=== PATIENT | female | born 1935 | race Caucasian/White ===

== ENCOUNTER 2016-05-18 13:08 | Emergency (ER) | payer OTHER, MEDICARE ==
[~2016-05-18] VITALS: Ht 167.6 cm; Wt 75.0 kg
[~2016-05-18 13:08] MED LIST: AMLO-114 PO; ATEN-175 PO; CALC600T PO; CHOL100027 PO; CLC100 PO; ETAN25IN4 SC; FRRG PO; HYDR25TA5 PO; PRED-301 PO; RXC5 PO; SYN125 PO; VALS320T PO; WARF5TAB7 PO
[2016-05-18] MEDS ORDERED: HYDR25TA4 PO (13:44)
[2016-05-18] MEDS ORDERED: WARF7.5T4 PO (13:46)
[2016-05-18] MEDS ORDERED: SYN137 PO (13:46)
[2016-05-18 14:24] VITALS: Ht 167.6 cm; Wt 75.0 kg
[2016-05-18] MEDS ORDERED: ONDANSETRON INJ 2 MG/ML 2 ML VIAL IV STA (14:32)
--- NOTE | 2016-05-18 14:36 | DIAGNOSTIC IMAGING REPORT ---
LEFT SHOULDER MIN 2 VIEWS ROUTINE CLINICAL HISTORY: Left shoulder pain status post trauma. COMPARISON: Chest x-ray dated 01/28/2016 DISCUSSION: There is an acute transverse humeral neck fracture. There is 7 mm of renal displacement of the distal fragment. There are left basal airspace opacities likely atelectatic. IMPRESSION: Acute humeral neck fracture. Electronically signed by: Sheng Kang M.D. 05/18/2016 2:34 PM Dictated Date/Time: 05/18/2016 2:33 PM
[2016-05-18] MEDS: HYDROmorphone INJ 0.5 MG/0.5 ML SYR IV PRN ×2 (14:43→15:24)
[2016-05-18 14:55] LABS: BASO % 0.2 %; BASO ABS # 0.02 K/uL (0-0.2); COMPLETE YES; EOS % 1.1 %; IG% 0.4 %; LYMPH % 14.8 %; LYMPH ABS # 1.36 K/uL (1.2-3.4); MEAN CELL VOLUME 85.1 fL (80-100); MEAN CORPUSCULAR HEMOGLOBIN 28.9 pg (25-34); MEAN PLATELET VOLUME 9.1 fL (7.4-10.4); MONO % 7.5 %; PLATELET COUNT 151 K/uL (130-400); WHITE BLOOD COUNT 9.17 K/uL (4.8-10.8)
[2016-05-18 14:59] LABS: INR 2.5 (0.9-1.1); PARTIAL THROMBOPLASTIN RATIO 1.3; PROTHROMBIN TIME (PATIENT) 27.4 SECONDS (9.0-12.0)
--- NOTE | 2016-05-18 15:01 | DIAGNOSTIC IMAGING REPORT ---
CHEST ONE VIEW PORTABLE CLINICAL HISTORY: fall. Left shoulder pain, left rib pain pain COMPARISON STUDY: 01/28/2016 FINDINGS: Fracture left humeral neck. Mild cardiomegaly. Platelike atelectasis both lung bases. Lungs otherwise appear clear. IMPRESSION: Fracture proximal left humerus. Minimal basilar platelike atelectasis. Electronically signed by: Les Rivera M.D. 05/18/2016 3:00 PM Dictated Date/Time: 05/18/2016 2:58 PM
[2016-05-18 15:08] LABS: BUN/CREATININE RATIO 22.8 (10-20); CALCIUM 8.8 mg/dl (8.5-10.1); CREATININE 0.86 mg/dl (0.60-1.20); POTASSIUM 3.7 mmol/L (3.5-5.1)
[2016-05-18 15:17] VITALS: O2SAT 96
--- NOTE | 2016-05-18 16:19 | EMERGENCY ROOM VISIT NOTE ---
History Report prepared by Ese: Josefa Christian Under the Supervision of: Dr. Nacho Hui M.D. First contact with patient: 14:12 Chief Complaint: FALL Stated Complaint: shoulder pain History of Present Illness The patient is an 80 year old female who presents to the Emergency Room with complaints of a sudden fall that occurred just prior to arrival. She currently rates her discomfort as a 6-7/10 in severity. The patient notes that she tripped and fell on carpet onto her left shoulder. She states that she has been experiencing left shoulder pain since the fall. The patient denies hitting her head, but states that she is on blood thinners. She states that her last INR level was checked one month ago. Nursing staff reports that the patient received 15 of Morphine and 4 of Zofran prior to arrival. Pt denies LOC , headache, visual changes, neck pain, chest pain, breathing difficulties, nausea, vomiting, abdominal pain, back pain, numbness, weakness, open wounds, active bleeding, or other complaints. Source of History: patient, nursing staff Onset: prior to arrival Position: other (global) Symptom Intensity: 6-7/10 Quality: other (fall) Timing: other (sudden) Note: Associated Symptoms: left shoulder pain. Review of Systems See HPI for pertinent positives and negatives. A total of ten systems were reviewed and were otherwise negative. Past Medical & Surgical Medical Problems: (1) Arthritis (2) Humerus fracture (3) Hypertension (4) Hypothyroidism (5) Osteoporosis (6) Paroxysmal atrial fibrillation (7) Rheumatoid arthritis (8) Shoulder fracture, right (9) TIA (transient ischemic attack) Surgical Problems: (1) H/O colonoscopy (2) H/O foot surgery (3) H/O neck surgery (4) H/O vaginal hysterectomy (5) H/O: hysterectomy (6) History of esophagogastroduodenoscopy (EGD) (7) S/P cholecystectomy (8) S/P cholecystectomy Family History Non-contributory secondary to age Social History Smoking Status: Never Smoker Marital Status: Occupation Status: retired Current/Historical Medications Scheduled Amlodipine (Norvasc), 5 MG PO DAILY Atenolol (Tenormin), 100 MG PO DAILY Calcium Carbonate (Calcium 600), 600 MG PO DAILY Cholecalciferol (Vitamin D 1000 Unit), 1,000 INTER.UNIT PO DAILY Etanercept (Enbrel), 25 MG SC 2XWK Ferrous Gluconate (Ferrous Gluconate), 324 MG PO BIDM Hydrochlorothiazide (Hctz), 25 MG PO 3XWK Levothyroxine Sodium (Levothyroxine Sodium), 137 MCG PO QPM Prednisone (Prednisone), 5 MG PO DAILY Valsartan (Diovan), 320 MG PO DAILY Warfarin Sod (Jantoven), 5 MG PO DIRECTED Warfarin Sod (Jantoven), 7.5 MG PO MWF Scheduled PRN Oxycodone HCl (Oxycodone HCl), 5 MG PO Q6HWA PRN for Pain Oxycodone Ir (Roxicodone Ir), 1-2 TAB PO Q4H PRN for Severe Pain Allergies Coded Allergies: Cephalexin (Verified Allergy, Unknown, RASH, 05/18/16) Uncoded Allergies: HAIR DYE (Allergy, Unknown, RASH, 01/28/15) Physical Exam Vital Signs Date Time Temp Pulse Resp B/P Pulse Ox O2 Delivery O2 Flow Rate FiO2 05/18/16 17:30 36.9 68 18 143/80 94 05/18/16 16:53 68 94 05/18/16 16:48 73 95 05/18/16 16:43 71 95 05/18/16 16:38 72 94 05/18/16 15:38 71 18 91 05/18/16 15:17 96 Nasal Cannula 2.0 05/18/16 15:08 70 25 88 05/18/16 14:57 143/80 05/18/16 14:57 69 18 143/80 96 Room Air 05/18/16 14:38 71 12 05/18/16 14:24 95 Room Air 05/18/16 14:08 70 16 95 05/18/16 13:58 150/81 05/18/16 13:57 69 18 150/81 05/18/16 13:38 69 22 96 05/18/16 13:23 72 05/18/16 13:20 36.9 70 18 163/105 95 Room Air 05/18/16 13:12 163/105 Pain Rating (0-10): 6.0 Physical Exam GENERAL: Awake, alert, uncomfortable-appearing, in no distress HENT: Normocephalic, atraumatic. Oropharynx unremarkable. EYES: Normal conjunctiva. Sclera non-icteric. NECK: Supple. No nuchal rigidity. FROM. No JVD. RESPIRATORY: Clear to auscultation. CARDIAC: Regular rate, normal rhythm. Extremities warm and well perfused. Pulses equal. ABDOMEN: Soft, non-distended. No tenderness to palpation. No rebound or guarding. No masses. RECTAL: Deferred. MUSCULOSKELETAL: Mild left breast tenderness. Left shoulder is immobilized. Tenderness over left shoulder. Left arm is NVI. Right arm and both legs are atraumatic. The back is symmetrical on inspection without obvious abnormality. There is no CVA tenderness to palpation. No joint edema. LOWER EXTREMITIES: Calves are equal size bilaterally and non-tender. No edema. No discoloration. NEURO: Normal sensorium. No sensory or motor deficits noted. SKIN: No rash or jaundice noted. Medical Decision & Procedures ER Provider Diagnostic Interpretation: X-ray: Per my interpretation, radiologist review. LEFT SHOULDER MIN 2 VIEWS ROUTINE CLINICAL HISTORY: Left shoulder pain status post trauma. COMPARISON: Chest x-ray dated 01/28/2016 DISCUSSION: There is an acute transverse humeral neck fracture. There is 7 mm of renal displacement of the distal fragment. There are left basal airspace opacities likely atelectatic. IMPRESSION: Acute humeral neck fracture. Electronically signed by: Sheng Kang M.D. 05/18/2016 2:34 PM Dictated Date/Time: 05/18/2016 2:33 PM CHEST ONE VIEW PORTABLE CLINICAL HISTORY: fall. Left shoulder pain, left rib pain pain COMPARISON STUDY: 01/28/2016 FINDINGS: Fracture left humeral neck. Mild cardiomegaly. Platelike atelectasis both lung bases. Lungs otherwise appear clear. IMPRESSION: Fracture proximal left humerus. Minimal basilar platelike atelectasis. Electronically signed by: Les Rivera M.D. 05/18/2016 3:00 PM Dictated Date/Time: 05/18/2016 2:58 PM Laboratory Results 05/18/16 14:40 Red Blood Count 4.70, Mean Corpuscular Volume 85.1, Mean Corpuscular Hemoglobin 28.9, Mean Corpuscular Hemoglobin Concent 34.0, Mean Platelet Volume 9.1, Neutrophils (%) (Auto) 76.0, Lymphocytes (%) (Auto) 14.8, Monocytes (%) (Auto) 7.5, Eosinophils (%) (Auto) 1.1, Basophils (%) (Auto) 0.2, Neutrophils # (Auto) 6.96, Lymphocytes # (Auto) 1.36, Monocytes # (Auto) 0.69, Eosinophils # (Auto) 0.10, Basophils # (Auto) 0.02 05/18/16 14:40 Test 05/18/16 14:40 White Blood Count 9.17 K/uL (4.8-10.8) Red Blood Count 4.70 M/uL (4.2-5.4) Hemoglobin 13.6 g/dL (12.0-16.0) Hematocrit 40.0 % (37-47) Mean Corpuscular Volume 85.1 fL (80-100) Mean Corpuscular Hemoglobin 28.9 pg (25-34) Mean Corpuscular Hemoglobin Concent 34.0 g/dl (32-36) Platelet Count 151 K/uL (130-400) Mean Platelet Volume 9.1 fL (7.4-10.4) Neutrophils (%) (Auto) 76.0 % Lymphocytes (%) (Auto) 14.8 % Monocytes (%) (Auto) 7.5 % Eosinophils (%) (Auto) 1.1 % Basophils (%) (Auto) 0.2 % Neutrophils # (Auto) 6.96 K/uL (1.4-6.5) Lymphocytes # (Auto) 1.36 K/uL (1.2-3.4) Monocytes # (Auto) 0.69 K/uL (0.11-0.59) Eosinophils # (Auto) 0.10 K/uL (0-0.5) Basophils # (Auto) 0.02 K/uL (0-0.2) RDW Standard Deviation 45.5 fL (36.4-46.3) RDW Coefficient of Variation 14.6 % (11.5-14.5) Immature Granulocyte % (Auto) 0.4 % Immature Granulocyte # (Auto) 0.04 K/uL (0.00-0.02) Prothrombin Time 27.4 SECONDS (9.0-12.0) Prothromb Time International Ratio 2.5 (0.9-1.1) Activated Partial Thromboplast Time 34.4 SECONDS (21.0-31.0) Partial Thromboplastin Ratio 1.3 Anion Gap 10.0 mmol/L (3-11) Est Creatinine Clear Calc Drug Dose 52.2 ml/min Estimated GFR () 72.9 Estimated GFR (Non- 62.9 BUN/Creatinine Ratio 22.8 (10-20) Calcium Level 8.8 mg/dl (8.5-10.1) Total Bilirubin 0.5 mg/dl (0.2-1) Direct Bilirubin 0.1 mg/dl (0-0.2) Aspartate Amino Transf (AST/SGOT) 28 U/L (15-37) Alanine Aminotransferase (ALT/SGPT) 27 U/L (12-78) Alkaline Phosphatase 76 U/L (45-117) Total Protein 7.7 gm/dl (6.4-8.2) Albumin 3.1 gm/dl (3.4-5.0) Laboratory results reviewed by me Medications Administered Medications (Trade) Dose Ordered Sig/Fransisca Route Start Time Stop Time Status Last Admin Dose Admin Hydromorphone HCl (Dilaudid Inj) 0.5 mg Q15M PRN IV 05/18/16 14:45 05/18/16 18:49 DC 05/18/16 15:24 0.5 MG Ondansetron HCl (Zofran Inj) 4 mg NOW STAT IV 05/18/16 14:32 05/18/16 14:34 DC 05/18/16 14:42 4 MG Oxycodone HCl (Roxicodone Immediate Rel 5MG Home Pack) 1 homepack UD ONCE PO 05/18/16 17:30 05/18/16 17:31 DC 05/18/16 17:46 1 HOMEPACK ED Course 1423: The patient was evaluated in room B4B. A complete history and physical exam was performed. 1432: Ordered Zofran Inj 4 mg IV. 1440: I reevaluated the patient and confirmed that she follows with [facility]. 1445: Ordered Dilaudid Inj 0.5 mg IV. 1559: The patient is going to be referred to [facility], due to her baseline difficulties with her right arm and new injury to her left arm. 1707: I reevaluated the patient and she is resting comfortably. I discussed all the exam findings with her and I discussed the treatment plan. She will follow up with Orthopedics and [facility] tomorrow. She is ready to go home. 1715: I discussed the patients case with Dr. Schaeffer, Orthopedics. He will follow up with the patient as an outpatient. Medical Decision Prior records reviewed and summarized above. Triage Nursing notes reviewed and agree them. Additional history obtained from her daughter. The patient's history was concerning for traumatic injury. Differential diagnosis: Etiologies such as fracture, dislocation, neurovascular compromise, compartment syndrome, soft tissue injury, as well as others were entertained. Physical examination: Consistent with an isolated left shoulder injury. ER treatment provided: Dilaudid Zofran Sling On reassessment the patient felt better. Diagnostics interpreted by me: The labs revealed an unremarkable CBC, coags, and chemistry panel. The patient has a therapeutic INR. Imaging studies: Xrays as above. The patient was evaluated. I had concerns about her ability to ambulate safely and she has a chronic problem with her right arm and is now dealing with an acute fracture in the left arm. She uses a walker at home. The patient initially would like consultation with [facility]. This was done. They did evaluate the patient for possible admission. The patient then changed her mind and wanted to go home. Her daughter felt very comfortable taking her home at their house is only one level and is set up for this. I had a long discussion with him as it case management. [facility] is planning to follow up with the patient tomorrow. She will follow-up with orthopedics as well. She has a pending appointment this week. My main recommendation was for the patient to go to rehabilitation however she strongly felt that she would like to go home.I gave my usual and customary discussion regarding this issue. Consultation: A consultation was placed with the orthopedist, Dr. schaeffer. The case was discussed and diagnostics were reviewed. The patient will be followed up in the clinic. By the evaluation outlined above emergent etiologies such as intracranial injury , dislocation, neurovascular compromise, compartment syndrome, infections, as well as others were deemed relatively unlikely. The patient and daughter were informed about the findings as listed above. All questions were answered and they were pleased with the treatment. Return instructions were outlined and the patient was discharged in stable condition. Prescription management: Oxy IR Referral: The patient was referred to [facility] for follow-up care. The patient was referred to their primary care physician in 2 to 3 days for a recheck of your current condition. The chart was completed utilizing [employer] Speech voice recognition software. Grammatical errors, random word insertions, pronoun errors, and incomplete sentences are an occasional consequence of this system due to software limitations, ambient noise, and hardware issues. Any formal questions or concerns about the content, text, or information contained within the body of this dictation should be directly addressed to the physician for clarification. [place] Drug Monitoring Program Search Results: patient reviewed within database, no issues identified Consults Time Called: 1700 Consulting Physician: Dr. Schaeffer, Orthopedics Returned Call: 1715 I discussed the patients case with Dr. Schaeffer, Orthopedics. He will follow up with the patient as an outpatient. Impression Primary Impression: Left humeral fracture Additional Impression: Accidental fall Scribe Attestation The scribe's documentation has been prepared under my direction and personally reviewed by me in its entirety. I confirm that the note above accurately reflects all work, treatment, procedures, and medical decision making performed by me. Departure Information Dispostion Home / Self-Care Prescriptions Oxycodone Ir (Roxicodone Ir) 5 Mg Tab 1-2 TAB PO Q4H Y for Severe Pain, #24 TAB Prov: Nacho Hui MD 05/18/16 Referrals Roman Bahena M.D. (PCP) Forms HOME CARE DOCUMENTATION FORM, IMPORTANT VISIT INFORMATION Patient Instructions My [facility] Additional Instructions ORTHOPEDIC INSTRUCTIONS: DO NOT drive, drink alcohol, operate machinery, or perform dangerous activities today. You were given medications in the ER that can affect your ability to safely function or operate a vehicle. Oxycodone (OxyIR) 5mg: Take 1-2 pills every four hours for breakthrough pain. Avoid alcohol, operating machinery or dangerous equipment, working on ladders or roofs, DRIVING, or situations where being under the influence may be dangerous. It is recommended to use an [id number] stool softener such as Colace, 100mg twice daily while taking this medication to avoid constipation. Acetaminophen(Tylenol) may be used for fever or pain. Use 1000mg every six hours as needed. Avoid using more than 4000mg in a 24 hour period. Ice compresses for 20 minutes at a time four times daily for 2-3 days. Use the sling as instructed. Rest and elevate your injury. Do not get the splint wet. If your splint feels excessively tight, you have worsening pain, develop numbness or tingling, or your digits appear blue, loosen the nigel wrap. Then reapply the nigel wrap gently without removing the splint. If your symptoms are not quickly relieved return to the ER for re- evaluation. Return to the ER immediately for any numbness, tingling, severe pain, extreme swelling in the extremity or as needed. Call [facility], [phone], to arrange follow up for your injury. Follow-up with your primary care physician in 2 to 3 days for a recheck of your current condition. Problem Qualifiers
[2016-05-18] MEDS ORDERED: OXYC1TAB3 PO (17:16)
[2016-05-18 17:30] VITALS: BP 143/80; PULSE 68; TEMP 36.9; O2SAT 94
[2016-05-18] MEDS ORDERED: OXYCODONE IR HOME PACK PO ONE (17:30)
== END 2016-05-18 17:30 | disposition home or self-care (01) ==
LOC: EDBD 13:08 → C.EDB 13:11
DX: S42.292A Other displaced fracture of upper end of left humerus, initial encounter for closed fracture (principal); W18.09XA Striking against other object with subsequent fall, initial encounter; M19.90 Unspecified osteoarthritis, unspecified site; I10 Essential (primary) hypertension; M81.0 Age-related osteoporosis without current pathological fracture; I48.0 Paroxysmal atrial fibrillation; E03.9 Hypothyroidism, unspecified; M06.9 Rheumatoid arthritis, unspecified; Z86.73 Personal history of transient ischemic attack (TIA), and cerebral infarction without residual deficits; Z90.710 Acquired absence of both cervix and uterus; Z90.49 Acquired absence of other specified parts of digestive tract; Z98.890 Other specified postprocedural states; Z79.01 Long term (current) use of anticoagulants; Z79.52 Long term (current) use of systemic steroids; Z79.899 Other long term (current) drug therapy

== ENCOUNTER → 2016-05-20 | Outpatient (CLI) | payer MEDICARE, OTHER ==
[~2016-05-20] MED LIST changes: -CLC100 PO; +HYDR25TA4 PO; -HYDR25TA5 PO; +OPTIRAY 320 IV PRN; +OXYC1TAB3 PO; -SYN125 PO; +SYN137 PO; +WARF7.5T4 PO
--- NOTE | 2016-05-20 15:56 | DIAGNOSTIC IMAGING REPORT ---
CHEST CTA for PULMONARY ARTERIES CT DOSE: 521.55 mGy.cm HISTORY: Dyspnea. Chest pain. SPIRAL CT TO R/O PE TECHNIQUE: Multiaxial CT images of the chest were performed following the intravenous administration of contrast to evaluate the pulmonary arteries. Maximal intensity projection images were also obtained. COMPARISON STUDY: 01/28/2015 FINDINGS: Moderate atherosclerotic change thoracic aorta. Pulmonary vasculature enhances uniformly. There are no significant filling defects. Mild bibasilar atelectatic and/or infiltrative change. Baseline emphysematous changes noted. Cirrhotic appearing liver is again noted with evidence for developing portal hypertension similar compared to the prior study. IMPRESSION: 1. No evidence for pulmonary embolus 2. Bibasilar infiltrative and/or atelectatic change progressive compared to the prior study and possibly inflammatory. 3. Hepatic cirrhosis with chronic findings of portal hypertension. 4. Stable emphysematous change Electronically signed by: Les Rivera M.D. 05/20/2016 3:54 PM Dictated Date/Time: 05/20/2016 3:51 PM
== END | disposition home or self-care (01) ==
LOC: C.CTS 15:15
PROVIDERS: ATTEND Internal Medicine
DX: R91.8 Other nonspecific abnormal finding of lung field (principal); K74.60 Unspecified cirrhosis of liver

== ENCOUNTER 2017-02-27 03:18 | Emergency (ER) | payer OTHER, MEDICARE ==
[~2017-02-27] VITALS: Ht 165.1 cm; Wt 73.7 kg
[~2017-02-27 03:18] MED LIST changes: -AMLO-114 PO; +AMLO10TA3 PO; -OPTIRAY 320 IV PRN; -OXYC1TAB3 PO
[2017-02-27 03:22] VITALS: TEMP 36.6; Ht 165.1 cm; Wt 73.7 kg
--- NOTE | 2017-02-27 03:52 | EMERGENCY ROOM VISIT NOTE ---
ED Visit Note First contact with patient: 03:27 CHIEF COMPLAINT: Animal bite HISTORY OF PRESENT ILLNESS: This 81-year-old patient presents to the emergency department with family after they sustained her dog accidentally bite to the right forearm. The patient states she was playing with the dog and accidentally bit her. The patient reports that the animal's immunizations are up-to-date. The patient complains of mild 2/10 pain at the site of the injury. Pain is worse with movement. Tetanus status is up to date. REVIEW OF SYSTEMS: A 6 system review of systems was completed with positives and pertinent negatives listed in the HPI. ALLERGIES: Keflex, reaction is a rash MEDICATIONS: Coumadin, reviewed PMH: Medical Problems: (1) Arthritis Status: Chronic (2) Hypertension Status: Chronic (3) Hypothyroidism Status: Chronic (4) Osteoporosis Status: Chronic (5) Paroxysmal atrial fibrillation Status: Chronic (6) Rheumatoid arthritis Status: Chronic (7) TIA (transient ischemic attack) Status: Resolved Surgical Problems: (1) H/O colonoscopy Status: Chronic (2) H/O foot surgery Status: Chronic (3) H/O neck surgery Status: Chronic (4) H/O vaginal hysterectomy Status: Chronic (5) H/O: hysterectomy Status: Resolved (6) History of esophagogastroduodenoscopy (EGD) Status: Chronic (7) S/P cholecystectomy Status: Resolved (8) S/P cholecystectomy Status: Chronic PHYSICAL EXAM: Vital Signs reviewed, see Nurse's notes, vital signs hypertension. GENERAL: Pleasant female, awake, alert, well appearing, no acute distress. Non toxic in appearance. MUSCULOSKELETAL: Examination of the right forearm reveals a skin tear and abrasion type of wound. There is no swelling on inspection. Palpation of the right forearm reveals no tenderness. No significant crepitus or warmth noted. No joint space, tendon, or vascular involvement. Distal pulses intact. SKIN: No signs of infection. NEURO: No sensory or motor deficits noted over all dermatomes and myotomes tested. EMERGENCY DEPARTMENT COURSE AND DECISION MAKING: I examined the patient. The patient presented with an isolated bite wound as described as above. By the history, there is no concern for rabies exposure. No signs of infection on examination. ER Treatment: Department of Health paperwork completed. Wound care by nursing. Antibiotic prophylaxis is indicated. The area was cleansed with Betadine and sterile saline and dressed with bacitracin and a bandage. Patient was started on Augmentin and blood pressure was improved Discharge instructions reviewed. Discharged in stable condition. DIAGNOSIS: Right forearm dog bite with abrasion and skin tears DISCHARGED INSTRUCTIONS: Antibiotic ointment and bandage to the areas until healed. Follow up with family doctor or return for any signs of infection (increasing redness, swelling , drainage, or fever). Keep covered when in sun until fully healed then SPF 50 or higher until scar healed. Monitor your blood pressure. It was high today. Monitor your Coumadin level as you are on antibiotics. Amoxicillin Clavulanate (Augmentin) 875mg: Take one pill twice daily for 10 days for your infection. All antibiotics can cause diarrhea. If this occurs and you feel worse or it does not resolve in 1-2 days follow up with your doctor or return to the Emergency Department as this could be signs of serious underlying problems. Any medication can cause an allergic reaction, stop the pills immediately and return to the ER for rash, hives, breathing difficulties, or swelling. Acetaminophen(Tylenol) may be used for fever or pain. Use 1000mg every six hours as needed. Avoid using more than 3000mg in a 24 hour period. Rest and drink plenty of fluids. Continue current medications. Return to the ER for severe pain, fevers, spreading redness, or any worsening of your condition. Follow up with your primary physician within 2-3 days for a recheck of the current condition. Problem List Medical Problems: (1) Arthritis Status: Chronic (2) Hypertension Status: Chronic (3) Hypothyroidism Status: Chronic (4) Osteoporosis Status: Chronic (5) Paroxysmal atrial fibrillation Status: Chronic (6) Rheumatoid arthritis Status: Chronic (7) TIA (transient ischemic attack) Status: Resolved Surgical Problems: (1) H/O colonoscopy Status: Chronic (2) H/O foot surgery Status: Chronic (3) H/O neck surgery Status: Chronic (4) H/O vaginal hysterectomy Status: Chronic (5) H/O: hysterectomy Status: Resolved (6) History of esophagogastroduodenoscopy (EGD) Status: Chronic (7) S/P cholecystectomy Status: Resolved (8) S/P cholecystectomy Status: Chronic Current/Historical Medications Scheduled Amlodipine (Norvasc), 5 MG PO DAILY Atenolol (Tenormin), 100 MG PO DAILY Calcium Carbonate (Calcium 600), 600 MG PO DAILY Cholecalciferol (Vitamin D 1000 Unit), 1,000 INTER.UNIT PO DAILY Etanercept (Enbrel), 25 MG SC 2XWK Ferrous Gluconate (Ferrous Gluconate), 324 MG PO BIDM Hydrochlorothiazide (Hctz), 25 MG PO 3XWK Levothyroxine Sodium (Levothyroxine Sodium), 137 MCG PO QPM Prednisone (Prednisone), 5 MG PO DAILY Valsartan (Diovan), 320 MG PO DAILY Warfarin Sod (Jantoven), 5 MG PO DIRECTED Warfarin Sod (Jantoven), 7.5 MG PO MWF Scheduled PRN Oxycodone HCl (Oxycodone HCl), 5 MG PO Q6HWA PRN for Pain Allergies Coded Allergies: Cephalexin (Verified Allergy, Unknown, RASH, 05/18/16) Uncoded Allergies: HAIR DYE (Allergy, Unknown, RASH, 01/28/15) Vital Signs Date Time Temp Pulse Resp B/P (MAP) Pulse Ox O2 Delivery O2 Flow Rate FiO2 02/27/17 03:22 36.6 78 18 199/96 97 Room Air Departure Information Referrals Roman Bahena M.D. (PCP) Patient Instructions My [facility]
[2017-02-27] MEDS ORDERED: AMOX875T PO (03:53)
[2017-02-27] MEDS ORDERED: AMOXICIL/CLAVU 875MG HOME PACK PO ONE ×2 (04:00→15:03)
[2017-02-27 04:01] VITALS: BP 181/89; PULSE 70; O2SAT 97
--- NOTE | 2017-02-27 04:12 | EMERGENCY ROOM VISIT NOTE ---
ED Visit Note First contact with patient: 03:27 Patient seen and examined following discussion with the physician assistant vice president. Dressing in place and bleeding controlled. Again encouraged patient to follow- up with family doctor as an outpatient, continue routine medications, discussed antibiotics. She verbalized understanding was agreeable with plan.
== END 2017-02-27 04:13 | disposition home or self-care (01) ==
LOC: C.EDB 03:19
DX: S51.851A Open bite of right forearm, initial encounter (principal); W54.0XXA Bitten by dog, initial encounter; I10 Essential (primary) hypertension; E03.9 Hypothyroidism, unspecified; M81.0 Age-related osteoporosis without current pathological fracture; I48.0 Paroxysmal atrial fibrillation; M06.9 Rheumatoid arthritis, unspecified; Z79.01 Long term (current) use of anticoagulants; Z79.52 Long term (current) use of systemic steroids

== ENCOUNTER 2020-12-12 16:41 | Inpatient (IN) ==
--- NOTE | 2020-12-12 17:01 | Emergency Department Note ---
History of Present Illness General Chief complaint: Hip Pain Stated complaint: Fall hit head left hip injury Time Seen by Provider: 12/12/20 16:48 Source: patient History of Present Illness Provider complaint: Left hip pain Onset (ago): hour(s) Location: hip and left Severity: severe Pain Consistency: + constant Quality: + sharp Relieved By: + medication (Fentanyl) Exacerbated By: + movement Associated symptoms: no chest pain, no cough, no fever/chills, no headaches, no nausea/vomiting, no shortness of breath or no syncope This is an 85-year-old female who presents with left hip pain after a fall. She states she was walking and lost her balance and fell onto her left hip. She complains of sharp pain to the left hip. It is worse with movement. It is better with fentanyl which she was given in the ambulance. She does state that she hit her head on the floor as well as a chair but denies any headache. She states she is not on any blood thinners and her warfarin was discontinued sometime ago. She last ate at approximately 10 AM this morning and only had a sweet bone. She denies any recent illness, fever, chest pain, shortness of breath, cough or cold symptoms, abdominal pain, nausea, vomiting, diarrhea, urinary symptoms or syncope. She has seen [facility] in the past for orthopedic issues. Home Medications Medication Instructions Recorded Confirmed Type atenolol 100 mg tablet 100 mg PO DAILY 01/28/18 12/12/20 History calcium carbonate 600 mg calcium 600 mg PO DAILY 01/28/18 12/12/20 History (1,500 mg) tablet (Calcium) cholecalciferol (vitamin D3) 25 1,000 unit PO DAILY 01/28/18 12/12/20 History mcg (1,000 unit) capsule (Vitamin D3) etanercept 25 mg SUBCUT 2XWK 01/28/18 12/12/20 History levothyroxine 137 mcg tablet 137 mcg PO DAILY 01/28/18 12/12/20 History losartan 100 mg tablet 100 mg PO DAILY 01/28/18 12/12/20 History alendronate 70 mg tablet 70 mg PO WK 12/12/20 12/12/20 History amlodipine 10 mg tablet 10 mg PO DAILY 12/12/20 12/12/20 History aspirin 81 mg tablet,delayed 81 mg PO DAILY 12/12/20 12/12/20 History release prednisone 5 mg tablet 5 mg PO DAILY 12/12/20 12/12/20 History sertraline 25 mg tablet 25 mg PO DAILY 12/12/20 12/12/20 History Allergies Allergy/AdvReac Type Severity Reaction Status Date / Time cephalexin Allergy Unknown RASH Verified 12/12/20 19:35 HAIR DYE Allergy Unknown RASH Uncoded 12/12/20 19:35 Past Med/Surg History Medical History (Updated 12/12/20 @ 20:33 by Teresa Rose PA-C) Anxiety Arthritis CKD (chronic kidney disease), stage III Hypertension Hypothyroidism Osteoporosis Paroxysmal atrial fibrillation Prediabetes Rheumatoid arthritis TIA (transient ischemic attack) (01/14/13) Surgical History H/O colonoscopy H/O foot surgery H/O neck surgery H/O vaginal hysterectomy H/O: hysterectomy History of esophagogastroduodenoscopy (EGD) S/P cholecystectomy S/P cholecystectomy Family History (Updated 12/12/20 @ 20:28 by Teresa Rose PA-C) Other Breast cancer Coronary heart disease Diabetes Social History (Updated 12/12/20 @ 20:28 by Teresa Rose PA-C) Smoking Status: Never smoker Hx Alcohol Use: No Hx Substance Use: No Preferred Language: Slovak Feels Safe at Home: Yes Review of Systems See HPI for pertinent positives & negatives. and A total of 10 systems reviewed and were otherwise negative Physical Exam Vital Signs Vital Signs - 24 hr 12/12/20 16:45 12/12/20 20:30 Temperature 36.8 C Temperature Source Oral Pulse Rate 75 Pulse Rate [Apical] 81 Pulse Rhythm Regular Pulse Strength Normal Respiratory Rate 18 20 Respiratory Effort / Characteristics Non-Labored Spontaneous Respiratory Depth Normal Respiratory Pattern Regular Blood Pressure 149/86 H Blood Pressure [Right Arm] 151/74 H Blood Pressure Mean 107 Blood Pressure Mean [Right Arm] 99 Blood Pressure Position Lying Pulse Oximetry 92 99 Oxygen Delivery Method Room Air Room Air Sepsis Recent Fever Within 48 Hours No Sepsis New/Unexplained Change in Mental Status N/A Sepsis Action Taken by Nursing No Action Required Constitutional: Vital signs reviewed. Eyes: Pupils are equal round reactive to light. Conjunctiva are noninjected. ENT: Pharynx is clear without erythema or exudate. Mucous membranes are moist. Neck supple without meningeal signs. Respiratory: Clear to auscultation bilaterally. Breath sounds are equal bilaterally. Cardiovascular: Regular rate and rhythm. No rubs or gallops. GI: Soft, nondistended and nontender. Bowel sounds are present. Musculoskeletal: No peripheral edema. Tenderness to the left hip. There is shortening and external rotation of the left leg. Distal pulses intact and 2+. No tenderness to the left knee or ankle. Integumentary: No cyanosis. or jaundice. Neurologic: The patient is awake and alert. Cranial nerves II-XII are intact. Motor is 5 out of 5 all extremities, although unable to assess the left leg approximately due to hip fracture. Sensation is intact to light touch all extremities. Normal speech. Psychiatric: Normal affect. Not anxious appearing. Course Consultations Consultation #1: Dr. Rendon Time: 17:27 Administered Medications Sodium Chloride (Nss) 500 mls @ 80 mls/hr IV .[id number] JAIRO Stop: 01/11/21 16:59 Last Admin: 12/12/20 20:28 Dose: 80 mls/hr Documented by: [id number] Discontinued Medications Fentanyl Citrate (Fentanyl Citrate 100 Mcg/2 Ml Vial) 50 mcg IV NOW STA Stop: 12/12/20 20:43 Last Admin: 12/12/20 20:58 Dose: 50 mcg Documented by: [id number] Hydromorphone HCl (Hydromorphone Inj 0.5 Mg/0.5 Ml Syr) 0.5 mg IV NOW STA Stop: 12/12/20 18:37 Last Admin: 12/12/20 18:39 Dose: 0.5 mg Documented by: [id number] Medical Decision Making Differential Diagnosis Left hip fracture, hip dislocation, contusion, intracranial hemorrhage, concussion Medical Records Attestation: I reviewed the patient's medical records. I did perform a limited focused review of portions of the patient's old chart on the electronic medical record. The patient has had no recent pertinent visits to this hospital. Laboratory Data Attestation: I reviewed the patient's lab results. Result diagrams: 12/12/20 17:06 12/12/20 17:06 Lab Results 12/12/20 12/12/20 12/12/20 Range/Units 17:03 17:03 17:06 WBC (4.8-10.8) K/uL RBC (4.2-5.4) M/uL Hgb (12.0-16.0) g/dL Hct (37-47) % MCV (80-100) fL MCH (25-34) pg MCHC (32-36) g/dL RDW Std Deviation (36.4-46.3) fL RDW Coeff of Blanche (11.5-14.5) % Plt Count (130-400) K/uL MPV (7.4-10.4) fL Immature Gran % (Auto) % Neut % (Auto) % Lymph % (Auto) % [place] % (Auto) % Eos % (Auto) % Baso % (Auto) % Neut # (Auto) (1.4-6.5) K/uL Lymph # (Auto) (1.2-3.4) K/uL [place]ahan # (Auto) (0.11-0.59) K/uL Eos # (Auto) (0-0.5) K/uL Baso # (Auto) (0-0.2) K/uL Immature Gran # (Auto) (0.00-0.02) K/uL PT (9.0-12.0) Seconds INR (0.9-1.1) APTT (21.0-31.0) Seconds PTT Ratio Sodium (136-145) mmol/L Potassium (3.5-5.1) mmol/L Chloride (98-107) mmol/L Carbon Dioxide (21-32) mmol/L Anion Gap (3-11) BUN (7-18) mg/dl Creatinine (0.6-1.2) mg/dl Est Cr Clr Drug Dosing ml/min Est GFR ( Amer) ml/min Est GFR (Non-Af Amer) ml/min BUN/Creatinine Ratio (10-20) Glucose (70-99) mg/dl Calcium (8.5-10.1) mg/dl Total Bilirubin (0.2-1) mg/dl AST (15-37) U/L ALT (12-78) U/L Alkaline Phosphatase (45-117) U/L Total Protein (6.4-8.2) gm/dl Albumin (3.4-5.0) gm/dl Globulin (2.5-4.0) gm/dl Albumin/Globulin Ratio (0.9-2) Urine Color Urine Appearance (Clear) Urine pH (4.5-7.5) Ur Specific [place] (1.000-1.030) Urine Protein (Negative) Urine Glucose (UA) (Negative) Urine Ketones (Negative) Urine Blood (Negative) Urine Nitrite (Negative) Urine Bilirubin (Negative) Urine Urobilinogen (Negative) Ur Leukocyte Esterase (Negative) Urine WBC (Auto) (0-5) /hpf Urine RBC (Auto) (0-4) /hpf U Hyaline Cast (Auto) (0-5) /lpf U Epithel Cells (Auto) (0-5) /lpf Urine Bacteria (Auto) (Negative) COVID-19 Eval Order Covid19 at [facility] SARS-CoV-2 (PCR) NEGATIVE (Negative) Blood Type O Positive Antibody Screen NEGATIVE 12/12/20 12/12/20 12/12/20 Range/Units 17:06 17:06 17:06 WBC 9.01 (4.8-10.8) K/uL RBC 4.67 (4.2-5.4) M/uL Hgb 13.0 (12.0-16.0) g/dL Hct 40.1 (37-47) % MCV 85.9 (80-100) fL MCH 27.8 (25-34) pg MCHC 32.4 (32-36) g/dL RDW Std Deviation 43.9 (36.4-46.3) fL RDW Coeff of Blanche 14.0 (11.5-14.5) % Plt Count 162 (130-400) K/uL MPV 9.0 (7.4-10.4) fL Immature Gran % (Auto) 0.3 % Neut % (Auto) 79.1 % Lymph % (Auto) 11.5 % Callahan % (Auto) 7.2 % Eos % (Auto) 1.8 % Baso % (Auto) 0.1 % Neut # (Auto) 7.12 H (1.4-6.5) K/uL Lymph # (Auto) 1.04 L (1.2-3.4) K/uL Callahan # (Auto) 0.65 H (0.11-0.59) K/uL Eos # (Auto) 0.16 (0-0.5) K/uL Baso # (Auto) 0.01 (0-0.2) K/uL Immature Gran # (Auto) 0.03 H (0.00-0.02) K/uL PT 10.9 (9.0-12.0) Seconds INR 1.1 (0.9-1.1) APTT 26.2 (21.0-31.0) Seconds PTT Ratio 1.0 Sodium 137 (136-145) mmol/L Potassium 4.1 (3.5-5.1) mmol/L Chloride 107 (98-107) mmol/L Carbon Dioxide 23 (21-32) mmol/L Anion Gap 7.0 (3-11) BUN 16 (7-18) mg/dl Creatinine 0.81 (0.6-1.2) mg/dl Est Cr Clr Drug Dosing 47.1 ml/min Est GFR ( Amer) 75.7 ml/min Est GFR (Non-Af Amer) 65.3 ml/min BUN/Creatinine Ratio 19.9 (10-20) Glucose 149 H (70-99) mg/dl Calcium 9.1 (8.5-10.1) mg/dl Total Bilirubin 0.6 (0.2-1) mg/dl AST 30 (15-37) U/L ALT 27 (12-78) U/L Alkaline Phosphatase 75 (45-117) U/L Total Protein 7.9 (6.4-8.2) gm/dl Albumin 3.1 L (3.4-5.0) gm/dl Globulin 4.8 H (2.5-4.0) gm/dl Albumin/Globulin Ratio 0.6 L (0.9-2) Urine Color Urine Appearance (Clear) Urine pH (4.5-7.5) Ur Specific [place] (1.000-1.030) Urine Protein (Negative) Urine Glucose (UA) (Negative) Urine Ketones (Negative) Urine Blood (Negative) Urine Nitrite (Negative) Urine Bilirubin (Negative) Urine Urobilinogen (Negative) Ur Leukocyte Esterase (Negative) Urine WBC (Auto) (0-5) /hpf Urine RBC (Auto) (0-4) /hpf U Hyaline Cast (Auto) (0-5) /lpf U Epithel Cells (Auto) (0-5) /lpf Urine Bacteria (Auto) (Negative) COVID-19 Eval Order SARS-CoV-2 (PCR) (Negative) Blood Type Antibody Screen 12/12/20 Range/Units 20:27 WBC (4.8-10.8) K/uL RBC (4.2-5.4) M/uL Hgb (12.0-16.0) g/dL Hct (37-47) % MCV (80-100) fL MCH (25-34) pg MCHC (32-36) g/dL RDW Std Deviation (36.4-46.3) fL RDW Coeff of Blanche (11.5-14.5) % Plt Count (130-400) K/uL MPV (7.4-10.4) fL Immature Gran % (Auto) % Neut % (Auto) % Lymph % (Auto) % Callahan % (Auto) % Eos % (Auto) % Baso % (Auto) % Neut # (Auto) (1.4-6.5) K/uL Lymph # (Auto) (1.2-3.4) K/uL Callahan # (Auto) (0.11-0.59) K/uL Eos # (Auto) (0-0.5) K/uL Baso # (Auto) (0-0.2) K/uL Immature Gran # (Auto) (0.00-0.02) K/uL PT (9.0-12.0) Seconds INR (0.9-1.1) APTT (21.0-31.0) Seconds PTT Ratio Sodium (136-145) mmol/L Potassium (3.5-5.1) mmol/L Chloride (98-107) mmol/L Carbon Dioxide (21-32) mmol/L Anion Gap (3-11) BUN (7-18) mg/dl Creatinine (0.6-1.2) mg/dl Est Cr Clr Drug Dosing ml/min Est GFR ( Amer) ml/min Est GFR (Non-Af Amer) ml/min BUN/Creatinine Ratio (10-20) Glucose (70-99) mg/dl Calcium (8.5-10.1) mg/dl Total Bilirubin (0.2-1) mg/dl AST (15-37) U/L ALT (12-78) U/L Alkaline Phosphatase (45-117) U/L Total Protein (6.4-8.2) gm/dl Albumin (3.4-5.0) gm/dl Globulin (2.5-4.0) gm/dl Albumin/Globulin Ratio (0.9-2) Urine Color Yellow Urine Appearance Clear (Clear) Urine pH 7.5 (4.5-7.5) Ur Specific [place] 1.012 (1.000-1.030) Urine Protein Negative (Negative) Urine Glucose (UA) Negative (Negative) Urine Ketones Negative (Negative) Urine Blood Negative (Negative) Urine Nitrite Positive A (Negative) Urine Bilirubin Negative (Negative) Urine Urobilinogen Negative (Negative) Ur Leukocyte Esterase Negative (Negative) Urine WBC (Auto) 1-5 (0-5) /hpf Urine RBC (Auto) 0-4 (0-4) /hpf U Hyaline Cast (Auto) 0 (0-5) /lpf U Epithel Cells (Auto) >30 H (0-5) /lpf Urine Bacteria (Auto) 2+ H (Negative) COVID-19 Eval Order SARS-CoV-2 (PCR) (Negative) Blood Type Antibody Screen Imaging Data Radiologist's Impression: Cervical Spine CT 12/12/20 16:53 CT OF THE CERVICAL SPINE WITHOUT CONTRAST CLINICAL HISTORY: Fall. Evaluate for fracture. COMPARISON STUDY: Cervical spine CT February 23, 2019. TECHNIQUE: Helical axial images of the cervical spine were obtained without IV contrast. Sagittal and coronal reconstructions were viewed. Automated exposure control was utilized for the study. A dose lowering technique was utilized adhering to the principles of ALARA. FINDINGS: Alignment of the cervical spine is anatomic. Vertebral body heights are maintained. No acute cervical spine fracture or subluxation is present. There is no prevertebral edema. Facet joints are intact. Severe multilevel facet arthrosis is present. Degenerative changes at the C1-C2 articulation are noted with osteophytosis. Moderate to severe multilevel disc space narrowing and osteophytosis is present. Assistant Analyst image demonstrates a right shoulder arthroplasty and proximal left humeral fracture. IMPRESSION: No acute cervical spine fracture or subluxation. ACT 112: Negative or not required by law. Electronically signed by: Loc Sauceda M.D. 12/12/2020 6:[address] 12/12/20 16:53 CT OF THE HEAD WITHOUT CONTRAST CLINICAL HISTORY: Fall. Evaluate for bleed. COMPARISON STUDY: Head CT February 23, 2019. TECHNIQUE: Helical axial images of the head were obtained without IV contrast. Automated exposure control was utilized for the study. A dose lowering technique was utilized adhering to the principles of ALARA. FINDINGS: No acute intracranial hemorrhage, midline shift or mass effect is present. White matter hypodensity suggests small vessel disease. The ventricular system is unremarkable. The basal cisterns are patent. No extra-axial collections are present. There are no findings to suggest acute dural sinus thrombosis or acute territorial infarct. No significant calvarial abnormalities are present. Visualized portions of the sinuses and mastoid air cells are clear. IMPRESSION: 1. No acute intracranial findings. 2. No calvarial fracture. ACT 112: Negative or not required by law. Electronically signed by: Loc Sauceda M.D. 12/12/2020 6:35 PM Chest X-Ray 12/12/20 16:54 XR chest 1V portable CLINICAL HISTORY: hip fx COMPARISON STUDY: Chest CT January 28, 2018. Chest radiograph February 23, 2019. FINDINGS: Right shoulder arthroplasty is incidentally noted. Cardiomegaly without evidence for pulmonary edema. There is possible trace left pleural effusion. There is minimal left basilar opacity. IMPRESSION: 1. Cardiomegaly without evidence for pulmonary edema. 2. Possible trace left pleural effusion. Minimal left basilar opacity which favors atelectasis. ACT 112: Negative or not required by law. Electronically signed by: Loc Sauceda M.D. 12/12/2020 5:20 PM Hip X-Ray 12/12/20 16:54 XR hip LT min 2V CLINICAL HISTORY: Fall. COMPARISON: Pelvis radiograph January 27, 2016. FINDINGS: Note is made of an acute displaced angulated intertrochanteric fracture of the left femur. This extends to the base of the femoral neck. Right hip arthroplasty is noted on crosstable lateral radiograph. IMPRESSION: Acute displaced angulated intertrochanteric fracture of the left femur which extends to the base of the femoral neck. ACT 112: Negative or not required by law. Electronically signed by: Loc Sauceda M.D. 12/12/2020 5:19 PM ECG Data Attestation: I personally reviewed and interpreted this ECG as follows: Indication: + other (Fall) Rate (beats per minute): 74 Rhythm: + normal sinus ECG Intervals/blocks: + Right Bundle branch block ECG [place]: + Normal ECG ST segments: no ST elevation ECG Findings: no PVCs Head Trauma GCS Score: 15 MDM Narrative I did evaluate the patient as noted above. I did obtain history from the patient as well as the paramedics. She was given 200 mcg of fentanyl and Zofran IV prior to arrival. I did place an order for continuous cardiac monitoring. The monitor showed normal sinus rhythm at a rate of 75 bpm. I did order and personally review the patient's 12-lead EKG as described above. She has no acute ischemic changes. She has a right bundle branch block. I did order and personally reviewed the images of the patient's chest and hip and pelvis x-rays as described above. She has a intertrochanteric hip fracture with displacement. I did discuss the case with Dr. Rendon of orthopedic surgery. He did review the films and stated that she will likely go to the OR tomorrow. The patient was having additional pain and so she was given Dilaudid 0.5 mg IV. I did order and review the patient's blood work as noted in the electronic medical record. CBC is unremarkable without leukocytosis or anemia. Electrolytes are unremarkable. Screening Covid test is negative. I did order a CT of the head and cervical spine. I did review the images myself as well as the radiology report as described above. There is no evidence of acute intracranial abnorm ality or cervical fracture. I did discuss the test results with the patient. She was made n.p.o. after midnight. Her pain is currently well controlled. I did discuss case with the hospitalist and bilingual patient support caseworker. She did have some additional pain and was given fentanyl 50 mcg IV. Impression & Plan Closed fracture of left hip, Acute head injury, Fall Discharge Plan Visit Data Chief Complaint: Hip Pain Stated Complaint: Fall hit head left hip injury ED Provider: Max Oneal Discharge Problem: Closed fracture of left hip, Acute head injury, Fall Patient Disposition: Being Evaluated by Hospitalist Forms Stand Alone Forms: My [facility] [employer] Prescriptions Prescriptions: No Action levothyroxine 137 mcg tablet 137 mcg PO DAILY RF: 0 atenolol 100 mg tablet 100 mg PO DAILY RF: 0 calcium carbonate [Calcium 600] 600 mg calcium (1,500 mg) Tablet 600 mg PO DAILY RF: 0 losartan 100 mg tablet 100 mg PO DAILY RF: 0 cholecalciferol (vitamin D3) [Vitamin D3] 1,000 unit Capsule 1,000 unit PO DAILY RF: 0 Enbrel 25 mg/0.5mL (0.51) syringe 25 mg subcut 2XWK RF: 0 prednisone 5 mg tablet 5 mg PO DAILY RF: 0 alendronate 70 mg tablet 70 mg PO WK RF: 0 amlodipine 10 mg tablet 10 mg PO DAILY RF: 0 sertraline 25 mg tablet 25 mg PO DAILY RF: 0 aspirin 81 mg Tablet,Delayed Release (Dr/Ec) 81 mg PO DAILY RF: 0 Referrals Referrals: Roman Bahena MD [Primary Care Provider] - Discharge Problem: Closed fracture of left hip Qualifiers: Encounter type: initial encounter Qualified Code(s): S72.002A - Fracture of unspecified part of neck of left femur, initial encounter for closed fracture Acute head injury Qualifiers: Encounter type: initial encounter Qualified Code(s): S09.90XA - Unspecified injury of head, initial encounter Fall Qualifiers: Encounter type: initial encounter Qualified Code(s): W19.XXXA - Unspecified fall, initial encounter
[2020-12-12 17:21] LABS: Basophils # (auto) 0.01 K/uL (0-0.2); Basophils % (auto) 0.1 %; Eosinophils # (auto) 0.16 K/uL (0-0.5); Eosinophils % (auto) 1.8 %; Hematocrit (blood only) 40.1 % (37-47); Immature Granulocytes # (auto) 0.03 K/uL (0.00-0.02); Immature Granulocytes % (auto) 0.3 %; Lymphocytes # (auto) 1.04 K/uL (1.2-3.4); Lymphocytes % (auto) 11.5 %; Mean Corpuscular Hemoglobin 27.8 pg (25-34); Mean Corpuscular Hgb Conc 32.4 g/dL (32-36); Mean Corpuscular Volume 85.9 fL (80-100); Monocytes # (auto) 0.65 K/uL (0.11-0.59); Monocytes % (auto) 7.2 %; Neutrophils # (auto) 7.12 K/uL (1.4-6.5); Neutrophils % (auto) 79.1 %; Platelet Count 162 K/uL (130-400); RDW Standard Deviation 43.9 fL (36.4-46.3); Red Blood Count 4.67 M/uL (4.2-5.4); White Blood Count 9.01 K/uL (4.8-10.8)
--- NOTE | 2020-12-12 17:21 | XRay Report ---
XR hip LT min 2V CLINICAL HISTORY: Fall. COMPARISON: Pelvis radiograph January 27, 2016. FINDINGS: Note is made of an acute displaced angulated intertrochanteric fracture of the left femur. This extends to the base of the femoral neck. Right hip arthroplasty is noted on crosstable lateral radiograph. IMPRESSION: Acute displaced angulated intertrochanteric fracture of the left femur which extends to t he base of the femoral neck. ACT 112: Negative or not required by law. Electronically signed by: Loc Sauceda M.D. 12/12/2020 5:19 PM
--- NOTE | 2020-12-12 17:22 | XRay Report ---
XR chest 1V portable CLINICAL HISTORY: hip fx COMPARISON STUDY: Chest CT January 28, 2018. Chest radiograph February 23, 2019. FINDINGS: Right shoulder arthroplasty is incidentally noted. Cardiomegaly without evidence for pulmon prudencio edema. There is possible trace left pleural effusion. There is minimal left basilar opacity. IMPRESSION: 1. Cardiomegaly without evidence for pulmonary edema. 2. Possible trace left pleural effusion. Minimal left basilar opacity which favors atelectasis. ACT 112: Negative or not required by law. Electronically signed by: Loc Sauceda M.D. 12/12/2020 5:20 PM
[2020-12-12 17:38] LABS: INR 1.1 (0.9-1.1); Partial Thromboplastin Time 26.2 Seconds (21.0-31.0); Prothrombin Time 10.9 Seconds (9.0-12.0)
[2020-12-12] MEDS ORDERED: HYDROmorphone INJ 0.5 MG/0.5 ML SYR IV STA ×2 (18:36→21:57)
--- NOTE | 2020-12-12 18:36 | CT Scan Report ---
CT OF THE HEAD WITHOUT CONTRAST CLINICAL HISTORY: Fall. Evaluate for bleed. COMPARISON STUDY: Head CT February 23, 2019. TECHNIQUE: Helical axial images of the head were obtained without IV contrast. Automated exposure con trol was utilized for the study. A dose lowering technique was utilized adhering to the principles o f ALARA. FINDINGS: No acute intracranial hemorrhage, midline shift or mass effect is present. White matter hyp odensity suggests small vessel disease. The ventricular system is unremarkable. The basal cisterns ar e patent. No extra-axial collections are present. There are no findings to suggest acute dural sinus thrombosis or acute territorial infarct. No significant calvarial abnormalities are present. Visualiz ed portions of the sinuses and mastoid air cells are clear. IMPRESSION: 1. No acute intracranial findings. 2. No calvarial fracture. ACT 112: Negative or not required by law. Electronically signed by: Loc Sauceda M.D. 12/12/2020 6:35 PM
--- NOTE | 2020-12-12 18:45 | CT Scan Report ---
CT OF THE CERVICAL SPINE WITHOUT CONTRAST CLINICAL HISTORY: Fall. Evaluate for fracture. COMPARISON STUDY: Cervical spine CT February 23, 2019. TECHNIQUE: Helical axial images of the cervical spine were obtained without IV contrast. Sagittal a nd coronal reconstructions were viewed. Automated exposure control was utilized for the study. A do se lowering technique was utilized adhering to the principles of ALARA. FINDINGS: Alignment of the cervical spine is anatomic. Vertebral body heights are maintained. No acut e cervical spine fracture or subluxation is present. There is no prevertebral edema. Facet joints are intact. Severe multilevel facet arthrosis is present. Degenerative changes at the C1-C2 articulatio n are noted with osteophytosis. Moderate to severe multilevel disc space narrowing and osteophytosis is present. Mule Operator image demonstrates a right shoulder arthroplasty and proximal left humeral fracture . IMPRESSION: No acute cervical spine fracture or subluxation. ACT 112: Negative or not required by law. Electronically signed by: Loc Sauceda M.D. 12/12/2020 6:43 PM
[2020-12-12 19:01] LABS: Albumin Globulin Ratio 0.6 (0.9-2); Albumin Level 3.1 gm/dl (3.4-5.0); Bilirubin,Total 0.6 mg/dl (0.2-1); Calcium 9.1 mg/dl (8.5-10.1); Globulin 4.8 gm/dl (2.5-4.0); Potassium 4.1 mmol/L (3.5-5.1); Total Protein 7.9 gm/dl (6.4-8.2)
[2020-12-12 19:35] LABS: BUN Creatinine Ratio 19.9 (10-20); Creatinine Clr Calc Pharmacy 47.1 ml/min; Est GFR (African American) 75.7 ml/min; Est GFR (Non-African American) 65.3 ml/min
[2020-12-12] MEDS: SODIUM CHLORIDE 0.9% 500 ML IV SCH (20:28)
--- NOTE | 2020-12-12 20:30 | History & Physical Report ---
Date of Service December 12, 2020 Assessment & Plan (1) Closed fracture of left hip: (2) Fall: Plan: Patient is 85-year-old female with PMH RA, HTN, paroxysmal atrial fibrillation not on anticoagulation, CKD III, prediabetes, hypothyroidism, iron deficiency anemia, anxiety presented to ER with complaint of mechanical fall and left hip pain. Denies LOC, SOB, CP, dizziness. In ER vitals stable. CT head and C-spine unremarkable. Hip x-ray:Acute displaced angulated intertrochanteric fracture of the left femur which extends to the base of the femoral neck. In ER given 0.5 mg Dilaudid with pain control Hicks catheter in place Patient mild to moderate surgical risk secondary to age and history of TIA, revised cardiac risk index score of 6% 30-day risk of , [place] or cardiac arrest Morphine as needed pain N.p.o. midnight Ortho consult, Dr. Morocho aware CBC, BMP in a.m. (3) Hypertension: Plan: Continue atenolol, amlodipine Hold losartan tomorrow morning, plan to resume after surgery (4) Rheumatoid arthritis: Plan: Follows with rheumatology-Dr. Mann Continue prednisone 5 mg daily Hold Enbrel (5) CKD (chronic kidney disease), stage III: Plan: Cr: 0.8. Baseline creatinine 0.8 Monitor renal functions, avoid nephrotoxic agents when possible (6) Paroxysmal atrial fibrillation: Plan: Not on anticoagulation Current sinus rhythm Continue atenolol (7) Prediabetes: Plan: A1c: 6.2 in 01/2020 Diabetic diet (8) TIA (transient ischemic attack): Plan: Hold aspirin until after surgery (9) Anxiety: Plan: Continue sertraline DVT Prophylaxis -SCDs DNR/DNI as per discussion with pt Follows with Dr Bahena for routine care Pt was seen and care coordinated with Dr Dorado. See addendum History of Present Illness Chief Complaint: Fall Primary Care Provider: Roman Bahena MD Patient is 85-year-old female with PMH RA, HTN, paroxysmal atrial fibrillation not on anticoagulation, CKD III, prediabetes, hypothyroidism, iron deficiency anemia, anxiety presented to ER with complaint of fall. Patient states was cleaning her living room and she was walking and lost her balance and fell. Patient states hit her head and" " saw stars", denies LOC. She reports had left hip pain and unable to ambulate. Patient reports at baseline is off balance and has had falls in the past, reports last fall approximately 10 months ago. Denies dizziness, chest pain, shortness of breath prior to fall. Patient denies paresthesias left foot. Denies fever/chills, diaphoresis, N/V/D/C, DONNELLY, dizziness, syncope, vision changes, neck pain, CP, SOB, orthopnea, palpitations, cough, sore throat, choking, otalgia, rhinorrhea, abdominal pain, extremity edema, rashes, urinary symptoms. In ER vitals stable. CT head and C-spine unremarkable. Hip x-ray:Acute displaced angulated intertrochanteric fracture of the left femur which extends to the base of the femoral neck. Allergies Allergy/AdvReac Type Severity Reaction Status Date / Time cephalexin Allergy Unknown RASH Verified 12/12/20 19:35 HAIR DYE Allergy Unknown RASH Uncoded 12/12/20 19:35 Home Medications Medication Instructions Recorded Confirmed Type atenolol 100 mg tablet 100 mg PO DAILY 01/28/18 12/12/20 History calcium carbonate 600 mg calcium 600 mg PO DAILY 01/28/18 12/12/20 History (1,500 mg) tablet (Calcium) cholecalciferol (vitamin D3) 25 1,000 unit PO DAILY 01/28/18 12/12/20 History mcg (1,000 unit) capsule (Vitamin D3) etanercept 25 mg SUBCUT 2XWK 01/28/18 12/12/20 History levothyroxine 137 mcg tablet 137 mcg PO DAILY 01/28/18 12/12/20 History losartan 100 mg tablet 100 mg PO DAILY 01/28/18 12/12/20 History alendronate 70 mg tablet 70 mg PO WK 12/12/20 12/12/20 History amlodipine 10 mg tablet 10 mg PO DAILY 12/12/20 12/12/20 History aspirin 81 mg tablet,delayed 81 mg PO DAILY 12/12/20 12/12/20 History release prednisone 5 mg tablet 5 mg PO DAILY 12/12/20 12/12/20 History sertraline 25 mg tablet 25 mg PO DAILY 12/12/20 12/12/20 History Past Med/Surg History Medical History Anxiety Arthritis CKD (chronic kidney disease), stage III Hypertension Hypothyroidism Osteoporosis Paroxysmal atrial fibrillation Prediabetes Rheumatoid arthritis TIA (transient ischemic attack) (01/14/13) Surgical History H/O colonoscopy H/O foot surgery H/O neck surgery H/O vaginal hysterectomy H/O: hysterectomy History of esophagogastroduodenoscopy (EGD) S/P cholecystectomy S/P cholecystectomy Family History Other Breast cancer Coronary heart disease Diabetes Social History (Updated 12/12/20 @ 20:28 by Teresa Rose PA-C) Smoking Status: Never smoker Hx Alcohol Use: No Hx Substance Use: No Preferred Language: Panamanian Router Operator Radial Required: No Current Living Situation: Family Current Living Situation Comment: lives with daughter Feels Safe at Home: Yes Assistive Devices: Cane and Denture - Upper Review of Systems Review of Systems: All systems reviewed & are unremarkable except as noted in HPI & below Physical Exam Physical Exam: General: no acute distress, WDWN Head: normocephalic, atraumatic Eyes: PERRL, EOM's intact, conjunctiva non-injected, anicteric ENT: normal inspection external ears, nose, mucous membranes moist Neck: supple, trachea midline Lungs: clear, no respiratory distress, no wheezing/rhonchi/rales CV: RRR, trace pretibial edema Abd: normal BS, soft, non-tender Ext: no cyanosis, no calf tenderness; LLE: +left leg shortened and externally rotated, distal pulses palpable, sensation to light touch intact +chronic deformity bilateral fingers, toes Neuro: A&O x 3, no focal deficits noted, normal affect Skin: warm, dry Results & Data Results & Data ([facility]) Vital Signs (Past 12 Hours) Vital Signs Temp Pulse Resp BP Pulse Ox 12/12/20 16:45 36.8 C 75 18 149/86 H 92 Laboratory Results Short CBC 12/12/20 Range/Units 17:06 WBC 9.01 (4.8-10.8) K/uL Hgb 13.0 (12.0-16.0) g/dL Hct 40.1 (37-47) % Plt Count 162 (130-400) K/uL BMP 12/12/20 17:06 Sodium 137 Potassium 4.1 Chloride 107 Carbon Dioxide 23 BUN 16 Creatinine 0.81 Glucose 149 H Calcium 9.1 Liver Function 12/12/20 Range/Units 17:06 Total Bilirubin 0.6 (0.2-1) mg/dl AST 30 (15-37) U/L ALT 27 (12-78) U/L Alkaline Phosphatase 75 (45-117) U/L Albumin 3.1 L (3.4-5.0) gm/dl Diagnostic Findings Cervical Spine CT 12/12/20 16:53 CT OF THE CERVICAL SPINE WITHOUT CONTRAST CLINICAL HISTORY: Fall. Evaluate for fracture. COMPARISON STUDY: Cervical spine CT February 23, 2019. TECHNIQUE: Helical axial images of the cervical spine were obtained without IV contrast. Sagittal and coronal reconstructions were viewed. Automated exposure control was utilized for the study. A dose lowering technique was utilized adhering to the principles of ALARA. FINDINGS: Alignment of the cervical spine is anatomic. Vertebral body heights are maintained. No acute cervical spine fracture or subluxation is present. T here is no prevertebral edema. Facet joints are intact. Severe multilevel facet arthrosis is present. Degenerative changes at the C1-C2 articulation are noted with osteophytosis. Moderate to severe multilevel disc space narrowing and osteophytosis is present. [employer] Functional Analyst image demonstrates a right shoulder arthroplasty and proximal left humeral fracture. IMPRESSION: No acute cervical spine fracture or subluxation. ACT 112: Negative or not required by law. Electronically signed by: Loc Sauceda M.D. 12/12/2020 6:[address] 12/12/20 16:53 CT OF THE HEAD WITHOUT CONTRAST CLINICAL HISTORY: Fall. Evaluate for bleed. COMPARISON STUDY: Head CT February 23, 2019. TECHNIQUE: Helical axial images of the head were obtained without IV contrast. Automated exposure control was utilized for the study. A dose lowering technique was utilized adhering to the principles of ALARA. FINDINGS: No acute intracranial hemorrhage, midline shift or mass effect is present. White matter hypodensity suggests small vessel disease. The ventricular system is unremarkable. The basal cisterns are patent. No extra-axial collections are present. There are no findings to suggest acute dural sinus thrombosis or acute territorial infarct. No significant calvarial abnormalities are present. Visualized portions of the sinuses and mastoid air cells are clear. IMPRESSION: 1. No acute intracranial findings. 2. No calvarial fracture. ACT 112: Negative or not required by law. Electronically signed by: Loc Sauceda M.D. 12/12/2020 6:35 PM Chest X-Ray 12/12/20 16:54 XR chest 1V portable CLINICAL HISTORY: hip fx COMPARISON STUDY: Chest CT January 28, 2018. Chest radiograph February 23, 2019. FINDINGS: Right shoulder arthroplasty is incidentally noted. Cardiomegaly without evidence for pulmonary edema. There is possible trace left pleural effusion. There is minimal left basilar opacity. IMPRESSION: 1. Cardiomegaly without evidence for pulmonary edema. 2. Possible trace left pleural effusion. Minimal left basilar opacity which favors atelectasis. ACT 112: Negative or not required by law. Electronically signed by: Loc Sauceda M.D. 12/12/2020 5:20 PM Hip X-Ray 12/12/20 16:54 XR hip LT min 2V CLINICAL HISTORY: Fall. COMPARISON: Pelvis radiograph January 27, 2016. FINDINGS: Note is made of an acute displaced angulated intertrochanteric fracture of the left femur. This extends to the base of the femoral neck. Right hip arthroplasty is noted on crosstable lateral radiograph. IMPRESSION: Acute displaced angulated intertrochanteric fracture of the left femur which extends to the base of the femoral neck. ACT 112: Negative or not required by law. Electronically signed by: Loc Sauceda M.D. 12/12/2020 5:19 PM Code Status & VTE Plan VTE Prophylaxis Plan VTE Prophylaxis will be ordered: Yes Supervising Physician Co-Signing Physician Notes Care coordinated with Teresa Rose PA-C. Agree with above note. Patient seen and examined. Please refer to her notes for full details. Vital signs reviewed. Physical exam: General exam: Alert and oriented. Patient in pain CVS: S1 and S2 heard, regular rate and rhythm, no murmurs. RS: Clear to auscultation, no wheezing or crackles. ABD: Soft, bowel sounds present, nontender, no distention. DIET SUPERVISOR: Nonfocal. EXT: Left lower extremity shortened and externally rotated Labs: Reviewed. Assessment and plan: 85F presents with mechanical fall and left hip fracture. Left hip fracture s/p mechanical fall npo pain control ortho consult gentle fluids patient should be at acceptable risk to proceed with surgery. A fib on atenolol on aspirin Other diagnosis and plan of care as per DYLLAN Mcmahon MD. (1) Fall Encounter type: initial encounter Qualified Code(s): W19.XXXA - Unspecified fall, initial encounter (2) Closed fracture of left hip Encounter type: initial encounter Qualified Code(s): S72.002A - Fracture of unspecified part of neck of left femur, initial encounter for closed fracture
[2020-12-12] MEDS ORDERED: fentaNYL citrate 100 MCG/2 ML VIAL IV STA (20:42)
[2020-12-12 20:57] LABS: Appearance Urine Clear (Clear); Bacteria Urine Automated 2+ (Negative); Bilirubin Urine Negative (Negative); Blood Urine Negative (Negative); Cast Urine Automated 0 /lpf (0-5); Color Urine Yellow; Epithelial Cell Urine Auto >30 /lpf (0-5); Glucose Urine UA Negative (Negative); Ketones Urine Negative (Negative); Leukocyte Esterase Urine Negative (Negative); Nitrite Urine Positive (Negative); Protein Urine Negative (Negative); RBC Urine Automated 0-4 /hpf (0-4); Specific Gravity Urine 1.012 (1.000-1.030); Urobilinogen Urine Negative (Negative); pH Urine 7.5 (4.5-7.5)
[2020-12-13] MEDS ORDERED: MAGNESIUM HYDROXIDE SUSP 30 ML UDC PO PRN (01:19)
[2020-12-13] MEDS ORDERED: SODIUM CHLORIDE 0.9% 1000ML 1,000 ML IV SCH (01:19)
[2020-12-13] MEDS ORDERED: NALOXONE HCL 0.4 MG/1 ML VIAL/CARP IV PRN ×2 (01:19→11:33)
[2020-12-13] MEDS ORDERED: POLYETHYLENE (MIRALAX) 17 GM PACK PO PRN (01:19)
[2020-12-13] MEDS ORDERED: MoRPHine SULFATE 4 MG/ML 1 ML CARP\\VIAL IV PRN (01:19)
[2020-12-13] MEDS ORDERED: bisacodyL 10 MG SUPP PR PRN (01:19)
[2020-12-13] MEDS ORDERED: ONDANSETRON INJ 2 MG/ML 2 ML VIAL IV PRN ×2 (01:19→09:20)
[2020-12-13] MEDS: SODIUM CHLORIDE 0.9% 500 ML IV SCH (01:22)
[2020-12-13] MEDS ORDERED: INFLUENZA VACCINE HIGH DOSE PF 65+ 0.7 ML SYR IM ONE (01:32)
[2020-12-13] MEDS: MoRPHine SULFATE 2 MG/ML CARP IV PRN ×3 (01:44→12:29)
[2020-12-13] MEDS: DOCUSATE SODIUM/SENNA 50/8.6MG TAB PO SCH ×2 (01:46→20:20)
[2020-12-13] MEDS: LEVOTHYROXINE SODIUM 137 MCG TABLET PO SCH (05:24)
[2020-12-13] MEDS ORDERED: CLINDAMYCIN PHOS 900 MG/6 ML VIAL IV SCH (06:00)
[2020-12-13] MEDS ORDERED: CLINDAMYCIN 900 MG in DEXTROSE 5% 50 ML IV SCH (06:00)
[2020-12-13] MEDS ORDERED: AZTREONAM CONSULT ACTIVE PRN (07:41)
[2020-12-13 07:47] LABS: Estimated Average Glucose 128 mg/dl; Hemoglobin A1C 6.1 % (4.5-5.6)
[2020-12-13] MEDS ORDERED: MIDAZOLAM HCL 1 MG/ML 2ML VIAL ONE (07:52)
[2020-12-13] MEDS ORDERED: ONDANSETRON INJ 2 MG/ML 2 ML VIAL ONE (07:52)
[2020-12-13] MEDS ORDERED: DEXAMETHASONE SOD INJ 4 MG/ML VIAL ONE (07:52)
[2020-12-13] MEDS ORDERED: LIDOCAINE 2% 2 ML VIAL/AMP(20MG/ML) INFIL ONE (07:52)
[2020-12-13] MEDS ORDERED: PROPOFOL IV EMULSION 10 MG/ML 20 ML VIAL IV ONE (07:52)
[2020-12-13] MEDS ORDERED: fentaNYL citrate 100 MCG/2 ML VIAL ONE (07:52)
[2020-12-13] MEDS ORDERED: BUPIVACAINE 0.5 % 5 MG/1 ML MPF 30ML VIAL ONE (08:00)
--- NOTE | 2020-12-13 08:13 | Orthopedic Consultation ---
Date of Consultation December 13, 2020 Assessment & Plan (1) Closed fracture of left hip: Patient has a displaced left intertrochanteric fracture. She is independent and ambulates at baseline. Recommended surgical fixation to treat her fracture. She will require intertrochanteric femoral nailing. She would like to proceed with surgery. Dr. Morocho will see the patient and discussed surgical procedure with he, including risks, benefits, and alternatives. All questions answered. Will plan for OR this morning. History of Present Illness Reason for Consultation: Left inotrope fracture Requesting Physician: Teresa Rose PA-C Attending Physician: Teo Mahajan MD History of Present Illness Patient is an 85-year-old female with past medical history significant for CKD, hypertension, hypothyroidism, proximal A. fib who presented to the ER yesterday after suffering a mechanical fall. Patient is in her usual state of health and tripped and fell. She had immediate onset of left hip pain. X-rays were obtained in the ER and she was noted to have a displaced left intertrochanteric fracture. She did hit her head on her way down however did not lose consciousness and had no onset of headache or dizziness. Per patient she did have some confusion this morning, however is now oriented x 3. She lives with her daughter. She is fairly independent at baseline. Ambulates with a cane when outside of the house. 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 Ortiz with [facility]. Patient denies headaches, sweats, fevers, chills, double vision, blurred vision, cough, sore throat, dysphagia, chest pain, sob, wheezing, n/v/d/c, numbness, tingling, fatigue, urinary symptoms, mood disorders. ROS positive for left pain. Allergies Allergy/AdvReac Type Severity Reaction Status Date / Time cephalexin Allergy Unknown RASH Verified 12/12/20 19:35 HAIR DYE Allergy Unknown RASH Uncoded 12/12/20 19:35 Home Medications Medication Instructions Recorded Confirmed Type atenolol 100 mg tablet 100 mg PO DAILY 01/28/18 12/12/20 History calcium carbonate 600 mg calcium 600 mg PO DAILY 01/28/18 12/12/20 History (1,500 mg) tablet (Calcium) cholecalciferol (vitamin D3) 25 1,000 unit PO DAILY 01/28/18 12/12/20 History mcg (1,000 unit) capsule (Vitamin D3) etanercept 25 mg SUBCUT 2XWK 01/28/18 12/12/20 History levothyroxine 137 mcg tablet 137 mcg PO DAILY 01/28/18 12/12/20 History losartan 100 mg tablet 100 mg PO DAILY 01/28/18 12/12/20 History alendronate 70 mg tablet 70 mg PO WK 12/12/20 12/12/20 History amlodipine 10 mg tablet 10 mg PO DAILY 12/12/20 12/12/20 History aspirin 81 mg tablet,delayed 81 mg PO DAILY 12/12/20 12/12/20 History release prednisone 5 mg tablet 5 mg PO DAILY 12/12/20 12/12/20 History sertraline 25 mg tablet 25 mg PO DAILY 12/12/20 12/12/20 History Patient History Medical History (Updated 12/12/20 @ 20:33 by Teresa Rose PA-C) Anxiety Arthritis CKD (chronic kidney disease), stage III Hypertension Hypothyroidism Osteoporosis Paroxysmal atrial fibrillation Prediabetes Rheumatoid arthritis TIA (transient ischemic attack) (01/14/13) Surgical History H/O colonoscopy H/O foot surgery H/O neck surgery H/O vaginal hysterectomy H/O: hysterectomy History of esophagogastroduodenoscopy (EGD) S/P cholecystectomy S/P cholecystectomy Family History (Updated 12/12/20 @ 20:28 by Teresa Rose PA-C) Other Breast cancer Coronary heart disease Diabetes Social History (Updated 12/12/20 @ 20:28 by Teresa Rose PA-C) Smoking Status: Never smoker Hx Alcohol Use: No Hx Substance Use: No Preferred Language: Somali Display Mechanic Required: No Current Living Situation: Family Current Living Situation Comment: lives with daughter Feels Safe at Home: Yes Assistive Devices: Cane and Denture - Upper Review of Systems Review of Systems: All systems reviewed & are unremarkable except as noted in HPI & below Physical Exam Constitutional: well developed and well nourished; no acute distress Eyes: PERRL, conjunctivae normal, anicteric sclerae Respiratory: normal respiratory effort; no respiratory distress Cardiovascular: Rate/Rhythm: regular rate and regular rhythm Musculoskeletal: Tenderness to palpation to left proximal femur. Patient's left leg is shortened and externally rotated. Pain with mild logroll. Toes are mobile. No calf tenderness. Distally neurovascular status and sensation intact. Skin: no rashes, warm and dry Neurologic: normal touch/pain/proprioception Psychiatric: A+Ox3, euthymic affect Results & Data ([facility]) Vital Signs (Past 12 Hours) Vital Signs Temp Pulse Pulse Pulse Resp BP Pulse Ox 12/13/20 07:28 37.1 C 76 16 157/66 H 93 12/13/20 04:05 37.0 C 73 20 167/81 H 94 12/13/20 02:51 75 12/13/20 01:23 36.7 C 78 20 165/71 H 95 12/13/20 00:00 76 16 144/74 H 96 12/12/20 22:30 77 20 147/73 H 94 12/12/20 20:30 81 20 151/74 H 99 Laboratory Results Lab Results 12/12/20 12/12/20 12/12/20 Range/Units 17:03 17:03 17:06 WBC (4.8-10.8) K/uL RBC (4.2-5.4) M/uL Hgb (12.0-16.0) g/dL Hct (37-47) % MCV (80-100) fL MCH (25-34) pg MCHC (32-36) g/dL RDW Std Deviation (36.4-46.3) fL RDW Coeff of Blanche (11.5-14.5) % Plt Count (130-400) K/uL MPV (7.4-10.4) fL Immature Gran % (Auto) % Neut % (Auto) % Lymph % (Auto) % [place] % (Auto) % Eos % (Auto) % Baso % (Auto) % Neut # (Auto) (1.4-6.5) K/uL Lymph # (Auto) (1.2-3.4) K/uL [place] # (Auto) (0.11-0.59) K/uL Eos # (Auto) (0-0.5) K/uL Baso # (Auto) (0-0.2) K/uL Immature Gran # (Auto) (0.00-0.02) K/uL PT (9.0-12.0) Seconds INR (0.9-1.1) APTT (21.0-31.0) Seconds PTT Ratio Sodium (136-145) mmol/L Potassium (3.5-5.1) mmol/L Chloride (98-107) mmol/L Carbon Dioxide (21-32) mmol/L Anion Gap (3-11) BUN (7-18) mg/dl Creatinine (0.6-1.2) mg/dl Est Cr Clr Drug Dosing ml/min Est GFR ( Amer) ml/min Est GFR (Non-Af Amer) ml/min BUN/Creatinine Ratio (10-20) Glucose (70-99) mg/dl Estimat Average Glucose mg/dl Hemoglobin A1c (4.5-5.6) % Calcium (8.5-10.1) mg/dl Total Bilirubin (0.2-1) mg/dl AST (15-37) U/L ALT (12-78) U/L Alkaline Phosphatase (45-117) U/L Total Protein (6.4-8.2) gm/dl Albumin (3.4-5.0) gm/dl Globulin (2.5-4.0) gm/dl Albumin/Globulin Ratio (0.9-2) Urine Color Urine Appearance (Clear) Urine pH (4.5-7.5) Ur Specific [place] (1.000-1.030) Urine Protein (Negative) Urine Glucose (UA) (Negative) Urine Ketones (Negative) Urine Blood (Negative) Urine Nitrite (Negative) Urine Bilirubin (Negative) Urine Urobilinogen (Negative) Ur Leukocyte Esterase (Negative) Urine WBC (Auto) (0-5) /hpf Urine RBC (Auto) (0-4) /hpf U Hyaline Cast (Auto) (0-5) /lpf U Epithel Cells (Auto) (0-5) /lpf Urine Bacteria (Auto) (Negative) Nasal Screen MRSA (PCR) (Negative) COVID-19 Eval Order Covid19 at [facility] SARS-CoV-2 (PCR) NEGATIVE (Negative) Blood Type O Positive Antibody Screen NEGATIVE 12/12/20 12/12/20 12/12/20 Range/Units 17:06 17:06 17:06 WBC 9.01 (4.8-10.8) K/uL RBC 4.67 (4.2-5.4) M/uL Hgb 13.0 (12.0-16.0) g/dL Hct 40.1 (37-47) % MCV 85.9 (80-100) fL MCH 27.8 (25-34) pg MCHC 32.4 (32-36) g/dL RDW Std Deviation 43.9 (36.4-46.3) fL RDW Coeff of Blanche 14.0 (11.5-14.5) % Plt Count 162 (130-400) K/uL MPV 9.0 (7.4-10.4) fL Immature Gran % (Auto) 0.3 % Neut % (Auto) 79.1 % Lymph % (Auto) 11.5 % [place] % (Auto) 7.2 % Eos % (Auto) 1.8 % Baso % (Auto) 0.1 % Neut # (Auto) 7.12 H (1.4-6.5) K/uL Lymph # (Auto) 1.04 L (1.2-3.4) K/uL [place] # (Auto) 0.65 H (0.11-0.59) K/uL Eos # (Auto) 0.16 (0-0.5) K/uL Baso # (Auto) 0.01 (0-0.2) K/uL Immature Gran # (Auto) 0.03 H (0.00-0.02) K/uL PT 10.9 (9.0-12.0) Seconds INR 1.1 (0.9-1.1) APTT 26.2 (21.0-31.0) Seconds PTT Ratio 1.0 Sodium 137 (136-145) mmol/L Potassium 4.1 (3.5-5.1) mmol/L Chloride 107 (98-107) mmol/L Carbon Dioxide 23 (21-32) mmol/L Anion Gap 7.0 (3-11) BUN 16 (7-18) mg/dl Creatinine 0.81 (0.6-1.2) mg/dl Est Cr Clr Drug Dosing 47.1 ml/min Est GFR ( Amer) 75.7 ml/min Est GFR (Non-Af Amer) 65.3 ml/min BUN/Creatinine Ratio 19.9 (10-20) Glucose 149 H (70-99) mg/dl Estimat Average Glucose mg/dl Hemoglobin A1c (4.5-5.6) % Calcium 9.1 (8.5-10.1) mg/dl Total Bilirubin 0.6 (0.2-1) mg/dl AST 30 (15-37) U/L ALT 27 (12-78) U/L Alkaline Phosphatase 75 (45-117) U/L Total Protein 7.9 (6.4-8.2) gm/dl Albumin 3.1 L (3.4-5.0) gm/dl Globulin 4.8 H (2.5-4.0) gm/dl Albumin/Globulin Ratio 0.6 L (0.9-2) Urine Color Urine Appearance (Clear) Urine pH (4.5-7.5) Ur Specific [place] (1.000-1.030) Urine Protein (Negative) Urine Glucose (UA) (Negative) Urine Ketones (Negative) Urine Blood (Negative) Urine Nitrite (Negative) Urine Bilirubin (Negative) Urine Urobilinogen (Negative) Ur Leukocyte Esterase (Negative) Urine WBC (Auto) (0-5) /hpf Urine RBC (Auto) (0-4) /hpf U Hyaline Cast (Auto) (0-5) /lpf U Epithel Cells (Auto) (0-5) /lpf Urine Bacteria (Auto) (Negative) Nasal Screen MRSA (PCR) (Negative) COVID-19 Eval Order SARS-CoV-2 (PCR) (Negative) Blood Type Antibody Screen 12/12/20 12/13/20 12/13/20 Range/Units 20:27 01:30 05:24 WBC (4.8-10.8) K/uL RBC (4.2-5.4) M/uL Hgb (12.0-16.0) g/dL Hct (37-47) % MCV (80-100) fL MCH (25-34) pg MCHC (32-36) g/dL RDW Std Deviation (36.4-46.3) fL RDW Coeff of Blanche (11.5-14.5) % Plt Count (130-400) K/uL MPV (7.4-10.4) fL Immature Gran % (Auto) % Neut % (Auto) % Lymph % (Auto) % [place] % (Auto) % Eos % (Auto) % Baso % (Auto) % Neut # (Auto) (1.4-6.5) K/uL Lymph # (Auto) (1.2-3.4) K/uL [place] # (Auto) (0.11-0.59) K/uL Eos # (Auto) (0-0.5) K/uL Baso # (Auto) (0-0.2) K/uL Immature Gran # (Auto) (0.00-0.02) K/uL PT (9.0-12.0) Seconds INR (0.9-1.1) APTT (21.0-31.0) Seconds PTT Ratio Sodium (136-145) mmol/L Potassium (3.5-5.1) mmol/L Chloride (98-107) mmol/L Carbon Dioxide (21-32) mmol/L Anion Gap (3-11) BUN (7-18) mg/dl Creatinine (0.6-1.2) mg/dl Est Cr Clr Drug Dosing ml/min Est GFR ( Amer) ml/min Est GFR (Non-Af Amer) ml/min BUN/Creatinine Ratio (10-20) Glucose (70-99) mg/dl Estimat Average Glucose 128 mg/dl Hemoglobin A1c 6.1 H (4.5-5.6) % Calcium (8.5-10.1) mg/dl Total Bilirubin (0.2-1) mg/dl AST (15-37) U/L ALT (12-78) U/L Alkaline Phosphatase (45-117) U/L Total Protein (6.4-8.2) gm/dl Albumin (3.4-5.0) gm/dl Globulin (2.5-4.0) gm/dl Albumin/Globulin Ratio (0.9-2) Urine Color Yellow Urine Appearance Clear (Clear) Urine pH 7.5 (4.5-7.5) Ur Specific [place] 1.012 (1.000-1.030) Urine Protein Negative (Negative) Urine Glucose (UA) Negative (Negative) Urine Ketones Negative (Negative) Urine Blood Negative (Negative) Urine Nitrite Positive A (Negative) Urine Bilirubin Negative (Negative) Urine Urobilinogen Negative (Negative) Ur Leukocyte Esterase Negative (Negative) Urine WBC (Auto) 1-5 (0-5) /hpf Urine RBC (Auto) 0-4 (0-4) /hpf U Hyaline Cast (Auto) 0 (0-5) /lpf U Epithel Cells (Auto) >30 H (0-5) /lpf Urine Bacteria (Auto) 2+ H (Negative) Nasal Screen MRSA (PCR) Negative (Negative) COVID-19 Eval Order SARS-CoV-2 (PCR) (Negative) Blood Type Antibody Screen Diagnostic Findings XR hip LT min 2V CLINICAL HISTORY: Fall. COMPARISON: Pelvis radiograph January 27, 2016. FINDINGS: Note is made of an acute displaced angulated intertrochanteric fracture of the left femur. This extends to the base of the femoral neck. Right hip arthroplasty is noted on crosstable lateral radiograph. IMPRESSION: Acute displaced angulated intertrochanteric fracture of the left femur which extends to the base of the femoral neck. (1) Closed fracture of left hip Encounter type: initial encounter Qualified Code(s): S72.002A - Fracture of unspecified part of neck of left femur, initial encounter for closed fracture
--- NOTE | 2020-12-13 08:28 | Anesthesiology Consultation ---
Date of Service December 13, 2020 Assessment & Plan Chart Review Chart Review: Acceptable Risk for Surgery and Patient NOT seen in Pre Admission Testing Consults Requested none ASA ASA3 Proposed Anesthesia Anesthesia Type: MAC Spinal Risk / Benefits Reviewed With: PT / POA / Parent / Guardian, Accepts Plan and Informed Consent Obtained History Surgery Operation Date: 12/13/20 09:00 Proposed Procedures p Inner Troch Nail, Intramedullary Feltcher Femur(Left) - Ayan Morocho MD Height/Weight Height: 5 ft 5 in Weight: 69.6 kg Allergies Allergy/AdvReac Type Severity Reaction Status Date / Time cephalexin Allergy Unknown RASH Verified 12/12/20 19:35 HAIR DYE Allergy Unknown RASH Uncoded 12/12/20 19:35 Medications Home Medications Medication Instructions Recorded Confirmed Last Taken atenolol 100 mg tablet 100 mg PO DAILY 01/28/18 12/12/20 12/12/20 calcium carbonate 600 mg calcium 600 mg PO DAILY 01/28/18 12/12/20 12/12/20 (1,500 mg) tablet (Calcium) cholecalciferol (vitamin D3) 25 1,000 unit PO DAILY 01/28/18 12/12/20 12/12/20 mcg (1,000 unit) capsule (Vitamin D3) etanercept 25 mg SUBCUT 2XWK 01/28/18 12/12/20 12/11/20 levothyroxine 137 mcg tablet 137 mcg PO DAILY 01/28/18 12/12/20 12/12/20 losartan 100 mg tablet 100 mg PO DAILY 01/28/18 12/12/20 12/12/20 alendronate 70 mg tablet 70 mg PO WK 12/12/20 12/12/20 12/08/20 amlodipine 10 mg tablet 10 mg PO DAILY 12/12/20 12/12/20 12/12/20 aspirin 81 mg tablet,delayed 81 mg PO DAILY 12/12/20 12/12/20 12/12/20 release prednisone 5 mg tablet 5 mg PO DAILY 12/12/20 12/12/20 12/12/20 sertraline 25 mg tablet 25 mg PO DAILY 12/12/20 12/12/20 12/12/20 Active Medications Generic Name Dose Route Start Last Admin Trade Name Freq PRN Reason Stop Dose Admin Sodium Chloride 1,000 mls @ 80 mls/hr 12/13/20 01:19 12/13/20 01:49 Nss 1000ml IV 12/13/20 13:48 80 mls/hr .[id number] JAIRO Administration Levothyroxine Sodium 137 mcg 12/13/20 06:30 12/13/20 05:24 Levothyroxine Sodium 137 Mcg Tablet PO 01/12/21 06:29 137 mcg DAILYBB JAIRO Administration Morphine Sulfate 2 mg 12/13/20 01:19 12/13/20 04:58 Morphine Sulfate 2 Mg/Ml Carp IV 12/27/20 01:18 2 mg Q3H PRN Administration Pain (1,2,3,4,5) & Pre PT Senna/Docusate Sodium 2 tab 12/13/20 01:19 12/13/20 01:46 Docusate Sodium/Senna 50/8.6mg Tab PO 01/12/21 01:18 Not Given HS JAIRO NPO Date Last Intake of Fluids: 12/12/20 Time Last Intake of Fluids: 22:00 Date Last Intake of Solids: 12/12/20 Time Last Intake of Solids: 10:00 Past Medical History Medical History Anxiety Arthritis CKD (chronic kidney disease), stage III Hypertension Hypothyroidism Osteoporosis Paroxysmal atrial fibrillation Prediabetes Rheumatoid arthritis TIA (transient ischemic attack) (01/14/13) Exercise / Class Metabolic Activity III < 4 Walking/Shop/Light housework Negative for chest pain or shortness of breath. Patient denies active symptoms of GERD. Past Family History Family History Other Breast cancer Coronary heart disease Diabetes Past Surgical History Surgical History H/O colonoscopy H/O foot surgery H/O neck surgery H/O vaginal hysterectomy H/O: hysterectomy History of esophagogastroduodenoscopy (EGD) S/P cholecystectomy S/P cholecystectomy Past Anesthesia History No Hx of Anesthesia Complications History of PONV No Hx of PONV Social History Smoking Status: Never smoker Hx Alcohol Use: No Hx Substance Use: No Review of Systems Patient denies active symptoms of GERD. Negative for chest pain or shortness of breath. Physical Exam Vital Signs Last Vital Signs Temp 37.1 C 12/13/20 07:28 Pulse 76 12/13/20 07:28 Resp 16 12/13/20 07:28 BP 157/66 H 12/13/20 07:28 Pulse Ox 93 12/13/20 07:28 Constitutional not obese ENMT Mouth: + dentures (upper); no TMJ abnormality and oral opening not small Thyromental Distance: > or= 3.5 Finger Breadths Mallampati Class: II Mouth / Teeth: 1. chipped Neck normal visual inspection; neck extension not limited Respiratory normal respiratory effort Cardiovascular Rate/Rhythm: regular rate and regular rhythm Neurologic moves all extremities Psychiatric Orientation: alert and oriented x 3 Testing Laboratory Results 12/12/20 17:06 12/12/20 17:06 PT 10.9 Seconds (9.0-12.0) 12/12/20 17:06 INR 1.1 (0.9-1.1) 12/12/20 17:06 APTT 26.2 Seconds (21.0-31.0) 12/12/20 17:06 Hemoglobin A1c 6.1 % (4.5-5.6) H 12/13/20 05:24 Urine Color Yellow 12/12/20 20:27 Urine Appearance Clear (Clear) 12/12/20 20: Urine pH 7.5 (4.5-7.5) 12/12/20 20: Ur Specific [place] 1.012 (1.000-1.030) 12/12/20 20:27 Urine Protein Negative (Negative) 12/12/20 20:27 Urine Glucose (UA) Negative (Negative) 12/12/20 20: Urine Ketones Negative (Negative) 12/12/20 20: Urine Nitrite Positive (Negative) A 12/12/20 20:27 Ur Leukocyte Esterase Negative (Negative) 12/12/20 20:27 Urine WBC (Auto) 1-5 /hpf (0-5) 12/12/20 20:27 Urine RBC (Auto) 0-4 /hpf (0-4) 12/12/20 20:27 U Hyaline Cast (Auto) 0 /lpf (0-5) 12/12/20 20:27 U Epithel Cells (Auto) >30 /lpf (0-5) H 12/12/20 20:27 Urine Bacteria (Auto) 2+ (Negative) H 12/12/20 20:27 Blood Type O Positive 12/12/20 17:06 Antibody Screen NEGATIVE 12/12/20 17:06
--- NOTE | 2020-12-13 08:29 | History & Physical Bridge Note ---
Date of Service December 13, 2020 History & Physical Bridge Note I have examined the patient, reviewed the History & Physical and in the interval since the performance of the History & Physical I have noted the following changes of clinical significance: no changes noted I saw the patient in the preoperative holding area we discussed risk benefits reasonable outcomes and expectations for: 1. Left intertrochanteric hip nail
[2020-12-13] MEDS ORDERED: predniSONE 5 MG TAB PO SCH (09:00)
[2020-12-13] MEDS ORDERED: ceFAZolin 1000MG 1,000 MG/7.5 ML SYR IV ONE (09:11)
[2020-12-13] MEDS ORDERED: ePHEDrine sulfate 50 MG/ML AMP IV PRN (09:20)
[2020-12-13] MEDS ORDERED: ATROPINE SULFATE 0.1 MG/ML 10ML SYR IV PRN (09:20)
[2020-12-13] MEDS ORDERED: fentaNYL citrate 100 MCG/2 ML VIAL IV PRN (09:20)
--- NOTE | 2020-12-13 10:16 | Post Operative Brief Note ---
Immediate Post Op Note v1 Date of Surgery December 13, 2020 Pre & Post Diagnosis Operation Date: 12/13/20 09:00 Pre-Op Diagnosis: HIP FRACTURE Post-Op Diagnosis: HIP FRACTURE I identified the patient and participated in the time-out.: Yes Procedure Operation Date: 12/13/20 09:00 Actual Procedures p Left Hip Intertrochanteric Nail Insertion(Left) - Ayan Morocho MD Surgeon Ayan Morocho MD Master Cook Nacho Maza PA-C Estimated Blood Loss 50 Findings Consistent with Post-Op Diagnosis
--- NOTE | 2020-12-13 10:50 | Fluoroscopy Report ---
FL femur LT 2V CLINICAL HISTORY: LT TROCH NAIL. Left hip fracture. COMPARISON STUDY: None. FLUOROSCOPY TIME: 2 minutes and 9 seconds. FINDINGS: Status post internal fixation of a left intertrochanteric femoral fracture with an intramed ullary aisha and interlocking femoral neck pin. The hardware is intact. Alignment is near-anatomic. IMPRESSION: Internal fixation of a left intertrochanteric femoral fracture. ACT 112: Negative or not required by law. Electronically signed by: Flaco Montiel M.D. 12/13/2020 10:49 AM
--- NOTE | 2020-12-13 11:19 | Anesthesiology Progress Note ---
Date of Service December 13, 2020 Anesthesia Post Procedure Vital Signs Vital Signs: Temp Pulse Pulse Pulse Resp BP BP 12/13/20 11:14 62 20 118/55 L 12/13/20 11:00 36.6 C 59 L 15 119/56 L 12/13/20 10:50 61 16 132/62 12/13/20 10:40 59 L 14 121/66 12/13/20 10:30 36.3 C L 64 18 107/50 L 12/13/20 09:19 71 12/13/20 07:28 37.1 C 76 16 157/66 H 12/13/20 04:05 37.0 C 73 20 167/81 H 12/13/20 02:51 75 12/13/20 01:23 36.7 C 78 20 165/71 H 12/13/20 00:00 76 16 144/74 H 12/12/20 22:30 77 20 147/73 H 12/12/20 20:30 81 20 151/74 H 12/12/20 16:45 36.8 C 75 18 149/86 H Pulse Ox 12/13/20 11:14 98 12/13/20 11:00 88 L 12/13/20 10:50 98 12/13/20 10:40 97 12/13/20 10:30 93 12/13/20 09:19 12/13/20 07:28 93 12/13/20 04:05 94 12/13/20 02:51 12/13/20 01:23 95 12/13/20 00:00 96 12/12/20 22:30 94 12/12/20 20:30 99 12/12/20 16:45 92 Pain Intensity Left Hip: Pain Intensity: 6 Transfer of Care Handoff Completed per policy Notes Mental Status: alert / awake / arousable and participated in evaluation Nausea / Vomiting: adequately controlled Pain: adequately controlled Airway Patency, RR, SpO2: stable & adequate BP & HR: stable & adequate Hydration State: stable & adequate Neuraxial Anesthesia: was administered and sensory block is resolving Anesthetic Complications: no major complications apparent and Pt Satisfied with anesthetic care
[2020-12-13] MEDS: CHOLECALCIFEROL 1,000 UNITS 25 MCG TAB PO SCH (11:51)
[2020-12-13] MEDS: CALCIUM CARBONATE 1250MG TAB PO SCH (11:51)
[2020-12-13] MEDS: SERTRALINE HCL 50 MG TABLET PO SCH (11:51)
[2020-12-13] MEDS: ATENOLOL 50 MG TABLET PO SCH (11:52)
[2020-12-13] MEDS: amLODIPine BESYLATE 5 MG TAB PO SCH (11:52)
--- NOTE | 2020-12-13 12:18 | XRay Report ---
XR hip LT min 2V CLINICAL HISTORY: Post-Operative implant position COMPARISON STUDY: Left hip 12/12/2020. FINDINGS: Status post internal fixation of the intertrochanteric left femoral fracture. The hardware is intact. There is near-anatomic alignment. Skin checo are in place. No dislocation. IMPRESSION: Status post internal fixation of the left intertrochanteric femoral fracture. No evidenc e for hardware complication. ACT 112: Negative or not required by law. Electronically signed by: Flaco Montiel M.D. 12/13/2020 12:16 PM
[2020-12-13] MEDS: AZTREONAM 1,000 MG in DEXTROSE 5% 100 ML IV SCH ×2 (12:24→19:34)
[2020-12-13] MEDS: SODIUM CHLORIDE 0.9% 1000ML 1,000 ML IV SCH ×2 (12:25→16:56)
[2020-12-13] MEDS: ENOXAPARIN INJ 40 MG/0.4 ML SYR SQ SCH (12:55)
--- NOTE | 2020-12-13 13:45 | Electrocardiogram Report ---
Test Reason : Blood Pressure : / mmHG Vent. Rate : 074 BPM Atrial Rate : 074 BPM P-R Int : 184 ms QRS Dur : 138 ms QT Int : 440 ms P-R-T Axes : 067 030 017 degrees QTc Int : 488 ms Normal sinus rhythm Right bundle branch block Abnormal ECG When compared with ECG of 28-JAN-2018 16:26, No significant change was found Confirmed by Doroteo Rios ([id number]) on 12/13/2020 1:44:41 PM Referred By: REFERRED SELF Confirmed By:Doroteo Rios
[2020-12-13] MEDS: COUGH DROP (SUGAR FREE) LOZ 24 LOZ/1 BOX BUCCAL PRN (15:06)
--- NOTE | 2020-12-13 16:13 | Hospitalist Progress Note ---
Date of Service December 13, 2020 Assessment & Plan (1) Closed fracture of left hip: (2) Fall: Plan: per admitting service notes: Patient is 85-year-old female with PMH RA, HTN, paroxysmal atrial fibrillation not on anticoagulation, CKD III, prediabetes, hypothyroidism, iron deficiency anemia, anxiety presented to ER with complaint of mechanical fall and left hip pain. Denies LOC, SOB, CP, dizziness. In ER vitals stable. CT head and C-spine unremarkable. Hip x-ray:Acute displaced angulated intertrochanteric fracture of the left femur which extends to the base of the femoral neck. In ER given 0.5 mg Dilaudid with pain control Hicks catheter in place Patient mild to moderate surgical risk secondary to age and history of TIA, revised cardiac risk index score of 6% 30-day risk of , TX or cardiac arrest Morphine as needed pain N.p.o. midnight Ortho consult, Dr. Morocho aware CBC, BMP in a.m. 12/13 s/p Left Hip Intertrochanteric Nail Insertion(Left) - Ayan Morocho MD add Hydrocortisone 25mg q8h as patient takes Prednisone 5mg daily monitor BP pain control PT/OT evaluation DVT prophylaxis per Ortho Possible UTI - urine culture: gram negative bacilli - Aztreonam IV Day 1 (3) Hypertension: Plan: Continue losartan, atenolol, amlodipine (4) Rheumatoid arthritis: Plan: Follows with rheumatology-Dr. Mann add Hydrocortisone 25mg q8h as patient takes Prednisone 5mg daily, x 3 doses, then Continue prednisone 5 mg daily Hold Enbrel (5) CKD (chronic kidney disease), stage III: Plan: Cr: 0.8. Baseline creatinine 0.8 stable monitor (6) Paroxysmal atrial fibrillation: Plan: Not on anticoagulation Current sinus rhythm Continue atenolol (7) Prediabetes: Plan: A1c: 6.2 in 01/2020 Diabetic diet (8) TIA (transient ischemic attack): Plan: Hold aspirin until ok to resume per Ortho (9) Anxiety: Plan: Continue sertraline DVT Prophylaxis -SCDs DNR/DNI as per discussion with pt Follows with Dr Bahena for routine care Pt was seen and care coordinated with Dr Dorado. See addendum Admission and Anticipated Discharge Date Admission Date: December 12, 2020 Subjective ff up for hip fracture, s/p surgery s/p surgery seen resting in bed, not in distress but uncomfortable due to post op pain on the surgical site no chest pain, dyspnea, palpitations, dizziness no nausea, abdominal pain no other symptoms Review of Systems Review of Systems: all noted and negative except for above Physical Exam Physical Exam: General- oriented x 3, not in distress, speaks in sentences with no effort or accessory muscle use Head- atraumatic Eyes- PERRL, EOMI, anicteric ENT- oropharynx clear Neck- supple, no JVD, no adenopathy, no thyromegaly; carotids +2/2, no bruits appreciated Lungs- clear to auscultation bilaterally, no rales/wheezes Heart- normal rate, regular rhythm; no murmur, no gallop, no rub appreciated Abdomen- normal bowel sounds, nondistended, soft, nontender, no masses or hepatosplenomegaly Extremities- no pretibial edema, no calf tenderness; peripheral pulses intact left hip: surgical dressing in place mild edema Neuro- alert, oriented x 3; CN 2-12 grossly intact; motor 5/5 bilaterally;sensation 100% on all extremities; no other gross focal neurologic deficits Skin- warm & dry Results & Data Results & Data ([facility]) Vital Signs (Past 12 Hours) Vital Signs Temp Pulse Pulse Pulse Resp BP Pulse Ox 12/13/20 15:40 67 12/13/20 13:02 36.7 C 70 16 130/67 93 12/13/20 12:30 73 12/13/20 12:05 36.4 C L 75 16 145/68 H 93 12/13/20 11:35 36.7 C 69 16 130/64 92 12/13/20 11:14 62 20 118/55 L 98 12/13/20 11:00 36.6 C 59 L 15 119/56 L 88 L 12/13/20 10:50 61 16 132/62 98 12/13/20 10:40 59 L 14 121/66 97 12/13/20 10:30 36.3 C L 64 18 107/50 L 93 12/13/20 09:19 71 12/13/20 07:28 37.1 C 76 16 157/66 H 93 all noted and reviewed including below (1) Closed fracture of left hip Encounter type: initial encounter Qualified Code(s): S72.002A - Fracture of unspecified part of neck of left femur, initial encounter for closed fracture (2) Fall Encounter type: initial encounter Qualified Code(s): W19.XXXA - Unspecified fall, initial encounter
[2020-12-13] MEDS: HYDROCORTISONE SOD 25 MG in SYRINGE 0 ML IV SCH (16:53)
[2020-12-14] MEDS: ACETAMINOPHEN 325 MG TAB PO PRN ×3 (00:03→21:39)
[2020-12-14] MEDS: COUGH DROP (SUGAR FREE) LOZ 24 LOZ/1 BOX BUCCAL PRN (00:03)
[2020-12-14] MEDS: HYDROCORTISONE SOD 25 MG in SYRINGE 0 ML IV SCH ×2 (00:06→08:04)
[2020-12-14] MEDS: AZTREONAM 1,000 MG in DEXTROSE 5% 100 ML IV SCH (05:23)
[2020-12-14] MEDS: LEVOTHYROXINE SODIUM 137 MCG TABLET PO SCH (05:26)
[2020-12-14] MEDS: SODIUM CHLORIDE 0.9% 1000ML 1,000 ML IV SCH (05:30)
[2020-12-14 07:38] LABS: Basophils # (auto) 0.01 K/uL (0-0.2); Basophils % (auto) 0.1 %; Eosinophils # (auto) 0.03 K/uL (0-0.5); Eosinophils % (auto) 0.3 %; Hematocrit (blood only) 30.5 % (37-47); Hemoglobin 9.9 g/dL (12.0-16.0); Immature Granulocytes # (auto) 0.03 K/uL (0.00-0.02); Immature Granulocytes % (auto) 0.3 %; Lymphocytes # (auto) 1.23 K/uL (1.2-3.4); Lymphocytes % (auto) 13.4 %; Mean Corpuscular Hemoglobin 27.7 pg (25-34); Mean Corpuscular Hgb Conc 32.5 g/dL (32-36); Mean Corpuscular Volume 85.2 fL (80-100); Mean Platelet Volume 9.5 fL (7.4-10.4); Monocytes # (auto) 1.41 K/uL (0.11-0.59); Monocytes % (auto) 15.3 %; Neutrophils # (auto) 6.49 K/uL (1.4-6.5); Neutrophils % (auto) 70.6 %; Platelet Count 123 K/uL (130-400); RDW Standard Deviation 43.3 fL (36.4-46.3); Red Blood Count 3.58 M/uL (4.2-5.4)
--- NOTE | 2020-12-14 07:49 | Orthopedic Progress Note ---
Date of Service December 14, 2020 Assessment & Plan (1) Closed fracture of left hip: Plan: Postop day #1 left trochanteric nail -Pain management as written. Pain is currently well controlled. -PT/OT-patient is weightbearing as tolerated with a walker. -A.m. labs-hemoglobin at 9.9 this morning acute blood loss anemia likely due to surgical loss/hip fracture versus dilutional. Chemistries are pending -D/C planning-patient likely will need inpatient rehab versus return home with home health. Await PT/OT evals. Admission and Anticipated Discharge Date Admission Date: December 12, 2020 Subjective Patient is postop day 1 from left trochanteric nail. She is resting in bed comfortably. Pain is well controlled. Denies chest pain, shortness of breath, fever, chills, nausea/vomiting/diarrhea. Review of Systems Review of Systems: All systems reviewed & are unremarkable except as noted in Subjective Physical Exam Physical Exam: Left hip dressings are clean dry and intact. Thigh compartments soft. No calf tenderness. Toes are mobile. Distally neurovascular status and sensations intact. Constitutional: well developed and well nourished; no acute distress Results & Data ([facility]) Vital Signs (Past 12 Hours) Vital Signs Temp Pulse Pulse Resp BP Pulse Ox 12/14/20 07:30 36.9 C 61 67 18 134/62 93 12/14/20 04:00 36.9 C 64 20 135/64 90 12/14/20 00:36 70 12/13/20 23:15 38.1 C H 71 20 112/63 92 Laboratory Results Lab Results 12/12/20 12/12/20 12/12/20 Range/Units 17:03 17:03 17:06 WBC (4.8-10.8) K/uL RBC (4.2-5.4) M/uL Hgb (12.0-16.0) g/dL Hct (37-47) % MCV (80-100) fL MCH (25-34) pg MCHC (32-36) g/dL RDW Std Deviation (36.4-46.3) fL RDW Coeff of Blanche (11.5-14.5) % Plt Count (130-400) K/uL MPV (7.4-10.4) fL Immature Gran % (Auto) % Neut % (Auto) % Lymph % (Auto) % [place] % (Auto) % Eos % (Auto) % Baso % (Auto) % Neut # (Auto) (1.4-6.5) K/uL Lymph # (Auto) (1.2-3.4) K/uL [place] # (Auto) (0.11-0.59) K/uL Eos # (Auto) (0-0.5) K/uL Baso # (Auto) (0-0.2) K/uL Immature Gran # (Auto) (0.00-0.02) K/uL PT (9.0-12.0) Seconds INR (0.9-1.1) APTT (21.0-31.0) Seconds PTT Ratio Sodium (136-145) mmol/L Potassium (3.5-5.1) mmol/L Chloride (98-107) mmol/L Carbon Dioxide (21-32) mmol/L Anion Gap (3-11) BUN (7-18) mg/dl Creatinine (0.6-1.2) mg/dl Est Cr Clr Drug Dosing ml/min Est GFR ( Amer) ml/min Est GFR (Non-Af Amer) ml/min BUN/Creatinine Ratio (10-20) Glucose (70-99) mg/dl Estimat Average Glucose mg/dl Hemoglobin A1c (4.5-5.6) % Calcium (8.5-10.1) mg/dl Total Bilirubin (0.2-1) mg/dl AST (15-37) U/L ALT (12-78) U/L Alkaline Phosphatase (45-117) U/L Total Protein (6.4-8.2) gm/dl Albumin (3.4-5.0) gm/dl Globulin (2.5-4.0) gm/dl Albumin/Globulin Ratio (0.9-2) Urine Color Urine Appearance (Clear) Urine pH (4.5-7.5) Ur Specific [place] (1.000-1.030) Urine Protein (Negative) Urine Glucose (UA) (Negative) Urine Ketones (Negative) Urine Blood (Negative) Urine Nitrite (Negative) Urine Bilirubin (Negative) Urine Urobilinogen (Negative) Ur Leukocyte Esterase (Negative) Urine WBC (Auto) (0-5) /hpf Urine RBC (Auto) (0-4) /hpf U Hyaline Cast (Auto) (0-5) /lpf U Epithel Cells (Auto) (0-5) /lpf Urine Bacteria (Auto) (Negative) Nasal Screen MRSA (PCR) (Negative) COVID-19 Eval Order Covid19 at [facility] SARS-CoV-2 (PCR) NEGATIVE (Negative) Blood Type O Positive Antibody Screen NEGATIVE 12/12/20 12/12/20 12/12/20 Range/Units 17:06 17:06 17:06 WBC 9.01 (4.8-10.8) K/uL RBC 4.67 (4.2-5.4) M/uL Hgb 13.0 (12.0-16.0) g/dL Hct 40.1 (37-47) % MCV 85.9 (80-100) fL MCH 27.8 (25-34) pg MCHC 32.4 (32-36) g/dL RDW Std Deviation 43.9 (36.4-46.3) fL RDW Coeff of Blanche 14.0 (11.5-14.5) % Plt Count 162 (130-400) K/uL MPV 9.0 (7.4-10.4) fL Immature Gran % (Auto) 0.3 % Neut % (Auto) 79.1 % Lymph % (Auto) 11.5 % [place] % (Auto) 7.2 % Eos % (Auto) 1.8 % Baso % (Auto) 0.1 % Neut # (Auto) 7.12 H (1.4-6.5) K/uL Lymph # (Auto) 1.04 L (1.2-3.4) K/uL [place] # (Auto) 0.65 H (0.11-0.59) K/uL Eos # (Auto) 0.16 (0-0.5) K/uL Baso # (Auto) 0.01 (0-0.2) K/uL Immature Gran # (Auto) 0.03 H (0.00-0.02) K/uL PT 10.9 (9.0-12.0) Seconds INR 1.1 (0.9-1.1) APTT 26.2 (21.0-31.0) Seconds PTT Ratio 1.0 Sodium 137 (136-145) mmol/L Potassium 4.1 (3.5-5.1) mmol/L Chloride 107 (98-107) mmol/L Carbon Dioxide 23 (21-32) mmol/L Anion Gap 7.0 (3-11) BUN 16 (7-18) mg/dl Creatinine 0.81 (0.6-1.2) mg/dl Est Cr Clr Drug Dosing 47.1 ml/min Est GFR ( Amer) 75.7 ml/min Est GFR (Non-Af Amer) 65.3 ml/min BUN/Creatinine Ratio 19.9 (10-20) Glucose 149 H (70-99) mg/dl Estimat Average Glucose mg/dl Hemoglobin A1c (4.5-5.6) % Calcium 9.1 (8.5-10.1) mg/dl Total Bilirubin 0.6 (0.2-1) mg/dl AST 30 (15-37) U/L ALT 27 (12-78) U/L Alkaline Phosphatase 75 (45-117) U/L Total Protein 7.9 (6.4-8.2) gm/dl Albumin 3.1 L (3.4-5.0) gm/dl Globulin 4.8 H (2.5-4.0) gm/dl Albumin/Globulin Ratio 0.6 L (0.9-2) Urine Color Urine Appearance (Clear) Urine pH (4.5-7.5) Ur Specific [place] (1.000-1.030) Urine Protein (Negative) Urine Glucose (UA) (Negative) Urine Ketones (Negative) Urine Blood (Negative) Urine Nitrite (Negative) Urine Bilirubin (Negative) Urine Urobilinogen (Negative) Ur Leukocyte Esterase (Negative) Urine WBC (Auto) (0-5) /hpf Urine RBC (Auto) (0-4) /hpf U Hyaline Cast (Auto) (0-5) /lpf U Epithel Cells (Auto) (0-5) /lpf Urine Bacteria (Auto) (Negative) Nasal Screen MRSA (PCR) (Negative) COVID-19 Eval Order SARS-CoV-2 (PCR) (Negative) Blood Type Antibody Screen 12/12/20 12/13/20 12/13/20 Range/Units 20:27 01:30 05:24 WBC (4.8-10.8) K/uL RBC (4.2-5.4) M/uL Hgb (12.0-16.0) g/dL Hct (37-47) % MCV (80-100) fL MCH (25-34) pg MCHC (32-36) g/dL RDW Std Deviation (36.4-46.3) fL RDW Coeff of Blanche (11.5-14.5) % Plt Count (130-400) K/uL MPV (7.4-10.4) fL Immature Gran % (Auto) % Neut % (Auto) % Lymph % (Auto) % [place] % (Auto) % Eos % (Auto) % Baso % (Auto) % Neut # (Auto) (1.4-6.5) K/uL Lymph # (Auto) (1.2-3.4) K/uL [place] # (Auto) (0.11-0.59) K/uL Eos # (Auto) (0-0.5) K/uL Baso # (Auto) (0-0.2) K/uL Immature Gran # (Auto) (0.00-0.02) K/uL PT (9.0-12.0) Seconds INR (0.9-1.1) APTT (21.0-31.0) Seconds PTT Ratio Sodium (136-145) mmol/L Potassium (3.5-5.1) mmol/L Chloride (98-107) mmol/L Carbon Dioxide (21-32) mmol/L Anion Gap (3-11) BUN (7-18) mg/dl Creatinine (0.6-1.2) mg/dl Est Cr Clr Drug Dosing ml/min Est GFR ( Amer) ml/min Est GFR (Non-Af Amer) ml/min BUN/Creatinine Ratio (10-20) Glucose (70-99) mg/dl Estimat Average Glucose 128 mg/dl Hemoglobin A1c 6.1 H (4.5-5.6) % Calcium (8.5-10.1) mg/dl Total Bilirubin (0.2-1) mg/dl AST (15-37) U/L ALT (12-78) U/L Alkaline Phosphatase (45-117) U/L Total Protein (6.4-8.2) gm/dl Albumin (3.4-5.0) gm/dl Globulin (2.5-4.0) gm/dl Albumin/Globulin Ratio (0.9-2) Urine Color Yellow Urine Appearance Clear (Clear) Urine pH 7.5 (4.5-7.5) Ur Specific [place] 1.012 (1.000-1.030) Urine Protein Negative (Negative) Urine Glucose (UA) Negative (Negative) Urine Ketones Negative (Negative) Urine Blood Negative (Negative) Urine Nitrite Positive A (Negative) Urine Bilirubin Negative (Negative) Urine Urobilinogen Negative (Negative) Ur Leukocyte Esterase Negative (Negative) Urine WBC (Auto) 1-5 (0-5) /hpf Urine RBC (Auto) 0-4 (0-4) /hpf U Hyaline Cast (Auto) 0 (0-5) /lpf U Epithel Cells (Auto) >30 H (0-5) /lpf Urine Bacteria (Auto) 2+ H (Negative) Nasal Screen MRSA (PCR) Negative (Negative) COVID-19 Eval Order SARS-CoV-2 (PCR) (Negative) Blood Type Antibody Screen 12/14/20 Range/Units 07:19 WBC 9.20 (4.8-10.8) K/uL RBC 3.58 L (4.2-5.4) M/uL Hgb 9.9 L D (12.0-16.0) g/dL Hct 30.5 L (37-47) % MCV 85.2 (80-100) fL MCH 27.7 (25-34) pg MCHC 32.5 (32-36) g/dL RDW Std Deviation 43.3 (36.4-46.3) fL RDW Coeff of Blanche 14.0 (11.5-14.5) % Plt Count 123 L (130-400) K/uL MPV 9.5 (7.4-10.4) fL Immature Gran % (Auto) 0.3 % Neut % (Auto) 70.6 % Lymph % (Auto) 13.4 % [place] % (Auto) 15.3 % Eos % (Auto) 0.3 % Baso % (Auto) 0.1 % Neut # (Auto) 6.49 (1.4-6.5) K/uL Lymph # (Auto) 1.23 (1.2-3.4) K/uL [place] # (Auto) 1.41 H (0.11-0.59) K/uL Eos # (Auto) 0.03 (0-0.5) K/uL Baso # (Auto) 0.01 (0-0.2) K/uL Immature Gran # (Auto) 0.03 H (0.00-0.02) K/uL PT (9.0-12.0) Seconds INR (0.9-1.1) APTT (21.0-31.0) Seconds PTT Ratio Sodium (136-145) mmol/L Potassium (3.5-5.1) mmol/L Chloride (98-107) mmol/L Carbon Dioxide (21-32) mmol/L Anion Gap (3-11) BUN (7-18) mg/dl Creatinine (0.6-1.2) mg/dl Est Cr Clr Drug Dosing ml/min Est GFR ( Amer) ml/min Est GFR (Non-Af Amer) ml/min BUN/Creatinine Ratio (10-20) Glucose (70-99) mg/dl Estimat Average Glucose mg/dl Hemoglobin A1c (4.5-5.6) % Calcium (8.5-10.1) mg/dl Total Bilirubin (0.2-1) mg/dl AST (15-37) U/L ALT (12-78) U/L Alkaline Phosphatase (45-117) U/L Total Protein (6.4-8.2) gm/dl Albumin (3.4-5.0) gm/dl Globulin (2.5-4.0) gm/dl Albumin/Globulin Ratio (0.9-2) Urine Color Urine Appearance (Clear) Urine pH (4.5-7.5) Ur Specific [place] (1.000-1.030) Urine Protein (Negative) Urine Glucose (UA) (Negative) Urine Ketones (Negative) Urine Blood (Negative) Urine Nitrite (Negative) Urine Bilirubin (Negative) Urine Urobilinogen (Negative) Ur Leukocyte Esterase (Negative) Urine WBC (Auto) (0-5) /hpf Urine RBC (Auto) (0-4) /hpf U Hyaline Cast (Auto) (0-5) /lpf U Epithel Cells (Auto) (0-5) /lpf Urine Bacteria (Auto) (Negative) Nasal Screen MRSA (PCR) (Negative) COVID-19 Eval Order SARS-CoV-2 (PCR) (Negative) Blood Type Antibody Screen (1) Closed fracture of left hip Encounter type: initial encounter Qualified Code(s): S72.002A - Fracture of unspecified part of neck of left femur, initial encounter for closed fracture
[2020-12-14 08:00] LABS: BUN Creatinine Ratio 24.6 (10-20); Creatinine Clr Calc Pharmacy 52.8 ml/min; Est GFR (African American) 83.1 ml/min; Est GFR (Non-African American) 71.7 ml/min
[2020-12-14] MEDS: LOSARTAN POTASSIUM 50 MG TAB PO SCH (08:02)
[2020-12-14] MEDS: ENOXAPARIN INJ 40 MG/0.4 ML SYR SQ SCH (08:02)
[2020-12-14] MEDS: SERTRALINE HCL 50 MG TABLET PO SCH (08:02)
[2020-12-14] MEDS: amLODIPine BESYLATE 5 MG TAB PO SCH (08:03)
[2020-12-14] MEDS: ATENOLOL 50 MG TABLET PO SCH (08:03)
[2020-12-14] MEDS: CHOLECALCIFEROL 1,000 UNITS 25 MCG TAB PO SCH (08:03)
[2020-12-14] MEDS: CALCIUM CARBONATE 1250MG TAB PO SCH (08:04)
[2020-12-14] MEDS: ASPIRIN 81 MG ECTAB PO SCH (08:04)
[2020-12-14 08:26] LABS: Calcium 6.4 mg/dl (8.5-10.1)
--- NOTE | 2020-12-14 11:21 | Hospitalist Progress Note ---
Date of Service December 14, 2020 Assessment & Plan (1) Closed fracture of left hip: (2) Fall: Plan: per admitting service notes: Patient is 85-year-old female with PMH RA, HTN, paroxysmal atrial fibrillation not on anticoagulation, CKD III, prediabetes, hypothyroidism, iron deficiency anemia, anxiety presented to ER with complaint of mechanical fall and left hip pain. Denies LOC, SOB, CP, dizziness. In ER vitals stable. CT head and C-spine unremarkable. Hip x-ray:Acute displaced angulated intertrochanteric fracture of the left femur which extends to the base of the femoral neck. In ER given 0.5 mg Dilaudid with pain control Hicks catheter in place Patient mild to moderate surgical risk secondary to age and history of TIA, revised cardiac risk index score of 6% 30-day risk of , [place] or cardiac arrest Morphine as needed pain N.p.o. midnight Ortho consult, Dr. Morocho aware CBC, BMP in a.m. 10/16 s/p Left Hip Intertrochanteric Nail Insertion(Left) - Ayan Morocho MD add Hydrocortisone 25mg q8h as patient takes Prednisone 5mg daily monitor BP pain control PT/OT evaluation DVT prophylaxis per Ortho 1017 Postop day #1 Minimal pain in the left hip Hemoglobin decreased to 9 Likely secondary acute blood loss anemia Asymptomatic Continue to monitor Already received 3 doses of hydrocortisone 25 mg every 8 hours, resume prednisone 10 mg daily Blood pressure stable Mild TMJ joint pain, bilaterally Likely secondary to intubation Soft diet for now, gentle exercises encouraged Possible UTI - urine culture: gram negative bacilli -Change aztreonam to ceftriaxone day #1 DVT prophylaxis Lovenox 40 mg subcu daily Disposition PT OT evaluation pending Will likely need acute rehab Patient agreeable (3) Hypertension: Plan: Continue losartan, atenolol, amlodipine (4) Rheumatoid arthritis: Plan: Follows with rheumatology-Dr. Mann add Hydrocortisone 25mg q8h as patient takes Prednisone 5mg daily, x 3 doses, then Continue prednisone 5 mg daily Hold Enbrel (5) CKD (chronic kidney disease), stage III: Plan: Cr: 0.8. Baseline creatinine 0.8 stable monitor (6) Paroxysmal atrial fibrillation: Plan: Not on anticoagulation Current sinus rhythm Continue atenolol (7) Prediabetes: Plan: A1c: 6.2 in 01/2020 Diabetic diet (8) TIA (transient ischemic attack): Plan: Hold aspirin until ok to resume per Ortho (9) Anxiety: Plan: Continue sertraline DVT Prophylaxis -SCDs DNR/DNI as per discussion with pt Follows with Dr Bahena for routine care Pt was seen and care coordinated with Dr Dorado. See addendum Admission and Anticipated Discharge Date Admission Date: December 12, 2020 Subjective Follow-up status post left hip surgery, etc. Seen sitting up in bed, comfortable, not in distress, in good spirits States he feels better today Minimal left hip pain Denies chest pain, shortness of breath, palpitations, dizziness, abdominal pain, nausea vomiting No fevers or chills Reports bilateral TMJ joint pain-mild, improving Requesting soft diet No dysphagia No other symptoms Review of Systems Review of Systems: all noted and negative except for above Physical Exam Physical Exam: General- oriented x 3, not in distress, speaks in sentences with no effort or accessory muscle use ENT-very mild trismus, but no tenderness on the TMJ bilaterally No lymphadenopathy On exam essentially normal Eyes- anicteric Neck- no JVD Lungs- clear breath sounds bilaterally, no rales/wheezes Heart- normal rate, regular rhythm; no murmurs Abdomen- normal bowel sounds, nondistended, soft, nontender Extremities- no pretibial edema, no calf tenderness Left hip-dressing in place, no bleeding or discharge, leg edema, no erythema/hematoma/warmth/tenderness Neuro- alert, oriented x 3; no gross focal neurologic deficits Skin- warm & dry Results & Data Results & Data ([facility]) Vital Signs (Past 12 Hours) Vital Signs Temp Pulse Pulse Resp BP Pulse Ox 12/14/20 07:30 36.9 C 61 67 18 134/62 93 12/14/20 04:00 36.9 C 64 20 135/64 90 12/14/20 00:36 70 all noted and reviewed including below (1) Closed fracture of left hip Encounter type: initial encounter Qualified Code(s): S72.002A - Fracture of unspecified part of neck of left femur, initial encounter for closed fracture (2) Fall Encounter type: initial encounter Qualified Code(s): W19.XXXA - Unspecified fall, initial encounter
[2020-12-14] MEDS: cefTRIAXone SODIUM 1,000 MG in DEXTROSE 5% 50 ML IV SCH (12:29)
[2020-12-14] MEDS: MoRPHine SULFATE 2 MG/ML CARP IV PRN ×2 (15:10→19:33)
[2020-12-14] MEDS: DOCUSATE SODIUM/SENNA 50/8.6MG TAB PO SCH (20:46)
[2020-12-15] MEDS: MoRPHine SULFATE 2 MG/ML CARP IV PRN ×2 (00:55→06:31)
[2020-12-15] MEDS: COUGH DROP (SUGAR FREE) LOZ 24 LOZ/1 BOX BUCCAL PRN (02:14)
[2020-12-15] MEDS: LEVOTHYROXINE SODIUM 137 MCG TABLET PO SCH (06:21)
--- NOTE | 2020-12-15 06:55 | Orthopedic Progress Note ---
Date of Service December 15, 2020 Assessment & Plan (1) Closed fracture of left hip: Plan: Postop day #2 left trochanteric nail -Pain management as written. Pain is currently well controlled. -PT/OT-patient is weightbearing as tolerated with a walker. -DVT prophylaxisLovenox, SCDs, teds -A.m. labs-hemoglobin 9.9 yesterday. CBC this morning pending -D/C planning-patient will require inpatient rehab stay. Case management is on board. Admission and Anticipated Discharge Date Admission Date: December 12, 2020 Subjective Patient is resting in bed upon my arrival. She is doing well postoperatively overall. She has no pain in her hip at rest. She does have some knee pain with weightbearing. She does have complaint of knee pain with weightbearing. States she does have history of OA. Will obtain x-rays today to ensure no acute pathology. No other current complaints. Denies any chest pain, shortness of breath, dizziness, lightheadedness, headache, fever/chills. Review of Systems Review of Systems: All systems reviewed & are unremarkable except as noted in Subjective Physical Exam Physical Exam: Left hip dressings are clean dry and intact. Thigh compartments soft. No calf tenderness. Toes are mobile. Distally neurovascular status and sensations intact. Constitutional: well developed and well nourished; no acute distress Results & Data ([facility]) Vital Signs (Past 12 Hours) Vital Signs Temp Pulse Pulse Pulse Resp BP Pulse Ox 12/15/20 03:22 37.2 C 64 18 118/52 L 92 12/14/20 23:52 63 12/14/20 22:51 37.3 C 66 20 118/58 L 95 12/14/20 19:00 37.1 C 63 20 128/61 92 (1) Closed fracture of left hip Encounter type: initial encounter Qualified Code(s): S72.002A - Fracture of unspecified part of neck of left femur, initial encounter for closed fracture
[2020-12-15 07:43] LABS: Basophils # (auto) 0.01 K/uL (0-0.2); Basophils % (auto) 0.1 %; Eosinophils # (auto) 0.38 K/uL (0-0.5); Eosinophils % (auto) 5.3 %; Hemoglobin 9.5 g/dL (12.0-16.0); Immature Granulocytes # (auto) 0.03 K/uL (0.00-0.02); Immature Granulocytes % (auto) 0.4 %; Lymphocytes # (auto) 1.13 K/uL (1.2-3.4); Lymphocytes % (auto) 15.8 %; Mean Corpuscular Hemoglobin 27.7 pg (25-34); Mean Corpuscular Hgb Conc 32.8 g/dL (32-36); Mean Corpuscular Volume 84.5 fL (80-100); Mean Platelet Volume 9.3 fL (7.4-10.4); Monocytes # (auto) 0.95 K/uL (0.11-0.59); Monocytes % (auto) 13.3 %; Neutrophils # (auto) 4.66 K/uL (1.4-6.5); Neutrophils % (auto) 65.1 %; Platelet Count 123 K/uL (130-400); RDW Standard Deviation 42.9 fL (36.4-46.3); Red Blood Count 3.43 M/uL (4.2-5.4); White Blood Count 7.16 K/uL (4.8-10.8)
--- NOTE | 2020-12-15 07:52 | XRay Report ---
LEFT KNEE 2 VIEWS HISTORY: Left knee pain COMPARISON: None. FINDINGS: There is no fracture or dislocation. The bones are osteopenic. Small knee effusion. Mild va scular calcifications are noted. No significant soft tissue swelling. Severe cartilage space narrowin g within the medial and lateral compartments of the knee with small tricompartmental marginal osteoph ytes. This is consistent with advanced degenerative change. There are also small marginal osteophytes at the patella. No radiopaque foreign bodies. IMPRESSION: 1. No fractures within the left knee. 2. Small knee effusion. 3. Severe tricompartmental osteoarthritis. ACT 112: Negative or not required by law. Electronically signed by: Flaco Montiel M.D. 12/15/2020 7:50 AM
[2020-12-15] MEDS: cefTRIAXone SODIUM 1,000 MG in DEXTROSE 5% 50 ML IV SCH (08:50)
[2020-12-15] MEDS: SERTRALINE HCL 50 MG TABLET PO SCH (08:52)
[2020-12-15] MEDS: LOSARTAN POTASSIUM 50 MG TAB PO SCH (08:53)
[2020-12-15] MEDS: CHOLECALCIFEROL 1,000 UNITS 25 MCG TAB PO SCH (08:54)
[2020-12-15] MEDS: amLODIPine BESYLATE 5 MG TAB PO SCH (08:54)
[2020-12-15] MEDS: ASPIRIN 81 MG ECTAB PO SCH (08:54)
[2020-12-15] MEDS: ATENOLOL 50 MG TABLET PO SCH (08:54)
[2020-12-15] MEDS: ENOXAPARIN INJ 40 MG/0.4 ML SYR SQ SCH (08:55)
[2020-12-15] MEDS: CALCIUM CARBONATE 1250MG TAB PO SCH (08:55)
[2020-12-15] MEDS ORDERED: predniSONE 5 MG TAB PO SCH (09:00)
[2020-12-15] MEDS ORDERED: ACETAMINOPHEN 325 MG TAB PO SCH (09:45)
--- NOTE | 2020-12-15 09:54 | Operative Report (OR) ---
PREOPERATIVE DIAGNOSIS: Left intertrochanteric displaced hip fracture. POSTOPERATIVE DIAGNOSIS: Left intertrochanteric displaced hip fracture. PROCEDURE: Left intertrochanteric hip nail. SURGEON: Jd Morocho MD M[employer]GAGE PROCESSING MANAGER: Nacho Maza PA-C. ANESTHESIA: Regional block, spinal with sedation. INDICATIONS: This 85-year-old female, who sustained the above-mentioned injury. She presented with a varus displaced intertrochanteric fracture with the lesser trochanter off. She presents for intram edullary nail. I saw her in the preoperative holding area. We discussed risks, benefits, reasonable outcomes and ex pectations. The risks and benefits have been discussed including, but not limited to, risk of infection, nerve in jury, stiffness, loss of motion, failure to improve, etc. Reasonable outcomes and options of treatmen t were discussed. An explanation of appropriate alternatives to the procedure that may be advantageou s were discussed and their risks and benefits, as well as the risks and benefits of not proceeding wi th treatment. I offered to answer any additional inquiries concerning the treatment involved. All the patients questions were answered. The patient is agreeable, understanding of the treatment plan and alternatives, and wishes to proceed with the treatment plan. DESCRIPTION OF PROCEDURE: The patient was placed in a fracture table and longitudinal traction was a pplied. This did result in acceptable alignment. I made a longitudinal incision extending from the tip of the trochanter approximately 2 inches proximal. Dissection was carried through the skin and s ubcutaneous tissue. I sharply incised the fascia and bluntly dissected down to the tip of the greate r trochanter. I placed a guidewire for a Synthes TFN nail set. This was placed into the intramedull prudencio canal with an appropriate starting position. This was checked in two views of fluoroscopy. I th en overdrilled with the entry reamer and placed the ball-tipped guidewire. I then reamed it to a siz e 13. The patient had fairly wide canal. I elected to proceed with mid nail given the lesser trocha nter was off. I selected a size Synthes 12 mm 130-degree TFN mid nail. This was then placed with th e ball-tipped guidewire and passed down the canal. I then made a second incision over the lateral thigh and placed the jigs for the helical blade down t o bone after dissection. I then placed a guidewire in the center-center position in the head of the femur. I then used the entry drill followed by the cancellous drill. I selected a size 100-mm helic al blade and this was gently impacted. This resulted in good alignment and stability. Locking screw was placed with the standard guides for the mid nail distally. Final C-arm radiographs confirmed good reduction and did show locking screw was in good position. Incisions were irrigated. Fascial layer was closed with 2-0 Vicryl, checo were used on skin. The patient was placed in a s oft dressing, sent to PACU in stable condition. Postoperative plan will be weightbearing as tolerated with walker and prophylactic dose Lovenox for D VT prophylaxis. Job ID: [id number]
--- NOTE | 2020-12-15 12:05 | Hospitalist Progress Note ---
Date of Service December 15, 2020 Assessment & Plan (1) Closed fracture of left hip: (2) Fall: Plan: per admitting service notes: Patient is 85-year-old female with PMH RA, HTN, paroxysmal atrial fibrillation not on anticoagulation, CKD III, prediabetes, hypothyroidism, iron deficiency anemia, anxiety presented to ER with complaint of mechanical fall and left hip pain. Denies LOC, SOB, CP, dizziness. In ER vitals stable. CT head and C-spine unremarkable. Hip x-ray:Acute displaced angulated intertrochanteric fracture of the left femur which extends to the base of the femoral neck. In ER given 0.5 mg Dilaudid with pain control Hicks catheter in place Patient mild to moderate surgical risk secondary to age and history of TIA, revised cardiac risk index score of 6% 30-day risk of , [place] or cardiac arrest Morphine as needed pain N.p.o. midnight Ortho consult, Dr. Morocho aware CBC, BMP in a.m. / s/p Left Hip Intertrochanteric Nail Insertion(Left) - Ayan Morocho MD add Hydrocortisone 25mg q8h as patient takes Prednisone 5mg daily monitor BP pain control PT/OT evaluation DVT prophylaxis per Ortho / Postop day #1 Minimal pain in the left hip Hemoglobin decreased to 9 Likely secondary acute blood loss anemia Asymptomatic Continue to monitor Already received 3 doses of hydrocortisone 25 mg every 8 hours, resume prednisone 10 mg daily Blood pressure stable 10/18 Hg stable at 9 x 2 days no signs of active bleeding overall stable Lovenox for DVT prophylaxis weight bearing as tolerated ff up with Ortho in 1 week Mild TMJ joint pain, bilaterally Likely masseter spasms secondary to intubation? Soft diet for now, gentle exercises encouraged Speech Therapy evaluation if without improvement, consult ENT E coli UTI - urine culture: E coli -Change aztreonam to ceftriaxone day #2 - Cefdinir x 3 more days Hypertension Plan: Continue atenolol, amlodipine, losartan Hold losartan tomorrow morning, plan to resume after surgery Rheumatoid arthritis: Plan: Follows with rheumatology-Dr. Mann Continue prednisone 5 mg daily Hold Enbrel CKD (chronic kidney disease), stage III: Plan: Cr: 0.8. Baseline creatinine 0.8 Monitor renal functions, avoid nephrotoxic agents when possible Paroxysmal atrial fibrillation Plan: Not on anticoagulation Current sinus rhythm Continue atenolol Prediabetes Plan: A1c: 6.2 in 01/2020 Diabetic diet TIA (transient ischemic attack): Plan: Aspirin Anxiety: Plan: Continue sertraline DVT Prophylaxis -SCDs DNR/DNI as per discussion with pt Follows with Dr Bahena for routine care d/c to [facility] (3) Hypertension: Plan: Continue losartan, atenolol, amlodipine (4) Rheumatoid arthritis: Plan: Follows with rheumatology-Dr. Mann add Hydrocortisone 25mg q8h as patient takes Prednisone 5mg daily, x 3 doses, then Continue prednisone 5 mg daily Hold Enbrel (5) CKD (chronic kidney disease), stage III: Plan: Cr: 0.8. Baseline creatinine 0.8 stable monitor (6) Paroxysmal atrial fibrillation: Plan: Not on anticoagulation Current sinus rhythm Continue atenolol (7) Prediabetes: Plan: A1c: 6.2 in 01/2020 Diabetic diet (8) TIA (transient ischemic attack): Plan: Hold aspirin until ok to resume per Ortho (9) Anxiety: Plan: Continue sertraline DVT Prophylaxis -SCDs DNR/DNI as per discussion with pt Follows with Dr Bahena for routine care Pt was seen and care coordinated with Dr Dorado. See addendum Admission and Anticipated Discharge Date Admission Date: December 12, 2020 Subjective ff up for hip fracture, s/p surgery seen resting in bedside chair, comfortable states she feels fine overall denies chest pain, dyspnea, palpitations, dizziness no abdominal pain, nausea/vomiting reports pain more on the L TMJ joint- has difficulty opening her mouth wide, also affecting chewing and swallowing no other symptoms Review of Systems Review of Systems: all noted and negative except for above Physical Exam Physical Exam: General- oriented x 3, not in distress, speaks in sentences with no effort or accessory muscle use Face- no edema L TMJ area- moderate tenderness, moderate trismus no lymphadenopathy Eyes- anicteric Neck- no JVD Lungs- clear breath sounds bilaterally, no rales/wheezes Heart- normal rate, regular rhythm; no murmurs Abdomen- normal bowel sounds, nondistended, soft, nontender Extremities- no pretibial edema, no calf tenderness left hip- dressing in place, no bleeding/discharge no hematoma Neuro- alert, oriented x 3; no gross focal neurologic deficits Skin- warm & dry Results & Data Results & Data ([facility]) Vital Signs (Past 12 Hours) Vital Signs Temp Pulse Pulse Resp BP Pulse Ox 12/15/20 11:09 37.4 C 62 16 136/69 93 12/15/20 09:41 95 12/15/20 07:42 37.4 C 69 16 156/69 H 93 12/15/20 07:38 63 12/15/20 03:22 37.2 C 64 18 118/52 L 92 all noted and reviewed including below (1) Fall Encounter type: initial encounter Qualified Code(s): W19.XXXA - Unspecified fall, initial encounter (2) Closed fracture of left hip Encounter type: initial encounter Qualified Code(s): S72.002A - Fracture of unspecified part of neck of left femur, initial encounter for closed fracture
--- NOTE | 2020-12-15 12:26 | Discharge Summary ---
Date of Service December 15, 2020 Admission HPI Per Admitting Provider Patient is 85-year-old female with PMH RA, HTN, paroxysmal atrial fibrillation not on anticoagulation, CKD III, prediabetes, hypothyroidism, iron deficiency anemia, anxiety presented to ER with complaint of fall. Patient states was cleaning her living room and she was walking and lost her balance and fell. Patient states hit her head and" " saw stars", denies LOC. She reports had left hip pain and unable to ambulate. Patient reports at baseline is off balance and has had falls in the past, reports last fall approximately 10 months ago. Denies dizziness, chest pain, shortness of breath prior to fall. Patient denies paresthesias left foot. Denies fever/chills, diaphoresis, N/V/D/C, DONNELLY, dizziness, syncope, vision changes, neck pain, CP, SOB, orthopnea, palpitations, cough, sore throat, choking, otalgia, rhinorrhea, abdominal pain, extremity edema, rashes, urinary symptoms. In ER vitals stable. CT head and C-spine unremarkable. Hip x-ray:Acute displaced angulated intertrochanteric fracture of the left femur which extends to the base of the femoral neck. Admission Exam (Per Admitting) Constitutional General: no acute distress, WDWN Head: normocephalic, atraumatic Eyes: PERRL, EOM's intact, conjunctiva non-injected, anicteric ENT: normal inspection external ears, nose, mucous membranes moist Neck: supple, trachea midline Lungs: clear, no respiratory distress, no wheezing/rhonchi/rales CV: RRR, trace pretibial edema Abd: normal BS, soft, non-tender Ext: no cyanosis, no calf tenderness; LLE: +left leg shortened and externally rotated, distal pulses palpable, sensation to light touch intact +chronic deformity bilateral fingers, toes Neuro: A&O x 3, no Discharge Data Consultations 12/12/20 19:09 ED Decision to Admit Stat 12/13/20 01:19 Consult Anesthesiology Routine Consult Orthopedic Surgery Routine Procedures Performed Operation Date: 12/13/20 09:00 Actual Procedures p Left Hip Intertrochanteric Nail Insertion(Left) - Ayan Morocho MD Hospital Course (1) Closed fracture of left hip: (2) Fall: Left hip fracture status post fall Status post surgery per admitting service notes: Patient is 85-year-old female with PMH RA, HTN, paroxysmal atrial fibrillation not on anticoagulation, CKD III, prediabetes, hypothyroidism, iron deficiency anemia, anxiety presented to ER with complaint of mechanical fall and left hip pain. Denies LOC, SOB, CP, dizziness. In ER vitals stable. CT head and C-spine unremarkable. Hip x-ray:Acute displaced angulated intertrochanteric fracture of the left femur which extends to the base of the femoral neck. In ER given 0.5 mg Dilaudid with pain control Hicks catheter in place Patient mild to moderate surgical risk secondary to age and history of TIA, revised cardiac risk index score of 6% 30-day risk of , [place] or cardiac arrest Morphine as needed pain N.p.o. midnight Ortho consult, Dr. Morocho aware CBC, BMP in a.m. 12/13 s/p Left Hip Intertrochanteric Nail Insertion(Left) - Ayan Morocho MD add Hydrocortisone 25mg q8h as patient takes Prednisone 5mg daily monitor BP pain control PT/OT evaluation DVT prophylaxis per Ortho 12/14 Postop day #1 Minimal pain in the left hip Hemoglobin decreased to 9 Likely secondary acute blood loss anemia Asymptomatic Continue to monitor Already received 3 doses of hydrocortisone 25 mg every 8 hours, resume prednisone 10 mg daily Blood pressure stable 12/15 Postop day #2 Hg stable at 9 x 2 days no signs of active bleeding overall stable Lovenox for DVT prophylaxis weight bearing as tolerated ff up with Ortho Dr. Kyung brown in 1 week Mild TMJ joint pain, bilaterally Likely masseter spasms secondary to intubation? Soft diet for now, gentle exercises encouraged Speech Therapy evaluation if without improvement, consult ENT E coli UTI - urine culture: E coli -Change aztreonam to ceftriaxone day #2 - Cefdinir x 3 more days Hypertension Plan: Continue atenolol, amlodipine, losartan Hold losartan tomorrow morning, plan to resume after surgery Rheumatoid arthritis: Plan: Follows with rheumatology-Dr. Mann Continue prednisone 5 mg daily Hold Enbrel for now, discussed with manager of compensation Dr. Mann when Enbrel should be resumed CKD (chronic kidney disease), stage III: Plan: Cr: 0.8. Baseline creatinine 0.8 Monitor renal functions, avoid nephrotoxic agents when possible Paroxysmal atrial fibrillation Plan: Not on anticoagulation Current sinus rhythm Continue atenolol Prediabetes Plan: A1c: 6.2 in 01/2020 Diabetic diet TIA (transient ischemic attack): Plan: Aspirin Anxiety: Plan: Continue sertraline DVT Prophylaxis -SCDs DNR/DNI as per discussion with pt Follows with Dr Bahena for routine care d/c to [facility]
== END 2020-12-15 13:37 | DRG 481 ==
LOC: ED 16:41 → 2N 19:53 → SUATTDRO 19:53 → 2N 12-13 00:08

== ENCOUNTER 2023-04-30 09:48 | Inpatient (IN) ==
--- NOTE | 2023-04-30 10:10 | Emergency Department Note ---
Impression & Plan Sciatica, Back pain, Ambulatory dysfunction ED Provider Note NAME: FLAVIO MARIE AGE: 87 SEX: F : 1935 ARRIVES VIA: Ambulance INFORMANT: Patient ED PROVIDER(S): Maurisio Doan DO CHIEF COMPLAINT: Left hip pain HPI: Patient is a 87-year-old female who presents to the ER for left hip pain. This has been going on since Tuesday when she was cleaning. Pain has been radiating down the left leg intermittently. She was seen here twice. Admits to paresthesias but no weakness or numbness. She able to urinate and move her bowels. She cannot get out of bed. No trauma or falls. No headache or change in vision. No chest pain or shortness of breath. No dysuria, urgency, or frequency. No other exacerbating or remitting factors. Pain is only present with weightbearing. ADDITIONAL HISTORY OBTAINED: Per HPI Chronic Medical/Social Conditions Affecting Care: Per HPI PAST MEDICAL HISTORY:See Below PAST SURGICAL HISTORY:See Below FAMILY HISTORY:See Below SOCIAL HISTORY:See Below HOME MEDICATIONS:See Below ALLERGIES:See Below VITALS:See Below PHYSICAL EXAMINATION: GENERAL: Sitting up in bed, alert, well appearing, well nourished, no distress, non-toxic EYE EXAM: normal conjunctiva. OROPHARYNX: no exudate, no erythema, lips, buccal mucosa, and tongue normal and mucous membranes are moist NECK: supple, no nuchal rigidity, no adenopathy, non-tender LUNGS: Clear to auscultation. Normal chest wall mechanics HEART: no murmurs, S1 normal and S2 normal ABDOMEN: abdomen soft, non-tender, normo-active bowel sounds, no masses, no rebound or guarding. BACK: Back is symmetrical on inspection and there is no deformity, no midline tenderness, no CVA tenderness. UPPER EXTREMITIES: upper extremities are grossly normal. LOWER EXTREMITIES: Flexion-extension bilateral hips knees ankles and EHL intact. Strength is 5 out of 5. DP 2 out of 4. Gross sensation intact. NEURO EXAM: Normal sensorium, cranial nerves II-XII grossly intact, normal speech, no gross weakness of arms, no gross weakness of legs. No drift. Finger to nose intact. Gross sensation intact. MEDICAL DECISION MAKING: Patient is an 87-year-old female who presents ER as she has been unable to get out of bed for lower back pain. Pain radiates into her left hip. Does appear to be consistent with sciatica clinically. IV was established blood work was obtained. Labs show no significant leukocytosis or anemia. BMP with LFTs bilirubin was unremarkable. X-ray of the left hip was unremarkable. Patient was given IV morphine prior to arrival per my discussion with EMS. Additional history was obtained from the EMS as well at bedside. She was given a the steroids. She was unable to walk and will likely need rehab and consequently was discussed with hospitalist for further evaluation. External records were reviewed. She also had a superior endplate fracture which was very mild on CT performed the other day. Discussed with the hospitalist for further evaluation management treatment. Consults/Care Managements Discussions: Per MDM Triage Nursing notes reviewed. Limited review of prior medical records performed Vital Signs: reviewed and remarkable for no significant abnormalities Differential diagnosis: Musculoskeletal, disc herniation, fracture, metastatic disease, cord compression, discitis, sciatica, cauda equina, infection, aortic disease, renal colic, gastrointestinal, as well as other pathologies. ER treatment provided: See below Diagnostics interpreted by me include EKG and cardiac monitoring as listed below: -Cardiac Monitoring: An order was placed for continuous cardiac monitoring. The monitor shows a rate of 70 with sinus rhythm. -ECG: none -Laboratory studies:Interpreted by me as stated above in MDM and shown below. Imaging studies: Xrays: As interpreted by me: X-rays of the left hip shows no acute fracture CTs show: none Procedures:none Critical Care: None Past Med/Surg History Medical History Closed compression fracture of lumbar vertebra Prediabetes CKD (chronic kidney disease), stage III Anxiety Hypertension Arthritis TIA (transient ischemic attack) (01/14/13) Osteoporosis Hypothyroidism Rheumatoid arthritis Paroxysmal atrial fibrillation Surgical History H/O vaginal hysterectomy H/O neck surgery S/P cholecystectomy H/O foot surgery History of esophagogastroduodenoscopy (EGD) H/O colonoscopy H/O: hysterectomy S/P cholecystectomy Family History Other Breast cancer Coronary heart disease Diabetes Social History Smoking Status: Never smoker Hx Alcohol Use: No Hx Substance Use: No Preferred Language: Maltese Communication Ability: Effective Application Manager Required: No Current Living Situation: Family Current Living Situation Comment: lives with daughter How many Children do You have: 4 Feels Safe at Home: Yes Allergies Allergies Allergy/AdvReac Type Severity Reaction Status Date / Time No Known Allergies Allergy Unverified 04/28/23 09:48 Home Meds Home Medications Medication Instructions Recorded Confirmed atenolol 100 mg tablet 100 mg PO DAILY 01/28/18 04/30/23 calcium carbonate 600 mg calcium 600 mg PO DAILY PRN Other 01/28/18 04/30/23 (1,500 mg) tablet (Calcium) cholecalciferol (vitamin D3) 25 1,000 unit PO DAILY 01/28/18 04/30/23 mcg (1,000 unit) capsule (Vitamin D3) levothyroxine 137 mcg tablet 137 mcg PO DAILY 01/28/18 04/30/23 losartan 100 mg tablet 100 mg PO DAILY 01/28/18 04/30/23 alendronate 70 mg tablet 70 mg PO WK 12/12/20 04/30/23 amlodipine 10 mg tablet 5 mg PO DAILY 12/12/20 04/30/23 aspirin 81 mg tablet,delayed 81 mg PO DAILY 12/12/20 04/30/23 release prednisone 5 mg tablet 5 mg PO DAILY 12/12/20 04/30/23 ferrous sulfate 325 mg (65 mg 325 mg PO DAILY 03/19/21 04/30/23 iron) tablet acetaminophen 650 mg 1,300 mg PO BID 04/28/23 04/30/23 tablet,extended release etanercept 25 mg/0.5 mL (0.5 mL) 25 mg subcut .TWICE WEEKLY 04/28/23 04/30/23 subcutaneous syringe (Enbrel) hydrochlorothiazide 12.5 mg tablet 12.5 mg PO DAILY 04/28/23 04/30/23 omeprazole 20 mg capsule,delayed 20 mg PO DAILY 04/28/23 04/30/23 release Previous Rx's Medication Instructions Recorded acetaminophen 300 mg-codeine 30 mg 1 tab PO Q12H PRN pain #6 tabs 04/28/23 tablet cephalexin 500 mg tablet 500 mg PO BID 6 days #12 tabs 04/28/23 oxycodone 5 mg tablet 5 mg PO Q8H PRN pain #11 tabs 04/29/23 Results & Data (ED) Vital Signs Vital Signs - 24 hr 04/30/23 09:58 04/30/23 10:04 Temperature 37.1 C Temperature Source Oral Pulse Rate 72 Respiratory Rate 19 Respiratory Effort / Characteristics Non-Labored Spontaneous Respiratory Depth Normal Blood Pressure 151/79 H Blood Pressure Mean 103 Pulse Oximetry 93 92 Oxygen Delivery Method Nasal Cannula Nasal Cannula Oxygen Flow Rate 2 2 Sepsis Recent Fever Within 48 Hours No Sepsis New/Unexplained Change in Mental Status No Sepsis Action Taken by Nursing No Action Required Laboratory Data 04/30/23 10:46 04/30/23 10:46 Lab Results 04/30/23 Range/Units 10:46 WBC 6.72 (4.8-10.8) K/ul RBC 4.62 (4.20-5.40) M/uL Hgb 13.2 (12.0-16.0) g/dl Hct 40.4 (37.0-47.0) % MCV 87.4 (80.0-100.0) fL MCH 28.6 (25.0-34.0) pg MCHC 32.7 (32.0-36.0) g/dL RDW Std Deviation 43.4 (36.4-46.3) fL RDW Coeff of Blanche 13.6 (11.5-14.5) % Plt Count 151 (130-400) K/uL MPV 8.9 L (9.4-12.4) fL Immature Gran % (Auto) 0.4 % Neut % (Auto) 63.3 % Lymph % (Auto) 20.5 % [place] % (Auto) 12.9 % Eos % (Auto) 2.5 % Baso % (Auto) 0.4 % Neut # (Auto) 4.24 (1.40-6.50) K/uL Lymph # (Auto) 1.38 (1.20-3.40) K/uL [place] # (Auto) 0.87 H (0.11-0.59) K/uL Eos # (Auto) 0.17 (0.00-0.50) K/uL Baso # (Auto) 0.03 (0.00-0.20) K/uL Immature Gran # (Auto) 0.03 (0.01-0.20) K/uL Sodium 136 (136-145) mmol/L Potassium 3.5 (3.5-5.1) mmol/L Chloride 102 (98-107) mmol/L Carbon Dioxide 25 (21-32) mmol/L Anion Gap 9 (3-11) BUN 18 (6-23) mg/dl Creatinine 0.67 (0.6-1.2) mg/dl Est Cr Clr Drug Dosing 53.3 ml/min Est GFR ( Amer) 90.3 ml/min Est GFR (Non-Af Amer) 77.9 ml/min BUN/Creatinine Ratio 26.9 H (10-20) Glucose 156 H (70-99(Fasting)) mg/dl Calcium 8.9 (8.6-10.3) mg/dl Total Bilirubin 0.8 (0.2-1.0) mg/dl AST 21 (13-39) U/L ALT 20 (7-52) U/L Alkaline Phosphatase 54 (34-104) U/L Total Protein 7.0 (6.0-8.3) gm/dl Albumin 3.7 (3.4-5.0) gm/dl Globulin 3.3 (2.5-4.0) gm/dl Albumin/Globulin Ratio 1.1 (0.9-2) Administered Medications Acetaminophen (Acetaminophen 500 Mg Tab) 1,000 mg PO Q8H JAIRO Stop: 05/30/23 11:44 Last Admin: 04/30/23 12:46 Dose: 1,000 mg Documented By: ML Discontinued Medications Lidocaine (Lidocaine 5% 1 Patch) 1 patch TD NOW STA Stop: 04/30/23 11:39 Last Admin: 04/30/23 12:46 Dose: 1 patch Documented By: MAU Methylprednisolone (Methylprednisolone 40 Mg/Ml Vial) 40 mg IV NOW STA Stop: 04/30/23 10:12 Last Admin: 04/30/23 11:13 Dose: 40 mg Documented By: MAU Imaging Data Radiologist's Impression: Hip X-Ray 04/30/23 10:05 XR hip LT min 2V HISTORY: 87 years-old Female l hip pain acute pain in the left hip COMPARISON: 03/18/2021 TECHNIQUE: AP view of the pelvis with crosstable lateral view of the left hip FINDINGS: Arterial calcifications. Dystrophic calcifications of the proximal hamstring attachment myotendinous distribution. Severe degeneration of the pubic symphysis with moderate left posteroparietal arthritis. Intertrochanteric nail with medullary aisha of the left femur fixates a healed chronic fracture deformity. No acute fracture, dislocation or avascular necrosis. IMPRESSION: No acute fracture or dislocation. ACT 112: Negative or not required by law. The above report was generated using voice recognition software. It may contain grammatical, syntax or spelling errors. Electronically signed by: Addison See M.D. 04/30/2023 11:22 AM Discharge Plan Visit Data Chief Complaint: Hip Pain Stated Complaint: HIP PAIN ED Provider: Maurisio Doan Discharge Problem: Sciatica, Back pain, Ambulatory dysfunction Patient Disposition: Admitted As Inpatient Discharge Instructions Interventions: ED Discharge Assessment Last Done: 04/30/23 12:18 Discharge Problem: Sciatica Qualifiers: Laterality: left Qualified Code(s): M54.32 - Sciatica, left side Back pain Qualifiers: Back pain location: low back pain Chronicity: acute Back pain laterality: left Sciatica presence: with sciatica Sciatica laterality: sciatica of left side Q ualified Code(s): M54.42 - Lumbago with sciatica, left side
[2023-04-30 11:12] LABS: Basophils # (auto) 0.03 K/uL (0.00-0.20); Basophils % (auto) 0.4 %; Eosinophils # (auto) 0.17 K/uL (0.00-0.50); Eosinophils % (auto) 2.5 %; Hematocrit (blood only) 40.4 % (37.0-47.0); Hemoglobin 13.2 g/dl (12.0-16.0); Immature Granulocytes # (auto) 0.03 K/uL (0.01-0.20); Immature Granulocytes % (auto) 0.4 %; Lymphocytes # (auto) 1.38 K/uL (1.20-3.40); Lymphocytes % (auto) 20.5 %; Mean Corpuscular Hemoglobin 28.6 pg (25.0-34.0); Mean Corpuscular Hgb Conc 32.7 g/dL (32.0-36.0); Mean Corpuscular Volume 87.4 fL (80.0-100.0); Mean Platelet Volume 8.9 fL (9.4-12.4); Monocytes # (auto) 0.87 K/uL (0.11-0.59); Monocytes % (auto) 12.9 %; Neutrophils # (auto) 4.24 K/uL (1.40-6.50); Neutrophils % (auto) 63.3 %; Platelet Count 151 K/uL (130-400); RDW Coefficient of Variation 13.6 % (11.5-14.5); RDW Standard Deviation 43.4 fL (36.4-46.3); Red Blood Count 4.62 M/uL (4.20-5.40); White Blood Count 6.72 K/ul (4.8-10.8)
--- NOTE | 2023-04-30 11:24 | XRay Report ---
XR hip LT min 2V HISTORY: 87 years-old Female l hip pain acute pain in the left hip COMPARISON: 03/18/2021 TECHNIQUE: AP view of the pelvis with crosstable lateral view of the left hip FINDINGS: Arterial calcifications. Dystrophic calcifications of the proximal hamstring attachment myotendinous distribution. Severe degeneration of the pubic symphysis with moderate left posteroparietal arthritis . Intertrochanteric nail with medullary aisha of the left femur fixates a healed chronic fracture defor mity. No acute fracture, dislocation or avascular necrosis. IMPRESSION: No acute fracture or dislocation. ACT 112: Negative or not required by law. The above report was generated using voice recognition software. It may contain grammatical, syntax o r spelling errors. Electronically signed by: Addison See M.D. 04/30/2023 11:22 AM
[2023-04-30 11:28] LABS: Albumin Globulin Ratio 1.1 (0.9-2); Albumin Level 3.7 gm/dl (3.4-5.0); BUN Creatinine Ratio 26.9 (10-20); Bilirubin,Total 0.8 mg/dl (0.2-1.0); Calcium 8.9 mg/dl (8.6-10.3); Creatinine Clr Calc Pharmacy 53.3 ml/min; Est GFR (African American) 90.3 ml/min; Est GFR (Non-African American) 77.9 ml/min; Globulin 3.3 gm/dl (2.5-4.0); Potassium 3.5 mmol/L (3.5-5.1)
--- NOTE | 2023-04-30 11:55 | History & Physical Report ---
Date of Service April 30, 2023 Assessment & Plan (1) Ambulatory dysfunction: (2) Sciatica: (3) Hip pain, left: (4) Osteoporosis: (5) Closed compression fracture of lumbar vertebra: Plan: This is an 87yo F with PMH of hypertension, venous insufficiency, paroxysmal atrial fibrillation not on anticoagulation due to fall risk, CKD 3, EBONI, rheumatoid arthritis on prednisone, history of TIA, history of left hip replacement and other medical problems listed below who presents with worsening left hip pain and ambulatory dysfunction over the past few days. This is patient's third ED visit in 3 days for worsening pain of left hip extending to leg. : CT of the lumbar spine revealed an acute lumbar fracture the patient likely does have 2 additional older fractures, also with moderate-severe central canal narrowing at L4-L5 due to the disc bulge and facet hypertrophy Has since returned to ED twice for worsening pain now more localized to left hip with radiation down buttocks and posterior upper leg No new bowel/bladder incontinence but endorses new ambulatory dysfunction (can ambulate with walker at baseline) Comfortable at rest in ED after IV morphine Left hip XR with no acute fracture or dislocation Lumbar spine MRI ordered Continue pain control with scheduled Tylenol, PRN oxycodone for breakthrough pain, lidocaine patch, heat May benefit from ortho spine involvement with lumbar compression fx as above, pending lumbar spine MRI Fall precautions, PT/OT evaluation, likely eventual rehab (6) Acute UTI: Plan: Urine culture from grew pansensitive Klebsiella, has been taking PO cephalexin at home Will treat with IV Rocephin while admitted, on day #3 (7) Hydronephrosis of right kidney: Plan: CT l spine from with evidence of moderate right hydronephrosis to the level of the ureteropelvic junction. 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 No obstructing stones identified Denies any urinary symptoms Continue to monitor closely, bladder scan PRN and consider re-imaging if symptoms develop (8) Paroxysmal atrial fibrillation: Plan: H/o paroxysmal a fib not on anticoagulant due to fall risk Admission EKG showing normal sinus rhythm Continue atenolol daily (9) Hypertension: Plan: BP initially elevated in setting of pain. Now normotensive. Continue home amlodipine, atenolol, losartan, hctz (10) CKD (chronic kidney disease), stage III: Plan: Creatinine 0.67 at baseline, continue to monitor daily BMP (11) Rheumatoid arthritis: Plan: Follows with Dr. Nava for RA, osteoporosis Continue Enbrel, Fosamax, prednisone (12) Hypothyroidism: Plan: Continue levothyroxine DVT Ppx: SQ heparin Code status: DNR/DNI PCP: Josef Dispo: admitted to med/surg Patient seen in collaboration with Dr. Moctezuma. Please see addendum. I spent a total of 75 minutes coordinating, documenting, and providing care for this patient excluding time spent in the performance of separately billed services. History of Present Illness Chief Complaint: Left hip pain Primary Care Provider: Roman Bahena MD This is an 87yo F with PMH of hypertension, venous insufficiency, paroxysmal atrial fibrillation not on anticoagulation due to fall risk, CKD 3, EBONI, r heumatoid arthritis on prednisone, history of TIA, history of left hip replacement and other medical problems listed below who presents with worsening left hip pain and ambulatory dysfunction over the past few days. This is patient's third ED visit in 3 days for worsening pain of left hip extending to leg. Was initially seen on with worsening back pain after doing some housework earlier in the weekend and was found to have concern for UTI, started on Keflex. CT of the lumbar spine revealed an acute lumbar fracture the patient likely does have 2 additional older fractures. Was discharged home and returned the following day with continued pain now more localized near left lower back/hip with radiation down leg but no weakness or bowel or bladder dysfunction. Family requesting rehab placement at that time due to difficulty caring for her at home with increased ambulatory dysfunction but patient refused and was eventually discharged home with oxycodone. Today, patient returns with more persistent pain overnight remaining in the left hip to buttocks region with some radiation down leg. Pain described as constant, made worse with movement. Ambulatory dysfunction requiring EMS to be called as family unable to lift her. No weakness of left lower extremity, or bowel or bladder dysfunction. Urine culture from grew pansensitive Klebsiella. Never had urinary symptoms but states she has been urinating a normal amount for her. No fever, chills, lightheadedness, headache, chest pain, shortness of breath, nausea, vomiting, abdominal pain, dysuria, diarrhea or constipation. H/o L hip fracture s/p surgical repair. Denies any history of spinal surgery. Allergies Allergy/AdvReac Type Severity Reaction Status Date / Time No Known Allergies Allergy Unverified 04/28/23 09:48 Home Medications Medication Instructions Recorded Confirmed Type atenolol 100 mg tablet 100 mg PO DAILY 01/28/18 04/30/23 History calcium carbonate 600 mg calcium 600 mg PO DAILY PRN Other 01/28/18 04/30/23 History (1,500 mg) tablet (Calcium) cholecalciferol (vitamin D3) 25 1,000 unit PO DAILY 01/28/18 04/30/23 History mcg (1,000 unit) capsule (Vitamin D3) levothyroxine 137 mcg tablet 137 mcg PO DAILY 01/28/18 04/30/23 History losartan 100 mg tablet 100 mg PO DAILY 01/28/18 04/30/23 History alendronate 70 mg tablet 70 mg PO WK 12/12/20 04/30/23 History amlodipine 10 mg tablet 5 mg PO DAILY 12/12/20 04/30/23 History aspirin 81 mg tablet,delayed 81 mg PO DAILY 12/12/20 04/30/23 History release prednisone 5 mg tablet 5 mg PO DAILY 12/12/20 04/30/23 History ferrous sulfate 325 mg (65 mg 325 mg PO DAILY 03/19/21 04/30/23 History iron) tablet acetaminophen 300 mg-codeine 30 mg 1 tab PO Q12H PRN pain #6 tabs 04/28/23 04/30/23 Rx tablet acetaminophen 650 mg 1,300 mg PO BID 04/28/23 04/30/23 History tablet,extended release cephalexin 500 mg tablet 500 mg PO BID 6 days #12 tabs 04/28/23 04/30/23 Rx etanercept 25 mg/0.5 mL (0.5 mL) 25 mg subcut .TWICE WEEKLY 04/28/23 04/30/23 History subcutaneous syringe (Enbrel) hydrochlorothiazide 12.5 mg tablet 12.5 mg PO DAILY 04/28/23 04/30/23 History omeprazole 20 mg capsule,delayed 20 mg PO DAILY 04/28/23 04/30/23 History release oxycodone 5 mg tablet 5 mg PO Q8H PRN pain #11 tabs 04/29/23 04/30/23 Rx Past Med/Surg History Medical History Closed compression fracture of lumbar vertebra Prediabetes CKD (chronic kidney disease), stage III Anxiety Hypertension Arthritis TIA (transient ischemic attack) (01/14/13) Osteoporosis Hypothyroidism Rheumatoid arthritis Paroxysmal atrial fibrillation Surgical History H/O vaginal hysterectomy H/O neck surgery S/P cholecystectomy H/O foot surgery History of esophagogastroduodenoscopy (EGD) H/O colonoscopy H/O: hysterectomy S/P cholecystectomy Family History Other Breast cancer Coronary heart disease Diabetes Social History Smoking Status: Never smoker Hx Alcohol Use: No Hx Substance Use: No Preferred Language: Citizen Of [place] Communication Ability: Effective Rural Route Carrier Required: No Beliefs That Will Affect Care: None Current Living Situation: Family Current Living Situation Comment: lives with daughter How many Children do You have: 4 Other Information That Helps Us Care for You: No Feels Safe at Home: Yes Assistive Devices: Denture - Upper, Denture - Lower, Glasses and Walker Review of Systems Review of Systems: At least ten systems reviewed and negative except as noted in the HPI. Physical Exam Physical Exam: General Appearance: WD/WN, vitals as above, NAD, sitting up in bed, pleasant, conversing easily Head: normocephalic, atraumatic Eyes: normal inspection, PERRL, conjunctivae normal, anicteric sclerae ENT: external ear and nose normal, oropharynx normal Neck: normal visual inspection, trachea midline, no thyromegaly Respiratory: normal respiratory effort, lungs clear to auscultation, no wheeze, rales, rhonchi. No accessory muscle use Cardiovascular: regular rate, rhythm, normal peripheral pulses, no BLE edema. Vessels: no JVD Chest: normal inspection of chest Abdomen/GI: normal bowel sounds, soft, nontender, no hepatosplenomegaly Extremities/Musculoskeletal: + Left paraspinal TTP extending to iliac crest, no motor weakness or sensory abnormality noted Neurologic: PERRL, EOMI, accommodation nl, no face palsy, no dysarthria, CN's II-XI intact bilaterally and moves all extremities Psychiatric: A+Ox3, euthymic affect Skin: no rashes, normal color, warm/dry Results & Data Results & Data Vital Signs (Past 12 Hours) Vital Signs Temp Pulse Resp BP Pulse Ox O2 Del Method O2 Flow Rate 04/30/23 11:49 67 04/30/23 10:04 92 Nasal Cannula 2 04/30/23 09:58 37.1 C 72 19 151/79 H 93 Nasal Cannula 2 Laboratory Results Short CBC 04/30/23 Range/Units 10:46 WBC 6.72 (4.8-10.8) K/ul Hgb 13.2 (12.0-16.0) g/dl Hct 40.4 (37.0-47.0) % Plt Count 151 (130-400) K/uL BMP 04/30/23 10:46 Sodium 136 Potassium 3.5 Chloride 102 Carbon Dioxide 25 BUN 18 Creatinine 0.67 Glucose 156 H Calcium 8.9 Liver Function 04/30/23 Range/Units 10:46 Total Bilirubin 0.8 (0.2-1.0) mg/dl AST 21 (13-39) U/L ALT 20 (7-52) U/L Alkaline Phosphatase 54 (34-104) U/L Albumin 3.7 (3.4-5.0) gm/dl Diagnostic Findings Hip X-Ray 04/30/23 10:05 XR hip LT min 2V HISTORY: 87 years-old Female l hip pain acute pain in the left hip COMPARISON: 03/18/2021 TECHNIQUE: AP view of the pelvis with crosstable lateral view of the left hip FINDINGS: Arterial calcifications. Dystrophic calcifications of the proximal hamstring attachment myotendinous distribution. Severe degeneration of the pubic symphysis with moderate left posteroparietal arthritis. Intertrochanteric nail with medullary aisha of the left femur fixates a healed chronic fracture deformity. No acute fracture, dislocation or avascular necrosis. IMPRESSION: No acute fracture or dislocation. ACT 112: Negative or not required by law. The above report was generated using voice recognition software. It may contain grammatical, syntax or spelling errors. Electronically signed by: Addison See M.D. 04/30/2023 11:22 AM Code Status & VTE Plan VTE Prophylaxis Plan VTE Prophylaxis will be ordered: Yes Supervising Physician Co-Signing Physician Notes I have seen and discussed the case with the collaborating advanced practitioner. I agree with the above H&P. I have reviewed and confirmed the patients medical history, the findings on physical examination, and the patients diagnosis and treatment plan with James MIJARES and agree with the information documented. In short, Ms. 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 Patient reports progressive pain with ambulation, mostly radiating down left leg--patient states pain brings her to tears. CT lumbar spine with the following: L5 compression fracture, chronic L2 compression fracture, severe central canal narrowing. MRI ordered: . A 1.5 cm disc extrusion versus sequestered disc fragment at L5-S1 causes severe left lateral recess narrowing. Additionally, there is [id number] central canal stenosis at this level with severe left and [id number] right neural foraminal narrowing. Physical exam with lower extremity with strength intact, but hip range of motion limited 2/2 pain. Sensation intact. #Severe left neural foraminal narrowing at L5-S1 #Lumbar disc extrusion #Acute L5 Fracture #Rheumatoid arthritis #Age-related osteoporosis with pathologic fracture of lumbar spine -MRI findings as above -PT/OT -Pain management -Plan for Ortho Spine consult #Congential right UPJ obstruction, hydronephrosis -UA clean, no signs of infection at this time. Rest of plan as above I spent a total of 35 minutes coordinating, documenting, and providing care for this patient excluding time spent in the performance of separately billed services. All of the aforementioned completed outside of collaborating with the assigned advanced practitioner for a full treatment plan. I have reviewed the advanced practitioner's documentation, and I agree with, and take responsibility for the plan of care I (2) Sciatica Laterality: left Qualified Code(s): M54.32 - Sciatica, left side (5) Closed compression fracture of lumbar vertebra Encounter type: initial encounter Lumbar vertebra fracture level: L5 Jerad lified Code(s): S32.050A - Wedge compression fracture of fifth lumbar vertebra, initial encounter for closed fracture
[2023-04-30] MEDS: LIDOCAINE 5% 1 PATCH TD STA (12:46)
[2023-04-30] MEDS: ACETAMINOPHEN 500 MG TAB PO SCH (12:46)
[2023-04-30] MEDS: GADOBUTROL 65ML VIAL IV ONE (13:34)
[2023-04-30] MEDS: cefTRIAXone SODIUM 1,000 MG in DEXTROSE 5 % MINI-B 50 ML IV SCH (15:10)
[2023-04-30] MEDS: oxyCODONE HCL IR 5 MG TAB (IMMEDIATE RELEASE) PO PRN (15:17)
[2023-04-30] MEDS: HEPARIN SOD 5,000 UNIT/0.5 ML VIAL SQ SCH (15:17)
--- NOTE | 2023-04-30 15:25 | Magnetic Resonance Report ---
MR lumbar spine wo/w con CLINICAL HISTORY: 87 years-old Female with L hip pain radiating to buttocks. Chronic low back pain w ith radiation into the left lower extremity. COMPARISON: CT lumbar spine 04/28/2023, CT pelvis 01/27/2016. TECHNIQUE: Multiplanar, multi sequence MRI of the lumbar spine was performed with and without the use of IV contrast. FINDINGS: Motion degraded exam. There are a few T2 hyperintense foci of the kidneys, incompletely jojo racterized however suggestive of probable cysts. Right-sided hydronephrosis is redemonstrated. Right hip arthroplasty. ORIF hardware at the left proximal femur. Mild lumbar levoscoliosis. Acute mild inf erior endplate compression fracture at L5 is redemonstrated with approximately 20% vertebral body hei ght loss. Moderate marrow edema with mild paravertebral edema and reactive incident. No retropulsion. Edema extends into the L5-S1 intervertebral disc space. Chronic L2 compression deformity. No marrow replacing process or endplate erosions are identified. Conus medullaris terminates at the L1 level. T12-L1: Moderate intervertebral disc space narrowing with circumferential disc osteophyte complex. L igamentum flavum thickening with moderate facet arthrosis. No significant central canal or foraminal narrowing. L1-L2: Mild intervertebral disc space narrowing. Spondylotic spurring with circumferential annular d isc bulging/disc osteophyte complex with ligamentum flavum thickening and moderate facet arthrosis. M ild central canal stenosis with AP dimension of the thecal sac measuring 9 mm. Moderate bilateral for aminal narrowing. L2-L3: Mild intervertebral disc space narrowing. Spondylotic spurring with small posterior annular d isc bulge. Ligamentum flavum thickening with severe facet arthrosis. Flattening of the ventral thecal sac with minimal central canal stenosis. AP dimension of the thecal sac measuring 9 mm. Otrd-yu-qpsh rate bilateral foraminal narrowing. L3-L4: Mild intervertebral disc space narrowing and spondylotic spurring with small posterior annula r disc bulging. Ligamentum flavum thickening with advanced facet arthrosis. Flattening of the ventral thecal sac without significant central canal stenosis. There is at least mild narrowing of the later al recesses, left greater than right. Mild bilateral foraminal stenosis. L4-L5: Six mm anterolisthesis is likely on a degenerative basis. Zhzc-ws-rvnsvgvg intervertebral dis c space narrowing and spondylotic spurring with circumferential annular disc bulging/posterior disc s pace uncovering. Ligamentum flavum thickening with severe facet arthrosis and small facet effusions. There is severe central canal stenosis with AP dimension of the thecal sac measuring approximately 4 mm. There is at least moderate narrowing of the lateral recesses. Moderate left with mrec-ic-wyybkeql right neuroforaminal narrowing. L5-S1: Phna-no-wygynwxr intervertebral disc space narrowing with spondylitic spurring and circumfere ntial annular disc bulging. Ligamentum flavum thickening with severe facet arthrosis and trace facet effusions. There is an ill-defined 1.5 x 0.5 x 1.2 cm T1 and T2 isointense structure within the left paracentral distribution/left lateral recess (image 26 series 7 and image 8 series 6). This abuts and posteriorl y displaces the left L5 nerve root causing severe left lateral recess narrowing. Sjvn-dk-nskojrxw arley tral canal stenosis at this level with AP dimension of the thecal sac measuring 8 mm. Severe left wit h wfwj-vz-dyuonwjy right neuroforaminal narrowing. IMPRESSION: 1. Acute L5 inferior endplate compression deformity without retropulsion is redemonstrated, which branden ears unchanged from the 04/28/2023 study. 2. Chronic L2 compression fracture. 3. A 1.5 cm disc extrusion versus sequestered disc fragment at L5-S1 causes severe left lateral reces s narrowing. Additionally, there is kxog-zn-ovlzmtmr central canal stenosis at this level with severe left and gzrs-tm-dqcamsjj right neural foraminal narrowing. 4. 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 5. Additional degenerative changes as above. ACT 112: Negative or not required by law. The above report was generated using voice recognition software. It may contain grammatical, syntax o r spelling errors. Dictated: 04/30/2023 2:06 PM Transcribed: 04/30/2023 2:40 PM Jaciel [id number] [email or web address] Electronically signed by: Addison See M.D. 04/30/2023 3:24 PM
[2023-04-30] MEDS: HYDROmorphone INJ 0.5 MG/0.5 ML SYR IV PRN (16:34)
--- OUTSIDE RECORDS SUMMARY | 2023-04-30 19:56 | External Medical Summary | Summary of Care ---
Author Name Unknown Organization [facility] Address [address] [place] [address] Phone [phone] Care Team Providers Care Channel Layer Name Role Phone Roman Bahena MD Primary Care Provide r Encounter Details Date Type Department Care Team (Late st Contact Info) Description 04/27/2023 Result Scan Unspecified Department <No scans attached> Allergies No known active allergiesdocumented as of this encounter (statuses as of 04/29/2023) Medications Medication Sig Dispensed Refills Start Date End Date Status Iron, Ferrous Gluconate, 256 (28 FE) MG TABS Take 324 mg by mouth daily. 0 02/24/2016 Active Cholecalciferol (VITAMIN D) 25 MCG (1000 UT) TABS Take by mouth daily. 0 Active Calcium Carbonate 600 MG Oral Tablet Take 1 Tablet by mouth in the morning. 0 Active Aspirin 81 MG Tablet Take 1 Tablet by mouth in the morning. 34 Tab 5 04/06/2019 Active predniSONE 5 MG Oral Tablet (Deltasone) TAKE ONE TABLET BY MOUTH EVERY DAY 90 Tablet 3 08/04/2022 Active Omeprazole 20 MG Oral Capsule Delayed Release (PriLOSEC)Indication s:Pharyngoesophageal dysphagia Take 1 Capsule by mouth in the morning. 1 hour before the first meal of the day. 90 Capsule 1 10/11/2022 Active Enbrel 25 MG/0.5ML Subcutaneous Solution Prefilled Syringe (Etanercept) Inject 25 mg under the skin once a day Tuesday and only. 4 mL 11 12/09/2022 Active Atenolol 100 MG Oral Tablet (Tenormin)Indication s:Paroxysmal atrial fibrillation (HCC),HTN, goal below 150/90 Take 1 Tablet by mouth in the morning. In the morning.. 90 Tablet 2 12/05/2022 Active Losartan Potassium 100 MG Oral Tablet (Cozaar) Take 1 Tablet by mouth in the morning. In the morning.. 90 Tablet 2 12/05/2022 Active amLODIPine Besylate 5 MG Oral Tablet (Norvasc) Take 1 Tablet by mouth in the morning. In the morning.. 90 Tablet 3 12/04/2022 Active Vitamin C 500 MG Oral Capsule Take by mouth. 0 Active Levothyroxine Sodium 125 MCG Oral Tablet (Levoxyl)Indications :Acquired hypothyroidism TAKE ONE TABLET BY MOUTH first thing in the morning at least 30 minutes before breakfast or other medications 90 Tablet 1 03/08/2023 Active hydroCHLOROthiazide 12.5 MG Oral Tablet (Hydrodiuril)Indicat ions:HTN, goal below 140/90 TAKE ONE TABLET BY MOUTH IN THE MORNING 90 Tablet 1 04/18/2023 Active Alendronate Sodium 70 MG Oral Tablet (Fosamax)Indications :Senile osteoporosis TAKE ONE TABLET BY MOUTH WEEKLY 12 Tablet 2 04/18/2023 Active documented as of this encounter (statuses as of 04/29/2023) Active Problems Problem Noted Date Diagnosed Date Prediabetes 10/05/2021 Overview: Per Prediabetes protocol History of 2019 novel coronavirus disease (COVID -19) 03/23/2021 Status post left hip replacement 12/30/2020 Paroxysmal atrial fibrillation 09/22/2020 Cerebral atherosclerosis 03/22/2019 Hypertensive kidney disease, stage III 9 Generalized OA 03/25/2017 Senile osteoporosis 03/25/2017 Arthritis of right ankle 04/23/2016 Rheumatoid arthritis involvi ng multiple sites with positive rheumatoid factor 12/24/2015 Venous insufficiency 12/24/2014 Iron deficiency anemia 06/20/2012 History of TIA (transient ischemic attack) 10/20 Dysphagia 04/22/2011 Overview: ICD-10 update of inactive term HTN, goal below 140/90 01/16/2009 Overview: Modified per HTN protocol #16. Encounter for long-term (current) use of medicat ions 09/26/2008 Vertigo 11/17/2001 Hypothyroidism 11/17/2001 Sicca syndrome 11/17/2001 documented as of this encounter (statuses as of 04/29/2023) Resolved Problems Problem Noted Date Diagnosed Date Resolved Date Subdural hematoma, post-traumatic 02/24/2019 02/05/2020 Closed fracture of distal en d of right humerus with routine healing 02/24/2019 02/05/2020 Closed nondisplaced fracture of base of second metacarpal bone of left hand with routine healing 02/24/2019 03/22/2019 Prediabetes 07/10/2018 01/08/2021 Overview: Per Prediabetes protocol #1 Kidney disease, chronic, sta ge III (GFR 30-59 ml/min) 10/11/2017 07/12/2018 Overview: Per CKD protocol #1 - Paroxysmal atrial fibrillation 01/30/2015 04/09/2019 Fibula fracture 08/03/2012 12/24/2014 Celiac disease 08/03/2012 01/19/2013 JOINT PAIN-ANKLE 07/17/2004 03/18/2017 Elevated liver enzymes 11/07/200303/18 Chest pain 09/07/2002 12/24/2014 Osteoporosis 04/05/2002 03/25/2017 HYPERTENSION NOS 11/17/2001 01/16/2009 Overview: Modified per HTN protocol #16. ARTHRITIS,RHEUMATOID 11/17/2001 016 documented as of this encounter (statuses as of 04/29/2023) Immunizations Name Administration Dates Next Due COVID-19 mRNA, LNP-s, No Pre serve, 2-Dose Series (Huddle) 06/04/2020,05/14/2020 COVID-19, LNP-s, No Preserve , Gonsalo-sucrose, Ages 12+ (Pfizer) 06/02/2021 PPD 11/07/2006 Pneumococcal Polysaccharide PPV23 (Pneumovax) 02/26/2019(Deferred: Patient Refused - Saranya Avendano PA-C aware),05/12/2012,01/13/2007 Season Influenza, Quad, PF, Adjuvanted, 65+ Yrs, IM (FLUAD) 11/16/2019 Seasonal Influenza Virus Vac cine, Unspecified Formulation 12/26/2020,11/16/2019,11/16/2018,12/19,12/27/2016,12/22/2015,12/19/2013 ,12/29/2012,12/14/2011,12/03/2010,05/2009,11/28/2008,12/15/2007, 7,12/31/2004,01/18/2003 Seasonal Influenza, PF, 6 M & above, IM , (FluLaval or Fluzone) 11/16/2018,12/19/2017,12/27/2016 Seasonal Influenza, Quadriva lent Hd (Fluzone Hd) 12/23/2022,12/28/2021 Seasonal Influenza, Quadriva lent Hd, 65+ Yrs 12/26/2020 Seasonal Influenza, Quadriva lent, No Preserve, IM 12/22/2015 Seasonal Influenza, Split, I IV3, With Preserve, Inj 11/20/2014,12/19/2013,12/29/2012,12/13,12/03/2010,01/01/2010,11/28/2008 ,12/15/2007,01/13/2007 TDAP (age 10 and older)(Boostrix) 09/14/2016 documented as of this encounter Social History Tobacco Use Types Packs/Day Years Used Date Smoking Tobacco: Never Smokeless Tobacco: Never Alcohol Use Standard Drinks/Week Comments No 0 (1 standard drink = 0.6 oz pur e alcohol) PHQ-2 Answer Date Recorded PHQ Adult Total Score 0 06/01/2021 Hunger Vital Sign Answer Date Recorded Worried About Running Out of Food in the Last Ye ar Never true 10/25/2018 Ran Out of Food in the Last Year Never true 10/25/2018 Sex and Gender Information Value Date Recorded Sex Assigned at Not on file Gender Identity Not on file Sexual Orientation Not on file Job Start Date Occupation Industry Not on file Not on file Not on file documented as of this encounter Functional Status Functional Status Response Date of Assess ment Are you deaf or do you have serious difficulty h earing? No 02/24/2019 Are you blind or do you have serious difficulty seeing, even when wearing glasses? No 02/24/2019 Do you have serious difficul ty walking or climbing stairs? (5 years old or older) No 02/25/2019 Do you have difficulty dress ing or bathing? (5 years old or older) No 02/24/2019 Because of a physical, menta l, or emotional condition, do you have difficulty doing errands alone such as visiting a doctor s office or shopping? (15 years old or older) No 02/25/20 19 Cognitive Status Response Date of Assessm ent Because of a physical, menta l, or emotional condition, do you have serious difficulty concentrating, remembering, or making decisions? (5 years old or older) No 02/24/2019 documented as of this encounter Plan of Treatment Upcoming Encounters Date Type Department Care Team (Late st Contact Info) Description 08/29/2023 11:00 AM EDT Office Visit Gynecology/Obstetrics [address] [place] [id number] Neyda Che CRNP [address] [place] [address] 09/12/2023 11:00 AM EDT Office Visit Family Medicine [address] [place] [phone] Roman Bahena MD [address] [place] [address] [place] [id number] Health Maintenance Due Date Last Done Comments Zoster Vaccines (1 of 2) 1954 Pneumococcal Vaccine: 65+ Years (3 of 3 - PCV) 05/12/2013 05/12/2012, 01/13/2007 Depression Screening 06/01/2022 06/01/2021 Albumin/Creatinine Ratio 10/01/2022 10/01/2021, 02/0 07/2021 COVID-19 Vaccine ( season) 2022 06/02/2021, 06/04/2020, 05/14/2020 CKD PHOS USE SMARTSET 75793 07/22/2023 05/2 05/2022, 10/01/2021, 08/29/2020, Additional history exists HbA1c 09/08/2023 09/07/2022, 080 05/2021, 02/05/2020, Additional history exists CKD HGB USE SMARTSET 47394 03/04/202403/04, 03/04/2023, 07/21/2022, Additional history exists TSH 03/04/2024 03/04/2023, 0702/2022, 10/01/2021, Additional history exists DXA Scan 10/07/2024 10/07/2022, 10/2019, 10/28/2015, Additional history exists DTaP,Tdap,and Td Vaccines (2 - Td or Tdap) 09/14/2026 09/14/2016 Influenza Vaccine (FLU shot) Completed , 12/28/2021, 12/26/2020, Additional history exists VITAMIN D LEVEL ONCE IN A LIFETIME-USE SMARTSET# [id number] Completed 03/04/2023, 08/29/2020, 02/24/2019, Additional history exists GARDASIL-HPV IMMUNIZATION SERIES Aged Out No longer eligible based on patient's age to complete this topic Hepatitis B Aged Out No longer eligi ble based on patient's age to complete this topic MENINGOCOCCAL (MENACTRA/MENVEO) Aged Out No longer eligible based on patient's age to complete this topic documented as of this encounter Medical Devices Not on filedocumented as of this encounter Procedures Procedure Name Priority Date/Time Associated Diagnosis Comments RADIOLOGY SCANNED RESULT 04/27/2023 RADIOLOGY SCANNED RESULT 04/27/2023 documented in this encounter Results * RADIOLOGY SCANNED RESULT (04/27/2023) 04/27/2023 No Physician Data Unknown DIAGNOSTIC RAD IOLOGY SERVICES * RADIOLOGY SCANNED RESULT (04/27/2023) 04/27/2023 No Physician Data Unknown DIAGNOSTIC RAD IOLOGY SERVICES documented in this encounter Advance Directives Latest Code Status on File Code Status Date Activated Date Inactivated Comments No Code 02/24/2019 3:32 AM 02/26/2019 9:19 PM Thi s order reflects the patients wishes and were consensually agreed upon. Question Answer Comments Discussion of Advance Directives occurred with: Patient Does the patient have a Living Will? No Does the patient have Health Care Power of Purification Operator Helper? No Care Teams Channel Layer Relationship Specialty Start Date End Date Roman Bahena MD [address] [place] [address] [place] [id number] PCP - General Family Medicine 04/04/18 documented as of this encounter
[2023-05-01] MEDS: LEVOTHYROXINE SODIUM 137 MCG TABLET PO SCH (06:05)
[2023-05-01 06:13] LABS: Hematocrit (blood only) 35.4 % (37.0-47.0); Mean Corpuscular Hemoglobin 29.3 pg (25.0-34.0); Mean Corpuscular Hgb Conc 33.9 g/dL (32.0-36.0); Mean Corpuscular Volume 86.6 fL (80.0-100.0); Platelet Count 151 K/uL (130-400); RDW Coefficient of Variation 13.2 % (11.5-14.5); RDW Standard Deviation 42.2 fL (36.4-46.3); Red Blood Count 4.09 M/uL (4.20-5.40); White Blood Count 7.62 K/ul (4.8-10.8)
[2023-05-01 06:37] LABS: BUN Creatinine Ratio 38.6 (10-20); Calcium 8.6 mg/dl (8.6-10.3); Creatinine Clr Calc Pharmacy 41.3 ml/min; Est GFR (African American) 72.5 ml/min; Est GFR (Non-African American) 62.5 ml/min; Potassium 4.2 mmol/L (3.5-5.1)
--- NOTE | 2023-05-01 08:45 | Electrocardiogram Report ---
Test Reason : Blood Pressure : / mmHG Vent. Rate : 066 BPM Atrial Rate : 066 BPM P-R Int : 178 ms QRS Dur : 132 ms QT Int : 454 ms P-R-T Axes : 108 001 -04 degrees QTc Int : 475 ms Normal sinus rhythm Right bundle branch block Abnormal ECG When compared with ECG of 18-MAR-2021 10:37, T wave inversion more evident in Anterior leads Confirmed by Juan Carlos Lopez ([id number]) on 05/01/2023 8:45:16 AM Referred By: REFERRED SELF Confirmed By:Juan Carlos Lopez
[2023-05-01] MEDS: amLODIPine BESYLATE 5 MG TAB PO SCH (09:38)
[2023-05-01] MEDS: ATENOLOL 50 MG TABLET PO SCH (09:38)
[2023-05-01] MEDS: ASPIRIN 81 MG ECTAB PO SCH (09:39)
[2023-05-01] MEDS: predniSONE 5 MG TAB PO SCH (09:39)
[2023-05-01] MEDS: LOSARTAN POTASSIUM 50 MG TAB PO SCH (09:39)
[2023-05-01] MEDS: hydroCHLOROthiazide 25 MG TAB PO SCH (09:39)
[2023-05-01] MEDS: PANTOprazole 40 MG TAB PO SCH (09:39)
[2023-05-01] MEDS: FERROUS SULFATE 325 MG TAB PO SCH (09:39)
[2023-05-01] MEDS: CHOLECALCIFEROL 25 MCG (1000 UNITS) TAB PO SCH (09:39)
--- NOTE | 2023-05-01 14:37 | Hospitalist Progress Note ---
Date of Service May 01, 2023 Assessment & Plan (1) Ambulatory dysfunction: (2) Sciatica: (3) Hip pain, left: (4) Osteoporosis: (5) Closed compression fracture of lumbar vertebra: (6) Acute UTI: (7) Hydronephrosis of right kidney: (8) Paroxysmal atrial fibrillation: (9) Hypertension: (10) CKD (chronic kidney disease), stage III: (11) Rheumatoid arthritis: (12) Hypothyroidism: Plan Ms. Trimble is an 87yo F with PMH of hypertension, venous insufficiency, paroxysmal atrial fibrillation not on anticoagulation due to fall risk, CKD 3, EBONI, rheumatoid arthritis on prednisone, history of TIA, history of left hip replacement and other medical problems listed below who presents with worsening left hip pain and ambulatory dysfunction over the past few days. Patient reports progressive pain with ambulation, mostly radiating down left leg--patient states pain brings her to tears, plan to trial medrol dose pack with Ortho spine tomorrow. No emergent symptoms/signs at this time. CT lumbar spine with the following: L5 compression fracture, chronic L2 compression fracture, severe central canal narrowing. MRI ordered: . A 1.5 cm disc extrusion versus sequestered disc fragment at L5-S1 causes severe left lateral recess narrowing. Additionally, there is hibj-fm-jtgdelmy central canal stenosis at this level with severe left and qypb-gq-npsnqoyb right neural foraminal narrowing. Physical exam with lower extremity with strength intact, but hip range of motion limited 2/2 pain. Sensation intact. #Severe left neural foraminal narrowing at L5-S1 #Lumbar disc extrusion #Acute L5 Fracture #Rheumatoid arthritis #Age-related osteoporosis with pathologic fracture of lumbar spine This is patient's third ED visit in 3 days for worsening pain of left hip extending to leg. : CT of the lumbar spine revealed an acute lumbar fracture the patient likely does have 2 additional older fractures, also with moderate-severe central canal narrowing at L4-L5 due to the disc bulge and facet hypertrophy Has since returned to ED twice for worsening pain now more localized to left hip with radiation down buttocks and posterior upper leg No new bowel/bladder incontinence but endorses new ambulatory dysfunction (can ambulate with walker at baseline) -MRI findings as above -PT/OT -Pain management -Plan for Ortho Spine consult -Dilaudid prn, Medrol dose pack 05/01/2023 #Congential right UPJ obstruction, hydronephrosis -UA clean, no signs of infection at this time. #Severe Rheumatoid RA Follows with Dr. Nava for RA, osteoporosis Continue Enbrel, Fosamax, prednisone #Acute uncomplicated cystitis POA #Chronic UPJ obstruction, right hydronephrosis Urine culture from grew pansensitive Klebsiella, has been taking PO cephalexin at home Will treat with IV Rocephin while admitted, on day #3 CT l spine from with evidence of moderate right hydronephrosis to the level of the ureteropelvic junction. 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 No obstructing stones identified Denies any urinary symptoms Continue to monitor closely, bladder scan PRN and consider re-imaging if symptoms develop #Paroxysmal A Fib Not on anticoagulant due to fall risk Admission EKG showing normal sinus rhythm Continue atenolol daily #HTN BP initially elevated in setting of pain. Now normotensive. Continue home amlodipine, atenolol, losartan, hctz #CKD III Creatinine 0.67 at baseline, continue to monitor daily BMP #Hypothyroidism Continue levothyroxine DVT Ppx: SQ heparin Code status: DNR/DNI PCP: Josef Dispo: admitted to med/surg Admission and Anticipated Discharge Date Admission Date: April 30, 2023 Supervising Physician Co-Signing Physician Notes I have seen and discussed the case with the collaborating advanced practitioner. I agree with the above H&P. I have reviewed and confirmed the patients medical history, the findings on physical examination, and the patients diagnosis and treatment plan with James MIJARES and agree with the information documented. In short, Ms. 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 I Subjective Patient evaluated at bedside Reports feeling overall discouraged with notable leg pain on weight bearing Patients pain controlled at this time and would like to trial bedside commode to see if it is more comfortable than bed silva Denies saddle anesthesia, incontinence or sensory loss Physical Exam Constitutional: tearful on exam Respiratory: normal respiratory effort, lungs clear to auscultation Cardiovascular: RRR, no murmur, no edema Results & Data Results & Data Vital Signs (Past 12 Hours) Vital Signs Temp Pulse Resp BP Pulse Ox O2 Del Method 05/01/23 07:51 36.4 C L 78 16 176/75 H 97 Room Air Laboratory Results Short CBC 05/01/23 Range/Units 05:19 WBC 7.62 (4.8-10.8) K/ul Hgb 12.0 (12.0-16.0) g/dl Hct 35.4 L (37.0-47.0) % Plt Count 151 (130-400) K/uL BMP 05/01/23 05:19 Sodium 136 Potassium 4.2 Chloride 102 Carbon Dioxide 27 BUN 32 H Creatinine 0.83 Glucose 146 H Calcium 8.6 Medications Administered Home Medications Medication Instructions Recorded Confirmed Last Taken atenolol 100 mg tablet 100 mg PO DAILY 01/28/18 04/30/23 12/12/20 calcium carbonate 600 mg calcium 600 mg PO DAILY PRN Other 01/28/18 04/30/23 12/12/20 (1,500 mg) tablet (Calcium) cholecalciferol (vitamin D3) 25 1,000 unit PO DAILY 01/28/18 04/30/23 12/12/20 mcg (1,000 unit) capsule (Vitamin D3) levothyroxine 137 mcg tablet 137 mcg PO DAILY 01/28/18 04/30/23 12/12/20 losartan 100 mg tablet 100 mg PO DAILY 01/28/18 04/30/23 12/12/20 alendronate 70 mg tablet 70 mg PO WK 12/12/20 04/30/23 12/08/20 amlodipine 10 mg tablet 5 mg PO DAILY 12/12/20 04/30/23 12/12/20 aspirin 81 mg tablet,delayed 81 mg PO DAILY 12/12/20 04/30/23 12/12/20 release prednisone 5 mg tablet 5 mg PO DAILY 12/12/20 04/30/23 12/12/20 ferrous sulfate 325 mg (65 mg 325 mg PO DAILY 03/19/21 04/30/23 Unknown iron) tablet acetaminophen 300 mg-codeine 30 mg 1 tab PO Q12H PRN pain #6 tabs 04/28/23 04/30/23 Unknown tablet acetaminophen 650 mg 1,300 mg PO BID 04/28/23 04/30/23 Unknown tablet,extended release cephalexin 500 mg tablet 500 mg PO BID 6 days #12 tabs 04/28/23 04/30/23 Unknown etanercept 25 mg/0.5 mL (0.5 mL) 25 mg subcut .TWICE WEEKLY 04/28/23 04/30/23 Unknown subcutaneous syringe (Enbrel) hydrochlorothiazide 12.5 mg tablet 12.5 mg PO DAILY 04/28/23 04/30/23 Unknown omeprazole 20 mg capsule,delayed 20 mg PO DAILY 04/28/23 04/30/23 Unknown release oxycodone 5 mg tablet 5 mg PO Q8H PRN pain #11 tabs 04/29/23 04/30/23 Unknown Active Medications Generic Name Dose Route Start Last Admin Trade Name Freq PRN Reason Stop Dose Admin Acetaminophen 1,000 mg 04/30/23 11:45 05/01/23 12:20 Acetaminophen 500 Mg Tab PO 05/30/23 11:44 1,000 mg Q8H JAIRO Administration Amlodipine Besylate 5 mg 05/01/23 09:00 05/01/23 09:38 Amlodipine Besylate 5 Mg Tab PO 05/31/23 08:59 5 mg DAILY JAIRO Administration Aspirin 81 mg 05/01/23 09:00 05/01/23 09:39 Aspirin 81 Mg Ectab PO 05/31/23 08:59 81 mg DAILY JAIRO Administration Atenolol 100 mg 05/01/23 09:00 05/01/23 09:38 Atenolol 50 Mg Tablet PO 05/31/23 08:59 100 mg DAILY JAIRO Administration Ferrous Sulfate 325 mg 05/01/23 09:00 05/01/23 09:39 Ferrous Sulfate 325 Mg Tab PO 05/31/23 08:59 325 mg DAILY JAIRO Administration Heparin Sodium (Porcine) 5,000 units 04/30/23 14:00 05/01/23 12:20 Heparin Sod 5,000 Unit/0.5 Ml Vial SQ 05/30/23 13:59 5,000 units Q8 JAIRO Administration Hydrochlorothiazide 12.5 mg 05/01/23 09:00 05/01/23 09:39 Hydrochlorothiazide 25 Mg Tab PO 05/31/23 08:59 12.5 mg DAILY JAIRO Administration Hydromorphone HCl 0.5 mg 04/30/23 16:25 05/01/23 04:06 Hydromorphone Inj 0.5 Mg/0.5 Ml Syr IV 05/14/23 16:24 0.5 mg Q6H PRN Administration Severe Pain (Scale 7, 8, 9,10) Ceftriaxone Sodium 1,000 mg/ 50 mls @ 100 mls/hr 04/30/23 12:15 05/01/23 13:00 Dextrose IV 05/05/23 12:14 Infused Q24H JAIRO Infusion Protocol Levothyroxine Sodium 137 mcg 05/01/23 06:30 05/01/23 06:05 Levothyroxine Sodium 137 Mcg Tablet PO 05/31/23 06:29 137 mcg DAILYBB JAIRO Administration Losartan Potassium 100 mg 05/01/23 09:00 05/01/23 09:39 Losartan Potassium 50 Mg Tab PO 05/31/23 08:59 100 mg DAILY JAIRO Administration Miscellaneous 1 each 04/30/23 16:00 05/01/23 12:59 Enbrel~*Do Not Tube*~Order Awaiting Action N/A 05/30/23 15:59 Not Given QS JAIRO Oxycodone HCl 5 mg 04/30/23 11:38 05/01/23 12:20 Oxycodone Hcl Ir 5 Mg Tab (Immediate Release) PO 05/14/23 11:37 5 mg Q6H PRN Administration Severe Pain (Scale 7, 8, 9,10) Pantoprazole Sodium 40 mg 05/01/23 09:00 05/01/23 09:39 Pantoprazole 40 Mg Tab PO 05/31/23 08:59 40 mg DAILY JAIRO Administration Prednisone 5 mg 05/01/23 09:00 05/01/23 09:39 Prednisone 5 Mg Tab PO 05/31/23 08:59 5 mg DAILY JAIRO Administration Vitamin D 25 mcg 05/01/23 09:00 05/01/23 09:39 Cholecalciferol 25 Mcg (1000 Units) Tab PO 05/31/23 08:59 25 mcg DAILY JAIRO Administration (2) Sciatica Laterality: left Qualified Code(s): M54.32 - Sciatica, left side (5) Closed compression fracture of lumbar vertebra Encounter type: initial encounter Lumbar vertebra fracture level: L5 Qualified Code(s): S32.050A - Wedge compression fracture of fifth lumbar vertebra, initial encounter for closed fracture
[2023-05-01] MEDS ORDERED: methylPREDNISolone 4 MG TAB, 6 DAY TAPER PO SCH (14:45)
[2023-05-01] MEDS: methylPREDNISolone 4 MG TAB PO SCH ×2 (15:36→19:55)
[2023-05-01] MEDS ORDERED: HYDROmorphone INJ 0.5 MG/0.5 ML SYR IV PRN (17:09)
[2023-05-01] MEDS: HYDROmorphone INJ 1 MG/ML SYRINGE IV STA (17:18)
[2023-05-02] MEDS: ALENDRONATE SODIUM 70 MG TAB PO SCH (05:32)
[2023-05-02] MEDS: methylPREDNISolone 4 MG TAB PO SCH ×2 (06:30→19:36)
[2023-05-02 09:23] LABS: Hematocrit (blood only) 36.2 % (37.0-47.0); Hemoglobin 12.3 g/dl (12.0-16.0); Mean Corpuscular Hemoglobin 28.6 pg (25.0-34.0); Mean Corpuscular Volume 84.2 fL (80.0-100.0); Mean Platelet Volume 8.9 fL (9.4-12.4); Platelet Count 185 K/uL (130-400); RDW Coefficient of Variation 13.2 % (11.5-14.5); RDW Standard Deviation 40.5 fL (36.4-46.3); White Blood Count 8.65 K/ul (4.8-10.8)
[2023-05-02 09:38] LABS: BUN Creatinine Ratio 39.1 (10-20); Calcium 8.9 mg/dl (8.6-10.3); Creatinine Clr Calc Pharmacy 53.6 ml/min; Est GFR (African American) 91.7 ml/min; Est GFR (Non-African American) 79.1 ml/min; Potassium 4.2 mmol/L (3.5-5.1)
--- NOTE | 2023-05-02 13:26 | Hospitalist Progress Note ---
Date of Service May 02, 2023 Assessment & Plan (1) Ambulatory dysfunction: (2) Sciatica: (3) Hip pain, left: (4) Osteoporosis: (5) Closed compression fracture of lumbar vertebra: (6) Acute UTI: (7) Hydronephrosis of right kidney: (8) Paroxysmal atrial fibrillation: (9) Hypertension: (10) CKD (chronic kidney disease), stage III: (11) Rheumatoid arthritis: (12) Hypothyroidism: Plan Ms. Trimble is an 87yo F with PMH of hypertension, venous insufficiency, paroxysmal atrial fibrillation not on anticoagulation due to fall risk, CKD 3, EBONI, rheumatoid arthritis on prednisone, history of TIA, history of left hip replacement and other medical problems listed below who presents with worsening left hip pain and ambulatory dysfunction over the past few days. Patient reports progressive pain with ambulation, mostly radiating down left leg--patient states pain brings her to tears, plan to trial medrol dose pack with Ortho spine tomorrow. No emergent symptoms/signs at this time. CT lumbar spine with the following: L5 compression fracture, chronic L2 compression fracture, severe central canal narrowing. MRI ordered: . A 1.5 cm disc extrusion versus sequestered disc fragment at L5-S1 causes severe left lateral recess narrowing. Additionally, there is dxrz-[id number]-[id number] central canal stenosis at this level with severe left and fuzb-hq-meywuoid right neural foraminal narrowing. Physical exam with lower extremity with strength intact, but hip range of motion limited 2/2 pain. Sensation intact. Patient remains limited overall. Offered patient transfer to [facility] or [facility] for eval, but prefers to await. Ortho Spine consult in am. #Severe left neural foraminal narrowing at L5-S1 #Lumbar disc extrusion #Acute L5 Fracture #Rheumatoid arthritis #Age-related osteoporosis with pathologic fracture of lumbar spine This is patient's third ED visit in 3 days for worsening pain of left hip extending to leg. : CT of the lumbar spine revealed an acute lumbar fracture the patient likely does have 2 additional older fractures, also with moderate-severe central canal narrowing at L4-L5 due to the disc bulge and facet hypertrophy Has since returned to ED twice for worsening pain now more localized to left hip with radiation down buttocks and posterior upper leg No new bowel/bladder incontinence but endorses new ambulatory dysfunction (can ambulate with walker at baseline) -MRI findings as above -PT/OT -Pain management -Plan for Ortho Spine consult -Discontinued Dilaudid prn 04/01 confusion, Started on Medrol dose pack 05/01/2023 Oxy prn -Tylenol 1000 q8h #Congential right UPJ obstruction, hydronephrosis -No right flank pain at this time #Severe Rheumatoid RA Follows with Dr. Nava for RA, osteoporosis Continue Enbrel, Fosamax, prednisone 5 (held while on dose pack) #Acute uncomplicated cystitis POA #Chronic UPJ obstruction, right hydronephrosis Urine culture from grew pansensitive Klebsiella, has been taking PO cephalexin at home Will treat with IV Rocephin while admitted, on day #5 CT l spine from with evidence of moderate right hydronephrosis to the level of the ureteropelvic junction. This likely represents a congenital UPJ type obst ruction. No obstructing stones identified Denies any urinary symptoms Continue to monitor closely, bladder scan PRN and consider re-imaging if symptoms develop #Paroxysmal A Fib Not on anticoagulant due to fall risk Admission EKG showing normal sinus rhythm Continue atenolol daily #HTN BP initially elevated in setting of pain. Now normotensive. Continue home amlodipine, atenolol, losartan, hctz #CKD III Creatinine 0.67 at baseline, continue to monitor daily BMP #Hypothyroidism Continue levothyroxine DVT ppx heparin DISPO pending Ortho eval Admission and Anticipated Discharge Date Admission Date: April 30, 2023 Subjective Patient evaluated at bedside Declined discussion regarding transfer today, will await for ortho service tomorrow Denies any saddle numbness, incontinence or other acute concerns outside of difficult to control pain Physical Exam Constitutional: WD/WN, vitals as above Respiratory: normal respiratory effort, lungs clear to auscultation Cardiovascular: RRR, no murmur, no edema Neurologic: sensation motor intact BLE Results & Data Results & Data Vital Signs (Past 12 Hours) Vital Signs Temp Pulse Resp BP Pulse Ox O2 Del Method 05/02/23 07:36 36.8 C 70 16 172/72 H 94 Room Air Laboratory Results Short CBC 05/02/23 Range/Units 09:02 WBC 8.65 (4.8-10.8) K/ul Hgb 12.3 (12.0-16.0) g/dl Hct 36.2 L (37.0-47.0) % Plt Count 185 (130-400) K/uL BMP 05/02/23 09:02 Sodium 134 L Potassium 4.2 Chloride 102 Carbon Dioxide 26 BUN 25 H Creatinine 0.64 Glucose 121 H Calcium 8.9 Medications Administered Home Medications Medication Instructions Recorded Confirmed Last Taken atenolol 100 mg tablet 100 mg PO DAILY 01/28/18 04/30/23 12/12/20 calcium carbonate 600 mg calcium 600 mg PO DAILY PRN Other 01/28/18 04/30/23 12/12/20 (1,500 mg) tablet (Calcium) cholecalciferol (vitamin D3) 25 1,000 unit PO DAILY 01/28/18 04/30/23 12/12/20 mcg (1,000 unit) capsule (Vitamin D3) levothyroxine 137 mcg tablet 137 mcg PO DAILY 01/28/18 04/30/23 12/12/20 losartan 100 mg tablet 100 mg PO DAILY 01/28/18 04/30/23 12/12/20 alendronate 70 mg tablet 70 mg PO WK 12/12/20 04/30/23 12/08/20 amlodipine 10 mg tablet 5 mg PO DAILY 12/12/20 04/30/23 12/12/20 aspirin 81 mg tablet,delayed 81 mg PO DAILY 12/12/20 04/30/23 12/12/20 release prednisone 5 mg tablet 5 mg PO DAILY 12/12/20 04/30/23 12/12/20 ferrous sulfate 325 mg (65 mg 325 mg PO DAILY 03/19/21 04/30/23 Unknown iron) tablet acetaminophen 300 mg-codeine 30 mg 1 tab PO Q12H PRN pain #6 tabs 04/28/23 04/30/23 Unknown tablet acetaminophen 650 mg 1,300 mg PO BID 04/28/23 04/30/23 Unknown tablet,extended release cephalexin 500 mg tablet 500 mg PO BID 6 days #12 tabs 04/28/23 04/30/23 Unknown etanercept 25 mg/0.5 mL (0.5 mL) 25 mg subcut .TWICE WEEKLY 04/28/23 04/30/23 Unknown subcutaneous syringe (Enbrel) hydrochlorothiazide 12.5 mg tablet 12.5 mg PO DAILY 04/28/23 04/30/23 Unknown omeprazole 20 mg capsule,delayed 20 mg PO DAILY 04/28/23 04/30/23 Unknown release oxycodone 5 mg tablet 5 mg PO Q8H PRN pain #11 tabs 04/29/23 04/30/23 Unknown Active Medications Generic Name Dose Route Start Last Admin Trade Name Mauri PRN Reason Stop Dose Admin Acetaminophen 1,000 mg 04/30/23 11:45 05/02/23 11:28 Acetaminophen 500 Mg Tab PO 05/30/23 11:44 1,000 mg Q8H JAIRO Administration Alendronate Sodium 70 mg 05/02/23 06:30 05/02/23 05:32 Alendronate Sodium 70 Mg Tab PO 06/01/23 06:29 70 mg [id number] JAIRO Administration Amlodipine Besylate 5 mg 05/01/23 09:00 05/02/23 08:13 Amlodipine Besylate 5 Mg Tab PO 05/31/23 08:59 5 mg DAILY JAIRO Administration Aspirin 81 mg 05/01/23 09:00 05/02/23 08:14 Aspirin 81 Mg Ectab PO 05/31/23 08:59 81 mg DAILY JAIRO Administration Atenolol 100 mg 05/01/23 09:00 05/02/23 08:15 Atenolol 50 Mg Tablet PO 05/31/23 08:59 100 mg DAILY JAIRO Administration Ferrous Sulfate 325 mg 05/01/23 09:00 05/02/23 08:14 Ferrous Sulfate 325 Mg Tab PO 05/31/23 08:59 325 mg DAILY JAIRO Administration Heparin Sodium (Porcine) 5,000 units 04/30/23 14:00 05/02/23 05:32 Heparin Sod 5,000 Unit/0.5 Ml Vial SQ 05/30/23 13:59 5,000 units Q8 JAIRO Administration Hydrochlorothiazide 12.5 mg 05/01/23 09:00 05/02/23 08:15 Hydrochlorothiazide 25 Mg Tab PO 05/31/23 08:59 12.5 mg DAILY JAIRO Administration Ceftriaxone Sodium 1,000 mg/ 50 mls @ 100 mls/hr 04/30/23 12:15 05/02/23 12:11 Dextrose IV 05/05/23 12:14 Infused Q24H AJIRO Infusion Protocol Levothyroxine Sodium 137 mcg 05/01/23 06:30 05/02/23 05:31 Levothyroxine Sodium 137 Mcg Tablet PO 05/31/23 06:29 137 mcg DAILYBB JAIRO Administration Losartan Potassium 100 mg 05/01/23 09:00 05/02/23 08:14 Losartan Potassium 50 Mg Tab PO 05/31/23 08:59 100 mg DAILY JAIRO Administration Methylprednisolone 4 mg 05/02/23 07:00 05/02/23 12:31 Methylprednisolone 4 Mg Tab PO 05/02/23 18:01 4 mg 0700,1300,1800 JAIRO Administration Oxycodone HCl 5 mg 04/30/23 11:38 05/01/23 12:20 Oxycodone Hcl Ir 5 Mg Tab (Immediate Release) PO 05/14/23 11:37 5 mg Q6H PRN Administration Severe Pain (Scale 7, 8, 9,10) Pantoprazole Sodium 40 mg 05/01/23 09:00 05/02/23 08:15 Pantoprazole 40 Mg Tab PO 05/31/23 08:59 40 mg DAILY JAIRO Administration Prednisone 5 mg 05/01/23 09:00 05/01/23 09:39 Prednisone 5 Mg Tab PO 05/31/23 08:59 5 mg DAILY JAIRO Administration Vitamin D 25 mcg 05/01/23 09:00 05/02/23 08:13 Cholecalciferol 25 Mcg (1000 Units) Tab PO 05/31/23 08:59 25 mcg DAILY JAIRO Administration (2) Sciatica Laterality: left Qualified Code(s): M54.32 - Sciatica, left side (5) Closed compression fracture of lumbar vertebra Encounter type: initial encounter Lumbar vertebra fracture level: L5 Qualified Code(s): S32.050A - Wedge compression fracture of fifth lumbar vertebra, initial encounter for closed fracture
[2023-05-02] MEDS: traMADol HCL 50 MG TABLET PO STA (13:43)
[2023-05-02] MEDS: ETANERCEPT 25 MG/0.5 ML SQ SCH (14:43)
[2023-05-02] MEDS ORDERED: ETANERCEPT 25 MG/0.5 ML SQ SCH (15:00)
[2023-05-02] MEDS ORDERED: hydrALAZINE HCL 20 MG/ML VIAL IV PRN (16:37)
[2023-05-02] MEDS: amLODIPine BESYLATE 5 MG TAB PO ONE (17:12)
[2023-05-02] MEDS: traMADol HCL 50 MG TABLET PO PRN (21:11)
[2023-05-02] MEDS: LIDOCAINE 5% 1 PATCH TD SCH (21:11)
[2023-05-03] MEDS: methylPREDNISolone 4 MG TAB PO SCH (06:24)
[2023-05-03 06:54] LABS: Hematocrit (blood only) 40.5 % (37.0-47.0); Hemoglobin 13.5 g/dl (12.0-16.0); Mean Corpuscular Hemoglobin 28.5 pg (25.0-34.0); Mean Corpuscular Hgb Conc 33.3 g/dL (32.0-36.0); Mean Corpuscular Volume 85.6 fL (80.0-100.0); Mean Platelet Volume 8.9 fL (9.4-12.4); Platelet Count 212 K/uL (130-400); RDW Coefficient of Variation 13.1 % (11.5-14.5); RDW Standard Deviation 40.6 fL (36.4-46.3); Red Blood Count 4.73 M/uL (4.20-5.40); White Blood Count 8.39 K/ul (4.8-10.8)
[2023-05-03 07:12] LABS: BUN Creatinine Ratio 37.1 (10-20); Est GFR (Non-African American) 76.8 ml/min; Magnesium 2.1 mg/dl (1.7-2.4); Phosphorus 3.8 mg/dl (2.5-4.9); Potassium 4.6 mmol/L (3.5-5.1)
[2023-05-03] MEDS: amLODIPine BESYLATE 5 MG TAB PO SCH (08:13)
--- NOTE | 2023-05-03 10:31 | Orthopedic Consultation ---
Date of Consultation May 03, 2023 Assessment & Plan (1) Lumbar disc herniation with radiculopathy: MRI lumbar spine does demonstrate evidence of acute compression fracture of the inferior endplate of L5. There is a disc herniation on the left with a fragment demonstrating some cephalad migration. There is severe neuroforaminal disease on the left. She has L4-L5 spinal stenosis with some anterolisthesis. Electricians patient reviewing her MRI findings and clinical course. This time she would like to avoid surgical intervention. I will consult interventional pain management for trial of epidural injections but understands that if she does not improve she may require at minimum a lumbar laminectomy to excise the herniated fragment. I do have a concern regarding the foraminal disease and whether this would require a more extensive procedure. Hopefully she will respond to epidural injections and therapy. History of Present Illness Reason for Consultation: Left sciatica Attending Physician: Francia Moctezuma MD History of Present Illness This is a very pleasant 87-year-old female that presents with approximately 2 weeks of left sciatica. She denies any specific trauma fall or event. She does live at home with her daughter. She has a longstanding history of rheumatoid arthritis. She describes a pain involving left buttock posterior thigh extending to the knee. Is markedly painful with activity. The right lower extremity is asymptomatic. She denies any loss of bowel or bladder control. Allergies Allergy/AdvReac Type Severity Reaction Status Date / Time No Known Allergies Allergy Unverified 04/28/23 09:48 Home Medications Medication Instructions Recorded Confirmed Type atenolol 100 mg tablet 100 mg PO DAILY 01/28/18 04/30/23 History calcium carbonate 600 mg calcium 600 mg PO DAILY PRN Other 01/28/18 04/30/23 History (1,500 mg) tablet (Calcium) cholecalciferol (vitamin D3) 25 1,000 unit PO DAILY 01/28/18 04/30/23 History mcg (1,000 unit) capsule (Vitamin D3) levothyroxine 137 mcg tablet 137 mcg PO DAILY 01/28/18 04/30/23 History losartan 100 mg tablet 100 mg PO DAILY 01/28/18 04/30/23 History alendronate 70 mg tablet 70 mg PO WK 12/12/20 04/30/23 History amlodipine 10 mg tablet 5 mg PO DAILY 12/12/20 04/30/23 History aspirin 81 mg tablet,delayed 81 mg PO DAILY 12/12/20 04/30/23 History release prednisone 5 mg tablet 5 mg PO DAILY 12/12/20 04/30/23 History ferrous sulfate 325 mg (65 mg 325 mg PO DAILY 03/19/21 04/30/23 History iron) tablet acetaminophen 300 mg-codeine 30 mg 1 tab PO Q12H PRN pain #6 tabs 04/28/23 04/30/23 Rx tablet acetaminophen 650 mg 1,300 mg PO BID 04/28/23 04/30/23 History tablet,extended release cephalexin 500 mg tablet 500 mg PO BID 6 days #12 tabs 04/28/23 04/30/23 Rx etanercept 25 mg/0.5 mL (0.5 mL) 25 mg subcut .TWICE WEEKLY 04/28/23 04/30/23 History subcutaneous syringe (Enbrel) hydrochlorothiazide 12.5 mg tablet 12.5 mg PO DAILY 04/28/23 04/30/23 History omeprazole 20 mg capsule,delayed 20 mg PO DAILY 04/28/23 04/30/23 History release oxycodone 5 mg tablet 5 mg PO Q8H PRN pain #11 tabs 04/29/23 04/30/23 Rx Patient History Medical History Closed compression fracture of lumbar vertebra Prediabetes CKD (chronic kidney disease), stage III Anxiety Hypertension Arthritis TIA (transient ischemic attack) (01/14/13) Osteoporosis Hypothyroidism Rheumatoid arthritis Paroxysmal atrial fibrillation Surgical History H/O vaginal hysterectomy H/O neck surgery S/P cholecystectomy H/O foot surgery History of esophagogastroduodenoscopy (EGD) H/O colonoscopy H/O: hysterectomy S/P cholecystectomy Family History Other Breast cancer Coronary heart disease Diabetes Social History Smoking Status: Never smoker Hx Alcohol Use: No Hx Substance Use: No Preferred Language: [place] Communication Ability: Effective Patient Services Technician Required: No Beliefs That Will Affect Care: Congregational Current Living Situation: Family Current Living Situation Comment: lives with daughter How many Children do You have: 4 Other Information That Helps Us Care for You: No Feels Safe at Home: Yes Assistive Devices: Cane and Walker Physical Exam Physical Exam: Patient is currently supine in bed. This is more her most comfortable position. She has plus 5 out of 5 right quadricep with 4/5 plantarflexion dorsiflexion. On the left she has a 4/5 quadricep plantarflexion dorsiflexion. She has moderate tension signs straight leg raising on the left negative on the right. [place] is uncomfortable on the left compared the right. She has tenderness palpation of the left trochanter and sciatic notch. Sensory appears to be symmetric and intact. Results & Data Vital Signs (Past 12 Hours) Vital Signs Temp Pulse Resp BP Pulse Ox O2 Del Method 05/03/23 05:59 36.9 C 65 14 153/67 H 95 Room Air
--- NOTE | 2023-05-03 13:07 | Pain Management Consultation ---
Date of Consultation May 03, 2023 Assessment & Plan (1) Lumbar disc herniation with radiculopathy: (2) Ambulatory dysfunction: (3) Sciatica: Laterality: left Qualified Code(s): M54.32 - Sciatica, left side (4) Closed compression fracture of lumbar vertebra: Encounter type: initial encounter Lumbar vertebra fracture level: L5 Qualified Code(s): S32.050A - Wedge compression fracture of fifth lumbar vertebra, initial encounter for closed fracture Plan 1. The patient is suffering from left-sided low back and hip region pain symptoms, associated w/ radiation into the left buttocks and left lower extremity in an L5/S1 distribution pattern. This is consistent with what could be expected from the lumbar spine MRI finding of a left paracentral/left lateral recess disc extrusion at L5-S1 that is causing severe left lateral recess narrowing * Patient is recommended to undergo LEFT paramedian L5-S1 interlaminar epidural steroid injection. * This would need to be facilitated as an outpatient at the pain management clinic. * Could be added onto Dr. Aguilar's procedure schedule on 05/03 or 05/04 if the patient's pain becomes better controlled by then and she is able to be discharged prior to noon tomorrow or . * If the patient's lack of ambulatory ability persists, and there is further consideration of her going to a rehab facility, then a lumbar epidural injection could potentially be arranged in the coming weeks. * The risks, benefits, and alternatives of the procedure were discussed in detail with the patient, and in full understanding of the procedure to be performed, the patient elects to proceed as discussed. 2. The patient does not take anticoagulant medication regularly, so there would be no delay in that aspect for scheduling. 3. To address neuropathic her symptoms, would recommend starting gabapentin 300 mg, with titration to TID. 4. Otherwise, there are no additional recommend changes to the medication regimen. Agree with methylprednisolone taper. 5. Consideration could be given for an LSO brace to address the compression fracture, which would be recommended to be on with transfers and when OOB. 6. Patient was educated in detail on the potential development of cauda equina syndrome red flag symptoms (i.e. severe back pain, bilateral sciatica pain and altered sensation in the legs, bowel/bladder dysfunction, saddle anesthesia, sexual problems), and to contact our office immediately, or report to the ER, if they notice any of these. 7. Will follow the patient peripherally to check on her disposition status. History of Present Illness Reason for Consultation: lumbar herniated disc w/ LLE radiculopathy; possible LEN Requesting Physician: Dr. Soares Attending Physician: Francia Moctezuma MD History of Present Illness Patient is a pleasant 87-year-old female that presented to the [facility] ED on 04/29/2023 complaining of about 5 days of back pain that was unrelenting. She was experiencing a stabbing, aching, and throbbing sensation into her left leg. She was having trouble with walking and really any movement at all. It seems that the patient's son brought her in, as they were having difficulty taking care of her at home and they were requesting that she be placed into a rehab facility or residential. However, the patient overheard that conversation, and she was stating that she did not want to go to a rehab facility or residential. That became a family issue and they had further discussion about making arrangements to have other family members help take care of her. It looks like she was discharged that night or the next morning or early, and then she returned again to the ED the following day complaining of left hip pain, again radiating down her left leg intermittently. She was having trouble even getting out of bed. Between March and April 29 she made 3 visits to the [facility] ED with similar complaints of pain. She was admitted for pain control 04/30/23. Dr. Soares was consulted on the patient and determined that she had evidence of an acute compression fracture of the inferior endplate of L5. Patient was also noted to have a disc herniation on the left at L5-S1, with a possible extruded or sequestered fragment. This was causing severe neuroforaminal stenosis on the left. Additionally, there was anterolisthesis of L4 on L5, with spinal stenosis at this level. However, after their discussion, the patient wanted to avoid any surgical intervention. Thus, the pain management service was consulted for further recommendation and consideration for procedural intervention. Today, the patient is stating pain to her left sided lumbosacral region, with radiation through her left buttocks and into the left lower extremity in a predominant L5/S1 nerve distribution pattern. She denies any right lower extremity pain/paresthesias. Patient denies bowel/bladder incontinence and saddle anesthesia. Of note, the patient does have rheumatoid arthritis, and takes 5 mg prednisone daily. Case discussed with Dr. Aguilar. Pain Assessment Full Body Front + Back: 2 1. 2. 3. Allergies Allergy/AdvReac Type Severity Reaction Status Date / Time No Known Allergies Allergy Unverified 04/28/23 09:48 Home Medications Medication Instructions Recorded Confirmed Type atenolol 100 mg tablet 100 mg PO DAILY 01/28/18 04/30/23 History calcium carbonate 600 mg calcium 600 mg PO DAILY PRN Other 01/28/18 04/30/23 History (1,500 mg) tablet (Calcium) cholecalciferol (vitamin D3) 25 1,000 unit PO DAILY 01/28/18 04/30/23 History mcg (1,000 unit) capsule (Vitamin D3) levothyroxine 137 mcg tablet 137 mcg PO DAILY 01/28/18 04/30/23 History losartan 100 mg tablet 100 mg PO DAILY 01/28/18 04/30/23 History alendronate 70 mg tablet 70 mg PO WK 12/12/20 04/30/23 History amlodipine 10 mg tablet 5 mg PO DAILY 12/12/20 04/30/23 History aspirin 81 mg tablet,delayed 81 mg PO DAILY 12/12/20 04/30/23 History release prednisone 5 mg tablet 5 mg PO DAILY 12/12/20 04/30/23 History ferrous sulfate 325 mg (65 mg 325 mg PO DAILY 03/19/21 04/30/23 History iron) tablet acetaminophen 300 mg-codeine 30 mg 1 tab PO Q12H PRN pain #6 tabs 04/28/23 04/30/23 Rx tablet acetaminophen 650 mg 1,300 mg PO BID 04/28/23 04/30/23 History tablet,extended release cephalexin 500 mg tablet 500 mg PO BID 6 days #12 tabs 04/28/23 04/30/23 Rx etanercept 25 mg/0.5 mL (0.5 mL) 25 mg subcut .TWICE WEEKLY 04/28/23 04/30/23 History subcutaneous syringe (Enbrel) hydrochlorothiazide 12.5 mg tablet 12.5 mg PO DAILY 04/28/23 04/30/23 History omeprazole 20 mg capsule,delayed 20 mg PO DAILY 04/28/23 04/30/23 History release oxycodone 5 mg tablet 5 mg PO Q8H PRN pain #11 tabs 04/29/23 04/30/23 Rx Patient History Medical History Closed compression fracture of lumbar vertebra Prediabetes CKD (chronic kidney disease), stage III Anxiety Hypertension Arthritis TIA (transient ischemic attack) (01/14/13) Osteoporosis Hypothyroidism Rheumatoid arthritis Paroxysmal atrial fibrillation Surgical History H/O vaginal hysterectomy H/O neck surgery S/P cholecystectomy H/O foot surgery History of esophagogastroduodenoscopy (EGD) H/O colonoscopy H/O: hysterectomy S/P cholecystectomy Family History Other Breast cancer Coronary heart disease Diabetes Social History Smoking Status: Never smoker Hx Alcohol Use: No Hx Substance Use: No Preferred Language: Senegalese Communication Ability: Effective Nozzle Operator Required: No Beliefs That Will Affect Care: Judaism Current Living Situation: Family Current Living Situation Comment: lives with daughter How many Children do You have: 4 Other Information That Helps Us Care for You: No Feels Safe at Home: Yes Assistive Devices: Cane and Walker Physical Exam 2 Physical Exam: GENERAL: Speech and cognition is intact. Mood and affect is appropriate. Does not appear in acute distress. Lying flat in bed; able to roll from left side and onto the back. HEAD: Normocephalic; atraumatic. NECK: Trachea is midline. CHEST: Regular chest respiration and excursion. EXTREMITIES: Distal sensation and pulses intact bilaterally. Ulnar deviation of fingers and toes noted. BACK: Diminished ROM. + lumbosacral tenderness.Inspection demonstrates loss of lumbar lordotic curvature. NEURO: CN II-XII grossly intact with no focal deficits noted. Awake, alert, and oriented x 3. SKIN: No lesions, erythema, or rashes noted. LOWER EXTREMITIES: R ankle dorsiflexion 5/5; ankle plantar flexion 5/5; EHL 5/5 L ankle dorsiflexion 4/5; ankle plantar flexion 4/5; EHL 4/5
--- NOTE | 2023-05-03 13:22 | Hospitalist Progress Note ---
Date of Service May 03, 2023 Assessment & Plan (1) Ambulatory dysfunction: (2) Sciatica: (3) Hip pain, left: (4) Osteoporosis: (5) Closed compression fracture of lumbar vertebra: (6) Acute UTI: (7) Hydronephrosis of right kidney: (8) Paroxysmal atrial fibrillation: (9) Hypertension: (10) CKD (chronic kidney disease), stage III: (11) Rheumatoid arthritis: (12) Hypothyroidism: Plan Ms. Trimble is an 87yo F with PMH of hypertension, venous insufficiency, paroxysmal atrial fibrillation not on anticoagulation due to fall risk, CKD 3, EBONI, rheumatoid arthritis on prednisone, history of TIA, history of left hip replacement and other medical problems listed below who presents with worsening left hip pain and ambulatory dysfunction over the past few days. Patient reports progressive pain with ambulation, mostly radiating down left leg--patient states pain brings her to tears, plan to trial medrol dose pack with Ortho spine tomorrow. No emergent symptoms/signs at this time. CT lumbar spine with the following: L5 compression fracture, chronic L2 compression fracture, severe central canal narrowing. MRI ordered: . A 1.5 cm disc extrusion versus sequestered disc fragment at L5-S1 causes severe left lateral recess narrowing. Additionally, there is lyzb-[id number] central canal stenosis at this level with severe left and knzp-[id number] right neural foraminal narrowing. Physical exam with lower extremity with strength intact, but hip range of motion limited 2/2 pain. Sensation intact. Patient remains limited overall. Offered patient transfer to [facility] or [facility] for sooner eval over the weekend, but patient declined. Dr Soares with Ortho Spine evaluated patient 05/02 with concerns for possible need of laminectomy. Pain consulted for steroid injections. #Severe left neural foraminal narrowing at L5-S1 #Lumbar disc extrusion #Acute L5 Fracture #Rheumatoid arthritis #Age-related osteoporosis with pathologic fracture of lumbar spine This is patient's third ED visit in 3 days for worsening pain of left hip extending to leg. : CT of the lumbar spine revealed an acute lumbar fracture the patient likely does have 2 additional older fractures, also with moderate-severe central canal narrowing at L4-L5 due to the disc bulge and facet hypertrophy Has since returned to ED twice for worsening pain now more localized to left hip with radiation down buttocks and posterior upper leg No new bowel/bladder incontinence but endorses new ambulatory dysfunction (can ambulate with walker at baseline) -MRI findings as above -PT/OT -Pain management -Plan for Ortho Spine consult -Recommend Pain management consult -Potential for laminectomy, or further intervention if pain management unable to resolve -Plan Pain Management - Gabapentin started 300mg TID -Steroid injections will need to be OP, attempting to coordinate if patient's symptoms will allow for transport -Discontinued Dilaudid prn 04/01 confusion, Contine on Medrol dose pack 05/01/2023 - 05/05 (resume 5mg prednisone thereafter) Oxy prn -Tylenol 1000 q8h #Congential right UPJ obstruction, hydronephrosis -No right flank pain at this time #Severe Rheumatoid RA Follows with Dr. Nava for RA, osteoporosis Continue Enbrel, Fosamax, prednisone 5 (held while on dose pack) #Acute uncomplicated cystitis POA #Chronic UPJ obstruction, right hydronephrosis Urine culture from grew pansensitive Klebsiella, has been taking PO cephalexin at home Will treat with IV Rocephin while admitted, on day #6 EOT 05/03 CT l spine from with evidence of moderate right hydronephrosis to the level of the ureteropelvic junction. 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 No obstructing stones identified Denies any urinary symptoms Continue to monitor closely, bladder scan PRN and consider re-imaging if symptoms develop #Paroxysmal A Fib Not on anticoagulant due to fall risk Admission EKG showing normal sinus rhythm Continue atenolol daily #HTN BP initially elevated in setting of pain. Now normotensive. Continue home amlodipine, atenolol, losartan, hctz #CKD III Creatinine 0.67 at baseline, continue to monitor daily BMP #Hypothyroidism Continue levothyroxine DVT ppx heparin DISPO pending Ortho eval/ Pain management Admission and Anticipated Discharge Date Admission Date: April 30, 2023 Subjective Patient evaluated at bedside Reports pain is unbearable and feels like it is worsening She cannot bear weight and unable to shift without radiation of symptoms Worries about surgery, but also not sure she can be transported, nor if her family can help at this time Denies any other new symptoms at this time Physical Exam Constitutional: laying flat in bed, mild distress from pain Respiratory: normal respiratory effort, lungs clear to auscultation Cardiovascular: RRR, no murmur, no edema Results & Data Results & Data Vital Signs (Past 12 Hours) Vital Signs Temp Pulse Resp BP Pulse Ox O2 Del Method 05/03/23 05:59 36.9 C 65 14 153/67 H 95 Room Air Laboratory Results Short CBC 05/03/23 Range/Units 06:05 WBC 8.39 (4.8-10.8) K/ul Hgb 13.5 (12.0-16.0) g/dl Hct 40.5 (37.0-47.0) % Plt Count 212 (130-400) K/uL BMP 05/03/23 06:05 Sodium 134 L Potassium 4.6 Chloride 99 Carbon Dioxide 27 BUN 26 H Creatinine 0.70 Glucose 150 H Calcium 9.0 Medications Administered Home Medications Medication Instructions Recorded Confirmed Last Taken atenolol 100 mg tablet 100 mg PO DAILY 01/28/18 04/30/23 12/12/20 calcium carbonate 600 mg calcium 600 mg PO DAILY PRN Other 01/28/18 04/30/23 (1,500 mg) tablet (Calcium) cholecalciferol (vitamin D3) 25 1,000 unit PO DAILY 01/28/18 04/30/23 12/12/20 mcg (1,000 unit) capsule (Vitamin D3) levothyroxine 137 mcg tablet 137 mcg PO DAILY 01/28/18 04/30/23 12/12/20 losartan 100 mg tablet 100 mg PO DAILY 01/28/18 04/30/23 12/12/20 alendronate 70 mg tablet 70 mg PO WK 12/12/20 04/30/23 12/08/20 amlodipine 10 mg tablet 5 mg PO DAILY 12/12/20 04/30/23 12/12/20 aspirin 81 mg tablet,delayed 81 mg PO DAILY 12/12/20 04/30/23 12/12/20 release prednisone 5 mg tablet 5 mg PO DAILY 12/12/20 04/30/23 12/12/20 ferrous sulfate 325 mg (65 mg 325 mg PO DAILY 03/19/21 04/30/23 Unknown iron) tablet acetaminophen 300 mg-codeine 30 mg 1 tab PO Q12H PRN pain #6 tabs 04/28/23 04/30/23 Unknown tablet acetaminophen 650 mg 1,300 mg PO BID 04/28/23 04/30/23 Unknown tablet,extended release cephalexin 500 mg tablet 500 mg PO BID 6 days #12 tabs 04/28/23 04/30/23 Unknown etanercept 25 mg/0.5 mL (0.5 mL) 25 mg subcut .TWICE WEEKLY 04/28/23 04/30/23 Unknown subcutaneous syringe (Enbrel) hydrochlorothiazide 12.5 mg tablet 12.5 mg PO DAILY 04/28/23 04/30/23 Unknown omeprazole 20 mg capsule,delayed 20 mg PO DAILY 04/28/23 04/30/23 Unknown release oxycodone 5 mg tablet 5 mg PO Q8H PRN pain #11 tabs 04/29/23 04/30/23 Unknown Active Medications Generic Name Dose Route Start Last Admin Trade Name Freq PRN Reason Stop Dose Admin Acetaminophen 1,000 mg 04/30/23 11:45 05/03/23 11:08 Acetaminophen 500 Mg Tab PO 05/30/23 11:44 1,000 mg Q8H JAIRO Administration Alendronate Sodium 70 mg 05/02/23 06:30 05/02/23 05:32 Alendronate Sodium 70 Mg Tab PO 06/01/23 06:29 70 mg Mo@0630 JAIRO Administration Amlodipine Besylate 10 mg 05/03/23 09:00 05/03/23 08:13 Amlodipine Besylate 5 Mg Tab PO 06/02/23 08:59 10 mg DAILY JAIRO Administration Aspirin 81 mg 05/01/23 09:00 05/03/23 08:14 Aspirin 81 Mg Ectab PO 05/31/23 08:59 81 mg DAILY JAIRO Administration Atenolol 100 mg 05/01/23 09:00 05/03/23 08:13 Atenolol 50 Mg Tablet PO 05/31/23 08:59 100 mg DAILY JAIRO Administration Etanercept 25 mg 05/02/23 15:00 05/02/23 14:52 Etanercept 25 Mg/0.5 Ml Syringe (Enbrel) (Pom) SQ 06/01/23 14:59 Not Given MoTh@0900 JAIRO Ferrous Sulfate 325 mg 05/01/23 09:00 05/03/23 08:13 Ferrous Sulfate 325 Mg Tab PO 05/31/23 08:59 325 mg DAILY JAIRO Administration Heparin Sodium (Porcine) 5,000 units 04/30/23 14:00 05/03/23 12:39 Heparin Sod 5,000 Unit/0.5 Ml Vial SQ 05/30/23 13:59 5,000 units Q8 JAIRO Administration Hydrochlorothiazide 12.5 mg 05/01/23 09:00 05/03/23 08:13 Hydrochlorothiazide 25 Mg Tab PO 05/31/23 08:59 12.5 mg DAILY JAIRO Administration Ceftriaxone Sodium 1,000 mg/ 50 mls @ 100 mls/hr 04/30/23 12:15 05/03/23 13:17 Dextrose IV 05/05/23 12:14 Infused Q24H JAIRO Infusion Protocol Levothyroxine Sodium 137 mcg 05/01/23 06:30 05/03/23 04:24 Levothyroxine Sodium 137 Mcg Tablet PO 05/31/23 06:29 137 mcg DAILYBB JAIRO Administration Lidocaine 1 patch 05/02/23 20:00 05/02/23 21:11 Lidocaine 5% 1 Patch TD 06/01/23 19:59 1 patch Q24H JAIRO Administration Losartan Potassium 100 mg 05/01/23 09:00 05/03/23 08:13 Losartan Potassium 50 Mg Tab PO 05/31/23 08:59 100 mg DAILY JAIRO Administration Methylprednisolone 4 mg 05/03/23 07:00 05/03/23 12:39 Methylprednisolone 4 Mg Tab PO 05/03/23 21:01 4 mg 0700,1300,1800,2100 JAIRO Administration Miscellaneous 1 each 05/03/23 08:00 05/03/23 08:14 Remove Lidoderm Patch N/A 06/02/23 07:59 1 each Q24H JAIRO Administration Oxycodone HCl 5 mg 04/30/23 11:38 05/03/23 08:12 Oxycodone Hcl Ir 5 Mg Tab (Immediate Release) PO 05/14/23 11:37 5 mg Q6H PRN Administration Severe Pain (Scale 7, 8, 9,10) Pantoprazole Sodium 40 mg 05/01/23 09:00 05/03/23 08:12 Pantoprazole 40 Mg Tab PO 05/31/23 08:59 40 mg DAILY JAIRO Administration Prednisone 5 mg 05/01/23 09:00 05/01/23 09:39 Prednisone 5 Mg Tab PO 05/31/23 08:59 5 mg DAILY JAIRO Administration Tramadol HCl 50 mg 05/02/23 13:38 05/03/23 12:41 Tramadol Hcl 50 Mg Tablet PO 06/01/23 13:37 50 mg Q4H PRN Administration Moderate Pain (Scale 4, 5, 6) Vitamin D 25 mcg 05/01/23 09:00 05/03/23 08:14 Cholecalciferol 25 Mcg (1000 Units) Tab PO 05/31/23 08:59 25 mcg DAILY JAIRO Administration (2) Sciatica Laterality: left Qualified Code(s): M54.32 - Sciatica, left side (5) Closed compression fracture of lumbar vertebra Encounter type: initial encounter Lumbar vertebra fracture level: L5 Qu alified Code(s): S32.050A - Wedge compression fracture of fifth lumbar vertebra, initial encounter for closed fracture
[2023-05-04] MEDS: methylPREDNISolone 4 MG TAB PO SCH (04:46)
[2023-05-04 06:53] LABS: Hematocrit (blood only) 37.5 % (37.0-47.0); Mean Corpuscular Hemoglobin 29.1 pg (25.0-34.0); Mean Corpuscular Hgb Conc 34.7 g/dL (32.0-36.0); Mean Corpuscular Volume 83.9 fL (80.0-100.0); Mean Platelet Volume 8.8 fL (9.4-12.4); Platelet Count 215 K/uL (130-400); RDW Coefficient of Variation 13.1 % (11.5-14.5); RDW Standard Deviation 40.4 fL (36.4-46.3); Red Blood Count 4.47 M/uL (4.20-5.40); White Blood Count 8.87 K/ul (4.8-10.8)
[2023-05-04 07:18] LABS: BUN Creatinine Ratio 37.7 (10-20); Calcium 8.6 mg/dl (8.6-10.3); Creatinine Clr Calc Pharmacy 49.7 ml/min; Est GFR (African American) 89.5 ml/min; Est GFR (Non-African American) 77.2 ml/min; Potassium 4.3 mmol/L (3.5-5.1)
[2023-05-04] MEDS: POLYETHYLENE (MIRALAX) 17 GM PACK PO PRN (08:09)
--- NOTE | 2023-05-04 19:18 | Hospitalist Progress Note ---
Date of Service May 04, 2023 delayed entry date of service noted above Assessment & Plan (1) Ambulatory dysfunction: (2) Sciatica: (3) Hip pain, left: (4) Osteoporosis: (5) Closed compression fracture of lumbar vertebra: (6) Acute UTI: (7) Hydronephrosis of right kidney: (8) Paroxysmal atrial fibrillation: (9) Hypertension: (10) CKD (chronic kidney disease), stage III: (11) Rheumatoid arthritis: (12) Hypothyroidism: Plan per previous hospitalist notes with addendum: Ms. Trimble is an 87yo F with PMH of hypertension, venous insufficiency, paroxysmal atrial fibrillation not on anticoagulation due to fall risk, CKD 3, EBONI, rheumatoid arthritis on prednisone, history of TIA, history of left hip replacement and other medical problems listed below who presents with worsening left hip pain and ambulatory dysfunction over the past few days. Patient reports progressive pain with ambulation, mostly radiating down left leg--patient states pain brings her to tears, plan to trial medrol dose pack with Ortho spine tomorrow. No emergent symptoms/signs at this time. CT lumbar spine with the following: L5 compression fracture, chronic L2 compression fracture, severe central canal narrowing. MRI ordered: . A 1.5 cm disc extrusion versus sequestered disc fragment at L5-S1 causes severe left lateral recess narrowing. Additionally, there is lzre-hz-knejsipt central canal stenosis at this level with severe left and vcxd-ff-hioszzyr right neural foraminal narrowing. Physical exam with lower extremity with strength intact, but hip range of motion limited 2/2 pain. Sensation intact. Patient remains limited overall. Offered patient transfer to [facility] or [facility] for sooner eval over the weekend, but patient declined. Dr Soares with [facility] evaluated patient 05/02 with concerns for possible need of laminectomy. Pain consulted for steroid injections. #Severe left neural foraminal narrowing at L5-S1 #Lumbar disc extrusion #Acute L5 Fracture #Rheumatoid arthritis #Age-related osteoporosis with pathologic fracture of lumbar spine This is patient's third ED visit in 3 days for worsening pain of left hip extending to leg. : CT of the lumbar spine revealed an acute lumbar fracture the patient likely does have 2 additional older fractures, also with moderate-severe central canal narrowing at L4-L5 due to the disc bulge and facet hypertrophy Has since returned to ED twice for worsening pain now more localized to left hip with radiation down buttocks and posterior upper leg No new bowel/bladder incontinence but endorses new ambulatory dysfunction (can ambulate with walker at baseline) -MRI findings as above -PT/OT -Pain management -Plan for Ortho Spine consult -Recommend Pain management consult -Potential for laminectomy, or further intervention if pain management unable to resolve -Plan Pain Management - Gabapentin started 300mg TID -Steroid injections will need to be OP, attempting to coordinate if patient's symptoms will allow for transport -Discontinued Dilaudid prn 04/01 confusion, Contine on Medrol dose pack 05/01/2023 - 05/05 (resume 5mg prednisone thereafter) Oxy prn -Tylenol 1000 q8h 05/03 discuss with pain management recommend to continue medrol dosepak for now #Congential right UPJ obstruction, hydronephrosis -No right flank pain at this time #Severe Rheumatoid RA Follows with Dr. Nava for RA, osteoporosis Continue Enbrel, Fosamax, prednisone 5 (held while on dose pack) #Acute uncomplicated cystitis POA #Chronic UPJ obstruction, right hydronephrosis Urine culture from grew pansensitive Klebsiella, has been taking PO cephalexin at home Will treat with IV Rocephin while admitted, on day #6 EOT 05/03 CT l spine from with evidence of moderate right hydronephrosis to the level of the ureteropelvic junction. 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 No obstructing stones identified Denies any urinary symptoms Continue to monitor closely, bladder scan PRN and consider re-imaging if sy mptoms develop #Paroxysmal A Fib Not on anticoagulant due to fall risk Admission EKG showing normal sinus rhythm Continue atenolol daily #HTN BP initially elevated in setting of pain. Now normotensive. Continue home amlodipine, atenolol, losartan, hctz #CKD III Creatinine 0.67 at baseline, continue to monitor daily BMP #Hypothyroidism Continue levothyroxine DVT ppx heparin DISPO pending Ortho eval/ Pain management Admission and Anticipated Discharge Date Admission Date: April 30, 2023 Subjective ff up for back pain, etc seen resting in bed, not in distress still having severe back pain worse with movement no chest pain, dyspnea, palpitations, dizziness no other symptoms Review of Systems Review of Systems: all noted and negative except for above Physical Exam Physical Exam: General- oriented x 3, not in distress, speaks in sentences with no effort or accessory muscle use Eyes- anicteric Neck- no JVD Lungs- clear breath sounds bilaterally, no rales/wheezes Heart- normal rate, regular rhythm; no murmurs Abdomen- normal bowel sounds, nondistended, soft, nontender Extremities- no pretibial edema, no calf tenderness Back- no erythema/warmth, (+) mild tenderness Neuro- alert, oriented x 3; no gross focal neurologic deficits Skin- warm & dry Results & Data Results & Data Vital Signs (Past 12 Hours) Vital Signs Temp Pulse Resp BP Pulse Ox O2 Del Method 05/04/23 15:34 36.9 C 60 16 128/67 93 Room Air all noted and reviewed including below (2) Sciatica Laterality: left Qualified Code(s): M54.32 - Sciatica, left side (5) Closed compression fracture of lumbar vertebra Encounter type: initial encounter Lumbar vertebra fracture level: L5 Qualified Code(s): S32.050A - Wedge compression fracture of fifth lumbar vertebra, initial encounter for closed fracture
[2023-05-04] MEDS: GABAPENTIN 100 MG CAP PO SCH (20:38)
[2023-05-04] MEDS: methylPREDNISolone 40 MG in SYRINGE 0 ML IV SCH (21:48)
[2023-05-05] MEDS ORDERED: methylPREDNISolone 4 MG TAB PO SCH (07:00)
--- NOTE | 2023-05-05 13:02 | Pain Management Progress Note ---
Date of Service May 05, 2023 Assessment & Plan (1) Lumbar disc herniation with radiculopathy: (2) Ambulatory dysfunction: (3) Sciatica: Laterality: left Qualified Code(s): M54.32 - Sciatica, left side (4) Closed compression fracture of lumbar vertebra: Encounter type: initial encounter Lumbar vertebra fracture level: L5 Qualified Code(s): S32.050A - Wedge compression fracture of fifth lumbar vertebra, initial encounter for closed fracture (5) S/P ORIF (open reduction internal fixation) fracture: Plan 1. Again, the patient continues to suffer from left-sided lumbosacral and posterolateral hip region pain symptoms, associated w/ radiation into the left buttocks and left lower extremity in an L5/S1 distribution pattern. This remained consistent with what could be expected from the lumbar spine MRI finding of a left paracentral/left lateral recess disc extrusion at L5-S1 that is causing severe left lateral recess narrowing * Patient is recommended to undergo LEFT L5-S1 transforaminal vs. left paramedian L5-S1 interlaminar epidural steroid injection. * This would need to be facilitated as an outpatient at the pain management clinic. * Could be added onto procedure schedule week of 05/08-05/12 or after if the patient's pain becomes better controlled by then and she is able to be discharged to rehab; rehab facility could transport the patient to the pain management clinic. Our office will need to be notified of intention for this to plan accordingly. * If the patient's lack of ambulatory ability persists, and she is unable to be transported to the pain clinic in the next week or so, then a lumbar epidural injection could potentially be arranged in the subsequent coming weeks. * The risks, benefits, and alternatives of the procedure were discussed in detail with the patient, and in full understanding of the procedure to be performed, the patient elects to proceed as discussed. 2. The patient does not take anticoagulant medication regularly, so there would be no delay in that aspect for scheduling. 3. To better address neuropathic her symptoms, since she has had no reported adverse response to the medication thus far, could consider increasing gabapentin dose from 100 to 300 mg. 4. Continue IV methylprednisolone. 5. Further consideration could be given for an LSO brace to address the compression fracture, which would be recommended to be on with transfers and when OOB. 6. Patient was further educated in detail on the potential development of cauda equina syndrome red flag symptoms (i.e. severe back pain, bilateral sciatica pain and altered sensation in the legs, bowel/bladder dysfunction, saddle anesthesia, sexual problems), and to contact our office immediately, or report to the ER, if they notice any of these. 7. Will follow the patient peripherally to check on her disposition status. Admission and Anticipated Discharge Date Admission Date: April 30, 2023 Subjective Patient states persistent pain that is making it extremely difficult to even get out of bed to a bedside commode. She is max assist with 2 people to get out of bed. She has been unable to mobilize enough to be discharged to come to pain clinic for an epidural injection. Patient says that after she was given the gabapentin last night, it did seem to help her pain and she was able to sleep, but then sometime throughout the night or this morning, her symptoms worsened again. She says that if she goes to [facility] or [facility] rehab, where she has been before, that they could bring her to outpatient appointments, such as at the pain clinic. Case discussed with Dr. Aguilar. Pain Assessment Pain Assessment Full Body Front + Back: 2 1. 2. 3. Physical Exam 2 Physical Exam: GENERAL: Speech and cognition is intact. Mood and affect is appropriate. Does not appear in acute distress. Lying supine in bed. HEAD: Normocephalic; atraumatic. NECK: Trachea is midline. CHEST: Regular chest respiration and excursion. EXTREMITIES: Distal sensation and pulses intact bilaterally. Ulnar deviation of fingers and toes noted. BACK: Diminished ROM. + left lumbosacral and posterolateral hip tenderness.Inspection demonstrates loss of lumbar lordotic curvature. NEURO: CN II-XII grossly intact with no focal deficits noted. Awake, alert, and oriented x 3. SKIN: No lesions, erythema, or rashes noted. LOWER EXTREMITIES: R ankle dorsiflexion 5/5; ankle plantar flexion 5/5; EHL 5/5 L ankle dorsiflexion 4/5; ankle plantar flexion 4/5; EHL 4/5 Musculoskeletal: Hip: PAUL test negative, FADIR test negative and log roll test negative PROM left hip does not exacerbate pain
[2023-05-05] MEDS: LACTULOSE SYRUP 20 GM/30 ML UDC PO ONE (15:16)
--- NOTE | 2023-05-05 19:18 | Hospitalist Progress Note ---
Date of Service May 05, 2023 Assessment & Plan (1) Ambulatory dysfunction: (2) Sciatica: (3) Hip pain, left: (4) Osteoporosis: (5) Closed compression fracture of lumbar vertebra: (6) Acute UTI: (7) Hydronephrosis of right kidney: (8) Paroxysmal atrial fibrillation: (9) Hypertension: (10) CKD (chronic kidney disease), stage III: (11) Rheumatoid arthritis: (12) Hypothyroidism: Plan Ms. Trimble is an 87yo F with PMH of hypertension, venous insufficiency, paroxysmal atrial fibrillation not on anticoagulation due to fall risk, CKD 3, EBONI, rheumatoid arthritis on prednisone, history of TIA, history of left hip replacement and other medical problems listed below who presents with worsening left hip pain and ambulatory dysfunction over the past few days. Patient reports progressive pain with ambulation, mostly radiating down left leg--patient states pain brings her to tears, plan to trial medrol dose pack with Ortho spine tomorrow. No emergent symptoms/signs at this time. CT lumbar spine with the following: L5 compression fracture, chronic L2 compression fracture, severe central canal narrowing. MRI ordered: . A 1.5 cm disc extrusion versus sequestered disc fragment at L5-S1 causes severe left lateral recess narrowing. Additionally, there is qdsj-xb-wpdxcbck central canal stenosis at this level with severe left and hkej-wu-yezgbzna right neural foraminal narrowing. Physical exam with lower extremity with strength intact, but hip range of motion limited 2/2 pain. Sensation intact. Patient remains limited overall. Offered patient transfer to [facility] or [facility] [place] sooner eval over the weekend, but patient declined. Dr Soares with [facility] evaluated patient 05/02 with concerns for possible need of laminectomy. Pain consulted for steroid injections. #Severe left neural foraminal narrowing at L5-S1 #Lumbar disc extrusion #Acute L5 Fracture #Rheumatoid arthritis #Age-related osteoporosis with pathologic fracture of lumbar spine This is patient's third ED visit in 3 days for worsening pain of left hip extending to leg. : CT of the lumbar spine revealed an acute lumbar fracture the patient likely does have 2 additional older fractures, also with moderate-severe central canal narrowing at L4-L5 due to the disc bulge and facet hypertrophy Has since returned to ED twice for worsening pain now more localized to left hip with radiation down buttocks and posterior upper leg No new bowel/bladder incontinence but endorses new ambulatory dysfunction (can ambulate with walker at baseline) -MRI findings as above -PT/OT -Pain management -Plan for Ortho Spine consult -Recommend Pain management consult -Potential for laminectomy, or further intervention if pain management unable to resolve -Plan Pain Management - Gabapentin started 300mg TID -Steroid injections will need to be OP, attempting to coordinate if patient's symptoms will allow for transport -Discontinued Dilaudid prn 04/01 confusion, Contine on Medrol dose pack 05/01/2023 - 05/05 (resume 5mg prednisone thereafter) Oxy prn -Tylenol 1000 q8h 05/04 continue IV Solumedrol and Gabapentin PT/OT eval appreciate Pain Mgt service recommendations #Congential right UPJ obstruction, hydronephrosis -No right flank pain at this time #Severe Rheumatoid RA Follows with Dr. Nava for RA, osteoporosis Continue Enbrel, Fosamax, prednisone 5 (held while on dose pack) #Acute uncomplicated cystitis POA #Chronic UPJ obstruction, right hydronephrosis Urine culture from grew pansensitive Klebsiella, has been taking PO cephalexin at home Will treat with IV Rocephin while admitted, on day #6 EOT 05/03 CT l spine from with evidence of moderate right hydronephrosis to the level of the ureteropelvic junction. 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 No obstructing stones identified Denies any urinary symptoms Continue to monitor closely, bladder scan PRN and consider re-imaging if symptoms develop #Paroxysmal A Fib Not on anticoagulant due to fall risk Admission EKG showing normal sinus rhythm Continue atenolol daily #HTN BP initially elevated in setting of pain. Now normotensive. Continue home amlodipine, atenolol, losartan, hctz #CKD III Creatinine 0.67 at baseline, continue to monitor daily BMP #Hypothyroidism Continue levothyroxine DVT ppx heparin DISPO pending Ortho eval/ Pain management Admission and Anticipated Discharge Date Admission Date: April 30, 2023 Subjective ff up for low back pain, etc seen resting in bed, comfortable states pain is improved today can lift L leg no other new symptoms Review of Systems Review of Systems: all noted and negative except for above Physical Exam Physical Exam: General- oriented x 2, not in distress, speaks in sentences with no effort or accessory muscle use Eyes- anicteric Neck- no JVD Lungs- clear breath sounds bilaterally, no crackles/wheezing Heart- normal rate, regular rhythm; no murmurs Abdomen- normal bowel sounds, nondistended, soft, no tenderness Extremities- no pretibial edema, no calf tenderness Neuro- alert, oriented x 3; no gross focal neurologic deficits Skin- warm & dry Results & Data Results & Data Vital Signs (Past 12 Hours) Vital Signs Temp Pulse Resp BP Pulse Ox O2 Del Method 05/05/23 14:42 36.9 C 59 L 16 110/62 94 Room Air 05/05/23 07:44 36.7 C 59 L 16 122/68 94 Room Air all noted and reviewed including below (2) Sciatica Laterality: left Qualified Code(s): M54.32 - Sciatica, left side (5) Closed compression fracture of lumbar vertebra Encounter type: initial encounter Lumbar vertebra fracture level: L5 Qualified Code(s): S32.050A - Wedge compression fracture of fifth lumbar vertebra, initial encounter for closed fracture
[2023-05-06] MEDS ORDERED: methylPREDNISolone 4 MG TAB PO SCH (07:00)
--- NOTE | 2023-05-06 19:13 | Hospitalist Progress Note ---
Date of Service May 06, 2023 Assessment & Plan (1) Ambulatory dysfunction: (2) Sciatica: (3) Hip pain, left: (4) Osteoporosis: (5) Closed compression fracture of lumbar vertebra: (6) Acute UTI: (7) Hydronephrosis of right kidney: (8) Paroxysmal atrial fibrillation: (9) Hypertension: (10) CKD (chronic kidney disease), stage III: (11) Rheumatoid arthritis: (12) Hypothyroidism: Plan Ms. Trimble is an 87yo F with PMH of hypertension, venous insufficiency, paroxysmal atrial fibrillation not on anticoagulation due to fall risk, CKD 3, EBONI, rheumatoid arthritis on prednisone, history of TIA, history of left hip replacement and other medical problems listed below who presents with worsening left hip pain and ambulatory dysfunction over the past few days. Patient reports progressive pain with ambulation, mostly radiating down left leg--patient states pain brings her to tears, plan to trial medrol dose pack with Ortho spine tomorrow. No emergent symptoms/signs at this time. CT lumbar spine with the following: L5 compression fracture, chronic L2 compression fracture, severe central canal narrowing. MRI ordered: . A 1.5 cm disc extrusion versus sequestered disc fragment at L5-S1 causes severe left lateral recess narrowing. Additionally, there is qrpz-rf-otgoiteh central canal stenosis at this level with severe left and hhdk-ov-otnptmrm right neural foraminal narrowing. Physical exam with lower extremity with strength intact, but hip range of motion limited 2/2 pain. Sensation intact. Patient remains limited overall. Offered patient transfer to [facility] or [facility] for sooner eval over the weekend, but patient declined. Dr Soares with [facility] evaluated patient 05/02 with concerns for possible need of laminectomy. Pain consulted for steroid injections. #Severe left neural foraminal narrowing at L5-S1 #Lumbar disc extrusion #Acute L5 Fracture #Rheumatoid arthritis #Age-related osteoporosis with pathologic fracture of lumbar spine This is patient's third ED visit in 3 days for worsening pain of left hip extending to leg. : CT of the lumbar spine revealed an acute lumbar fracture the patient likely does have 2 additional older fractures, also with moderate-severe central canal narrowing at L4-L5 due to the disc bulge and facet hypertrophy Has since returned to ED twice for worsening pain now more localized to left hip with radiation down buttocks and posterior upper leg No new bowel/bladder incontinence but endorses new ambulatory dysfunction (can ambulate with walker at baseline) -MRI findings as above -PT/OT -Pain management -Plan for Ortho Spine consult -Recommend Pain management consult -Potential for laminectomy, or further intervention if pain management unable to resolve -Plan Pain Management - Gabapentin started 300mg TID -Steroid injections will need to be OP, attempting to coordinate if patient's symptoms will allow for transport -Discontinued Dilaudid prn 04/01 confusion, Contine on Medrol dose pack 05/01/2023 - 05/05 (resume 5mg prednisone thereafter) Oxy prn -Tylenol 1000 q8h 05/04 continue IV Solumedrol and Gabapentin PT/OT eval appreciate Pain Mgt service recommendations 05/05 Seems to be responding to IV Solu-Medrol and gabapentin Continue above Hopefully can taper IV Solu-Medrol in the next day or 2 #Congential right UPJ obstruction, hydronephrosis -No right flank pain at this time #Severe Rheumatoid RA Follows with Dr. Nava for RA, osteoporosis Continue Enbrel, Fosamax, prednisone 5 (held while on dose pack) #Acute uncomplicated cystitis POA #Chronic UPJ obstruction, right hydronephrosis Urine culture from grew pansensitive Klebsiella, has been taking PO cephalexin at home Will treat with IV Rocephin while admitted, on day #6 EOT 05/03 CT l spine from with evidence of moderate right hydronephrosis to the level of the ureteropelvic junction. 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 No obstructing stones identified Denies any urinary symptoms Continue to monitor closely, bladder scan PRN and consider re-imaging if symptoms develop #Paroxysmal A Fib Not on anticoagulant due to fall risk Admission EKG showing normal sinus rhythm Continue atenolol daily #HTN BP initially elevated in setting of pain. Now normotensive. Continue home amlodipine, atenolol, losartan, hctz #CKD III Creatinine 0.67 at baseline, continue to monitor daily BMP #Hypothyroidism Continue levothyroxine DVT ppx heparin DISPO pending Ortho eval/ Pain management Admission and Anticipated Discharge Date Admission Date: April 30, 2023 Subjective Follow-up for low back pain, etc. Seen resting in bed, comfortable Patient's daughter at the bedside visiting Patient states she feels improved today compared to yesterday Able to try standing with PT today Still having intermittent pain but seems to be improving No other new symptoms Review of Systems Review of Systems: all noted and negative except for above Physical Exam Physical Exam: General- oriented x 3, not in distress, speaks in sentences with no effort or accessory muscle use Eyes- anicteric Neck- no JVD Lungs- clear breath sounds bilaterally, no rales/wheezes Heart- normal rate, regular rhythm; no murmurs Abdomen- normal bowel sounds, nondistended, soft, nontender Extremities- no pretibial edema, no calf tenderness Neuro- alert, oriented x 3; no gross focal neurologic deficits Skin- warm & dry Results & Data Results & Data Vital Signs (Past 12 Hours) Vital Signs Temp Pulse Resp BP BP Pulse Ox O2 Del Method 05/06/23 15:55 36.7 C 64 16 117/59 L 94 Room Air 05/06/23 07:21 36.5 C 60 16 133/69 94 Room Air all noted and reviewed including below (2) Sciatica Laterality: left Qualified Code(s): M54.32 - Sciatica, left side (5) Closed compression fracture of lumbar vertebra Encounter type: initial encounter Lumbar vertebra fracture level: L5 Qualif ied Code(s): S32.050A - Wedge compression fracture of fifth lumbar vertebra, initial encounter for closed fracture
--- NOTE | 2023-05-07 16:00 | Hospitalist Progress Note ---
Date of Service May 07, 2023 Assessment & Plan (1) Ambulatory dysfunction: (2) Sciatica: (3) Hip pain, left: (4) Osteoporosis: (5) Closed compression fracture of lumbar vertebra: (6) Acute UTI: (7) Hydronephrosis of right kidney: (8) Paroxysmal atrial fibrillation: (9) Hypertension: (10) CKD (chronic kidney disease), stage III: (11) Rheumatoid arthritis: (12) Hypothyroidism: Plan Ms. Trimble is an 87yo F with PMH of hypertension, venous insufficiency, paroxysmal atrial fibrillation not on anticoagulation due to fall risk, CKD 3, EBONI, rheumatoid arthritis on prednisone, history of TIA, history of left hip replacement and other medical problems listed below who presents with worsening left hip pain and ambulatory dysfunction over the past few days. Patient reports progressive pain with ambulation, mostly radiating down left leg--patient states pain brings her to tears, plan to trial medrol dose pack with Ortho spine tomorrow. No emergent symptoms/signs at this time. CT lumbar spine with the following: L5 compression fracture, chronic L2 compression fracture, severe central canal narrowing. MRI ordered: . A 1.5 cm disc extrusion versus sequestered disc fragment at L5-S1 causes severe left lateral recess narrowing. Additionally, there is tion-zl-kctousbh central canal stenosis at this level with severe left and kwin-ht-wjwejkpp right neural foraminal narrowing. Physical exam with lower extremity with strength intact, but hip range of motion limited 2/2 pain. Sensation intact. Patient remains limited overall. Offered patient transfer to [facility] or [facility] for sooner eval over the weekend, but patient declined. Dr Soares with [facility] evaluated patient 05/02 with concerns for possible need of laminectomy. Pain consulted for steroid injections. #Severe left neural foraminal narrowing at L5-S1 #Lumbar disc extrusion #Acute L5 Fracture #Rheumatoid arthritis #Age-related osteoporosis with pathologic fracture of lumbar spine This is patient's third ED visit in 3 days for worsening pain of left hip extending to leg. : CT of the lumbar spine revealed an acute lumbar fracture the patient likely does have 2 additional older fractures, also with moderate-severe central canal narrowing at L4-L5 due to the disc bulge and facet hypertrophy Has since returned to ED twice for worsening pain now more localized to left hip with radiation down buttocks and posterior upper leg No new bowel/bladder incontinence but endorses new ambulatory dysfunction (can ambulate with walker at baseline) -MRI findings as above -PT/OT -Pain management -Plan for Ortho Spine consult -Recommend Pain management consult -Potential for laminectomy, or further intervention if pain management unable to resolve -Plan Pain Management - Gabapentin started 300mg TID -Steroid injections will need to be OP, attempting to coordinate if patient's symptoms will allow for transport -Discontinued Dilaudid prn 04/01 confusion, Contine on Medrol dose pack 05/01/2023 - 05/05 (resume 5mg prednisone thereafter) Oxy prn -Tylenol 1000 q8h 05/04 continue IV Solumedrol and Gabapentin PT/OT eval appreciate Pain Mgt service recommendations 05/05 Seems to be responding to IV Solu-Medrol and gabapentin Continue above Hopefully can taper IV Solu-Medrol in the next day or 2 05/06 Pain recurring again today Add warm compress Continue present regimen Monitor closely #Congential right UPJ obstruction, hydronephrosis -No right flank pain at this time #Severe Rheumatoid RA Follows with Dr. Nava for RA, osteoporosis Continue Enbrel, Fosamax, prednisone 5 (held while on dose pack) #Acute uncomplicated cystitis POA #Chronic UPJ obstruction, right hydronephrosis Urine culture from grew pansensitive Klebsiella, has been taking PO cephalexin at home Will treat with IV Rocephin while admitted, on day #6 EOT 05/03 CT l spine from with evidence of moderate right hydronephrosis to the level of the ureteropelvic junction. 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 No obstructing stones identified Denies any urinary symptoms Continue to monitor closely, bladder scan PRN and consider re-imaging if symptoms develop No urinary symptoms #Paroxysmal A Fib Not on anticoagulant due to fall risk Admission EKG showing normal sinus rhythm Continue atenolol daily #HTN BP initially elevated in setting of pain. Now normotensive. Continue home amlodipine, atenolol, losartan, hctz #CKD III Creatinine 0.67 at baseline, continue to monitor daily BMP #Hypothyroidism Continue levothyroxine DVT ppx heparin DISPO pending will need acute Rehab/SNF Admission and Anticipated Discharge Date Admission Date: April 30, 2023 Subjective Follow-up for back pain, etc. Resting in bed, not in distress Again having low back pain today Having difficulty with moving left lower extremity again No other new symptom Review of Systems Review of Systems: all noted and negative except for above Physical Exam Physical Exam: General- oriented x 3, not in distress, speaks in sentences with no effort or accessory muscle use Eyes- anicteric Neck- no JVD Lungs- clear breath sounds bilaterally, no crackles or wheezes Heart- normal rate, regular rhythm; no murmurs Abdomen- normal bowel sounds, nondistended, soft, nontender Extremities- no pretibial edema, no calf tenderness Left hip-no hematoma Neuro- alert, oriented x 3; no gross focal neurologic deficits Skin- warm & dry Results & Data Results & Data Vital Signs (Past 12 Hours) Vital Signs Temp Pulse Resp BP Pulse Ox O2 Del Method 05/07/23 15:12 36.5 C 54 L 16 107/55 L 93 Room Air 05/07/23 09:01 64 164/75 H 05/07/23 07:11 36.8 C 64 16 132/53 L 95 Room Air all noted and reviewed including below (2) Sciatica Laterality: left Qualified Code(s): M54.32 - Sciatica, left side (5) Closed compression fracture of lumbar vertebra Encounter type: initial encounter Lumbar vertebra fracture level: L5 Qualified Code(s): S32.050A - Wedge compression fracture of fifth lumbar vertebra, initial encounter for closed fracture
[2023-05-08] MEDS: GABAPENTIN 100 MG CAP PO SCH (14:06)
--- NOTE | 2023-05-08 14:26 | Hospitalist Progress Note ---
Date of Service May 08, 2023 Assessment & Plan (1) Ambulatory dysfunction: (2) Sciatica: (3) Hip pain, left: (4) Osteoporosis: (5) Closed compression fracture of lumbar vertebra: (6) Acute UTI: (7) Hydronephrosis of right kidney: (8) Paroxysmal atrial fibrillation: (9) Hypertension: (10) CKD (chronic kidney disease), stage III: (11) Rheumatoid arthritis: (12) Hypothyroidism: Plan Ms. Trimble is an 87yo F with PMH of hypertension, venous insufficiency, paroxysmal atrial fibrillation not on anticoagulation due to fall risk, CKD 3, EBONI, rheumatoid arthritis on prednisone, history of TIA, history of left hip replacement and other medical problems listed below who presents with worsening left hip pain and ambulatory dysfunction over the past few days. Patient reports progressive pain with ambulation, mostly radiating down left leg--patient states pain brings her to tears, plan to trial medrol dose pack with Ortho spine tomorrow. No emergent symptoms/signs at this time. CT lumbar spine with the following: L5 compression fracture, chronic L2 compression fracture, severe central canal narrowing. MRI ordered: . A 1.5 cm disc extrusion versus sequestered disc fragment at L5-S1 causes severe left lateral recess narrowing. Additionally, there is onyy-tx-zfllvkoz central canal stenosis at this level with severe left and qcbt-vb-yruciruo right neural foraminal narrowing. Physical exam with lower extremity with strength intact, but hip range of motion limited 2/2 pain. Sensation intact. Patient remains limited overall. Offered patient transfer to [facility] or [facility] for sooner eval over the weekend, but patient declined. Dr Soares with [facility] evaluated patient 05/02 with concerns for possible need of laminectomy. Pain consulted for steroid injections. #Severe left neural foraminal narrowing at L5-S1 #Lumbar disc extrusion #Acute L5 Fracture #Rheumatoid arthritis #Age-related osteoporosis with pathologic fracture of lumbar spine This is patient's third ED visit in 3 days for worsening pain of left hip extending to leg. : CT of the lumbar spine revealed an acute lumbar fracture the patient likely does have 2 additional older fractures, also with moderate-severe central canal narrowing at L4-L5 due to the disc bulge and facet hypertrophy Has since returned to ED twice for worsening pain now more localized to left hip with radiation down buttocks and posterior upper leg No new bowel/bladder incontinence but endorses new ambulatory dysfunction (can ambulate with walker at baseline) -MRI findings as above -PT/OT -Pain management -Plan for Ortho Spine consult -Recommend Pain management consult -Potential for laminectomy, or further intervention if pain management unable to resolve -Plan Pain Management - Gabapentin started 300mg TID -Steroid injections will need to be OP, attempting to coordinate if patient's symptoms will allow for transport -Discontinued Dilaudid prn 04/01 confusion, Contine on Medrol dose pack 05/01/2023 - 05/05 (resume 5mg prednisone thereafter) Oxy prn -Tylenol 1000 q8h 05/04 continue IV Solumedrol and Gabapentin PT/OT eval appreciate Pain Mgt service recommendations 05/05 Seems to be responding to IV Solu-Medrol and gabapentin Continue above Hopefully can taper IV Solu-Medrol in the next day or 2 05/06 Pain recurring again today Add warm compress Continue present regimen Monitor closely 05/07 still having severe pain increase Gabapentin to 200mg TID will request Pain Mgt re-eval tomorrow, hopefully can perform steroid injection as inpatient #Congential right UPJ obstruction, hydronephrosis -No right flank pain at this time #Severe Rheumatoid RA Follows with Dr. Nava for RA, osteoporosis Continue Enbrel, Fosamax, prednisone 5 (held as currently on Solumedrol) #Acute uncomplicated cystitis POA #Chronic UPJ obstruction, right hydronephrosis Urine culture from grew pansensitive Klebsiella, has been taking PO cephalexin at home Will treat with IV Rocephin while admitted, on day #6 EOT 05/03 CT l spine from with evidence of moderate right hydronephrosis to the level of the ureteropelvic junction. 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 No obstructing stones identified Denies any urinary symptoms Continue to monitor closely, bladder scan PRN and consider re-imaging if symptoms develop No urinary symptoms #Paroxysmal A Fib Not on anticoagulant due to fall risk Admission EKG showing normal sinus rhythm Continue atenolol daily #HTN BP initially elevated in setting of pain. Now normotensive. Continue home amlodipine, atenolol, losartan, hctz #CKD III Creatinine 0.67 at baseline, continue to monitor daily BMP #Hypothyroidism Continue levothyroxine DVT ppx heparin DISPO pending will need acute Rehab/SNF Admission and Anticipated Discharge Date Admission Date: April 30, 2023 Subjective ff up for back pain, etc still having significant low back pain today having difficulty moving again at one point, tearful no chest pain, dyspnea, palpitations, dizziness no other new symptoms Review of Systems Review of Systems: all noted and negative except for above Physical Exam Physical Exam: General- oriented x 3, not in distress, speaks in sentences with no effort or accessory muscle use Eyes- anicteric Neck- no JVD Lungs- clear BS BL Heart- normal rate, regular rhythm; no murmurs Abdomen- normal bowel sounds, nondistended, soft, no tenderness Extremities- no pretibial edema, no calf tenderness Neuro- alert, oriented x 3; no gross focal neurologic deficits Skin- warm & dry Results & Data Results & Data Vital Signs (Past 12 Hours) Vital Signs Temp Pulse Resp BP Pulse Ox O2 Del Method 05/08/23 07:16 36.6 C 65 16 158/67 H 97 Room Air all noted and reviewed including below (2) Sciatica Laterality: left Qualified Code(s): M54.32 - Sciatica, left side (5) Closed compression fracture of lumbar vertebra Encounter type: initial encounter Lumbar vertebra fracture level: L5 Qualified Code(s): S32.050A - Wedge compression fracture of fifth lumbar vertebra, initial encounter for closed fracture
--- NOTE | 2023-05-09 08:53 | Pain Management Progress Note ---
Date of Service May 09, 2023 Assessment & Plan (1) Lumbar disc herniation with radiculopathy: (2) Ambulatory dysfunction: (3) Closed compression fracture of lumbar vertebra: Encounter type: initial encounter Lumbar vertebra fracture level: L5 Qualified Code(s): S32.050A - Wedge compression fracture of fifth lumbar vertebra, initial encounter for closed fracture Plan 1. Discussed the patient's MRI with her in detail and at this time recommend a left L5-S1 transforaminal epidural steroid injection (preferred) versus left L5- S1 paramedian epidural steroid injection (if no access is able to be obtained.) We discussed the risks, benefits, expectations and she agrees to proceed. She would prefer interventional pain management at this time and reserve surgical intervention should this fail 2. Patient made n.p.o. and heparin prophylaxis held until procedure is complete. 3. Recommend continuation of other medications as current. 4. Recommend fitting for an LSO brace for discharge. 5. Recommend PT OT post discharge for gait training and reconditioning. 6. All questions were answered prior to the close at today's visit. Will see her in the OR for injection. Admission and Anticipated Discharge Date Admission Date: April 30, 2023 Subjective 87-year-old female presenting to [facility] on 04/29/2023 with acute onset of low back pain and left L5-S1 radicular symptoms. She reports continued difficulty with walking secondary to pain. Pain is characterized as sharp stabbing aching throbbing ranging between 2-7 out of 10 currently 10 out of 10. She reports modest benefit at best from her current regimen of gabapentin 200 milligrams p.o. 3 times daily, lidocaine Derm patch, methylprednisolone IV, tramadol 50 mg p.o. every 4 as needed, oxycodone 5 mg p.o. every 6 as needed. She reports continued desire to defer surgery in light of her age but acknowledges that she has a left paracentral/left lateral recess 1.5 x 0.5 x 1.2 cm disc extrusion resulting in severe left neuroforaminal stenosis. She reports continued sleep and gait disturbance secondary to pain. She denies bowel or bladder incontinence (aside from chronic stress incontinence), falls, saddle anesthesia, change in motor strength. Physical Exam Physical Exam: Constitutional: Well-developed, well-nourished, healthy-appearing, normal weight Psych: Awake, alert, and oriented 3 with normal affect and mood. Recent memory appears grossly intact Eyes: Pupils are equally round and reactive to light with normal size pupils, eyelids appear normal Ear, nose, mouth, and throat: Moist nasal and oral membranes, lips and tongues appear normal, no external ear abnormalities are noted Neck: The trachea is midline without deviation and no thyromegaly is noted Respiratory: Normal respiratory effort without distress, no audible wheezes or rhonchi CV: Normal S1 and S2, warm distal extremities Chest: Deferred Musculoskeletal: Head is normocephalic and atraumatic, gait not observed, able to logroll in bed with minimal assistance Lumbar: Lordotic curve: Complete loss of lumbar lordosis Range of motion is decreased in all planes Tenderness: Significantly tender over the axial midline left greater than right at the lumbosacral junction Facet provocation: Positive bilaterally Straight leg raise: Negative bilaterally Step-off injuries: None Strength: Strength is equal with 5 out of 5 strength in all planes on the right 4 out of 5 on the left Sensation of lower extremities: Intact bilaterally Deep tendon reflexes: Rated at 1+ in bilateral L4 and S1 Myofascial spasm: Mild spasm. No discrete trigger points noted Greater trochanters: Mildly tender bilaterally Sacroiliac joints: Mildly tender bilaterally left greater than right Thigh thrust, Fabere and Gaenslens: negative on the right marginally positive on the left Pathologic reflexes noted: None Skin: No rashes, lesions, ulcers, or induration noted. Previous left leg wound now healed and discharge from the wound clinic Neuro: No nystagmus noted, the tongue is midline, the patient is able to rotate their head bilaterally : Deferred Results (Pain Clinic) Laboratory Review Laboratory results: personally reviewed by me and no pertinent findings Diagnostic Review MRI: enhanced, non enhanced, reports reviewed, images reviewed and findings discussed with patient MRI Findings: 04/30/23 MR lumbar spine wo/w con CLINICAL HISTORY: 87 years-old Female with L hip pain radiating to buttocks. Chronic low back pain with radiation into the left lower extremity. COMPARISON: CT lumbar spine 04/28/2023, CT pelvis 01/27/2016. TECHNIQUE: Multiplanar, multi sequence MRI of the lumbar spine was performed with and without the use of IV contrast. FINDINGS: Motion degraded exam. There are a few T2 hyperintense foci of the kidneys, incompletely characterized however suggestive of probable cysts. Right- sided hydronephrosis is redemonstrated. Right hip arthroplasty. ORIF hardware at the left proximal femur. Mild lumbar levoscoliosis. Acute mild inferior endplate compression fracture at L5 is redemonstrated with approximately 20% vertebral body height loss. Moderate marrow edema with mild paravertebral edema and reactive incident. No retropulsion. Edema extends into the L5-S1 intervertebral disc space. Chronic L2 compression deformity. No marrow replacing process or endplate erosions are identified. Conus medullaris terminates at the L1 level. T12-L1: Moderate intervertebral disc space narrowing with circumferential disc osteophyte complex. Ligamentum flavum thickening with moderate facet arthrosis. No significant central canal or foraminal narrowing. L1-L2: Mild intervertebral disc space narrowing. Spondylotic spurring with circumferential annular disc bulging/disc osteophyte complex with ligamentum flavum thickening and moderate facet arthrosis. Mild central canal stenosis with AP dimension of the thecal sac measuring 9 mm. Moderate bilateral foraminal narrowing. L2-L3: Mild intervertebral disc space narrowing. Spondylotic spurring with small posterior annular disc bulge. Ligamentum flavum thickening with severe facet arthrosis. Flattening of the ventral thecal sac with minimal central canal stenosis. AP dimension of the thecal sac measuring 9 mm. Seem-dq-vitdbtaw bilateral foraminal narrowing. L3-L4: Mild intervertebral disc space narrowing and spondylotic spurring with small posterior annular disc bulging. Ligamentum flavum thickening with advanced facet arthrosis. Flattening of the ventral thecal sac without significant central canal stenosis. There is at least mild narrowing of the lateral recesses, left greater than right. Mild bilateral foraminal stenosis. L4-L5: Six mm anterolisthesis is likely on a degenerative basis. Asxb-xu-pwlpmb te intervertebral disc space narrowing and spondylotic spurring with circumferential annular disc bulging/posterior disc space uncovering. Ligamentum flavum thickening with severe facet arthrosis and small facet effusions. There is severe central canal stenosis with AP dimension of the thecal sac measuring approximately 4 mm. There is at least moderate narrowing of the lateral recesses. Moderate left with fart-wp-mzoakrpj right neuroforaminal narrowing. L5-S1: Tysb-ta-uosxntqz intervertebral disc space narrowing with spondylitic spurring and circumferential annular disc bulging. Ligamentum flavum thickening with severe facet arthrosis and trace facet effusions. There is an ill-defined 1.5 x 0.5 x 1.2 cm T1 and T2 isointense structure within the left paracentral distribution/left lateral recess (image 26 series 7 and image 8 series 6). This abuts and posteriorly displaces the left L5 nerve root causing severe left lateral recess narrowing. Uknc-mf-klnacrzh central canal stenosis at this level with AP dimension of the thecal sac measuring 8 mm. Severe left with dltt-ol-garwuofd right neuroforaminal narrowing. IMPRESSION: 1. Acute L5 inferior endplate compression deformity without retropulsion is redemonstrated, which appears unchanged from the 04/28/2023 study. 2. Chronic L2 compression fracture. 3. A 1.5 cm disc extrusion versus sequestered disc fragment at L5-S1 causes sev ere left lateral recess narrowing. Additionally, there is jsgb-gn-mzdwcqri central canal stenosis at this level with severe left and hyee-bz-igypgxod right neural foraminal narrowing. 4. 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 5. Additional degenerative changes as above. Radiology: reports reviewed Radiology Findings: 04/30/23 XR hip LT min 2V HISTORY: 87 years-old Female l hip pain acute pain in the left hip COMPARISON: 03/18/2021 TECHNIQUE: AP view of the pelvis with crosstable lateral view of the left hip FINDINGS: Arterial calcifications. Dystrophic calcifications of the proximal hamstring attachment myotendinous distribution. Severe degeneration of the pubic symphysis with moderate left posteroparietal arthritis. Intertrochanteric nail with medullary aisha of the left femur fixates a healed chronic fracture deformity. No acute fracture, dislocation or avascular necrosis. IMPRESSION: No acute fracture or dislocation. Previous Records Review Previous Records: personally reviewed by me
[2023-05-09] MEDS ORDERED: ONDANSETRON INJ 2 MG/ML 2 ML VIAL ONE ×2 (09:57→10:59)
[2023-05-09] MEDS ORDERED: fentaNYL citrate PF 100 MCG/2 ML VIAL ONE (09:57)
[2023-05-09] MEDS ORDERED: PROPOFOL IV EMULSION 10 MG/ML 20 ML VIAL IV ONE (09:57)
--- NOTE | 2023-05-09 09:57 | Anesthesiology Consultation ---
Date of Service May 09, 2023 Assessment & Plan Chart Review Chart Review: Acceptable Risk for Surgery and Patient NOT seen in Pre Admission Testing Consults Requested none History Surgery Operation Date: 05/09/23 13:40 Proposed Procedures p Left L5-S1 Transforaminal Epidural Steroid Injection, Left Paramedian L5-S1 Epidural Steroid Injection - Saranya Conti, Height/Weight Height: 5 ft 5 in Weight: 65.4 kg Allergies Allergy/AdvReac Type Severity Reaction Status Date / Time No Known Allergies Allergy Unverified 04/28/23 09:48 Medications Home Medications Medication Instructions Recorded Confirmed Last Taken atenolol 100 mg tablet 100 mg PO DAILY 01/28/18 04/30/23 12/12/20 calcium carbonate 600 mg calcium 600 mg PO DAILY PRN Other 01/28/18 04/30/23 12/12/20 (1,500 mg) tablet (Calcium) cholecalciferol (vitamin D3) 25 1,000 unit PO DAILY 01/28/18 04/30/23 12/12/20 mcg (1,000 unit) capsule (Vitamin D3) levothyroxine 137 mcg tablet 137 mcg PO DAILY 01/28/18 04/30/23 12/12/20 losartan 100 mg tablet 100 mg PO DAILY 01/28/18 04/30/23 12/12/20 alendronate 70 mg tablet 70 mg PO WK 12/12/20 04/30/23 12/08/20 amlodipine 10 mg tablet 5 mg PO DAILY 12/12/20 04/30/23 12/12/20 aspirin 81 mg tablet,delayed 81 mg PO DAILY 12/12/20 04/30/23 12/12/20 release prednisone 5 mg tablet 5 mg PO DAILY 12/12/20 04/30/23 12/12/20 ferrous sulfate 325 mg (65 mg 325 mg PO DAILY 03/19/21 04/30/23 Unknown iron) tablet acetaminophen 300 mg-codeine 30 mg 1 tab PO Q12H PRN pain #6 tabs 04/28/23 04/30/23 Unknown tablet acetaminophen 650 mg 1,300 mg PO BID 04/28/23 04/30/23 Unknown tablet,extended release cephalexin 500 mg tablet 500 mg PO BID 6 days #12 tabs 04/28/23 04/30/23 Unknown etanercept 25 mg/0.5 mL (0.5 mL) 25 mg subcut .TWICE WEEKLY 04/28/23 04/30/23 Unknown subcutaneous syringe (Enbrel) hydrochlorothiazide 12.5 mg tablet 12.5 mg PO DAILY 04/28/23 04/30/23 Unknown omeprazole 20 mg capsule,delayed 20 mg PO DAILY 04/28/23 04/30/23 Unknown release oxycodone 5 mg tablet 5 mg PO Q8H PRN pain #11 tabs 04/29/23 04/30/23 Unknown Active Medications Generic Name Dose Route Start Last Admin Trade Name Freq PRN Reason Stop Dose Admin Acetaminophen 1,000 mg 04/30/23 11:45 05/09/23 03:50 Acetaminophen 500 Mg Tab PO 05/30/23 11:44 1,000 mg Q8H JAIRO Administration Alendronate Sodium 70 mg 05/02/23 06:30 05/09/23 05:33 Alendronate Sodium 70 Mg Tab PO 06/01/23 06:29 70 mg [id number] JAIRO Administration Amlodipine Besylate 10 mg 05/03/23 09:00 05/09/23 08:08 Amlodipine Besylate 5 Mg Tab PO 06/02/23 08:59 10 mg DAILY JAIRO Administration Aspirin 81 mg 05/01/23 09:00 05/09/23 08:07 Aspirin 81 Mg Ectab PO 05/31/23 08:59 81 mg DAILY JAIRO Administration Atenolol 100 mg 05/01/23 09:00 05/09/23 08:08 Atenolol 50 Mg Tablet PO 05/31/23 08:59 100 mg DAILY JAIRO Administration Etanercept 25 mg 05/02/23 15:00 05/09/23 08:05 Etanercept 25 Mg/0.5 Ml Syringe (Enbrel) (Pom) SQ 06/01/23 14:59 Not Given [id number]@[id number] JAIRO Ferrous Sulfate 325 mg 05/01/23 09:00 05/09/23 08:08 Ferrous Sulfate 325 Mg Tab PO 05/31/23 08:59 325 mg DAILY JAIRO Administration Gabapentin 200 mg 05/08/23 14:00 05/09/23 08:08 Gabapentin 100 Mg Cap PO 06/07/23 13:59 200 mg TID JAIRO Administration Heparin Sodium (Porcine) 5,000 units 04/30/23 14:00 05/09/23 05:33 Heparin Sod 5,000 Unit/0.5 Ml Vial SQ 05/30/23 13:59 5,000 units Q8 JAIRO Administration Hydrochlorothiazide 12.5 mg 05/01/23 09:00 05/09/23 08:08 Hydrochlorothiazide 25 Mg Tab PO 05/31/23 08:59 12.5 mg DAILY JAIRO Administration Methylprednisolone 40 mg/ 0.64 mls @ 1.5 mls/min 05/04/23 21:00 05/09/23 08:09 Syringe IV 06/03/23 20:59 1.5 mls/min Q12H JAIRO Administration Levothyroxine Sodium 137 mcg 05/01/23 06:30 05/09/23 05:33 Levothyroxine Sodium 137 Mcg Tablet PO 05/31/23 06:29 137 mcg DAILYBB JAIRO Administration Lidocaine 1 patch 05/02/23 20:00 05/08/23 20:30 Lidocaine 5% 1 Patch TD 06/01/23 19:59 1 patch Q24H JAIRO Administration Losartan Potassium 100 mg 05/01/23 09:00 05/09/23 08:07 Losartan Potassium 50 Mg Tab PO 05/31/23 08:59 100 mg DAILY JAIRO Administration Miscellaneous 1 each 05/03/23 08:00 05/09/23 08:09 Remove Lidoderm Patch N/A 06/02/23 07:59 1 each Q24H JAIRO Administration Oxycodone HCl 5 mg 04/30/23 11:38 05/09/23 08:08 Oxycodone Hcl Ir 5 Mg Tab (Immediate Release) PO 05/14/23 11:37 5 mg Q6H PRN Administration Severe Pain (Scale 7, 8, 9,10) Pantoprazole Sodium 40 mg 05/01/23 09:00 05/09/23 08:08 Pantoprazole 40 Mg Tab PO 05/31/23 08:59 40 mg DAILY JAIRO Administration Polyethylene Glycol 17 gm 04/30/23 12:20 05/05/23 10:28 Polyethylene (Miralax) 17 Gm Pack PO 05/30/23 12:19 17 gm DAILY PRN Administration Constipation Prednisone 5 mg 05/01/23 09:00 05/01/23 09:39 Prednisone 5 Mg Tab PO 05/31/23 08:59 5 mg DAILY JAIRO Administration Tramadol HCl 50 mg 05/02/23 13:38 05/08/23 08:01 Tramadol Hcl 50 Mg Tablet PO 06/01/23 13:37 50 mg Q4H PRN Administration Moderate Pain (Scale 4, 5, 6) Vitamin D 25 mcg 05/01/23 09:00 05/09/23 08:08 Cholecalciferol 25 Mcg (1000 Units) Tab PO 05/31/23 08:59 25 mcg DAILY JAIRO Administration Past Medical History Medical History (Updated 05/03/23 @ 10:30 by Emir Soares, DO) Closed compression fracture of lumbar vertebra Prediabetes CKD (chronic kidney disease), stage III Anxiety Hypertension Arthritis TIA (transient ischemic attack) (01/14/13) Osteoporosis Hypothyroidism Rheumatoid arthritis Paroxysmal atrial fibrillation Past Family History Family History Other Breast cancer Coronary heart disease Diabetes Past Surgical History Surgical History (Updated 05/05/23 @ 13:00 by Maurisio Lundberg PA-C) S/P ORIF (open reduction internal fixation) fracture left hip short troch nail w/ femoral head cannulated screw H/O vaginal hysterectomy H/O neck surgery S/P cholecystectomy H/O foot surgery History of esophagogastroduodenoscopy (EGD) H/O colonoscopy H/O: hysterectomy S/P cholecystectomy Social History Smoking Status: Never smoker Hx Alcohol Use: No Hx Substance Use: No Physical Exam Vital Signs Last Vital Signs Temp 36.3 C L 05/09/23 08:08 Pulse 58 L 05/09/23 08:08 Resp 12 05/09/23 08:08 BP 110/70 05/09/23 08:08 Pulse Ox 95 05/09/23 08:08 O2 Del Method Room Air 05/09/23 08:08 O2 Flow Rate 2 04/30/23 10:04 Constitutional WD/WN, vitals as above Respiratory normal respiratory effort, lungs clear to auscultation Cardiovascular RRR, no murmur, no edema Musculoskeletal Hip: PAUL test negative, FADIR test negative and log roll test negative Testing Laboratory Results 05/04/23 06:19 05/04/23 06:19
[2023-05-09] MEDS ORDERED: ePHEDrine sulfate 50 MG/ML AMP IV PRN (09:58)
[2023-05-09] MEDS ORDERED: fentaNYL citrate PF 100 MCG/2 ML VIAL IV PRN (09:58)
[2023-05-09] MEDS ORDERED: ATROPINE SULFATE 0.1 MG/ML 10ML SYR IV PRN (09:58)
[2023-05-09] MEDS ORDERED: LIDOCAINE 2% 2 ML VIAL/AMP(20MG/ML) INFIL ONE (10:44)
[2023-05-09] MEDS: IOPAMIDOL INJ 61% 15 ML VIAL INSTIL ONE (10:55)
[2023-05-09] MEDS: methylPREDNISolone acetate 80 MG/ML VIAL INJ ONE (10:55)
[2023-05-09] MEDS: LIDOCAINE 2% MPF LOCAL 5 ML VIAL INFIL ONE (10:55)
--- NOTE | 2023-05-09 11:11 | Operative Report ---
Post Operative Report Pre & Post Diagnosis Operation Date: 05/09/23 13:40 <No data on this case meets the specified criteria> Left L5-S1 transforaminal epidural steroid injection. I identified the patient and participated in the time-out.: Yes Procedure Operation Date: 05/09/23 13:40 <No data on this case meets the specified criteria> Surgeon Saranya Conti, DO Social Human Services Assistants None Estimated Blood Loss 0 Findings Consistent with Post-Op Diagnosis Fluids Per anesthetic record Specimens None Drains None Anesthesia Type MAC Complications none Disposition Accompanied Patient To Recovery: No Disposition: Recovery Room Indications Lumbar disc herniation with radiculopathy Description of Procedure TRANSFORAMINAL EPIDURAL STEROID INJECTION (DIAGNOSTIC) Diagnosis: Lumbar Radiculitis and Herniated Disc Level injected: Left L5-S1 Surgeon: Dr. Saranya Conti Anesthesia: local Material forwarded to lab: none Complications: none Medications used in total: 2% lidocaine 5ml Depomedrol 1ml (80mg/ml) Isovue 300 2ml Prior to starting, the Patients diagnosis, allergies, medication list, and the procedure were reviewed with the patient in detail. Potential risks including infection, bleeding, nerve injury, reaction to any one of the medications used for the procedure, persistent pain at the injection site and persistent symptoms discussed with the patient. Diagnostic and therapeutic nature of the procedure also discussed with the patient. Alternatives to the specific procedure was also discussed with the patient. Patient's questions were answered. Patient gives informed consent to proceed. The patient was brought to the fluoroscopy room and placed in prone position on the table. Immediately prior to starting the procedure, a time out was conducted with the staff and the patient where the patient was identified, proposed procedure was verified, consent was reviewed and the proper site for th e planned procedure was identified. Fluoroscopy was utilized in performing the procedure to assist the placement of the needle, to evaluate the final position of the needle prior to injection and to avoid intravascular injection. Monitors used included intermittent blood pressure with automated device, continuous pulse oximetry and level of consciousness. Patient was sedated Per anesthetic record. Lumbar-sacral area was prepped with duraprep and betadine solution. After the application, three minutes time elapsed prior to the start of the procedure to reduce risk of fire. Sterile drapes were applied. The appropriate interspace and disk was identified in a true AP view. The fluoroscope was then rotated to obtain a decubitus view in such a manner so that the superior articular process of the inferior vertebra was bisecting the pars inter-articularis of the vertebra above in two or in the 6 oclock position. Next, 4 mL of 2% lidocaine preservative-free was injected for local skin anesthesia. Then, a 22 Gauge 3.5 inch curved (15 degrees) spinal needle was inserted through the skin and subcutaneous tissues and advanced in a co-axial technique. Needle tip was first placed on the infero-lateral margin of the pars inter-articularis. Once the bony margin was contacted, the C-arm was rotated to obtain a lateral view. The needle was slowly "walked off" the bone and advanced toward the anterior and superior aspect of the foramen. Patient did not experience any pain or paresthesia. A six inch micro bore tubing was attached to the needle and aspiration did not demonstrate CSF or blood. Nonionic Isovue contrast 1ml was injected via the needle under live fluoroscopy. Spread of the contrast along the nerve root. AP view was checked to ensure the needle tip was in the close proximity to the nerve root an in the proximal neural foramen lateral to the inferior articular process and in the 6 oclock position. Additional 2ml of the contrast was injected under live fluoroscopy. Neither subdural or subarachnoid spread nor intravascular uptake was noted on plain fluoroscopy. Next 80mg depomedrol was injected followed by 2% lidocaine-MPF 1ml to flush the needle. The patient did not experience pain during the injection. Adequate hemostasis was noted. A sterile Band-Aid was applied to the injection site. The patient was taken to the recovery room in stable condition. I attest to the content of the Intraoperative Record and any orders documented therein. Any exceptions are noted below.
--- NOTE | 2023-05-09 11:27 | Anesthesiology Progress Note ---
Date of Service May 09, 2023 Anesthesia Post Procedure Vital Signs Vital Signs: Temp Pulse Pulse Resp BP BP Pulse Ox 05/09/23 11:20 36.6 C 55 L 16 117/64 96 05/09/23 11:10 55 L 16 126/57 L 98 05/09/23 11:02 37.2 C 57 L 17 133/58 L 97 05/09/23 09:55 36.7 C 59 L 20 144/63 H 96 05/09/23 08:08 36.3 C L 58 L 12 110/70 95 05/09/23 08:00 05/08/23 20:20 36.7 C 78 16 143/63 H 96 05/08/23 15:06 36.6 C 64 16 143/66 H 95 O2 Del Method 05/09/23 11:20 Room Air 05/09/23 11:10 Room Air 05/09/23 11:02 Room Air 05/09/23 09:55 Room Air 05/09/23 08:08 Room Air 05/09/23 08:00 Room Air 05/08/23 20:20 Room Air 05/08/23 15:06 Room Air Pain Intensity Right Hip: Pain Intensity: 4 Lower Back: Pain Intensity: 0 Transfer of Care Handoff Completed per policy Notes Mental Status: alert / awake / arousable Patient Amnestic to Procedure: Yes Nausea / Vomiting: adequately controlled Pain: adequately controlled Airway Patency, RR, SpO2: stable & adequate BP & HR: stable & adequate Hydration State: stable & adequate Anesthetic Complications: no major complications apparent and Pt Satisfied with anesthetic care
--- NOTE | 2023-05-09 18:38 | Hospitalist Progress Note ---
Date of Service May 09, 2023 Assessment & Plan (1) Ambulatory dysfunction: (2) Sciatica: (3) Hip pain, left: (4) Osteoporosis: (5) Closed compression fracture of lumbar vertebra: (6) Acute UTI: (7) Hydronephrosis of right kidney: (8) Paroxysmal atrial fibrillation: (9) Hypertension: (10) CKD (chronic kidney disease), stage III: (11) Rheumatoid arthritis: (12) Hypothyroidism: Plan Ms. Trimble is an 87yo F with PMH of hypertension, venous insufficiency, paroxysmal atrial fibrillation not on anticoagulation due to fall risk, CKD 3, EBONI, rheumatoid arthritis on prednisone, history of TIA, history of left hip replacement and other medical problems listed below who presents with worsening left hip pain and ambulatory dysfunction over the past few days. Patient reports progressive pain with ambulation, mostly radiating down left leg--patient states pain brings her to tears, plan to trial medrol dose pack with Ortho spine tomorrow. No emergent symptoms/signs at this time. CT lumbar spine with the following: L5 compression fracture, chronic L2 compression fracture, severe central canal narrowing. MRI ordered: . A 1.5 cm disc extrusion versus sequestered disc fragment at L5-S1 causes severe left lateral recess narrowing. Additionally, there is [id number] central canal stenosis at this level with severe left and [id number] right neural foraminal narrowing. Physical exam with lower extremity with strength intact, but hip range of motion limited 2/2 pain. Sensation intact. Patient remains limited overall. Offered patient transfer to [facility] or [facility] for sooner eval over the weekend, but patient declined. Dr Soares with Ortho Spine evaluated patient 05/02 with concerns for possible need of laminectomy. Pain consulted for steroid injections. #Severe left neural foraminal narrowing at L5-S1 #Lumbar disc extrusion #Acute L5 Fracture #Rheumatoid arthritis #Age-related osteoporosis with pathologic fracture of lumbar spine This is patient's third ED visit in 3 days for worsening pain of left hip extending to leg. : CT of the lumbar spine revealed an acute lumbar fracture the patient likely does have 2 additional older fractures, also with moderate-severe central canal narrowing at L4-L5 due to the disc bulge and facet hypertrophy Has since returned to ED twice for worsening pain now more localized to left hip with radiation down buttocks and posterior upper leg No new bowel/bladder incontinence but endorses new ambulatory dysfunction (can ambulate with walker at baseline) -MRI findings as above -PT/OT -Pain management -Plan for Ortho Spine consult -Recommend Pain management consult -Potential for laminectomy, or further intervention if pain management unable to resolve -Plan Pain Management - Gabapentin started 300mg TID -Steroid injections will need to be OP, attempting to coordinate if patient's symptoms will allow for transport -Discontinued Dilaudid prn 04/01 confusion, Contine on Medrol dose pack 05/01/2023 - 05/05 (resume 5mg prednisone thereafter) Oxy prn -Tylenol 1000 q8h 05/04 continue IV Solumedrol and Gabapentin PT/OT eval appreciate Pain Mgt service recommendations 05/05 Seems to be responding to IV Solu-Medrol and gabapentin Continue above Hopefully can taper IV Solu-Medrol in the next day or 2 05/06 Pain recurring again today Add warm compress Continue present regimen Monitor closely 05/07 still having severe pain increase Gabapentin to 200mg TID will request Pain Mgt re-eval tomorrow, hopefully can perform steroid injection as inpatient 05/08 Status post L5-S1 transforaminal steroid injection today Continue pain medication regimen Continue PT and OT evaluation #Congential right UPJ obstruction, hydronephrosis -No right flank pain at this time #Severe Rheumatoid RA Follows with Dr. Nava for RA, osteoporosis Continue Enbrel, Fosamax, prednisone 5 (held as currently on Solumedrol) #Acute uncomplicated cystitis POA #Chronic UPJ obstruction, right hydronephrosis Urine culture from grew pansensitive Klebsiella, has been taking PO cephalexin at home Will treat with IV Rocephin while admitted, on day #6 EOT 05/03 CT l spine from with evidence of moderate right hydronephrosis to the level of the ureteropelvic junction. 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 No obstructing stones identified Denies any urinary symptoms Continue to monitor closely, bladder scan PRN and consider re-imaging if symptoms develop No urinary symptoms #Paroxysmal A Fib Not on anticoagulant due to fall risk Admission EKG showing normal sinus rhythm Continue atenolol daily #HTN BP initially elevated in setting of pain. Now normotensive. Continue home amlodipine, atenolol, losartan, hctz #CKD III Creatinine 0.67 at baseline, continue to monitor daily BMP #Hypothyroidism Continue levothyroxine DVT ppx: heparin DISPO pending will need acute Rehab/SNF Admission and Anticipated Discharge Date Admission Date: April 30, 2023 Subjective Follow-up for back pain, etc. Seen resting in bed, sleeping Easily awakened Status post transforaminal epidural steroid injection this morning States back pain seems to be okay so far No other new symptoms Review of Systems Review of Systems: all noted and negative except for above Physical Exam Physical Exam: General- oriented x 3, not in distress, speaks in sentences with no effort or accessory muscle use Eyes- anicteric Neck- no JVD Lungs- clear breath sounds bilaterally, no rales/wheezes Heart- normal rate, regular rhythm; no murmurs Abdomen- normal bowel sounds, nondistended, soft, nontender Extremities- no pretibial edema, no calf tenderness Neuro- alert, oriented x 3; no gross focal neurologic deficits Skin- warm & dry Results & Data Results & Data Vital Signs (Past 12 Hours) Vital Signs Temp Pulse Pulse Resp BP BP Pulse Ox 05/09/23 15:45 36.8 C 53 L 16 131/67 96 05/09/23 11:40 36.6 C 57 L 16 132/65 94 05/09/23 11:20 36.6 C 55 L 16 117/64 96 05/09/23 11:10 55 L 16 126/57 L 98 05/09/23 11:02 37.2 C 57 L 17 133/58 L 97 05/09/23 09:55 36.7 C 59 L 20 144/63 H 96 05/09/23 08:08 36.3 C L 58 L 12 110/70 95 05/09/23 08:00 O2 Del Method 05/09/23 15:45 Room Air 05/09/23 11:40 Room Air 05/09/23 11:20 Room Air 05/09/23 11:10 Room Air 05/09/23 11:02 Room Air 05/09/23 09:55 Room Air 05/09/23 08:08 Room Air 05/09/23 08:00 Room Air all noted and reviewed including below (2) Sciatica Laterality: left Qualified Code(s): M54.32 - Sciatica, left side (5) Closed compression fracture of lumbar vertebra Encounter type: initial encounter Lumbar vertebra fracture level: L5 Qualified Code(s): S32.050A - Wedge compression fracture of fifth lumbar vertebra, initial encounter for closed fracture
[2023-05-09] MEDS: methylPREDNISolone acetate 80 MG/ML VIAL ONE (23:26)
--- NOTE | 2023-05-10 08:36 | Pain Management Progress Note ---
Date of Service May 10, 2023 Assessment & Plan (1) Lumbar disc herniation with radiculopathy: Plan 1. Patient is reporting approximately 75% pain relief status post left L5-S1 transforaminal epidural steroid injection that was performed yesterday. She is very pleased with the results. Upon discharge she is welcome to become established with [facility] pain management for further care if necessary. 2. She is aware that should epidural steroid injections not provide adequate pain relief then she could consider surgical intervention. Will sign off on the patient. Please contact with any questions or concerns. Admission and Anticipated Discharge Date Admission Date: April 30, 2023 [address]ive Mrs. Trimble is status post left L5-S1 transforaminal epidural steroid injection that was performed yesterday. Patient is reporting approximately 75% pain relief from the procedure and is very pleased with the results. She states that the pain down the left leg has resolved since the injection. The low back pain has significantly improved. She is going to try to sit and eat breakfast once it arrives. Pain is rated 2/10 currently. Currently on gabapentin 200 mg 3 times daily, lidocaine patch, oxycodone 5 mg as needed. Patient states that the weakness in the left leg has significantly improved since the injection. She denies any constitutional complaints or neurological symptoms. Case discussed with Dr. Saranya Conti Physical Exam Physical Exam: GENERAL: This is an 87 year old female that was sleeping comfortably in the hospital bed. Awoken for discussion. Does not appear in any acute distress. BACK: Moves without difficulty. No tenderness of lumbar region. No myofascial spasm. SKIN: No erythema, edema, or drainage of the injection site. MS/EXTREMITY: No swelling, no deformities. Moving extremities appropriately. NEURO: Alert and appears oriented. Speech is fluent. Cranial Nerves are grossly intact. PSYCH: Alert, pleasant, affect is calm
--- NOTE | 2023-05-10 18:59 | Hospitalist Progress Note ---
Date of Service May 10, 2023 Assessment & Plan (1) Ambulatory dysfunction: (2) Sciatica: (3) Hip pain, left: (4) Osteoporosis: (5) Closed compression fracture of lumbar vertebra: (6) Acute UTI: (7) Hydronephrosis of right kidney: (8) Paroxysmal atrial fibrillation: (9) Hypertension: (10) CKD (chronic kidney disease), stage III: (11) Rheumatoid arthritis: (12) Hypothyroidism: Plan Ms. Trimble is an 87yo F with PMH of hypertension, venous insufficiency, paroxysmal atrial fibrillation not on anticoagulation due to fall risk, CKD 3, EBONI, rheumatoid arthritis on prednisone, history of TIA, history of left hip replacement and other medical problems listed below who presents with worsening left hip pain and ambulatory dysfunction over the past few days. #Severe left neural foraminal narrowing at L5-S1 #Lumbar disc extrusion #Acute L5 Fracture #Rheumatoid arthritis #Age-related osteoporosis with pathologic fracture of lumbar spine This is patient's third ED visit in 3 days for worsening pain of left hip extending to leg. : CT of the lumbar spine revealed an acute lumbar fracture the patient likely does have 2 additional older fractures, also with moderate-severe central canal narrowing at L4-L5 due to the disc bulge and facet hypertrophy Has since returned to ED twice for worsening pain now more localized to left hip with radiation down buttocks and posterior upper leg No new bowel/bladder incontinence but endorses new ambulatory dysfunction (can ambulate with walker at baseline) -MRI findings as above Patient's low back pain continues to progress Discussed with pain management service, requested for inpatient IV steroid injection, unfortunately no availability of the OR recommend to start IV Solu-Medrol and gabapentin Pain persisted, gabapentin increased Pain still persisted, requested again for pain management to perform inpatient IV steroid injection 05/08 Status post L5-S1 transforaminal steroid injection 05/09 Pain starting to improve Decrease Solu-Medrol from 40 mg twice daily to 20 mg twice daily then taper gradually Patient takes chronic prednisone 5 mg daily for RA Continue gabapentin 20 mg p.o. 3 times daily Continue as needed medications for pain PT OT evaluation in progress Plan to transition to acute rehab when pain under control, patient's mobility has increased #Congential right UPJ obstruction, hydronephrosis -No right flank pain at this time #Severe Rheumatoid RA Follows with Dr. Oppermann for RA, osteoporosis Continue Enbrel, Fosamax, prednisone 5 (held as currently on Solumedrol) #Acute uncomplicated cystitis POA #Chronic UPJ obstruction, right hydronephrosis Urine culture from grew pansensitive Klebsiella, has been taking PO cephalexin at home Will treat with IV Rocephin while admitted, on day #6 EOT 05/03 CT l spine from with evidence of moderate right hydronephrosis to the level of the ureteropelvic junction. 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 No obstructing stones identified Denies any urinary symptoms Continue to monitor closely, bladder scan PRN and consider re-imaging if symptoms develop No urinary symptoms #Paroxysmal A Fib Not on anticoagulant due to fall risk Admission EKG showing normal sinus rhythm Continue atenolol daily #HTN BP initially elevated in setting of pain. Now normotensive. Continue home amlodipine, atenolol, losartan, hctz #CKD III Creatinine 0.67 at baseline, continue to monitor daily BMP #Hypothyroidism Continue levothyroxine DVT ppx: heparin DISPO pending will need acute Rehab/SNF Admission and Anticipated Discharge Date Admission Date: April 30, 2023 Subjective Follow-up for persistent low back pain, radiculopathy, etc. Seen resting in bed, not in distress States low back pain has been improving compared to yesterday Still has pain when sitting up no chest pain, dyspnea, palpitations, dizziness No other new symptom Review of Systems Review of Systems: all noted and negative except for above Physical Exam Physical Exam: General- oriented x 3, not in distress, speaks in sentences with no effort or accessory muscle use Eyes- anicteric Neck- no JVD Lungs- clear breath sounds bilaterally, no rales/wheezes Heart- normal rate, regular rhythm; no murmurs Abdomen- normal bowel sounds, nondistended, soft, nontender Extremities- no pretibial edema, no calf tenderness Neuro- alert, oriented x 3; no gross focal neurologic deficits Skin- warm & dry Results & Data Results & Data Vital Signs (Past 12 Hours) Vital Signs Temp Pulse Resp BP BP Pulse Ox O2 Del Method 05/10/23 14:35 36.6 C 63 16 135/73 95 Room Air 05/10/23 11:00 36.6 C 63 16 137/56 L 97 Room Air 05/10/23 07:22 Room Air 05/10/23 07:00 36.6 C 68 14 168/70 H 94 Room Air all noted and reviewed including below (2) Sciatica Laterality: left Qualified Code(s): M54.32 - Sciatica, left side (5) Closed compression fracture of lumbar vertebra Encounter type: initial encounter Lumbar vertebra fracture level: L5 Qualified Code(s): S32.050A - Wedge compression fracture of fifth lumbar vertebra, initial encounter for closed fracture
[2023-05-10] MEDS: methylPREDNISolone 20 MG in SYRINGE 0 ML IV SCH (19:52)
[2023-05-11] MEDS: ONDANSETRON INJ 2 MG/ML 2 ML VIAL IV PRN (09:25)
[2023-05-11] MEDS: diazePAM 2 MG TABLET PO PRN (11:05)
--- NOTE | 2023-05-11 13:14 | Hospitalist Progress Note ---
Date of Service May 11, 2023 Assessment & Plan (1) Ambulatory dysfunction: (2) Sciatica: (3) Hip pain, left: (4) Osteoporosis: (5) Closed compression fracture of lumbar vertebra: (6) Acute UTI: (7) Hydronephrosis of right kidney: (8) Paroxysmal atrial fibrillation: (9) Hypertension: (10) CKD (chronic kidney disease), stage III: (11) Rheumatoid arthritis: (12) Hypothyroidism: Plan per previous hospitalist notes with addendum: Ms. Trimble is an 87yo F with PMH of hypertension, venous insufficiency, paroxysmal atrial fibrillation not on anticoagulation due to fall risk, CKD 3, EBONI, rheumatoid arthritis on prednisone, history of TIA, history of left hip replacement and other medical problems listed below who presents with worsening left hip pain and ambulatory dysfunction over the past few days. Patient reports progressive pain with ambulation, mostly radiating down left leg--patient states pain brings her to tears, plan to trial medrol dose pack with Ortho spine tomorrow. No emergent symptoms/signs at this time. CT lumbar spine with the following: L5 compression fracture, chronic L2 compression fracture, severe central canal narrowing. MRI ordered: . A 1.5 cm disc extrusion versus sequestered disc fragment at L5-S1 causes severe left lateral recess narrowing. Additionally, there is [id number] central canal stenosis at this level with severe left and [id number] right neural foraminal narrowing. Physical exam with lower extremity with strength intact, but hip range of motion limited 2/2 pain. Sensation intact. Patient remains limited overall. Offered patient transfer to [facility] or [facility] for sooner eval over the weekend, but patient declined. Dr Soares with Ortho Spine evaluated patient 05/02 with concerns for possible need of laminectomy. Pain consulted for steroid injections. #Severe left neural foraminal narrowing at L5-S1 #Lumbar disc extrusion #Acute L5 Fracture #Age-related osteoporosis with pathologic fracture of lumbar spine This is patient's third ED visit in 3 days for worsening pain of left hip extending to leg. : CT of the lumbar spine revealed an acute lumbar fracture the patient likely does have 2 additional older fractures, also with moderate-severe central canal narrowing at L4-L5 due to the disc bulge and facet hypertrophy Has since returned to ED twice for worsening pain now more localized to left hip with radiation down buttocks and posterior upper leg No new bowel/bladder incontinence but endorses new ambulatory dysfunction (can ambulate with walker at baseline) -MRI findings as above -PT/OT -Pain management -Plan for Ortho Spine consult -Recommend Pain management consult -Potential for laminectomy, or further intervention if pain management unable to resolve -Pt received epidural steroid injection by pain management on 05/09/2023 - Gabapentin increased to 300mg TID -She did have increased range of motion to left lower extremity but continues to have persistent low back pain -Discontinued Dilaudid prn 2/2 confusion, -Currently on IV methylprednisolone 20 mg twice daily (resume 5mg prednisone thereafter) Oxy prn -Tylenol 1000 q8h -Discussed with Dr. Soares who reevaluated patient due to persistent immobility, decreased functionality and significant pain. Plan is for patient undergo L5-S1 laminectomy tomorrow if medically optimized CBC and BMP reviewed and interpreted independently. Patient has mild leukocytosis at 10.85k, corrected sodium is 141, BUN 49, creatinine 0.85 and glucose 572 Suspect hyperglycemia in setting of steroid use obtain CXR and EKG, admitting ecg reviewed last echocardiogram was 2014 which was unremarkable #Congenital right UPJ obstruction, hydronephrosis -No right flank pain at this time #Severe Rheumatoid RA Follows with Dr. Nava for RA, osteoporosis Continue Enbrel, Fosamax, prednisone 5 (held while on dose pack) #Acute uncomplicated cystitis POA *com[pleted course #Chronic UPJ obstruction, right hydronephrosis Urine culture from grew pansensitive Klebsiella, has been taking PO cephalexin at home Will treat with IV Rocephin while admitted,EOT 05/03 CT l spine from with evidence of moderate right hydronephrosis to the level of the ureteropelvic junction. 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 No obstructing stones identified Denies any urinary symptoms Continue to monitor closely, bladder scan PRN and consider re-imaging if symptoms develop #Chronic RBBB #Paroxysmal A Fib Not on anticoagulant due to fall risk Admission EKG showing normal sinus rhythm Continue atenolol daily Echo and BNP # T2DM with hyperglycemia A1c as outpatient on 09/07/2022 revealed at A1c of 6.5 Change diet to diabetic Blood sugar noted to be over 500 on routine lab draw this morning Likely secondary to steroids Will consult glycemic pharmacy, IV fluids ordered #HTN BP initially elevated in setting of pain. Now normotensive. Continue home amlodipine, atenolol, losartan, hctz #CKD III Creatinine 0.67 at baseline, continue to monitor daily BMP #Hypothyroidism Continue levothyroxine DVT ppx heparin d/c due to possible upcoming procedure DISPO plan undergo L5-S1 laminectomy tomorrow if medically optimized and no longer hypoglycemic DNR/DNI PCP:Dr. Bahena Patient was seen and examined in collaboration with, Dr. Moctezuma, please see addendum A total of 60 minutes was spent coordinating, documenting, and providing care for this patient excluding time spent in the performance of separately billed services. This included personally viewing all current laboratories and imaging studies, medication reconciliation, outpatient chart review, and discussion with specialists. Admission and Anticipated Discharge Date Admission Date: April 30, 2023 Supervising Physician Co-Signing Physician Notes I have seen and discussed the case with the collaborating advanced practitioner. I agree with the above progress notes. I have reviewed and confirmed the patients medical history, the findings on physical examination, and the patients diagnosis and treatment plan with Stefani MIJARES and agree with the information documented. In short, Ms. Trimble is an 87 year old woman admitted with concerns of severe stenosis in lumbar spine. Patient with marginal improvement after steroid injection. Ortho planning surgical intervention 05/10. Exam notable for tearful woman, who is quickly uncomfortable sitting upright, relief with supinse positioning Labs with glucose of 592, A1C 7.4 Plan for periopertive optimization with glucose control, consult gylcemic pharmacy Given RA history and chronic RBBB, preop ECHO and BNP to assess for phtn, cardiac function, closely monitor Rest of plan as a above I spent a total of 30 minutes coordinating, documenting, and providing care for this patient excluding time spent in the performance of separately billed services. All of the aforementioned completed outside of collaborating with the assigned advanced practitioner for a full treatment plan. I have reviewed the advanced practitioner's documentation, and I agree with, and take responsibility for the plan of care Subjective Patient was seen and examined in room 350. Follow-up low back pain. She received steroid injection 2 days ago. Unfortunately she continues to have significant amount of pain and spasm down left lower extremity. She now can move and lift her left leg. Whenever she sits forward or tries to move she developed significant low back pain that radiates down her left leg. She still remains unable to get out of bed or even sit on the edge of the bed. Staff wanted to get her to a chair yesterday but this was too painful. She is very tearful as she states she has been here, "11 days." She denies any bowel or bladder incontinence. She denies any fever, chills, sweats, lightheadedness, dizziness, chest pain or shortness of breath. She did have difficulty swallowing this morning and started choking on a banana and she felt like it got stuck. She ended up vomiting up banana to clear her airway. She states this occasionally has happened at home. Yesterday she felt like a piece of toast got stuck. Her niece is at bedside who also helps elicit history. Review of Systems Review of Systems: All systems reviewed & are unremarkable except as noted in HPI & below Physical Exam Physical Exam: Gen: WD/WN, alert, female, lying bed, tearful, NAD, A&O x3 HEENT: Normocephalic, atraumatic, conjunctivae moist, sclerae anicteric, mucous membranes moist. Lung: Clear to Auscultation bilaterally, no wheezes/rales/rhonchi Heart: Regular rate, regular rhythm, no murmurs, rubs, or gallops Abdomen: Soft, NT, ND +BS x 4 Extremities: No edema Skin: Warm, no rash, negative turgor. Results & Data Results & Data Vital Signs (Past 12 Hours) Vital Signs Temp Pulse Resp BP Pulse Ox O2 Del Method 05/11/23 07:00 36.7 C 59 L 16 158/66 H 96 Room Air Diagnostic Findings Short CBC 05/11/23 Range/Units 13:15 WBC 10.85 H (4.8-10.8) K/ul Hgb 12.7 (12.0-16.0) g/dl Hct 38.0 (37.0-47.0) % Plt Count 161 (130-400) K/uL Medications Administered Current Inpatient Medications Acetaminophen (Acetaminophen 500 Mg Tab) 1,000 mg PO Q8H JAIRO Stop: 05/30/23 11:44 Last Admin: 05/11/23 11:05 Dose: 1,000 mg Alendronate Sodium (Alendronate Sodium 70 Mg Tab) 70 mg PO Mo@0630 JAIRO Stop: 06/01/23 06:29 Last Admin: 05/09/23 05:33 Dose: 70 mg Amlodipine Besylate (Amlodipine Besylate 5 Mg Tab) 10 mg PO DAILY JAIRO Stop: 06/02/23 08:59 Last Admin: 05/11/23 08:12 Dose: 10 mg Aspirin (Aspirin 81 Mg Ectab) 81 mg PO DAILY JAIRO Stop: 05/31/23 08:59 Last Admin: 05/11/23 08:11 Dose: 81 mg Atenolol (Atenolol 50 Mg Tablet) 100 mg PO DAILY JAIRO Stop: 05/31/23 08:59 Last Admin: 05/11/23 08:12 Dose: 100 mg Calcium Carbonate (Calcium Carbonate 500 Mg Chewable Tab) 500 mg PO DAILY PRN PRN Reason: heartburn Diazepam (Diazepam 2 Mg Tablet) 2 mg PO BID PRN PRN Reason: Muscle Spasm Stop: 06/10/23 10:41 Last Admin: 05/11/23 11:05 Dose: 2 mg Etanercept (Etanercept 25 Mg/0.5 Ml Syringe (Enbrel) (Pom)) 25 mg SQ MoTh@0900 [facility] Stop: 06/01/23 14:59 Last Admin: 05/09/23 08:05 Dose: Not Given Ferrous Sulfate (Ferrous Sulfate 325 Mg Tab) 325 mg PO DAILY [facility] Stop: 05/31/23 08:59 Last Admin: 05/11/23 08:12 Dose: 325 mg Gabapentin (Gabapentin 300 Mg Cap) 300 mg PO TID [facility] Stop: 06/10/23 13:59 Heparin Sodium (Porcine) (Heparin Sod 5,000 Unit/0.5 Ml Vial) 5,000 units SQ Q8 JAIRO Stop: 05/30/23 13:59 Last Admin: 05/11/23 05:34 Dose: 5,000 units Hydralazine HCl (Hydralazine Hcl 20 Mg/Ml Vial) 5 mg IV Q4H PRN PRN Reason: sbp >180 Stop: 06/01/23 16:36 Hydrochlorothiazide (Hydrochlorothiazide 25 Mg Tab) 12.5 mg PO DAILY [facility] Stop: 05/31/23 08:59 Last Admin: 05/11/23 08:12 Dose: 12.5 mg Methylprednisolone 20 mg/ (Syringe) 0.32 mls @ 1.5 mls/min IV Q12H [facility] Stop: 06/09/23 19:59 Last Admin: 05/11/23 08:06 Dose: 1.5 mls/min Cefazolin Sodium (Ancef 2000mg) 2,000 mg in 15 mls @ 3.75 mls/min IV PREOP JAIRO; Protocol Stop: 05/12/23 18:00 Levothyroxine Sodium (Levothyroxine Sodium 137 Mcg Tablet) 137 mcg PO DAILYBB [facility] Stop: 05/31/23 06:29 Last Admin: 05/11/23 05:32 Dose: 137 mcg Lidocaine (Lidocaine 5% 1 Patch) 1 patch TD Q24H [facility] Stop: 06/01/23 19:59 Last Admin: 05/10/23 19:46 Dose: 1 patch Losartan Potassium (Losartan Potassium 50 Mg Tab) 100 mg PO DAILY [facility] Stop: 05/31/23 08:59 Last Admin: 05/11/23 08:11 Dose: 100 mg Miscellaneous (Remove Lidoderm Patch) 1 each N/A Q24H [facility] Stop: 06/02/23 07:59 Last Admin: 05/11/23 08:05 Dose: 1 each Ondansetron HCl (Ondansetron Inj 2 Mg/Ml 2 Ml Vial) 4 mg IV Q6H PRN PRN Reason: Nausea Stop: 05/30/23 12:19 Last Admin: 05/11/23 09:25 Dose: 4 mg Oxycodone HCl (Oxycodone Hcl Ir 5 Mg Tab (Immediate Release)) 5 mg PO Q6H PRN PRN Reason: Severe Pain (Scale 7, 8, 9,10) Stop: 05/14/23 11:37 Last Admin: 05/11/23 12:04 Dose: 5 mg Pantoprazole Sodium (Pantoprazole 40 Mg Tab) 40 mg PO DAILY [facility] Stop: 05/31/23 08:59 Last Admin: 05/11/23 08:12 Dose: 40 mg Polyethylene Glycol (Polyethylene (Miralax) 17 Gm Pack) 17 gm PO DAILY PRN PRN Reason: Constipation Stop: 05/30/23 12:19 Last Admin: 05/05/23 10:28 Dose: 17 gm Prednisone (Prednisone 5 Mg Tab) 5 mg PO DAILY [facility] Stop: 05/31/23 08:59 Last Admin: 05/01/23 09:39 Dose: 5 mg Tramadol HCl (Tramadol Hcl 50 Mg Tablet) 50 mg PO Q4H PRN PRN Reason: Moderate Pain (Scale 4, 5, 6) Stop: 06/01/23 13:37 Last Admin: 05/11/23 08:04 Dose: 50 mg Vitamin D (Cholecalciferol 25 Mcg (1000 Units) Tab) 25 mcg PO DAILY JAIRO Stop: 05/31/23 08:59 Last Admin: 05/11/23 08:12 Dose: 25 mcg ECG Additional Comments: EKG done on admission showed NSR 66, RBBB will repeat ecg, compared to ecg done on 03/18/21. (2) Sciatica Laterality: left Qualified Code(s): M54.32 - Sciatica, left side (5) Closed compression fracture of lumbar vertebra Encounter type: initial encounter Lumbar vertebra fracture level: L5 Qualified Code(s): S32.050A - Wedge compression fracture of fifth lumbar vertebra, initial encounter for closed fracture
--- NOTE | 2023-05-11 13:14 | Orthopedic Progress Note ---
Date of Service May 11, 2023 Assessment & Plan (1) Lumbar disc herniation with radiculopathy: Plan: Have discussed options with the patient including continued conservative treatment versus surgical intervention. Surgery would require a lumbar laminectomy L5-S1 on the left. Risk, benefits, pros cons and returns are outlined in detail with the patient and her son. She understands goals of surgery would be significant improvement of her left leg pain. This would not affect her chronic lower back pain or fracture. At this point in time patient would like to proceed with surgical intervention. Will try and arrange this within the next day or 2. Admission and Anticipated Discharge Date Admission Date: April 30, 2023 Subjective The hospitalist team reconsulted us regarding reevaluation of Ms. Trimble. She underwent an L5-S1 on the left steroid injection by Dr Conti 2 days ago. Patient states she is now able to move her left leg but is still quite limited because of the pain involving her left lower extremity. Has chronic back pain. Left leg pain is greater than back pain. She is unable to get out of bed. She is using a bedpan because pain is so severe with movement. She is unable to participate in physical therapy because of the pain. Denies any bowel or bladder dysfunction. Review of Systems Review of Systems: All systems reviewed & are unremarkable except as noted in HPI & below Physical Exam Physical Exam: She is lying in bed alert and oriented x 3 Moderate discomfort Strength notes 4+/5 left quadricep, otherwise strength intact Negative tension signs bilaterally Results & Data Vital Signs (Past 12 Hours) Vital Signs Temp Pulse Resp BP Pulse Ox O2 Del Method 05/11/23 07:00 36.7 C 59 L 16 158/66 H 96 Room Air
[2023-05-11 13:37] LABS: Hemoglobin 12.7 g/dl (12.0-16.0); Mean Corpuscular Hemoglobin 28.9 pg (25.0-34.0); Mean Corpuscular Hgb Conc 33.4 g/dL (32.0-36.0); Mean Corpuscular Volume 86.6 fL (80.0-100.0); Mean Platelet Volume 9.2 fL (9.4-12.4); Platelet Count 161 K/uL (130-400); RDW Coefficient of Variation 13.2 % (11.5-14.5); RDW Standard Deviation 41.1 fL (36.4-46.3); Red Blood Count 4.39 M/uL (4.20-5.40); White Blood Count 10.85 K/ul (4.8-10.8)
[2023-05-11 13:48] LABS: BUN Creatinine Ratio 57.6 (10-20); Calcium 8.9 mg/dl (8.6-10.3); Creatinine Clr Calc Pharmacy 40.4 ml/min; Est GFR (African American) 70.4 ml/min; Est GFR (Non-African American) 60.7 ml/min; Potassium 5.1 mmol/L (3.5-5.1)
[2023-05-11] MEDS ORDERED: PHARMACY GLYCEMIC MGMT CONSULT PRN (13:51)
[2023-05-11] MEDS ORDERED: DEXTROSE 50% 50 ML SYRINGE IV PRN (13:52)
[2023-05-11] MEDS ORDERED: CARBOHYDRATES FOR HYPOGLYCEMIA PO PRN (13:52)
[2023-05-11] MEDS ORDERED: GLUCOSE 40% GEL 15 GM TUBE PO PRN (13:52)
[2023-05-11] MEDS ORDERED: GLUCOSE 10 TAB/TUBE PO PRN (13:52)
[2023-05-11] MEDS ORDERED: GLUCAGON FOR INJ 1 MG VIAL SQ PRN (13:52)
[2023-05-11 14:10] LABS: Basophils # (auto) 0.02 K/uL (0.00-0.20); Basophils % (auto) 0.2 %; Immature Granulocytes % (auto) 0.9 %; Lymphocytes % (auto) 3.7 %; Monocytes # (auto) 0.52 K/uL (0.11-0.59); Monocytes % (auto) 4.8 %; Neutrophils # (auto) 9.81 K/uL (1.40-6.50); Neutrophils % (auto) 90.4 %
[2023-05-11] MEDS: GABAPENTIN 300 MG CAP PO SCH (14:13)
[2023-05-11 14:41] LABS: Estimated Average Glucose 166 mg/dl; Hemoglobin A1C 7.4 % (4.5-5.6)
[2023-05-11] MEDS: INSULIN HUMAN REGULAR PER UNIT 6 UNITS in SYRINGE 5.94 ML IV ONE ×2 (14:58→17:16)
[2023-05-11] MEDS: SODIUM CHLORIDE 0.9% 1,000 ML IV SCH (14:59)
--- NOTE | 2023-05-11 15:32 | Pharmacy Report ---
Pharmacy Glycemic Short Note 2 - Date of Service May 11, 2023 - Glycemic Short BSG Results (Last 24 hours): 05/11/23 05/11/23 13:15 13:59 Glucose 572 H* POC Glucose 592 H* OUTPATIENT ANTIDIABETIC REGIMEN: * none * HbA1c 6.5% (2022), pending 05/11 ASSESSMENT: * Kathy is a 87 YOF admitted with a lumbar fracture and a history of prediabetes not on any medication. Pharmacy has been consulted for glycemic management while inpatient. * She has had a prolonged inpatient stay, received Medrol dosepak and then was escalated to IV methylprednisone. She received methylprednisolone IV 40mg Q12H from approximately 05/03 to 05/09. During this time blood sugars had not been checked. She tolerated the Medtrol dosepak without significant steroid induced hyperglycemia. * Routine labs today showed BSGs a BSG of 572 confirmed with POC reading. IV regular insulin ordered (~0.1units/kg) to bring down BSGs this afternoon, Novolog initiated at weight based stress of 3. Basal scale added at bedtime up to approximately a weight based stress of 2 based on BSG. * She continues on methylprednisolone IV 20mg Q12H. Tomorrow she is scheduled for a laminectomy and steroids to be reduced to daily. PLAN FOR INPATIENT GLYCEMIC CONTROL: * Hold outpatient oral diabetes medications * Basal insulin * Lantus 0-10 units SQ HS (see eMAR for additional details) * Reasses basal need in AM * Bolus insulin * NovoLog per scale ACHS or Q6hrs while NPO * Goal Range: Low 110 mg/dL - High 140 mg/dL * Correction Factor: 25 mg/dL/unit * Nutritional / Prandial insulin per carb ratio of 1 unit per 8 grams CHO consumed
[2023-05-11] MEDS: INSULIN ASPART PER UNIT CHARGE SC SCH ×2 (16:53→21:53)
[2023-05-11] MEDS: LANTUS PER UNIT CHARGE SC ONE (16:54)
--- NOTE | 2023-05-11 18:21 | XRay Report ---
XR chest 1V portable HISTORY: 87 years-old Female pre op preoperative exam. No acute chest complaints COMPARISON: Chest CT 03/19/2021 TECHNIQUE: AP view of the chest FINDINGS: Cardiac silhouette is enlarged. No pneumothorax, pleural effusion or pulmonary edema. Mild linear bib asilar atelectasis/scarring. Chronic left proximal humeral fracture deformity. Reverse right shoulder arthroplasty. IMPRESSION: No acute process. ACT 112: Negative or not required by law. The above report was generated using voice recognition software. It may contain grammatical, syntax o r spelling errors. Electronically signed by: Addison See M.D. 05/11/2023 6:20 PM
[2023-05-11] MEDS: INSULIN ASPART PER UNIT CHARGE SC ONE (19:26)
[2023-05-11] MEDS: INSULIN HUMAN REGULAR PER UNIT 10 UNITS in SYRINGE 9.9 ML IV ONE (19:34)
--- NOTE | 2023-05-11 20:14 | Anesthesiology Consultation ---
Date of Service May 11, 2023 Assessment & Plan (1) Encounter for pre-operative examination: Chart Review Chart Review: Acceptable Risk for Surgery and Patient NOT seen in Pre Admission Testing Consults Requested none History Surgery Operation Date: 05/09/23 13:40 Proposed Procedures p Left L5-S1 Transforaminal Epidural Steroid Injection, Left Paramedian L5-S1 Epidural Steroid Injection - Saranya Conti DO Operation Date: 05/12/23 14:05 Proposed Procedures p Left L5-S1 Lumbar Laminectomy - Emir Soares DO Height/Weight Height: 5 ft 5 in Weight: 65.4 kg Allergies Allergy/AdvReac Type Severity Reaction Status Date / Time No Known Allergies Allergy Unverified 04/28/23 09:48 Medications Home Medications Medication Instructions Recorded Confirmed Last Taken atenolol 100 mg tablet 100 mg PO DAILY 01/28/18 04/30/23 12/12/20 calcium carbonate 600 mg calcium 600 mg PO DAILY PRN Other 01/28/18 04/30/23 12/12/20 (1,500 mg) tablet (Calcium) cholecalciferol (vitamin D3) 25 1,000 unit PO DAILY 01/28/18 04/30/23 12/12/20 mcg (1,000 unit) capsule (Vitamin D3) levothyroxine 137 mcg tablet 137 mcg PO DAILY 01/28/18 04/30/23 12/12/20 losartan 100 mg tablet 100 mg PO DAILY 01/28/18 04/30/23 12/12/20 alendronate 70 mg tablet 70 mg PO WK 12/12/20 04/30/23 12/08/20 amlodipine 10 mg tablet 5 mg PO DAILY 12/12/20 04/30/23 12/12/20 aspirin 81 mg tablet,delayed 81 mg PO DAILY 12/12/20 04/30/23 12/12/20 release prednisone 5 mg tablet 5 mg PO DAILY 12/12/20 04/30/23 12/12/20 ferrous sulfate 325 mg (65 mg 325 mg PO DAILY 03/19/21 04/30/23 Unknown iron) tablet acetaminophen 300 mg-codeine 30 mg 1 tab PO Q12H PRN pain #6 tabs 04/28/23 04/30/23 Unknown tablet acetaminophen 650 mg 1,300 mg PO BID 04/28/23 04/30/23 Unknown tablet,extended release cephalexin 500 mg tablet 500 mg PO BID 6 days #12 tabs 04/28/23 04/30/23 Unknown etanercept 25 mg/0.5 mL (0.5 mL) 25 mg subcut .TWICE WEEKLY 04/28/23 04/30/23 Unknown subcutaneous syringe (Enbrel) hydrochlorothiazide 12.5 mg tablet 12.5 mg PO DAILY 04/28/23 04/30/23 Unknown omeprazole 20 mg capsule,delayed 20 mg PO DAILY 04/28/23 04/30/23 Unknown release oxycodone 5 mg tablet 5 mg PO Q8H PRN pain #11 tabs 04/29/23 04/30/23 Unknown Active Medications Generic Name Dose Route Start Last Admin Trade Name Freq PRN Reason Stop Dose Admin Acetaminophen 1,000 mg 04/30/23 11:45 05/11/23 19:28 Acetaminophen 500 Mg Tab PO 05/30/23 11:44 1,000 mg Q8H JAIRO Administration Alendronate Sodium 70 mg 05/02/23 06:30 05/09/23 05:33 Alendronate Sodium 70 Mg Tab PO 06/01/23 06:29 70 mg Mo@0630 JAIRO Administration Amlodipine Besylate 10 mg 05/03/23 09:00 05/11/23 08:12 Amlodipine Besylate 5 Mg Tab PO 06/02/23 08:59 10 mg DAILY JAIRO Administration Aspirin 81 mg 05/01/23 09:00 05/11/23 08:11 Aspirin 81 Mg Ectab PO 05/31/23 08:59 81 mg DAILY JAIRO Administration Atenolol 100 mg 05/01/23 09:00 05/11/23 08:12 Atenolol 50 Mg Tablet PO 05/31/23 08:59 100 mg DAILY JAIRO Administration Diazepam 2 mg 05/11/23 10:42 05/11/23 11:05 Diazepam 2 Mg Tablet PO 06/10/23 10:41 2 mg BID PRN Administration Muscle Spasm Etanercept 25 mg 05/02/23 15:00 05/09/23 08:05 Etanercept 25 Mg/0.5 Ml Syringe (Enbrel) (Pom) SQ 06/01/23 14:59 Not Given MoTh@0900 [facility] Ferrous Sulfate 325 mg 05/01/23 09:00 05/11/23 08:12 Ferrous Sulfate 325 Mg Tab PO 05/31/23 08:59 325 mg DAILY JAIRO Administration Gabapentin 300 mg 05/11/23 14:00 05/11/23 14:13 Gabapentin 300 Mg Cap PO 06/10/23 13:59 300 mg TID JAIRO Administration Hydrochlorothiazide 12.5 mg 05/01/23 09:00 05/11/23 08:12 Hydrochlorothiazide 25 Mg Tab PO 05/31/23 08:59 12.5 mg DAILY JAIRO Administration Sodium Chloride 1,000 mls @ 80 mls/hr 05/11/23 14:00 05/11/23 14:59 Nss IV 05/12/23 14:59 80 mls/hr .[id number] JAIRO Administration Insulin Aspart 0 units 05/11/23 16:30 05/11/23 17:39 Insulin Aspart Per Unit Charge SC 06/10/23 16:29 8 units ACHS JAIRO Administration Levothyroxine Sodium 137 mcg 05/01/23 06:30 05/11/23 05:32 Levothyroxine Sodium 137 Mcg Tablet PO 05/31/23 06:29 137 mcg DAILYBB JAIRO Administration Lidocaine 1 patch 05/02/23 20:00 05/10/23 19:46 Lidocaine 5% 1 Patch TD 06/01/23 19:59 1 patch Q24H JAIRO Administration Losartan Potassium 100 mg 05/01/23 09:00 05/11/23 08:11 Losartan Potassium 50 Mg Tab PO 05/31/23 08:59 100 mg DAILY JAIRO Administration Miscellaneous 1 each 05/03/23 08:00 05/11/23 08:05 Remove Lidoderm Patch N/A 06/02/23 07:59 1 each Q24H JAIRO Administration Ondansetron HCl 4 mg 04/30/23 12:20 05/11/23 09:25 Ondansetron Inj 2 Mg/Ml 2 Ml Vial IV 05/30/23 12:19 4 mg Q6H PRN Administration Nausea Oxycodone HCl 5 mg 04/30/23 11:38 05/11/23 12:04 Oxycodone Hcl Ir 5 Mg Tab (Immediate Release) PO 05/14/23 11:37 5 mg Q6H PRN Administration Severe Pain (Scale 7, 8, 9,10) Pantoprazole Sodium 40 mg 05/01/23 09:00 05/11/23 08:12 Pantoprazole 40 Mg Tab PO 05/31/23 08:59 40 mg DAILY JAIRO Administration Polyethylene Glycol 17 gm 04/30/23 12:20 05/05/23 10:28 Polyethylene (Miralax) 17 Gm Pack PO 05/30/23 12:19 17 gm DAILY PRN Administration Constipation Prednisone 5 mg 05/01/23 09:00 05/01/23 09:39 Prednisone 5 Mg Tab PO 05/31/23 08:59 5 mg DAILY JAIRO Administration Tramadol HCl 50 mg 05/02/23 13:38 05/11/23 08:04 Tramadol Hcl 50 Mg Tablet PO 06/01/23 13:37 50 mg Q4H PRN Administration Moderate Pain (Scale 4, 5, 6) Vitamin D 25 mcg 05/01/23 09:00 05/11/23 08:12 Cholecalciferol 25 Mcg (1000 Units) Tab PO 05/31/23 08:59 25 mcg DAILY JAIRO Administration Past Medical History Medical History (Updated 05/11/23 @ 20:18 by Garrett Walton MD) Encounter for pre-operative examination Closed compression fracture of lumbar vertebra Prediabetes CKD (chronic kidney disease), stage III Anxiety Hypertension Arthritis TIA (transient ischemic attack) (01/14/13) Osteoporosis Hypothyroidism Rheumatoid arthritis Paroxysmal atrial fibrillation Past Family History Family History Other Breast cancer Coronary heart disease Diabetes Past Surgical History Surgical History S/P ORIF (open reduction internal fixation) fracture left hip short troch nail w/ femoral head cannulated screw H/O vaginal hysterectomy H/O neck surgery S/P cholecystectomy H/O foot surgery History of esophagogastroduodenoscopy (EGD) H/O colonoscopy H/O: hysterectomy S/P cholecystectomy Past Anesthesia History No Hx of Anesthesia Complications and No Family Hx of Anesthesia Complications History of PONV No Hx of PONV and No Hx of Motion Sickness Social History Smoking Status: Never smoker Hx Alcohol Use: No Hx Substance Use: No Physical Exam Vital Signs Last Vital Signs Temp 36.8 C 05/11/23 19:37 Pulse 62 05/11/23 19:37 Resp 16 05/11/23 19:37 BP 131/62 05/11/23 19:37 Pulse Ox 93 05/11/23 19:37 O2 Del Method Room Air 05/11/23 19:37 O2 Flow Rate 2 04/30/23 10:04 Testing Laboratory Results 05/11/23 13:15 05/11/23 13:15 Hemoglobin A1c 7.4 % (4.5-5.6) H 05/11/23 13:15 05/11/23 05/11/23 05/11/23 19:06 16:45 16:43 POC Glucose 465 H* 524 H* 514 H* 05/11/23 13:59 POC Glucose 592 H* Electrocardiogram Date: 04/30/23 DICTATED BY: Juan Carlos Lopez MD Test Reason : Blood Pressure : / mmHG Vent. Rate : 066 BPM Atrial Rate : 066 BPM P-R Int : 178 ms QRS Dur : 132 ms QT Int : 454 ms P-R-T Axes : 108 001 -04 degrees QTc Int : 475 ms Normal sinus rhythm Right bundle branch block Abnormal ECG When compared with ECG of 18-MAR-2021 10:37, T wave inversion more evident in Anterior leads Confirmed by Juan Carlos Lopez ([id number]) on 05/01/2023 8:45:16 AM Echocardiogram Date: 05/11/23 EF: 65-70% LV Function: normal Other Findings: + LVH Valvular Disease: + no significant valvular disease
[2023-05-11] MEDS: INSULIN REGULAR 250 UNITS in SODIUM CHLORIDE 0.9% 247.5 ML IV SCH (21:39)
[2023-05-11] MEDS: NovoLIN-R BOLUS FROM BAG IV ONE (21:41)
[2023-05-11] MEDS: LANTUS PER UNIT CHARGE SC SCH (21:48)
[2023-05-12] MEDS ORDERED: INSULIN ASPART PER UNIT CHARGE SC SCH
[2023-05-12 01:47] LABS: Basophils # (auto) 0.01 K/uL (0.00-0.20); Basophils % (auto) 0.1 %; Hematocrit (blood only) 34.7 % (37.0-47.0); Immature Granulocytes # (auto) 0.09 K/uL (0.01-0.20); Lymphocytes # (auto) 0.89 K/uL (1.20-3.40); Lymphocytes % (auto) 9.7 %; Mean Corpuscular Hemoglobin 29.2 pg (25.0-34.0); Mean Corpuscular Hgb Conc 34.6 g/dL (32.0-36.0); Mean Corpuscular Volume 84.4 fL (80.0-100.0); Mean Platelet Volume 9.1 fL (9.4-12.4); Monocytes # (auto) 0.94 K/uL (0.11-0.59); Monocytes % (auto) 10.2 %; Neutrophils # (auto) 7.25 K/uL (1.40-6.50); Platelet Count 143 K/uL (130-400); RDW Coefficient of Variation 13.1 % (11.5-14.5); RDW Standard Deviation 40.2 fL (36.4-46.3); Red Blood Count 4.11 M/uL (4.20-5.40); White Blood Count 9.18 K/ul (4.8-10.8)
[2023-05-12 01:54] LABS: HCO3 ABG 31 mmol/L (19-24); Oxygen Saturation ABG 95.7 % (90-95); PCO2 ABG 43 mmHg (35-46); PO2 ABG 71 mmHg (80-95); pH ABG 7.46 (7.35-7.45)
[2023-05-12 02:03] LABS: BUN Creatinine Ratio 61.4 (10-20); Calcium 8.8 mg/dl (8.6-10.3); Est GFR (Non-African American) 76.8 ml/min; Magnesium 2.2 mg/dl (1.7-2.4); Potassium 4.4 mmol/L (3.5-5.1)
[2023-05-12 02:03] LABS: Allen Test Pos (Pos)
[2023-05-12 02:30] LABS: INR 1.1 (0.9-1.1); Partial Thromboplastin Ratio 0.8; Partial Thromboplastin Time 23 Seconds (21-31); Prothrombin Time 11.6 Seconds (9.0-12.0)
--- NOTE | 2023-05-12 03:05 | CT Scan Report ---
Exam(s): CT HEAD Without Contrast EXAM: CT Head Without Intravenous Contrast CLINICAL HISTORY: Reason for exam: AMS. TECHNIQUE: Axial computed tomography images of the head/brain without intravenous contrast. CTDI is 36.05 mGy and DLP is 703.85 mGy-cm. Automated exposure control was utilized for the study. A dose lowering technique was utilized adhering to the principles of ALARA. COMPARISON: Comparison made to prior head CT from March 18, 2021. FINDINGS: Brain: Unremarkable. No hemorrhage. Moderate nonspecific white matter changes. No edema. Ventricles: Unremarkable. No ventriculomegaly. Bones/joints: Unremarkable. No acute fracture. Soft tissues: Bilateral lens replacements. Sinuses: Unremarkable as visualized. No acute sinusitis. Mastoid air cells: Unremarkable as visualized. No mastoid effusion. IMPRESSION: No evidence of acute intracranial pathology. Electronically signed by: Elysia Hughes MD 05/12/23 03:04 AM
[2023-05-12] MEDS: INSULIN ASPART PER UNIT CHARGE SC SCH ×2 (05:58→21:27)
--- NOTE | 2023-05-12 09:14 | Gastrointestinal Consultation ---
Date of Consultation May 12, 2023 Assessment & Plan (1) Regurgitation of food: 87 year old female with regurgitation of liquids/food for about 2/3 weeks without report of epigastric pain, nausea/vomiting. She had reported to other providers that she felt dysphagia sensation, however, denies this numerous times to me this morning. Her last EGD was in 2012 and showed a hiatal hernia and a tortuous esophagus No acute indication for EGD at this time. We recommend the follow studies be arranged: Barium swallow and Video swallow Soft, slippery diet as tolerated Pantoprazole 40 mg twice daily Given her back pain, her position in bed may be different, however, with her known HH, recommend to keep HOB elevated. Thank you for allowing us to participate in the care of this patient. Please call with any acute changes, questions or concerns. Please see addendum below with additional recommendation from my supervising physician. Supervising Physician Co-Signing Physician Notes Agree with pe and plan as documented. Lying flat in bed, complaining of a sore throat. No oral thrush noted. Ideally would not encourage any food or pills while lying flat. Past endoscopic workup showed hh and a tortuous esophagus. Would await barium swallow and video swallow results. Would consider a soft slippery diet if and when taking po and hob at 30 degrees while eating or taking pills. History of Present Illness Reason for Consultation: dysphagia Requesting Physician: Rhianna Attending Physician: Francia Moctezuma MD History of Present Illness 87 year old female w/ history of hypertension, venous insufficiency, paroxysmal atrial fibrillation not on anticoagulation due to fall risk, CKD 3, EBONI, rheumatoid arthritis on prednisone, history of TIA, history of left hip replacement admitted with pain and ambulatory dysfunction - GI asked to evaluate for dysphagia. Pt was seen and evaluated, chart reviewed. She denies dysphagia to me. She reports that her food goes down okay and that she does not feel it stick, however, for the last two weeks she has had regurgitation of what she ate/drank after it should already be cleared from her esophagus. She denies any abd pain. She denies nausea/vomiting. She denies GERD. No diarrhea. No documented BM since 05/05/23. No report of black or bloody stools. No fever, chills, CP, SOB. EGD 2012: torturus esophagus, HH Allergies Allergy/AdvReac Type Severity Reaction Status Date / Time No Known Allergies Allergy Unverified 04/28/23 09:48 Home Medications Medication Instructions Recorded Confirmed Type atenolol 100 mg tablet 100 mg PO DAILY 01/28/18 04/30/23 History calcium carbonate 600 mg calcium 600 mg PO DAILY PRN Other 01/28/18 04/30/23 History (1,500 mg) tablet (Calcium) cholecalciferol (vitamin D3) 25 1,000 unit PO DAILY 01/28/18 04/30/23 History mcg (1,000 unit) capsule (Vitamin D3) levothyroxine 137 mcg tablet 137 mcg PO DAILY 01/28/18 04/30/23 History losartan 100 mg tablet 100 mg PO DAILY 01/28/18 04/30/23 History alendronate 70 mg tablet 70 mg PO WK 12/12/20 04/30/23 History amlodipine 10 mg tablet 5 mg PO DAILY 12/12/20 04/30/23 History aspirin 81 mg tablet,delayed 81 mg PO DAILY 12/12/20 04/30/23 History release prednisone 5 mg tablet 5 mg PO DAILY 12/12/20 04/30/23 History ferrous sulfate 325 mg (65 mg 325 mg PO DAILY 03/19/21 04/30/23 History iron) tablet acetaminophen 300 mg-codeine 30 mg 1 tab PO Q12H PRN pain #6 tabs 04/28/23 04/30/23 Rx tablet acetaminophen 650 mg 1,300 mg PO BID 04/28/23 04/30/23 History tablet,extended release cephalexin 500 mg tablet 500 mg PO BID 6 days #12 tabs 04/28/23 04/30/23 Rx etanercept 25 mg/0.5 mL (0.5 mL) 25 mg subcut .TWICE WEEKLY 04/28/23 04/30/23 History subcutaneous syringe (Enbrel) hydrochlorothiazide 12.5 mg tablet 12.5 mg PO DAILY 04/28/23 04/30/23 History omeprazole 20 mg capsule,delayed 20 mg PO DAILY 04/28/23 04/30/23 History release oxycodone 5 mg tablet 5 mg PO Q8H PRN pain #11 tabs 04/29/23 04/30/23 Rx Patient History Medical History (Updated 05/12/23 @ 09:11 by KYLIE Musa) Encounter for pre-operative examination Closed compression fracture of lumbar vertebra Prediabetes CKD (chronic kidney disease), stage III Anxiety Hypertension Arthritis TIA (transient ischemic attack) (01/14/13) Osteoporosis Hypothyroidism Rheumatoid arthritis Paroxysmal atrial fibrillation Surgical History S/P ORIF (open reduction internal fixation) fracture left hip short troch nail w/ femoral head cannulated screw H/O vaginal hysterectomy H/O neck surgery S/P cholecystectomy H/O foot surgery History of esophagogastroduodenoscopy (EGD) H/O colonoscopy H/O: hysterectomy S/P cholecystectomy Family History Other Breast cancer Coronary heart disease Diabetes Social History Smoking Status: Never smoker Hx Alcohol Use: No Hx Substance Use: No Preferred Language: Persian Communication Ability: Effective Enroute Controller Required: No Beliefs That Will Affect Care: Christian Current Living Situation: Family Current Living Situation Comment: lives with daughter How many Children do You have: 4 Other Information That Helps Us Care for You: No Feels Safe at Home: Yes Assistive Devices: Cane and Walker Review of Systems Review of Systems: All systems reviewed & are unremarkable except as noted in HPI & below Physical Exam Constitutional: WD/WN, vitals as above Respiratory: normal respiratory effort, lungs clear to auscultation Cardiovascular: Rate/Rhythm: regular rate Gastrointestinal (Abdomen): normal bowel sounds, soft, nontender, no hepatosplenomegaly Skin: no rashes, warm and dry Results & Data Vital Signs (Past 12 Hours) Vital Signs Temp Pulse Pulse Resp BP BP Pulse Ox 05/12/23 08:51 36.8 C 57 L 18 131/63 92 05/12/23 07:40 35.9 C L 52 L 18 151/68 H 95 05/12/23 00:23 36.7 C 56 L 14 143/69 H 95 O2 Del Method 05/12/23 08:51 Room Air 05/12/23 07:40 Room Air 05/12/23 00:23 Room Air Laboratory Results 05/12/23 05/12/23 05/12/23 Range/Units 05:55 01:31 01:22 WBC 9.18 (4.8-10.8) K/ul RBC 4.11 L (4.20-5.40) M/uL Hgb 12.0 (12.0-16.0) g/dl Hct 34.7 L (37.0-47.0) % MCV 84.4 (80.0-100.0) fL MCH 29.2 (25.0-34.0) pg MCHC 34.6 (32.0-36.0) g/dL RDW Std Deviation 40.2 (36.4-46.3) fL RDW Coeff of Blanche 13.1 (11.5-14.5) % Plt Count 143 (130-400) K/uL MPV 9.1 L (9.4-12.4) fL Immature Gran % (Auto) 1.0 % Neut % (Auto) 79.0 % Lymph % (Auto) 9.7 % [place] % (Auto) 10.2 % Eos % (Auto) 0.0 % Baso % (Auto) 0.1 % Neut # (Auto) 7.25 H (1.40-6.50) K/uL Lymph # (Auto) 0.89 L (1.20-3.40) K/uL [place] # (Auto) 0.94 H (0.11-0.59) K/uL Eos # (Auto) 0.00 (0.00-0.50) K/uL Baso # (Auto) 0.01 (0.00-0.20) K/uL Immature Gran # (Auto) 0.09 (0.01-0.20) K/uL PT 11.6 (9.0-12.0) Seconds INR 1.1 (0.9-1.1) APTT 23 (21-31) Seconds PTT Ratio 0.8 ABG pH 7.46 H (7.35-7.45) ABG pCO2 43 (35-46) mmHg ABG pO2 71 L (80-95) mmHg ABG HCO3 31 H (19-24) mmol/L ABG O2 Saturation 95.7 H (90-95) % ABG Base Excess 6.0 H (-9-1.8) mEq/L Gareth Test Pos (Pos) Oxygen Given 2L Sodium 134 L (136-145) mmol/L Potassium 4.4 (3.5-5.1) mmol/L Chloride 102 (98-107) mmol/L Carbon Dioxide 29 (21-32) mmol/L Anion Gap 3 (3-11) BUN 43 H (6-23) mg/dl Creatinine 0.70 (0.6-1.2) mg/dl Est Cr Clr Drug Dosing 49.0 ml/min Est GFR ( Amer) 89.0 ml/min Est GFR (Non-Af Amer) 76.8 ml/min BUN/Creatinine Ratio 61.4 H (10-20) Glucose 137 H (70-99(Fasting)) mg/dl POC Glucose 121 H (70-99) mg/dl Estimat Average Glucose mg/dl Hemoglobin A1c (4.5-5.6) % Calcium 8.8 (8.6-10.3) mg/dl Magnesium 2.2 (1.7-2.4) mg/dl B-Natriuretic Peptide 102 H (0-100) pg/ml 05/12/23 05/11/23 05/11/23 Range/Units 00:21 23:30 22:30 WBC (4.8-10.8) K/ul RBC (4.20-5.40) M/uL Hgb (12.0-16.0) g/dl Hct (37.0-47.0) % MCV (80.0-100.0) fL MCH (25.0-34.0) pg MCHC (32.0-36.0) g/dL RDW Std Deviation (36.4-46.3) fL RDW Coeff of Blanche (11.5-14.5) % Plt Count (130-400) K/uL MPV (9.4-12.4) fL Immature Gran % (Auto) % Neut % (Auto) % Lymph % (Auto) % [place] % (Auto) % Eos % (Auto) % Baso % (Auto) % Neut # (Auto) (1.40-6.50) K/uL Lymph # (Auto) (1.20-3.40) K/uL [place] # (Auto) (0.11-0.59) K/uL Eos # (Auto) (0.00-0.50) K/uL Baso # (Auto) (0.00-0.20) K/uL Immature Gran # (Auto) (0.01-0.20) K/uL PT (9.0-12.0) Seconds INR (0.9-1.1) APTT (21-31) Seconds PTT Ratio ABG pH (7.35-7.45) ABG pCO2 (35-46) mmHg ABG pO2 (80-95) mmHg ABG HCO3 (19-24) mmol/L ABG O2 Saturation (90-95) % ABG Base Excess (-9-1.8) mEq/L Gareth Test (Pos) Oxygen Given Sodium (136-145) mmol/L Potassium (3.5-5.1) mmol/L Chloride (98-107) mmol/L Carbon Dioxide (21-32) mmol/L Anion Gap (3-11) BUN (6-23) mg/dl Creatinine (0.6-1.2) mg/dl Est Cr Clr Drug Dosing ml/min Est GFR ( Amer) ml/min Est GFR (Non-Af Amer) ml/min BUN/Creatinine Ratio (10-20) Glucose (70-99(Fasting)) mg/dl POC Glucose 141 H 184 H 289 H (70-99) mg/dl Estimat Average Glucose mg/dl Hemoglobin A1c (4.5-5.6) % Calcium (8.6-10.3) mg/dl Magnesium (1.7-2.4) mg/dl B-Natriuretic Peptide (0-100) pg/ml 05/11/23 05/11/23 05/11/23 Range/Units 20:39 19:06 16:45 WBC (4.8-10.8) K/ul RBC (4.20-5.40) M/uL Hgb (12.0-16.0) g/dl Hct (37.0-47.0) % MCV (80.0-100.0) fL MCH (25.0-34.0) pg MCHC (32.0-36.0) g/dL RDW Std Deviation (36.4-46.3) fL RDW Coeff of Blanche (11.5-14.5) % Plt Count (130-400) K/uL MPV (9.4-12.4) fL Immature Gran % (Auto) % Neut % (Auto) % Lymph % (Auto) % [place] % (Auto) % Eos % (Auto) % Baso % (Auto) % Neut # (Auto) (1.40-6.50) K/uL Lymph # (Auto) (1.20-3.40) K/uL [place] # (Auto) (0.11-0.59) K/uL Eos # (Auto) (0.00-0.50) K/uL Baso # (Auto) (0.00-0.20) K/uL Immature Gran # (Auto) (0.01-0.20) K/uL PT (9.0-12.0) Seconds INR (0.9-1.1) APTT (21-31) Seconds PTT Ratio ABG pH (7.35-7.45) ABG pCO2 (35-46) mmHg ABG pO2 (80-95) mmHg ABG HCO3 (19-24) mmol/L ABG O2 Saturation (90-95) % ABG Base Excess (-9-1.8) mEq/L Gareth Test (Pos) Oxygen Given Sodium (136-145) mmol/L Potassium (3.5-5.1) mmol/L Chloride (98-107) mmol/L Carbon Dioxide (21-32) mmol/L Anion Gap (3-11) BUN (6-23) mg/dl Creatinine (0.6-1.2) mg/dl Est Cr Clr Drug Dosing ml/min Est GFR ( Amer) ml/min Est GFR (Non-Af Amer) ml/min BUN/Creatinine Ratio (10-20) Glucose (70-99(Fasting)) mg/dl POC Glucose 353 H* 465 H* 524 H* (70-99) mg/dl Estimat Average Glucose mg/dl Hemoglobin A1c (4.5-5.6) % Calcium (8.6-10.3) mg/dl Magnesium (1.7-2.4) mg/dl B-Natriuretic Peptide (0-100) pg/ml 05/11/23 05/11/23 05/11/23 Range/Units 16:43 13:59 13:15 WBC 10.85 H (4.8-10.8) K/ul RBC 4.39 (4.20-5.40) M/uL Hgb 12.7 (12.0-16.0) g/dl Hct 38.0 (37.0-47.0) % MCV 86.6 (80.0-100.0) fL MCH 28.9 (25.0-34.0) pg MCHC 33.4 (32.0-36.0) g/dL RDW Std Deviation 41.1 (36.4-46.3) fL RDW Coeff of Blanche 13.2 (11.5-14.5) % Plt Count 161 (130-400) K/uL MPV 9.2 L (9.4-12.4) fL Immature Gran % (Auto) 0.9 % Neut % (Auto) 90.4 % Lymph % (Auto) 3.7 % [place] % (Auto) 4.8 % Eos % (Auto) 0.0 % Baso % (Auto) 0.2 % Neut # (Auto) 9.81 H (1.40-6.50) K/uL Lymph # (Auto) 0.40 L (1.20-3.40) K/uL [place] # (Auto) 0.52 (0.11-0.59) K/uL Eos # (Auto) 0.00 (0.00-0.50) K/uL Baso # (Auto) 0.02 (0.00-0.20) K/uL Immature Gran # (Auto) 0.10 (0.01-0.20) K/uL PT (9.0-12.0) Seconds INR (0.9-1.1) APTT (21-31) Seconds PTT Ratio ABG pH (7.35-7.45) ABG pCO2 (35-46) mmHg ABG pO2 (80-95) mmHg ABG HCO3 (19-24) mmol/L ABG O2 Saturation (90-95) % ABG Base Excess (-9-1.8) mEq/L Gareth Test (Pos) Oxygen Given Sodium 130 L (136-145) mmol/L Potassium 5.1 (3.5-5.1) mmol/L Chloride 97 L (98-107) mmol/L Carbon Dioxide 26 (21-32) mmol/L Anion Gap 7 (3-11) BUN 49 H (6-23) mg/dl Creatinine 0.85 (0.6-1.2) mg/dl Est Cr Clr Drug Dosing 40.4 ml/min Est GFR ( Amer) 70.4 ml/min Est GFR (Non-Af Amer) 60.7 ml/min BUN/Creatinine Ratio 57.6 H (10-20) Glucose 572 H* (70-99(Fasting)) mg/dl POC Glucose 514 H* 592 H* (70-99) mg/dl Estimat Average Glucose 166 mg/dl Hemoglobin A1c 7.4 H (4.5-5.6) % Calcium 8.9 (8.6-10.3) mg/dl Magnesium (1.7-2.4) mg/dl B-Natriuretic Peptide (0-100) pg/ml
[2023-05-12] MEDS: methylPREDNISolone 20 MG in SYRINGE 0 ML IV SCH (09:27)
[2023-05-12] MEDS ORDERED: LIDOCAINE 2% 2 ML VIAL/AMP(20MG/ML) INFIL ONE (13:20)
[2023-05-12] MEDS ORDERED: PROPOFOL IV EMULSION 10 MG/ML 20 ML VIAL IV ONE (13:20)
[2023-05-12] MEDS ORDERED: ONDANSETRON INJ 2 MG/ML 2 ML VIAL ONE (13:20)
[2023-05-12] MEDS ORDERED: DEXAMETHASONE SOD INJ 4 MG/ML VIAL ONE (13:20)
[2023-05-12] MEDS ORDERED: ROCURONIUM BROMIDE 10 MG/ML 5 ML VIAL IV ONE (13:21)
[2023-05-12] MEDS ORDERED: fentaNYL citrate PF 100 MCG/2 ML VIAL ONE (13:21)
--- NOTE | 2023-05-12 14:07 | Pharmacy Report ---
Pharmacy Glycemic Short Note 2 - Date of Service May 12, 2023 - Glycemic Short BSG Results (Last 24 hours): 05/11/23 05/11/23 05/11/23 16:43 16:45 19:06 Glucose POC Glucose 514 H* 524 H* 465 H* 05/11/23 05/11/23 05/11/23 20:39 22:30 23:30 Glucose POC Glucose 353 H* 289 H 184 H 05/12/23 05/12/23 05/12/23 00:21 01:22 05:55 Glucose 137 H POC Glucose 141 H 121 H 05/12/23 12:09 Glucose POC Glucose 93 OUTPATIENT ANTIDIABETIC REGIMEN: * none * HbA1c 7.4% (05/11/23) ASSESSMENT: 05/12/23: * Hyperglycemic yesterday secondary to likely basal deficiency and administration of IV steroids * Insulin infusion initiated briefly yesterday evening, but short-lived w/ subsequent BSGs <140 mg/dL * Patient is now NPO in preparation for surgery and steroids are being held * Will follow-up postoperatively, will likely need ongoing basal if dexamethasone given in OR. 05/11/23: * Kathy is a 87 YOF admitted with a lumbar fracture and a history of prediabetes not on any medication. Pharmacy has been consulted for glycemic management while inpatient. * She has had a prolonged inpatient stay, received Medrol dosepak and then was escalated to IV methylprednisone. She received methylprednisolone IV 40mg Q12H from approximately 05/03 to 05/09. During this time blood sugars had not been checked. She tolerated the Medtrol dosepak without significant steroid induced hyperglycemia. * Routine labs today showed BSGs a BSG of 572 confirmed with POC reading. IV regular insulin ordered (~0.1units/kg) to bring down BSGs this afternoon, Novolog initiated at weight based stress of 3. Basal scale added at bedtime up to approximately a weight based stress of 2 based on BSG. * She continues on methylprednisolone IV 20mg Q12H. Tomorrow she is scheduled for a laminectomy and steroids to be reduced to daily. PLAN FOR INPATIENT GLYCEMIC CONTROL: * Basal insulin * Lantus dosing TBD postoperatively * Bolus insulin * NovoLog per scale ACHS or Q6hrs while NPO * Goal Range: Low 110 mg/dL - High 140 mg/dL * Correction Factor: 25 mg/dL/unit * Nutritional / Prandial insulin per carb ratio of 1 unit per 8 grams CHO consumed
[2023-05-12] MEDS ORDERED: ONDANSETRON INJ 2 MG/ML 2 ML VIAL IV PRN ×2 (14:37→17:02)
[2023-05-12] MEDS ORDERED: fentaNYL citrate PF 100 MCG/2 ML VIAL IV PRN (14:37)
[2023-05-12] MEDS ORDERED: ATROPINE SULFATE 0.1 MG/ML 10ML SYR IV PRN (14:37)
[2023-05-12] MEDS ORDERED: ePHEDrine sulfate 50 MG/ML AMP IV PRN (14:37)
--- NOTE | 2023-05-12 14:46 | History & Physical Bridge Note ---
Date of Service May 12, 2023 History & Physical Bridge Note I have examined the patient, reviewed the History & Physical and in the interval since the performance of the History & Physical I have noted the following changes of clinical significance: no changes noted Lumbar laminectomy L5-S1 on the left
[2023-05-12] MEDS: ceFAZolin 2000MG 2,000 MG/15 ML SYR IV SCH (15:13)
--- NOTE | 2023-05-12 15:19 | Hospitalist Progress Note ---
Date of Service May 12, 2023 Assessment & Plan (1) Ambulatory dysfunction: (2) Sciatica: (3) Hip pain, left: (4) Osteoporosis: (5) Closed compression fracture of lumbar vertebra: (6) Acute UTI: (7) Hydronephrosis of right kidney: (8) Paroxysmal atrial fibrillation: (9) Hypertension: (10) CKD (chronic kidney disease), stage III: (11) Rheumatoid arthritis: (12) Hypothyroidism: Plan per previous hospitalist notes with addendum: Ms. Trimble is an 87yo F with PMH of hypertension, venous insufficiency, paroxysmal atrial fibrillation not on anticoagulation due to fall risk, CKD 3, EBONI, rheumatoid arthritis on prednisone, history of TIA, history of left hip replacement and other medical problems listed below who presents with worsening left hip pain and ambulatory dysfunction over the past few days. Patient reports progressive pain with ambulation, mostly radiating down left leg--patient states pain brings her to tears, plan to trial medrol dose pack with Ortho spine tomorrow. No emergent symptoms/signs at this time. CT lumbar spine with the following: L5 compression fracture, chronic L2 compression fracture, severe central canal narrowing. MRI ordered: . A 1.5 cm disc extrusion versus sequestered disc fragment at L5-S1 causes severe left lateral recess narrowing. Additionally, there is ujzf-km-aoxrodfk central canal stenosis at this level with severe left and qrun-pv-rhzjzouk right neural foraminal narrowing. Physical exam with lower extremity with strength intact, but hip range of motion limited 2/2 pain. Sensation intact. Patient remains limited overall. Offered patient transfer to [facility] [place] [facility] [place] over the weekend, but patient declined. Dr Soares with [facility]o [facility] evaluated patient 05/02 with concerns for possible need of laminectomy. Pain consulted for steroid injections. #Severe left neural foraminal narrowing at L5-S1 #Lumbar disc extrusion #Acute L5 Fracture #Age-related osteoporosis with pathologic fracture of lumbar spine This is patient's third ED visit in 3 days for worsening pain of left hip extending to leg. : CT of the lumbar spine revealed an acute lumbar fracture the patient likely does have 2 additional older fractures, also with moderate-severe central canal narrowing at L4-L5 due to the disc bulge and facet hypertrophy Has since returned to ED twice for worsening pain now more localized to left hip with radiation down buttocks and posterior upper leg No new bowel/bladder incontinence but endorses new ambulatory dysfunction (can ambulate with walker at baseline) -MRI findings as above -PT/OT -Pain management -Plan for Ortho Spine consult -Recommend Pain management consult -Potential for laminectomy, or further intervention if pain management unable to resolve -Pt received epidural steroid injection by pain management on 05/09/2023 - Gabapentin increased to 300mg TID -She did have increased range of motion to left lower extremity but continues to have persistent low back pain -Discontinued Dilaudid prn 2/2 confusion, -Currently on IV methylprednisolone 20 mg twice daily (resume 5mg prednisone thereafter) Oxy prn -Tylenol 1000 q8h -Discussed with Dr. Soares who reevaluated patient due to persistent immobility, decreased functionality and significant pain. Plan is for patient undergo L5-S1 laminectomy this afternoon #Severe Rheumatoid RA Follows with Dr. Nava for RA, osteoporosis Continue Enbrel, Fosamax, prednisone 5 (held while on dose pack) #Acute uncomplicated cystitis POA ->completed course #Chronic UPJ obstruction, right hydronephrosis Urine culture from grew pansensitive Klebsiella, has been taking PO cephalexin at home Will treat with IV Rocephin while admitted,EOT 05/03 CT L spine from with evidence of moderate right hydronephrosis to the level of the ureteropelvic junction. 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 No obstructing stones identified Denies any urinary symptoms Continue to monitor closely, bladder scan PRN and consider re-imaging if symptoms develop #Chronic RBBB #Paroxysmal A Fib Not on anticoagulant due to fall risk Admission EKG showing normal sinus rhythm Continue atenolol daily Echo and BNP # T2DM with hyperglycemia A1c as outpatient on 09/07/2022 revealed at A1c of 6.5 Change diet to diabetic Blood sugar noted to be over 500 on routine lab draw this morning Likely secondary to steroids Consulted glycemic pharmacy, IV fluids ordered BSG improved from 500s yesterday to 137 this morning #HTN BP initially elevated in setting of pain. Now normotensive. Continue home amlodipine, atenolol, losartan, hctz #CKD III Creatinine 0.67 at baseline, continue to monitor daily BMP #Hypothyroidism Continue levothyroxine DVT ppx heparin d/c due to possible upcoming procedure DISPO plan undergo L5-S1 laminectomy this afternoon DNR/DNI PCP:Dr. Bahena Patient was seen and examined in collaboration with, Dr. Moctezuma, please see addendum A total of 45 minutes was spent coordinating, documenting, and providing care for this patient excluding time spent in the performance of separately billed services. This included personally viewing all current laboratories and imaging studies, medication reconciliation, outpatient chart review, and discussion with specialists. Admission and Anticipated Discharge Date Admission Date: April 30, 2023 Supervising Physician Co-Signing Physician Notes I have seen and discussed the case with the collaborating advanced practitioner. I agree with the above H&P. I have reviewed and confirmed the patients medical history, the findings on physical examination, and the patients diagnosis and treatment plan with Stefani MIJARES and agree with the information documented. In short, Ms. Trimble is an 87 year old woman admitted with concerns of severe stenosis in lumbar spine. Patient with marginal improvement after steroid injection. Ortho planning surgical intervention 05/10. Exam notable for tearful woman, who is quickly uncomfortable sitting upright, relief with supinse positioning Labs with glucose of 592, A1C 7.4 Plan for perioperative optimization with glucose control, consult gylcemic pharmacy: glucose better controlled Given RA history and chronic RBBB, preop ECHO and BNP obtained ECHO mild LVH, mild aortic regurg, GIDD BNP 102 monitor post op hemoglobin Monitor for iatrogenic volume overload iso LVH, diastolic dysfunction Hold BP meds and monitor for post op hypotension Rest of plan as a above I spent a total of 25 minutes coordinating, documenting, and providing care for this patient excluding time spent in the performance of separately billed services. All of the aforementioned completed outside of collaborating with the assigned advanced practitioner for a full treatment plan. I have reviewed the advanced practitioner's documentation, and I agree with, and take responsibility for the plan of care Subjective Patient was seen and examined in room 350 in follow-up for low back pain. Patient continues to have significant amount of pain in left hip region with spasm down left lower extremity despite receiving steroid injection 2 days ago. Pain is significantly worse with movement and relieved with rest. Is due for OR today. Excited to have surgery and hopefully find some pain relief and increase mobility. Denies any fever, chills, sweats, lightheadedness, dizziness, chest pain or shortness of breath. Endorsing sore throat but has been sleeping this morning with mouth breathing, per niece is at bedside. Continue bowel regimen for chronic constipation. Review of Systems Review of Systems: At least ten systems reviewed and negative except as noted in the HPI. Physical Exam Physical Exam: Gen: WD/WN, alert, female, lying bed, resting in supine position, NAD, A&O x3 HEENT: Normocephalic, atraumatic, conjunctivae moist, sclerae anicteric, mucous membranes moist Lung: Clear to Auscultation bilaterally, no wheezes/rales/rhonchi Heart: Regular rate, regular rhythm, no murmurs, rubs, or gallops Abdomen: Soft, NT, ND +BS x 4 Extremities: No edema Skin: Warm, no rash Results & Data Results & Data Vital Signs (Past 12 Hours) Vital Signs Temp Pulse Pulse Pulse Resp BP BP 05/12/23 13:36 37 C 58 L 20 107/57 L 05/12/23 08:51 36.8 C 57 L 18 131/63 05/12/23 07:40 35.9 C L 52 L 18 151/68 H Pulse Ox O2 Del Method 05/12/23 13:36 93 Room Air 05/12/23 08:51 92 Room Air 05/12/23 07:40 95 Room Air Laboratory Results Short CBC 05/12/23 Range/Units 01:22 WBC 9.18 (4.8-10.8) K/ul Hgb 12.0 (12.0-16.0) g/dl Hct 34.7 L (37.0-47.0) % Plt Count 143 (130-400) K/uL BMP 05/12/23 01:22 Sodium 134 L Potassium 4.4 Chloride 102 Carbon Dioxide 29 BUN 43 H Creatinine 0.70 Glucose 137 H Calcium 8.8 Diagnostic Findings Hip X-Ray 04/30/23 10:05 XR hip LT min 2V HISTORY: 87 years-old Female l hip pain acute pain in the left hip COMPARISON: 03/18/2021 TECHNIQUE: AP view of the pelvis with crosstable lateral view of the left hip FINDINGS: Arterial calcifications. Dystrophic calcifications of the proximal hamstring attachment myotendinous distribution. Severe degeneration of the pubic symphysis with moderate left posteroparietal arthritis. Intertrochanteric nail with medullary aisha of the left femur fixates a healed chronic fracture deformity. No acute fracture, dislocation or avascular necrosis. IMPRESSION: No acute fracture or dislocation. ACT 112: Negative or not required by law. The above report was generated using voice recognition software. It may contain grammatical, syntax or spelling errors. Electronically signed by: Addison See M.D. 04/30/2023 11:22 AM Lumbar Spine MRI 04/30/23 11:34 MR lumbar spine wo/w con CLINICAL HISTORY: 87 years-old Female with L hip pain radiating to buttocks. Chronic low back pain with radiation into the left lower extremity. COMPARISON: CT lumbar spine 04/28/2023, CT pelvis 01/27/2016. TECHNIQUE: Multiplanar, multi sequence MRI of the lumbar spine was performed with and without the use of IV contrast. FINDINGS: Motion degraded exam. There are a few T2 hyperintense foci of the kidneys, incompletely characterized however suggestive of probable cysts. Right- sided hydronephrosis is redemonstrated. Right hip arthroplasty. ORIF hardware at the left proximal femur. Mild lumbar levoscoliosis. Acute mild inferior endplate compression fracture at L5 is redemonstrated with approximately 20% vertebral body height loss. Moderate marrow edema with mild paravertebral edema and reactive incident. No retropulsion. Edema extends into the L5-S1 intervertebral disc space. Chronic L2 compression deformity. No marrow replacing process or endplate erosions are identified. Conus medullaris terminates at the L1 level. T12-L1: Moderate intervertebral disc space narrowing with circumferential disc osteophyte complex. Ligamentum flavum thickening with moderate facet arthrosis. No significant central canal or foraminal narrowing. L1-L2: Mild intervertebral disc space narrowing. Spondylotic spurring with circumferential annular disc bulging/disc osteophyte complex with ligamentum flavum thickening and moderate facet arthrosis. Mild central canal stenosis with AP dimension of the thecal sac measuring 9 mm. Moderate bilateral foraminal narrowing. L2-L3: Mild intervertebral disc space narrowing. Spondylotic spurring with small posterior annular disc bulge. Ligamentum flavum thickening with severe facet arthrosis. Flattening of the ventral thecal sac with minimal central canal stenosis. AP dimension of the thecal sac measuring 9 mm. Pflg-ei-vqifywrh bilateral foraminal narrowing. L3-L4: Mild intervertebral disc space narrowing and spondylotic spurring with small posterior annular disc bulging. Ligamentum flavum thickening with advanced facet arthrosis. Flattening of the ventral thecal sac without significant central canal stenosis. There is at least mild narrowing of the lateral recesses, left greater than right. Mild bilateral foraminal stenosis. L4-L5: Six mm anterolisthesis is likely on a degenerative basis. Okvu-wi-tbqknxqo intervertebral disc space narrowing and spondylotic spurring with circumferential annular disc bulging/posterior disc space uncovering. Ligamentum flavum thickening with severe facet arthrosis and small facet effusions. There is severe central canal stenosis with AP dimension of the thecal sac measuring approximately 4 mm. There is at least moderate narrowing of the lateral recesses. Moderate left with leyv-jj-lnuvoczo right neuroforaminal narrowing. L5-S1: Ebux-xh-tybmspep intervertebral disc space narrowing with spondylitic spurring and circumferential annular disc bulging. Ligamentum flavum thickening with severe facet arthrosis and trace facet effusions. There is an ill-defined 1.5 x 0.5 x 1.2 cm T1 and T2 isointense structure within the left paracentral distribution/left lateral recess (image 26 series 7 and image 8 series 6). This abuts and posteriorly displaces the left L5 nerve root causing severe left lateral recess narrowing. Ftub-zj-iehwpxmk central canal stenosis at this level with AP dimension of the thecal sac measuring 8 mm. Severe left with hmoq-um-stivybnh right neuroforaminal narrowing. IMPRESSION: 1. Acute L5 inferior endplate compression deformity without retropulsion is redemonstrated, which appears unchanged from the 04/28/2023 study. 2. Chronic L2 compression fracture. 3. A 1.5 cm disc extrusion versus sequestered disc fragment at L5-S1 causes severe left lateral recess narrowing. Additionally, there is yuep-pv-zaafqugh central canal stenosis at this level with severe left and iljr-wi-rgrzarkm right neural foraminal narrowing. 4. 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 5. Additional degenerative changes as above. ACT 112: Negative or not required by law. The above report was generated using voice recognition software. It may contain grammatical, syntax or spelling errors. Dictated: 04/30/2023 2:06 PM Transcribed: 04/30/2023 2:40 PM Jaciel [id number] [email or web address] Electronically signed by: Addison See M.D. 04/30/2023 3:24 PM Chest X-Ray 05/11/23 14:41 XR chest 1V portable HISTORY: 87 years-old Female pre op preoperative exam. No acute chest complaints COMPARISON: Chest CT 03/19/2021 TECHNIQUE: AP view of the chest FINDINGS: Cardiac silhouette is enlarged. No pneumothorax, pleural effusion or pulmonary edema. Mild linear bibasilar atelectasis/scarring. Chronic left proximal humeral fracture deformity. Reverse right shoulder arthroplasty. IMPRESSION: No acute process. ACT 112: Negative or not required by law. The above report was generated using voice recognition software. It may contain grammatical, syntax or spelling errors. Electronically signed by: Addison See M.D. 05/11/2023 6:[address] 05/12/23 00:57 Exam(s): CT HEAD Without Contrast EXAM: CT Head Without Intravenous Contrast CLINICAL HISTORY: Reason for exam: AMS. TECHNIQUE: Axial computed tomography images of the head/brain without intravenous contrast. CTDI is 36.05 mGy and DLP is 703.85 mGy-cm. Automated exposure control was utilized for the study. A dose lowering technique was utilized adhering to the principles of ALARA. COMPARISON: Comparison made to prior head CT from March 18, 2021. FINDINGS: Brain: Unremarkable. No hemorrhage. Moderate nonspecific white matter changes. No edema. Ventricles: Unremarkable. No ventriculomegaly. Bones/joints: Unremarkable. No acute fracture. Soft tissues: Bilateral lens replacements. Sinuses: Unremarkable as visualized. No acute sinusitis. Mastoid air cells: Unremarkable as visualized. No mastoid effusion. IMPRESSION: No evidence of acute intracranial pathology. Electronically signed by: Elysia Hughes MD 05/12/23 03:04 AM (2) Sciatica Laterality: left Qualified Code(s): M54.32 - Sciatica, left side (5) Closed compression fracture of lumbar vertebra Encounter type: initial encounter Lumbar vertebra fracture level: L5 Qualified Code(s): S32.050A - Wedge compression fracture of fifth lumbar ve rtebra, initial encounter for closed fracture
[2023-05-12] MEDS: BUPIVACAINE/EPINEPHRINE 0.5% MPF 1:200,000 30 ML VIAL ONE (15:44)
[2023-05-12] MEDS ORDERED: ePHEDrine sulfate 50 MG/5 ML SYR ONE (15:47)
[2023-05-12] MEDS ORDERED: SUGAMMADEX SODIUM 200 MG/2 ML VIAL IV ONE (15:47)
[2023-05-12] MEDS: FLOSEAL HEMOSTATIC MATRIX 10ML TOP ONE (15:59)
[2023-05-12] MEDS: ceFAZolin 330 MG/ML 1 GM VIAL ONE (15:59)
--- NOTE | 2023-05-12 16:12 | Operative Report ---
Post Operative Report Pre & Post Diagnosis Operation Date: 05/12/23 14:05 Pre-Op Diagnosis: Lumbar disc herniation with radiculopathy L5-S1 Post-Op Diagnosis: Lumbar disc herniation with radiculopathy L5-S1 I identified the patient and participated in the time-out.: Yes Procedure Operation Date: 05/12/23 14:05 Actual Procedures Lumbar laminectomy L5-S1 on the left with excision of herniated free fragment Surgeon Emir Soares DO Bill Adjuster Radha Champagne Estimated Blood Loss 20 Findings Consistent with Post-Op Diagnosis Specimens None Indications This is a 87-year-old female who presents with above-mentioned diagnosis after failing course of nonoperative care she is here for surgical invention. Description of Procedure Patient was met with identified informed consent obtained. Patient was then taken to the operative suite underwent patient placed in a prone position on the David table top of the Jaycob frame. Operative prominences well-padded eyes inspected to ensure no external pressure placed upon the. This point lumbar spine is prepped and draped in a sterile fashion. The assistance of fluoroscopy Saranya at L5-S1 disc base. Midline incision was then created overlying this region sharp dissection with assistance of Bovie cautery from down to and exposing the interlaminar space at L5-S1 left. Separately retractors placed. Performed a laminotomy on the left with excision of the medial facet and lateral ligamentum flavum to expose several fragments of disc material that migrated cephalad. There was explored several times to ensure all fragments addressed. The incision was then copiously irrigated and closed subcutaneous Vicryl and 4 Monocryl for final closure. Steri-Strips dressings placed. Patient waken taken to PACU stable condition. Please note Radha Champagne was present entire procedure while the patient positioning complex portion of the surgery and final skin closure. I attest to the content of the Intraoperative Record and any orders documented therein. Any exceptions are noted below.
--- NOTE | 2023-05-12 16:36 | Fluoroscopy Report ---
FL spine 1V any level CLINICAL HISTORY: L5-S1 LUMBAR LAMIchronic low back pain COMPARISON STUDY: MRI 04/30/2023 FLUOROSCOPY TIME: 5.3 seconds FLUOROSCOPY IMAGES: 1 EXPOSURE DOSE: 2.73 mGy FINDINGS: Posterior retraction device. An orthopedic tool projects over the L5 vertebral body posteri julia. Multilevel intervertebral disc space narrowing with spondylitic spurring and facet arthrosis re demonstrated. IMPRESSION: Fluoroscopic assistance as above. ACT 112: Negative or not required by law. Electronically signed by: Addison See M.D. 05/12/2023 4:35 PM
--- NOTE | 2023-05-12 16:39 | Anesthesiology Progress Note ---
Date of Service May 12, 2023 Anesthesia Post Procedure Vital Signs Vital Signs: Temp Pulse Pulse Pulse Resp BP BP 05/12/23 16:30 74 15 111/57 L 05/12/23 16:20 76 15 115/56 L 05/12/23 16:12 36.4 C L 77 26 H 134/74 05/12/23 13:36 37 C 58 L 20 107/57 L 05/12/23 08:51 36.8 C 57 L 18 131/63 05/12/23 07:40 35.9 C L 52 L 18 151/68 H 05/12/23 00:23 36.7 C 56 L 14 143/69 H 05/11/23 19:37 36.8 C 62 16 131/62 Pulse Ox O2 Del Method O2 Flow Rate 05/12/23 16:30 94 Oxymask 0 05/12/23 16:20 99 Oxymask 4 05/12/23 16:12 100 Oxymask 8 05/12/23 13:36 93 Room Air 05/12/23 08:51 92 Room Air 05/12/23 07:40 95 Room Air 05/12/23 00:23 95 Room Air 05/11/23 19:37 93 Room Air Pain Intensity Right Hip: Pain Intensity: 4 Lower Back: Pain Intensity: 3 Transfer of Care Handoff Completed per policy Notes Mental Status: alert / awake / arousable Patient Amnestic to Procedure: Yes Nausea / Vomiting: adequately controlled Pain: adequately controlled Airway Patency, RR, SpO2: stable & adequate BP & HR: stable & adequate Hydration State: stable & adequate Anesthetic Complications: no major complications apparent and Pt Satisfied with anesthetic care
[2023-05-12] MEDS ORDERED: bisacodyL 10 MG SUPP PR PRN (17:02)
[2023-05-12] MEDS ORDERED: hydrOXYzine HCl 25 MG TAB PO PRN (17:02)
[2023-05-12] MEDS ORDERED: LORazepam 0.5 MG TAB PO PRN (17:02)
[2023-05-12] MEDS ORDERED: MAGNESIUM HYDROXIDE SUSP 30 ML UDC PO PRN (17:02)
[2023-05-12] MEDS ORDERED: PROMETHAZINE HCL 12.5 MG in SODIUM CHLORIDE 0.9% 50 ML IV PRN (17:02)
[2023-05-12] MEDS ORDERED: SOD PHOSPHATE/SOD BIPHOSPHATE ENEMA 132 ML BTL PR PRN (17:02)
[2023-05-12] MEDS ORDERED: NALOXONE HCL 0.4 MG/1 ML VIAL/CARP IV PRN (17:02)
[2023-05-12] MEDS ORDERED: LORazepam 0.5 MG in SYRINGE 0.25 ML IV PRN (17:02)
[2023-05-12] MEDS ORDERED: HYDROmorphone INJ 0.5 MG/0.5 ML SYR IV PRN (17:02)
[2023-05-12] MEDS ORDERED: DO NOT ADMINISTER FLU VACCINE PRN (17:02)
[2023-05-12] MEDS ORDERED: DO NOT ADMINISTER PNEUMOCOCCAL VACCINE PRN (17:02)
[2023-05-12] MEDS ORDERED: diphenhydrAMINE Capsule 25 MG CAP PO PRN (17:02)
[2023-05-12] MEDS ORDERED: FAMOTIDINE 20 MG TAB PO PRN (17:02)
[2023-05-12] MEDS ORDERED: ONDANSETRON 4 MG OD TAB PO PRN (17:02)
[2023-05-12] MEDS ORDERED: METOCLOPRAMIDE HCL INJ 5 MG/ML 2 ML VIAL IV PRN (17:02)
[2023-05-12] MEDS ORDERED: ACETAMINOPHEN 1,000 MG/100 ML VIAL IV PRN (17:02)
[2023-05-12] MEDS: SODIUM CHLORIDE 0.9% 1,000 ML IV SCH (18:04)
[2023-05-12] MEDS: DOCUSATE SODIUM/SENNA 50/8.6MG TAB PO SCH (21:13)
[2023-05-12] MEDS: LANTUS PER UNIT CHARGE SC ONE (21:26)
[2023-05-12] MEDS: ceFAZolin 1000MG 1,000 MG/7.5 ML SYR IV SCH (23:03)
[2023-05-12] MEDS: CALCIUM CARBONATE 500 MG CHEWABLE TAB PO PRN (23:04)
[2023-05-13] MEDS: INSULIN ASPART PER UNIT CHARGE SC SCH (02:19)
[2023-05-13] MEDS: ALUMINUM/MAGNESIUM SUSP 30 ML UDC PO PRN (05:42)
[2023-05-13] MEDS: POLYETHYLENE (MIRALAX) 17 GM PACK PO SCH (05:43)
[2023-05-13 06:10] LABS: Hemoglobin 11.6 g/dl (12.0-16.0); Mean Corpuscular Hemoglobin 29.4 pg (25.0-34.0); Mean Corpuscular Hgb Conc 34.1 g/dL (32.0-36.0); Mean Corpuscular Volume 86.1 fL (80.0-100.0); Mean Platelet Volume 8.9 fL (9.4-12.4); Platelet Count 123 K/uL (130-400); RDW Coefficient of Variation 13.1 % (11.5-14.5); RDW Standard Deviation 40.9 fL (36.4-46.3); Red Blood Count 3.95 M/uL (4.20-5.40); White Blood Count 10.53 K/ul (4.8-10.8)
[2023-05-13 06:34] LABS: BUN Creatinine Ratio 46.6 (10-20); Creatinine Clr Calc Pharmacy 59.2 ml/min; Est GFR (African American) 94.7 ml/min; Est GFR (Non-African American) 81.7 ml/min; Magnesium 1.9 mg/dl (1.7-2.4); Potassium 4.5 mmol/L (3.5-5.1)
--- NOTE | 2023-05-13 08:32 | Orthopedic Progress Note ---
Date of Service May 13, 2023 Assessment & Plan (1) Lumbar disc herniation with radiculopathy: Plan: At this time initiate physical therapy at least beginning with transfers from bed to chair and ambulating in the room. She is quite weak from prolonged bedrest and neural compression. I proceeded carefully with therapy and limit lifting to no more than 5 pounds. Admission and Anticipated Discharge Date Admission Date: April 30, 2023 Subjective Patient is comfortable this morning.. She feels her left leg pain is markedly improved. Physical Exam Physical Exam: Patient is currently in bed. She is alert and oriented. Is good strength te sting. Results & Data Vital Signs (Past 12 Hours) Vital Signs Temp Pulse Resp BP Pulse Ox O2 Del Method 05/13/23 06:56 36.8 C 70 16 112/63 93 Room Air 05/13/23 03:13 37.1 C 76 16 113/60 94 Room Air 05/12/23 23:46 36.8 C 83 16 130/69 93 Room Air
[2023-05-13] MEDS: LANTUS PER UNIT CHARGE SC SCH (08:36)
[2023-05-13] MEDS: oxyCODONE HCL IR 5 MG TAB (IMMEDIATE RELEASE) PO PRN (09:22)
--- NOTE | 2023-05-13 10:14 | Pharmacy Report ---
Pharmacy Glycemic Short Note 2 - Date of Service May 13, 2023 - Glycemic Short BSG Results (Last 24 hours): 05/12/23 05/12/23 05/12/23 12:09 17:16 20:58 Glucose POC Glucose 93 124 H 255 H 05/12/23 05/13/23 05/13/23 21:00 02:06 05:54 Glucose 187 H POC Glucose 264 H 235 H 05/13/23 07:51 Glucose POC Glucose 179 H OUTPATIENT ANTIDIABETIC REGIMEN: * none * HbA1c 7.4% (05/11/23) ASSESSMENT: 05/13/23: * POD #1 s/p lumbar laminectomy, received 8 mg IV dexamethasone in OR * No ongoing steroids ordered * Will stick with ~0.2 unit/kg basal dosing (split BID and will adjust HS if needed) 05/12/23: * Hyperglycemic yesterday secondary to likely basal deficiency and administration of IV steroids * Insulin infusion initiated briefly yesterday evening, but short-lived w/ subsequent BSGs <140 mg/dL * Patient is now NPO in preparation for surgery and steroids are being held * Will follow-up postoperatively, will likely need ongoing basal if dexamethasone given in OR. 05/11/23: * Kathy is a 87 YOF admitted with a lumbar fracture and a history of prediabetes not on any medication. Pharmacy has been consulted for glycemic management while inpatient. * She has had a prolonged inpatient stay, received Medrol dosepak and then was escalated to IV methylprednisone. She received methylprednisolone IV 40mg Q12H from approximately 05/03 to 05/09. During this time blood sugars had not been checked. She tolerated the Medtrol dosepak without significant steroid induced hyperglycemia. * Routine labs today showed BSGs a BSG of 572 confirmed with POC reading. IV regular insulin ordered (~0.1units/kg) to bring down BSGs this afternoon, Novolog initiated at weight based stress of 3. Basal scale added at bedtime up to approximately a weight based stress of 2 based on BSG. * She continues on methylprednisolone IV 20mg Q12H. Tomorrow she is scheduled for a laminectomy and steroids to be reduced to daily. PLAN FOR INPATIENT GLYCEMIC CONTROL: * Basal insulin * Lantus 6 units SC BID * Bolus insulin * NovoLog per scale ACHS or Q6hrs while NPO * Goal Range: Low 110 mg/dL - High 140 mg/dL * Correction Factor: 30 mg/dL/unit * Nutritional / Prandial insulin per carb ratio of 1 unit per 10 grams CHO consumed
--- NOTE | 2023-05-13 14:25 | Hospitalist Progress Note ---
Date of Service May 13, 2023 Assessment & Plan (1) Ambulatory dysfunction: (2) Sciatica: (3) Hip pain, left: (4) Osteoporosis: (5) Closed compression fracture of lumbar vertebra: (6) Acute UTI: (7) Hydronephrosis of right kidney: (8) Paroxysmal atrial fibrillation: (9) Hypertension: (10) CKD (chronic kidney disease), stage III: (11) Rheumatoid arthritis: (12) Hypothyroidism: Plan per previous hospitalist notes with addendum: Ms. Trimble is an 87yo F with PMH of hypertension, venous insufficiency, paroxysmal atrial fibrillation not on anticoagulation due to fall risk, CKD 3, EBONI, rheumatoid arthritis on prednisone, history of TIA, history of left hip replacement and other medical problems listed below who presents with worsening left hip pain and ambulatory dysfunction over the past few days. Patient reports progressive pain with ambulation, mostly radiating down left leg--patient states pain brings her to tears, plan to trial medrol dose pack with Ortho spine tomorrow. No emergent symptoms/signs at this time. CT lumbar spine with the following: L5 compression fracture, chronic L2 compression fracture, severe central canal narrowing. MRI ordered: . A 1.5 cm disc extrusion versus sequestered disc fragment at L5-S1 causes severe left lateral recess narrowing. Additionally, there is wzbw-kf-qxkmwssr central canal stenosis at this level with severe left and ikvo-ei-lrheihcl right neural foraminal narrowing. Physical exam with lower extremity with strength intact, but hip range of motion limited 2/2 pain. Sensation intact. Patient remains limited overall. Offered patient transfer to [facility] [place] [facility] [place] over the weekend, but patient declined. Dr Soares with [facility] evaluated patient 05/02 with concerns for possible need of laminectomy. Pain consulted for steroid injections. #Severe left neural foraminal narrowing at L5-S1 #Lumbar disc extrusion #Acute L5 Fracture #Age-related osteoporosis with pathologic fracture of lumbar spine This is patient's third ED visit in 3 days for worsening pain of left hip extending to leg. : CT of the lumbar spine revealed an acute lumbar fracture the patient likely does have 2 additional older fractures, also with moderate-severe central canal narrowing at L4-L5 due to the disc bulge and facet hypertrophy Has since returned to ED twice for worsening pain now more localized to left hip with radiation down buttocks and posterior upper leg No new bowel/bladder incontinence but endorses new ambulatory dysfunction (can ambulate with walker at baseline) -MRI findings as above -PT/OT -Pain management -Plan for Ortho Spine consult -Recommend Pain management consult -Potential for laminectomy, or further intervention if pain management unable to resolve -Pt received epidural steroid injection by pain management on 05/09/2023 - Gabapentin increased to 300mg TID -She did have increased range of motion to left lower extremity but continues to have persistent low back pain -Discontinued Dilaudid prn 2/2 confusion Previously on IV methylprednisolone 20 mg twice daily - resuming home dose pred 5mg daily today POD #1 s/p Lumbar laminectomy L5-S1 on the left with excision of herniated free fragment with significant improvement to pain, strength Per ortho for pain control, wound care, anticoagulation and activities Monitor H&H (hgb stable at 11.6 (hgb 12 pre-op), continue incentive spirometry, PT/OT when appropriate #Severe Rheumatoid RA Follows with Dr. Nava for RA, osteoporosis Continue Enbrel, Fosamax, resumed daily prednisone 5mg daily #Acute uncomplicated cystitis POA ->completed course #Chronic UPJ obstruction, right hydronephrosis Urine culture from grew pansensitive Klebsiella, has been taking PO cephalexin at home Will treat with IV Rocephin while admitted,EOT 05/03 CT L spine from with evidence of moderate right hydronephrosis to the level of the ureteropelvic junction. 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 No obstructing stones identified Denies any urinary symptoms Continue to monitor closely, bladder scan PRN and consider re-imaging if sy mptoms develop #Chronic RBBB #Paroxysmal A Fib Not on anticoagulant due to fall risk Admission EKG showing normal sinus rhythm Continue atenolol daily Pre-op ECHO mild LVH, mild aortic regurg. BNP 102 # T2DM with hyperglycemia A1c as outpatient on 09/07/2022 revealed at A1c of 6.5 Change diet to diabetic Blood sugar noted to be over 500 on routine lab draw 05/10 Likely secondary to steroids BSG now within range on basal/bolus regimen, appreciate glycemic pharmacy #HTN BP initially elevated in setting of pain. Now normotensive. Continue home amlodipine, atenolol, losartan, hctz #CKD III Creatinine 0.67 at baseline, continue to monitor daily BMP #Hypothyroidism Continue levothyroxine DVT ppx SCDs per ortho surgery DNR/DNI PCP:Dr. Bahena Patient was seen and examined in collaboration with, Dr. Moctezuma, please see addendum A total of 40 minutes was spent coordinating, documenting, and providing care for this patient excluding time spent in the performance of separately billed services. This included personally viewing all current laboratories and imaging studies, medication reconciliation, outpatient chart review, and discussion with specialists. Admission and Anticipated Discharge Date Admission Date: April 30, 2023 Supervising Physician Co-Signing Physician Notes I have seen and discussed the case with the collaborating advanced practitioner. I agree with the above H&P. I have reviewed and confirmed the patients medical history, the findings on physical examination, and the patients diagnosis and treatment plan with James MIJARES and agree with the information documented. In short, Ms. Trimble is an 87 year old woman admitted with concerns of severe stenosis in lumbar spine. Patient with marginal improvement after steroid injection. POD 1 from lumbar laminectomy with notable recovery. Reports significant improvement. Exam sitting more upright, good spirits, more conversational Labs with stable hgb, renal functions Plan for continued glucose management Resume home steroid monitor post op hemoglobin Monitor for iatrogenic volume overload iso LVH, diastolic dysfunction Hold BP meds and monitor for post op hypotension--resume as able Rest of plan as a above I spent a total of 25 minutes coordinating, documenting, and providing care for this patient excluding time spent in the performance of separately billed services. All of the aforementioned completed outside of collaborating with the assigned advanced practitioner for a full treatment plan. I have reviewed the advanced practitioner's documentation, and I agree with, and take responsibility for the plan of care Subjective Seen and examined in 350-1. Feeling much better after surgery with less shocklike pain of left hip, no longer having radiating pain down buttocks and leg. Does have some surgical site discomfort. Was able to transfer with help of PT/OT. Endorses issue with regurgitating food this morning with staff present. Re-educated on having bed elevated, taking small bites and time in between. No other acute changes. No F/C, lightheadedness, CP, SOB, N/V, abd pain, dysuria, diarrhea or constipation. Review of Systems Review of Systems: At least ten systems reviewed and negative except as noted in the HPI. Physical Exam Physical Exam: Gen: WD/WN, alert, female, lying bed, resting in supine position, NAD, A&O x3 HEENT: Normocephalic, atraumatic, conjunctivae moist, sclerae anicteric, mucous membranes moist Lung: Clear to Auscultation bilaterally, no wheezes/rales/rhonchi Heart: Regular rate, regular rhythm, no murmurs, rubs, or gallops Abdomen: Soft, NT, ND +BS x 4 Extremities: + Spinal dressing c/d/i. No edema, BLE strength significantly improved Skin: Warm, no rash Results & Data Results & Data Vital Signs (Past 12 Hours) Vital Signs Temp Pulse Resp BP Pulse Ox O2 Del Method 05/13/23 11:20 36.2 C L 62 18 132/57 L 95 Room Air 05/13/23 06:56 36.8 C 70 16 112/63 93 Room Air 05/13/23 03:13 37.1 C 76 16 113/60 94 Room Air Laboratory Results Short CBC 05/13/23 Range/Units 05:54 WBC 10.53 (4.8-10.8) K/ul Hgb 11.6 L (12.0-16.0) g/dl Hct 34.0 L (37.0-47.0) % Plt Count 123 L (130-400) K/uL BMP 05/13/23 05:54 Sodium 135 L Potassium 4.5 Chloride 104 Carbon Dioxide 26 BUN 27 H Creatinine 0.58 L Glucose 187 H Calcium 8.0 L Diagnostic Findings Hip X-Ray 04/30/23 10:05 XR hip LT min 2V HISTORY: 87 years-old Female l hip pain acute pain in the left hip COMPARISON: 03/18/2021 TECHNIQUE: AP view of the pelvis with crosstable lateral view of the left hip FINDINGS: Arterial calcifications. Dystrophic calcifications of the proximal hamstring attachment myotendinous distribution. Severe degeneration of the pubic symphysis with moderate left posteroparietal arthritis. Intertrochanteric nail with medullary aisha of the left femur fixates a healed chronic fracture deformity. No acute fracture, dislocation or avascular necrosis. IMPRESSION: No acute fracture or dislocation. ACT 112: Negative or not required by law. The above report was generated using voice recognition software. It may contain grammatical, syntax or spelling errors. Electronically signed by: Addison See M.D. 04/30/2023 11:22 AM Lumbar Spine MRI 04/30/23 11:34 MR lumbar spine wo/w con CLINICAL HISTORY: 87 years-old Female with L hip pain radiating to buttocks. Chronic low back pain with radiation into the left lower extremity. COMPARISON: CT lumbar spine 04/28/2023, CT pelvis 01/27/2016. TECHNIQUE: Multiplanar, multi sequence MRI of the lumbar spine was performed with and without the use of IV contrast. FINDINGS: Motion degraded exam. There are a few T2 hyperintense foci of the kidneys, incompletely characterized however suggestive of probable cysts. Right- sided hydronephrosis is redemonstrated. Right hip arthroplasty. ORIF hardware at the left proximal femur. Mild lumbar levoscoliosis. Acute mild inferior endplate compression fracture at L5 is redemonstrated with approximately 20% vertebral body height loss. Moderate marrow edema with mild paravertebral edema and reactive incident. No retropulsion. Edema extends into the L5-S1 intervertebral disc space. Chronic L2 compression deformity. No marrow replacing process or endplate erosions are identified. Conus medullaris terminates at the L1 level. T12-L1: Moderate intervertebral disc space narrowing with circumferential disc osteophyte complex. Ligamentum flavum thickening with moderate facet arthrosis. No significant central canal or foraminal narrowing. L1-L2: Mild intervertebral disc space narrowing. Spondylotic spurring with circumferential annular disc bulging/disc osteophyte complex with ligamentum flavum thickening and moderate facet arthrosis. Mild central canal stenosis with AP dimension of the thecal sac measuring 9 mm. Moderate bilateral foraminal na rrowing. L2-L3: Mild intervertebral disc space narrowing. Spondylotic spurring with small posterior annular disc bulge. Ligamentum flavum thickening with severe facet arthrosis. Flattening of the ventral thecal sac with minimal central canal stenosis. AP dimension of the thecal sac measuring 9 mm. Dpym-yk-ttjxncqe bilateral foraminal narrowing. L3-L4: Mild intervertebral disc space narrowing and spondylotic spurring with small posterior annular disc bulging. Ligamentum flavum thickening with advanced facet arthrosis. Flattening of the ventral thecal sac without significant central canal stenosis. There is at least mild narrowing of the lateral recesses, left greater than right. Mild bilateral foraminal stenosis. L4-L5: Six mm anterolisthesis is likely on a degenerative basis. Mild -to-moderate intervertebral disc space narrowing and spondylotic spurring with circumferential annular disc bulging/posterior disc space uncovering. Ligamentum flavum thickening with severe facet arthrosis and small facet effusions. There is severe central canal stenosis with AP dimension of the thecal sac measuring approximately 4 mm. There is at least moderate narrowing of the lateral recesses. Moderate left with quou-yb-cusfziab right neuroforaminal narrowing. L5-S1: Xohv-qy-uwkhuaqv intervertebral disc space narrowing with spondylitic spurring and circumferential annular disc bulging. Ligamentum flavum thickening with severe facet arthrosis and trace facet effusions. There is an ill-defined 1.5 x 0.5 x 1.2 cm T1 and T2 isointense structure within the left paracentral distribution/left lateral recess (image 26 series 7 and image 8 series 6). This abuts and posteriorly displaces the left L5 nerve root causing severe left lateral recess narrowing. Srit-kj-smguelya central canal s tenosis at this level with AP dimension of the thecal sac measuring 8 mm. Severe left with trsm-ym-eblkvkpg right neuroforaminal narrowing. IMPRESSION: 1. Acute L5 inferior endplate compression deformity without retropulsion is redemonstrated, which appears unchanged from the 04/28/2023 study. 2. Chronic L2 compression fracture. 3. A 1.5 cm disc extrusion versus sequestered disc fragment at L5-S1 causes severe left lateral recess narrowing. Additionally, there is iwjc-na-rsdwxbxy central canal stenosis at this level with severe left and mmry-in-fjmcxnpf right neural foraminal narrowing. 4. 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 5. Additional degenerative changes as above. ACT 112: Negative or not required by law. The above report was generated using voice recognition software. It may contain grammatical, syntax or spelling errors. Dictated: 04/30/2023 2:06 PM Transcribed: 04/30/2023 2:40 PM Jaciel [id number] [email or web address] Electronically signed by: Addison See M.D. 04/30/2023 3:24 PM Chest X-Ray 05/11/23 14:41 XR chest 1V portable HISTORY: 87 years-old Female pre op preoperative exam. No acute chest complaints COMPARISON: Chest CT 03/19/2021 TECHNIQUE: AP view of the chest FINDINGS: Cardiac silhouette is enlarged. No pneumothorax, pleural effusion or pulmonary edema. Mild linear bibasilar atelectasis/scarring. Chronic left proximal humeral fracture deformity. Reverse right shoulder arthroplasty. IMPRESSION: No acute process. ACT 112: Negative or not required by law. The above report was generated using voice recognition software. It may contain grammatical, syntax or spelling errors. Electronically signed by: Addison See M.D. 05/11/2023 6:20 PM Spine X-Ray 05/12/23 00:00 FL spine 1V any level CLINICAL HISTORY: L5-S1 LUMBAR LAMIchronic low back pain COMPARISON STUDY: MRI 04/30/2023 FLUOROSCOPY TIME: 5.3 seconds FLUOROSCOPY IMAGES: 1 EXPOSURE DOSE: 2.73 mGy FINDINGS: Posterior retraction device. An orthopedic tool projects over the L5 vertebral body posteriorly. Multilevel intervertebral disc space narrowing with spondylitic spurring and facet arthrosis redemonstrated. IMPRESSION: Fluoroscopic assistance as above. ACT 112: Negative or not required by law. Electronically signed by: Addison See M.D. 05/12/2023 4:[address] 05/12/23 00:57 Exam(s): CT HEAD Without Contrast EXAM: CT Head Without Intravenous Contrast CLINICAL HISTORY: Reason for exam: AMS. TECHNIQUE: Axial computed tomography images of the head/brain without intravenous contrast. CTDI is 36.05 mGy and DLP is 703.85 mGy-cm. Automated exposure control was utilized for the study. A dose lowering technique was utilized adhering to the principles of ALARA. COMPARISON: Comparison made to prior head CT from March 18, 2021. FINDINGS: Brain: Unremarkable. No hemorrhage. Moderate nonspecific white matter changes. No edema. Ventricles: Unremarkable. No ventriculomegaly. Bones/joints: Unremarkable. No acute fracture. Soft tissues: Bilateral lens replacements. Sinuses: Unremarkable as visualized. No acute sinusitis. Mastoid air cells: Unremarkable as visualized. No mastoid effusion. IMPRESSION: No evidence of acute intracranial pathology. Electronically signed by: Elysia Hughes MD 05/12/23 03:04 AM (2) Sciatica Laterality: left Qualified Code(s): M54.32 - Sciatica, left side (5) Closed compression fracture of lumbar vertebra Encounter type: initial encounter Lumbar vertebra fracture level: L5 Qualified Code(s): S32.050A - Wedge compression fracture of fifth lumbar vertebra, initial encounter for closed fracture
[2023-05-13] MEDS: predniSONE 5 MG TAB PO ONE (15:07)
[2023-05-14] MEDS: ACETAMINOPHEN 500 MG TAB PO PRN (05:56)
--- NOTE | 2023-05-14 06:23 | Electrocardiogram Report ---
Test Reason : Blood Pressure : / mmHG Vent. Rate : 056 BPM Atrial Rate : 056 BPM P-R Int : 176 ms QRS Dur : 136 ms QT Int : 450 ms P-R-T Axes : 046 003 011 degrees QTc Int : 434 ms Sinus bradycardia Right bundle branch block Abnormal ECG When compared with ECG of 30-APR-2023 11:20, No significant change was found Confirmed by Sohail Oliveira ([id number]) on 05/14/2023 6:23:08 AM Referred By: REFERRED SELF Confirmed By:Sohail Oliveira
[2023-05-14 06:53] LABS: Hematocrit (blood only) 34.3 % (37.0-47.0); Hemoglobin 11.4 g/dl (12.0-16.0); Mean Corpuscular Hemoglobin 29.5 pg (25.0-34.0); Mean Corpuscular Hgb Conc 33.2 g/dL (32.0-36.0); Mean Corpuscular Volume 88.9 fL (80.0-100.0); Mean Platelet Volume 9.6 fL (9.4-12.4); Platelet Count 129 K/uL (130-400); RDW Coefficient of Variation 13.5 % (11.5-14.5); RDW Standard Deviation 43.6 fL (36.4-46.3); Red Blood Count 3.86 M/uL (4.20-5.40); White Blood Count 9.03 K/ul (4.8-10.8)
[2023-05-14 07:27] LABS: BUN Creatinine Ratio 33.3 (10-20); Calcium 8.1 mg/dl (8.6-10.3); Creatinine Clr Calc Pharmacy 63.6 ml/min; Est GFR (Non-African American) 83.7 ml/min; Potassium 4.3 mmol/L (3.5-5.1)
--- NOTE | 2023-05-14 08:25 | Orthopedic Progress Note ---
Date of Service May 14, 2023 Assessment & Plan (1) Lumbar disc herniation with radiculopathy: Plan: Kathy is postoperative day 2 status post lumbar laminectomy L5-S1 on the left. She is orthopedically stable. Will continue with physical therapy. Ambulate ad shawanda. DVT prophylaxis is in the form teds and SCDs. Anticipated discharge [facility] once medically stable. Admission and Anticipated Discharge Date Admission Date: April 30, 2023 Subjective Kathy is postoperative day 2 status post lumbar laminectomy L5-S1 on the left. Preoperative pain involving the left lower extremity has resolved. Is back to baseline with her chronic rheumatoid pain specifically her knee. Overall she is very deconditioned and very weak from laying in bed preoperatively. Currently working on physical therapy for this. Review of Systems Review of Systems: All systems reviewed & are unremarkable except as noted in HPI & below Physical Exam Physical Exam: She is lying in bed on her right side Alert and oriented x 3 Dressing is clean dry and intact lumbar spine Strength intact bilateral lower extremities Results & Data Vital Signs (Past 12 Hours) Vital Signs Temp Pulse Resp BP Pulse Ox O2 Del Method 05/14/23 07:01 36.8 C 64 16 143/61 H 98 Room Air
[2023-05-14] MEDS: ASPIRIN 81 MG ECTAB PO SCH (09:25)
[2023-05-14] MEDS: predniSONE 5 MG TAB PO SCH (09:25)
[2023-05-14] MEDS: LOSARTAN POTASSIUM 50 MG TAB PO SCH (09:26)
[2023-05-14] MEDS: DICLOFENAC SOD 1% GEL 100 GM TUBE EXT SCH (12:33)
--- NOTE | 2023-05-14 12:50 | Hospitalist Progress Note ---
Date of Service May 14, 2023 Assessment & Plan (1) Ambulatory dysfunction: (2) Sciatica: (3) Hip pain, left: (4) Osteoporosis: (5) Closed compression fracture of lumbar vertebra: (6) Acute UTI: (7) Hydronephrosis of right kidney: (8) Paroxysmal atrial fibrillation: (9) Hypertension: (10) CKD (chronic kidney disease), stage III: (11) Rheumatoid arthritis: (12) Hypothyroidism: Plan Ms. Trimble is an 87yo F with PMH of hypertension, venous insufficiency, paroxysmal atrial fibrillation not on anticoagulation due to fall risk, CKD 3, EBONI, rheumatoid arthritis on prednisone, history of TIA, history of left hip replacement and other medical problems listed below who presents with worsening left hip pain and ambulatory dysfunction over the past few days. Patient reports progressive pain with ambulation, mostly radiating down left leg--patient states pain brings her to tears, plan to trial medrol dose pack with Ortho spine tomorrow. No emergent symptoms/signs at this time. CT lumbar spine with the following: L5 compression fracture, chronic L2 compression fracture, severe central canal narrowing. MRI ordered: . A 1.5 cm disc extrusion versus sequestered disc fragment at L5-S1 causes severe left lateral recess narrowing. Additionally, there is [id number] central canal stenosis at this level with severe left and [id number] right neural foraminal narrowing. Physical exam with lower extremity with strength intact, but hip range of motion limited 2/2 pain. Sensation intact. Patient remains limited overall. Offered patient transfer to [facility] or [facility] sooner eval over the weekend, but patient declined. Dr Soares with [facility] evaluated patient 05/02 with concerns for possible need of laminectomy. Pain consulted for steroid injections. Patient underwent laminectomy on 05/11 with notable improvement in symptoms. Patient with chronic pain that has returned, but otherwise progressing well postoperatively. #Severe left neural foraminal narrowing at L5-S1 #Lumbar disc extrusion #Acute L5 Fracture #Age-related osteoporosis with pathologic fracture of lumbar spine This is patient's third ED visit in 3 days for worsening pain of left hip extending to leg. : CT of the lumbar spine revealed an acute lumbar fracture the patient likely does have 2 additional older fractures, also with moderate-severe central canal narrowing at L4-L5 due to the disc bulge and facet hypertrophy Has since returned to ED twice for worsening pain now more localized to left hip with radiation down buttocks and posterior upper leg No new bowel/bladder incontinence but endorses new ambulatory dysfunction (can ambulate with walker at baseline) -MRI findings as above -PT/OT -Pain management -Plan for Ortho Spine consult -Recommend Pain management consult -Potential for laminectomy, or further intervention if pain management unable to resolve -Pt received epidural steroid injection by pain management on 05/09/2023 - Gabapentin increased to 300mg TID - She did have increased range of motion to left lower extremity but continues to have persistent low back pain -Discontinued Dilaudid prn / confusion Continue home prednisone 5mg daily POD #2 s/p Lumbar laminectomy L5-S1 on the left with excision of herniated free fragment with significant improvement to pain, strength Per ortho for pain control, wound care, anticoagulation and activities Hemoglobin stable Medically ready for discharge to rehab #Severe Rheumatoid RA #Chronic left knee osteoarthritis Follows with Dr. Nava for RA, osteoporosis Continue Enbrel, Fosamax, resumed daily prednisone 5mg daily Topical volatren and warm compress #Hiatal hernia #Tortuous esophagus -issues with chronic regurgitation Will require OP swallow study and barium swallow, as well as GI follow up in interim moist/slippery diet Will need to coordinate GI follow up when able/willing to complete above tests #Acute uncomplicated cystitis POA ->completed course #Chronic UPJ obstruction, right hydronephrosis Urine culture from grew pansensitive Klebsiella, has been taking PO cephalexin at home Will treat with IV Rocephin while admitted,EOT 05/03 CT L spine from with evidence of moderate right hydronephrosis to the level of the ureteropelvic junction. 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 No obstructing stones identified Denies any urinary symptoms Continue to monitor closely, bladder scan PRN and consider re-imaging if symptoms develop #Chronic RBBB #Paroxysmal A Fib Not on anticoagulant due to fall risk Admission EKG showing normal sinus rhythm Continue atenolol daily Pre-op ECHO mild LVH, mild aortic regurg. BNP 102 Stable, no o2 requirement # T2DM with hyperglycemia*improved A1c as outpatient on 09/07/2022 revealed at A1c of 6.5 Change diet to diabetic Blood sugar noted to be over 500 on routine lab draw 05/10 Likely secondary to steroids BSG now within range on basal/bolus regimen, appreciate glycemic pharmacy #HTN BP initially elevated in setting of pain. Now normotensive. Continue home amlodipine, atenolol, losartan, hctz #CKD III Creatinine 0.67 at baseline, continue to monitor daily BMP #Hypothyroidism Continue levothyroxine DVT ppx SCDs per ortho surgery Pending bed for rehab DNR/DNI PCP:Dr. Bahena Admission and Anticipated Discharge Date Admission Date: April 30, 2023 Subjective Patient evaluated at bedside Notes back pain feels much better, but endorses left knee pain--this pain is her chronic pain that comes and goes, and is notably bothersome this morning Patient required reassurance at bedside but easily redirected and motivated Physical Exam Constitutional: WD/WN, vitals as above Respiratory: normal respiratory effort, lungs clear to auscultation Cardiovascular: RRR, no murmur, no edema Skin: dressing on lower back CDI, localized firmness/inflammation 2/2 surgical changes, no signs of bleeding or erythema Results & Data Results & Data Vital Signs (Past 12 Hours) Vital Signs Temp Pulse Resp BP Pulse Ox O2 Del Method 05/14/23 07:01 36.8 C 64 16 143/61 H 98 Room Air Laboratory Results Short CBC 05/14/23 Range/Units 05:27 WBC 9.03 (4.8-10.8) K/ul Hgb 11.4 L (12.0-16.0) g/dl Hct 34.3 L (37.0-47.0) % Plt Count 129 L (130-400) K/uL BMP 05/14/23 05:27 Sodium 139 Potassium 4.3 Chloride 106 Carbon Dioxide 30 BUN 18 Creatinine 0.54 L Glucose 112 H Calcium 8.1 L Medications Administered Home Medications Medication Instructions Recorded Confirmed Last Taken atenolol 100 mg tablet 100 mg PO DAILY 01/28/18 04/30/23 12/12/20 calcium carbonate 600 mg calcium 600 mg PO DAILY PRN Other 01/28/18 04/30/23 12/12/20 (1,500 mg) tablet (Calcium) cholecalciferol (vitamin D3) 25 1,000 unit PO DAILY 01/28/18 04/30/23 12/12/20 mcg (1,000 unit) capsule (Vitamin D3) levothyroxine 137 mcg tablet 137 mcg PO DAILY 01/28/18 04/30/2312/12/21 losartan 100 mg tablet 100 mg PO DAILY 01/28/18 04/30/23 12/12/20 alendronate 70 mg tablet 70 mg PO WK 12/12/20 04/30/23 12/08/20 amlodipine 10 mg tablet 5 mg PO DAILY 12/12/20 04/30/23 12/12/20 aspirin 81 mg tablet,delayed 81 mg PO DAILY 12/12/20 04/30/23 12/12/20 release prednisone 5 mg tablet 5 mg PO DAILY 12/12/20 04/30/23 12/12/20 ferrous sulfate 325 mg (65 mg 325 mg PO DAILY 03/19/21 04/30/23 Unknown iron) tablet acetaminophen 300 mg-codeine 30 mg 1 tab PO Q12H PRN pain #6 tabs 04/28/23 04/30/23 Unknown tablet acetaminophen 650 mg 1,300 mg PO BID 04/28/23 04/30/23 Unknown tablet,extended release cephalexin 500 mg tablet 500 mg PO BID 6 days #12 tabs 04/28/23 04/30/23 Unknown etanercept 25 mg/0.5 mL (0.5 mL) 25 mg subcut .TWICE WEEKLY 04/28/23 04/30/23 Unknown subcutaneous syringe (Enbrel) hydrochlorothiazide 12.5 mg tablet 12.5 mg PO DAILY 04/28/23 04/30/23 Unknown omeprazole 20 mg capsule,delayed 20 mg PO DAILY 04/28/23 04/30/23 Unknown release oxycodone 5 mg tablet 5 mg PO Q8H PRN pain #11 tabs 04/29/23 04/30/23 Unknown Active Medications Generic Name Dose Route Start Last Admin Trade Name Freq PRN Reason Stop Dose Admin Acetaminophen 1,000 mg 04/30/23 11:45 05/14/23 03:54 Acetaminophen 500 Mg Tab PO 05/30/23 11:44 Not Given Q8H JAIRO Acetaminophen 1,000 mg 05/12/23 17:02 05/14/23 05:56 Acetaminophen 500 Mg Tab PO 06/11/23 17:01 1,000 mg Q8H PRN Administration MILD Pain Scale 1,2,3 & Pre PT Al Hydrox/Mg Hydrox/Simethicone 30 ml 05/12/23 17:02 05/13/23 05:42 Aluminum/Magnesium Susp 30 Ml Udc PO 06/11/23 17:01 30 ml Q6H PRN Administration Dyspepsia Alendronate Sodium 70 mg 05/02/23 06:30 05/09/23 05:33 Alendronate Sodium 70 Mg Tab PO 06/01/23 06:29 70 mg [id number] JAIRO Administration Amlodipine Besylate 10 mg 05/03/23 09:00 05/14/23 09:24 Amlodipine Besylate 5 Mg Tab PO 06/02/23 08:59 10 mg DAILY JAIRO Administration Aspirin 81 mg 05/14/23 09:00 05/14/23 09:25 Aspirin 81 Mg Ectab PO 06/13/23 08:59 81 mg QAM JAIRO Administration Atenolol 100 mg 05/01/23 09:00 05/14/23 09:24 Atenolol 50 Mg Tablet PO 05/31/23 08:59 100 mg DAILY JAIRO Administration Calcium Carbonate 500 mg 04/30/23 11:40 05/12/23 23:04 Calcium Carbonate 500 Mg Chewable Tab PO 500 mg DAILY PRN Administration heartburn Diazepam 2 mg 05/11/23 10:42 05/12/23 23:02 Diazepam 2 Mg Tablet PO 06/10/23 10:41 2 mg BID PRN Administration Muscle Spasm Diclofenac Sodium 4 gm 05/14/23 09:30 05/14/23 12:33 Diclofenac Sod 1% Gel 100 Gm Tube EXT 06/13/23 09:29 4 gm Q6H JAIRO Administration Protocol Ferrous Sulfate 325 mg 05/01/23 09:00 05/14/23 09:24 Ferrous Sulfate 325 Mg Tab PO 05/31/23 08:59 325 mg DAILY JAIRO Administration Gabapentin 300 mg 05/11/23 14:00 05/14/23 09:25 Gabapentin 300 Mg Cap PO 06/10/23 13:59 300 mg TID JAIRO Administration Insulin Aspart 0 units 05/12/23 21:00 05/14/23 12:33 Insulin Aspart Per Unit Charge SC 06/11/23 20:59 6 units ACHS JAIRO Administration Insulin Glargine 6 units 05/13/23 09:00 05/14/23 10:02 Lantus Per Unit Charge SC 06/12/23 08:59 6 units BID JAIRO Administration Levothyroxine Sodium 137 mcg 05/01/23 06:30 05/14/23 05:42 Levothyroxine Sodium 137 Mcg Tablet PO 05/31/23 06:29 137 mcg DAILYBB JAIRO Administration Lidocaine 1 patch 05/02/23 20:00 05/13/23 20:07 Lidocaine 5% 1 Patch TD 06/01/23 19:59 1 patch Q24H JAIRO Administration Losartan Potassium 50 mg 05/14/23 09:00 05/14/23 09:26 Losartan Potassium 50 Mg Tab PO 06/13/23 08:59 50 mg QAM JAIRO Administration Miscellaneous 1 each 05/03/23 08:00 05/14/23 09:25 Remove Lidoderm Patch N/A 06/02/23 07:59 1 each Q24H JAIRO Administration Oxycodone HCl 5 - 10 mg 05/12/23 17:02 05/14/23 09:23 Oxycodone Hcl Ir 5 Mg Tab (Immediate Release) PO 05/26/23 17:01 5 mg Q4H PRN Administration Pain & Pre PT Pantoprazole Sodium 40 mg 05/01/23 09:00 05/14/23 09:24 Pantoprazole 40 Mg Tab PO 05/31/23 08:59 40 mg DAILY JAIRO Administration Polyethylene Glycol 17 gm 04/30/23 12:20 05/05/23 10:28 Polyethylene (Miralax) 17 Gm Pack PO 05/30/23 12:19 17 gm DAILY PRN Administration Constipation Polyethylene Glycol 17 gm 05/13/23 06:00 05/14/23 05:42 Polyethylene (Miralax) 17 Gm Pack PO 06/12/23 05:59 17 gm Q6 JAIRO Administration Prednisone 5 mg 05/14/23 09:00 05/14/23 09:25 Prednisone 5 Mg Tab PO 06/13/23 08:59 5 mg DAILY JAIRO Administration Senna/Docusate Sodium 2 tab 05/12/23 21:00 05/13/23 20:07 Docusate Sodium/Senna 50/8.6mg Tab PO 06/11/23 20:59 2 tab HS JAIRO Administration Tramadol HCl 50 mg 05/02/23 13:38 05/12/23 21:12 Tramadol Hcl 50 Mg Tablet PO 06/01/23 13:37 50 mg Q4H PRN Administration Moderate Pain (Scale 4, 5, 6) Vitamin D 25 mcg 05/01/23 09:00 05/14/23 09:25 Cholecalciferol 25 Mcg (1000 Units) Tab PO 05/31/23 08:59 25 mcg DAILY JAIRO Administration (2) Sciatica Laterality: left Qualified Code(s): M54.32 - Sciatica, left side (5) Closed compression fracture of lumbar vertebra Encounter type: initial encounter Lumbar vertebra fracture level: L5 Qualified Code(s): S32.050A - Wedge compression fracture of fifth lumbar vertebra, initial encounter for closed fracture
[2023-05-15 06:52] LABS: Hematocrit (blood only) 34.4 % (37.0-47.0); Hemoglobin 11.6 g/dl (12.0-16.0); Mean Corpuscular Hemoglobin 29.1 pg (25.0-34.0); Mean Corpuscular Hgb Conc 33.7 g/dL (32.0-36.0); Mean Corpuscular Volume 86.4 fL (80.0-100.0); Mean Platelet Volume 9.5 fL (9.4-12.4); Platelet Count 126 K/uL (130-400); RDW Coefficient of Variation 13.4 % (11.5-14.5); RDW Standard Deviation 42.1 fL (36.4-46.3); Red Blood Count 3.98 M/uL (4.20-5.40); White Blood Count 9.57 K/ul (4.8-10.8)
[2023-05-15 07:17] LABS: BUN Creatinine Ratio 31.5 (10-20); Creatinine Clr Calc Pharmacy 63.6 ml/min; Est GFR (Non-African American) 83.7 ml/min; Potassium 3.9 mmol/L (3.5-5.1)
--- NOTE | 2023-05-15 08:12 | Orthopedic Progress Note ---
Date of Service May 15, 2023 Assessment & Plan (1) Lumbar disc herniation with radiculopathy: Plan: Kathy is postoperative day 3 status post lumbar laminectomy L5-S1. She is orthopedically stable for discharge. Ambulate ad shawanad. Will see her in the office in 2 weeks. Admission and Anticipated Discharge Date Admission Date: April 30, 2023 Subjective Kathy is postoperative day 3 lumbar laminectomy L5-S1. Left lower extremity radicular pain has resolved. Has her baseline chronic back and knee pain. Still quite weak and limited with activity and ambulation. She is scheduled for discharge to [facility] today. Review of Systems Review of Systems: All systems reviewed & are unremarkable except as noted in HPI & below Physical Exam Physical Exam: Laying in bed in no acute distress Alert and oriented x 3 Dressing is clean dry and intact lumbar spine Strength improved left lower extremity Results & Data Vital Signs (Past 12 Hours) Vital Signs Temp Pulse Resp BP Pulse Ox O2 Del Method 05/15/23 07:03 36.6 C 67 16 127/61 94 Room Air
[2023-05-15] MEDS: LOSARTAN POTASSIUM 50 MG TAB PO SCH (08:59)
[2023-05-15] MEDS: LANTUS PER UNIT CHARGE SC SCH (09:07)
--- NOTE | 2023-05-15 11:12 | Discharge Summary ---
Discharge Summary Date of Service May 15, 2023 Notes For Next Care Provider A1C 7.4, hyperglycemia iso high dose steroids, recommend follow up with PCP for further monitoring Will need GI follow up and discussion of barium swallow/video swallow given chronic regurgitation iso hiatal hernia Medication Changes From Visit Gabapentin 300mg TID Pantoprazole 40mg BID Lidocaine patches Admission HPI Per Admitting Provider This is an 87yo F with PMH of hypertension, venous insufficiency, paroxysmal atrial fibrillation not on anticoagulation due to fall risk, CKD 3, EBONI, rheumatoid arthritis on prednisone, history of TIA, history of left hip replacement and other medical problems listed below who presents with worsening left hip pain and ambulatory dysfunction over the past few days. This is patient's third ED visit in 3 days for worsening pain of left hip extending to leg. Was initially seen on with worsening back pain after doing some ho usework earlier in the weekend and was found to have concern for UTI, started on Keflex. CT of the lumbar spine revealed an acute lumbar fracture the patient likely does have 2 additional older fractures. Was discharged home and returned the following day with continued pain now more localized near left lower back/hip with radiation down leg but no weakness or bowel or bladder dysfunction. Family requesting rehab placement at that time due to difficulty caring for her at home with increased ambulatory dysfunction but patient refused and was eventually discharged home with oxycodone. Today, patient returns with more persistent pain overnight remaining in the left hip to buttocks region with some radiation down leg. Pain described as constant, made worse with movement. Ambulatory dysfunction requiring EMS to be called as family unable to lift her. No weakness of left lower extremity, or bowel or bladder dysfunction. Urine culture from grew pansensitive Klebsiella. Never had urinary symptoms but states she has been urinating a normal amount for her. No fever, chills, lightheadedness, headache, chest pain, shortness of breath, nausea, vomiting, abdominal pain, dysuria, diarrhea or constipation. H/o L hip fracture s/p surgical repair. Denies any history of spinal surgery. Admission Exam Per Admitting Provider General Appearance: WD/WN, vitals as above, NAD, sitting up in bed, pleasant, conversing easily Head: normocephalic, atraumatic Eyes: normal inspection, PERRL, conjunctivae normal, anicteric sclerae ENT: external ear and nose normal, oropharynx normal Neck: normal visual inspection, trachea midline, no thyromegaly Respiratory: normal respiratory effort, lungs clear to auscultation, no wheeze, rales, rhonchi. No accessory muscle use Cardiovascular: regular rate, rhythm, normal peripheral pulses, no BLE edema. Vessels: no JVD Chest: normal inspection of chest Abdomen/GI: normal bowel sounds, soft, nontender, no hepatosplenomegaly Extremities/Musculoskeletal: + Left paraspinal TTP extending to iliac crest, no motor weakness or sensory abnormality noted Neurologic: PERRL, EOMI, accommodation nl, no face palsy, no dysarthria, CN's II-XI intact bilaterally and moves all extremities Psychiatric: A+Ox3, euthymic affect Skin: no rashes, normal color, warm/dry Principal Dx & Hospital Course #1 = Principal Diagnosis (1) Ambulatory dysfunction: (2) Sciatica: (3) Hip pain, left: (4) Osteoporosis: (5) Closed compression fracture of lumbar vertebra: (6) Acute UTI: (7) Hydronephrosis of right kidney: (8) Paroxysmal atrial fibrillation: (9) Hypertension: (10) CKD (chronic kidney disease), stage III: (11) Rheumatoid arthritis: (12) Hypothyroidism: Plan Ms. Trimble is an 87yo F with PMH of hypertension, venous insufficiency, paroxysmal atrial fibrillation not on anticoagulation due to fall risk, CKD 3, EBONI, rheumatoid arthritis on prednisone, history of TIA, history of left hip replacement and other medical problems listed below who presents with worsening left hip pain and ambulatory dysfunction over the past few days. Patient reports progressive pain with ambulation, mostly radiating down left leg--patient states pain brings her to tears, plan to trial medrol dose pack with Ortho spine tomorrow. No emergent symptoms/signs at this time. CT lumbar spine with the following: L5 compression fracture, chronic L2 compression fracture, severe central canal narrowing. MRI ordered: . A 1.5 cm disc extrusion versus sequestered disc fragment at L5-S1 causes severe left lateral recess narrowing. Additionally, there is ddxr-oj-baxzhocm central canal stenosis at this level with severe left and [id number] right neural foraminal narrowing. Physical exam with lower extremity with strength intact, but hip range of motion limited 2/2 pain. Sensation intact. Patient remains limited overall. Offered patient transfer to [facility] or [facility] for sooner eval over the weekend, but patient declined. Dr Soares with [facility] evaluated patient 05/02 with concerns for possible need of laminectomy. Pain consulted for steroid injections. Patient underwent laminectomy on 05/11 with notable improvement in symptoms. Patient with chronic pain that has returned, but otherwise progressing well postoperatively. #Severe left neural foraminal narrowing at L5-S1 #Lumbar disc extrusion #Acute L5 Fracture #Age-related osteoporosis with pathologic fracture of lumbar spine This is patient's third ED visit in 3 days for worsening pain of left hip extending to leg. : CT of the lumbar spine revealed an acute lumbar fracture the patient likely does have 2 additional older fractures, also with moderate-severe central canal narrowing at L4-L5 due to the disc bulge and facet hypertrophy Has since returned to ED twice for worsening pain now more localized to left hip with radiation down buttocks and posterior upper leg No new bowel/bladder incontinence but endorses new ambulatory dysfunction (can ambulate with walker at baseline) -MRI findings as above -PT/OT:rehab -Pain management -Plan for Ortho Spine consult -Recommend Pain management consult -Potential for laminectomy, or further intervention if pain management unable to resolve -Pt received epidural steroid injection by pain management on 05/09/2023 - Gabapentin increased to 300mg TID - She did have increased range of motion to left lower extremity but continues to have persistent low back pain -Discontinued Dilaudid prn 04/01 confusion Continue home prednisone 5mg daily POD #3 s/p Lumbar laminectomy L5-S1 on the left with excision of herniated free fragment with significant improvement to pain, strength Per ortho for pain control, wound care, anticoagulation and activities Hemoglobin stable Medically ready for discharge to rehab #Severe Rheumatoid RA #Chronic left knee osteoarthritis Follows with Dr. Nava for RA, osteoporosis Continue Enbrel, Fosamax, resumed daily prednisone 5mg daily Topical volatren and warm compress #Hiatal hernia #Tortuous esophagus -issues with chronic regurgitation Will require OP swallow study and barium swallow in interim moist/slippery diet Will need to coordinate GI follow up when able/willing to complete above tests #Acute uncomplicated cystitis POA ->completed course #Chronic UPJ obstruction, right hydronephrosis Urine culture from grew pansensitive Klebsiella, has been taking PO cephalexin at home Will treat with IV Rocephin while admitted,EOT 05/03 CT L spine from with evidence of moderate right hydronephrosis to the level of the ureteropelvic junction. 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 No obstructing stones identified Denies any urinary symptoms Continue to monitor closely, bladder scan PRN and consider re-imaging if symptoms develop #Chronic RBBB #Paroxysmal A Fib Not on anticoagulant due to fall risk Admission EKG showing normal sinus rhythm Continue atenolol daily Pre-op ECHO mild LVH, mild aortic regurg. BNP 102 Stable, no o2 requirement # T2DM with hyperglycemia*improved A1c as outpatient on 09/07/2022 revealed at A1c of 6.5 A1C 7.4, hyperglycemia iso high dose steroids, recommend follow up with PCP #HTN Continue home amlodipine, atenolol, losartan, hctz #CKD III at baseline #Hypothyroidism Continue levothyroxine Discharge Exam Constitutional WD/WN, vitals as above Respiratory normal respiratory effort, lungs clear to auscultation Cardiovascular RRR, no murmur, no edema Gastrointestinal (Abdomen) normal bowel sounds, soft, nontender, no hepatosplenomegaly Updated Medication List Medication Instructions Recorded Confirmed Type atenolol 100 mg tablet 100 mg PO DAILY 01/28/18 04/30/23 History calcium carbonate 600 mg calcium 600 mg PO DAILY PRN Other 01/28/18 04/30/23 History (1,500 mg) tablet (Calcium) cholecalciferol (vitamin D3) 25 1,000 unit PO DAILY 01/28/18 04/30/23 History mcg (1,000 unit) capsule (Vitamin D3) levothyroxine 137 mcg tablet 137 mcg PO DAILY 01/28/18 04/30/23 History losartan 100 mg tablet 100 mg PO DAILY 01/28/18 04/30/23 History alendronate 70 mg tablet 70 mg PO WK 12/12/20 04/30/23 History amlodipine 10 mg tablet 5 mg PO DAILY 12/12/20 04/30/23 History aspirin 81 mg tablet,delayed 81 mg PO DAILY 12/12/20 04/30/23 History release prednisone 5 mg tablet 5 mg PO DAILY 12/12/20 04/30/23 History ferrous sulfate 325 mg (65 mg 325 mg PO DAILY 03/19/21 04/30/23 History iron) tablet acetaminophen 300 mg-codeine 30 mg 1 tab PO Q12H PRN pain #6 tabs 04/28/23 04/30/23 Rx tablet acetaminophen 650 mg 1,300 mg PO BID 04/28/23 04/30/23 History tablet,extended release etanercept 25 mg/0.5 mL (0.5 mL) 25 mg subcut .TWICE WEEKLY 04/28/23 04/30/23 History subcutaneous syringe (Enbrel) hydrochlorothiazide 12.5 mg tablet 12.5 mg PO DAILY 04/28/23 04/30/23 History oxycodone 5 mg tablet 5 mg PO Q8H PRN pain #11 tabs 04/29/23 04/30/23 Rx gabapentin 300 mg capsule 300 mg PO TID #90 caps 05/14/23 Rx lidocaine 5 % topical patch 1 patch transdermal Q24H #30 ea 05/14/23 Rx pantoprazole 40 mg tablet,delayed 40 mg PO BID #60 tabs 05/14/23 Rx release Hospital Stay Data Consultations 04/30/23 10:11 ED Decision to Admit Stat 05/02/23 08:55 Consult Orthopedic Spine Surgery Routine 05/03/23 10:27 Consult Pain Management Routine 05/11/23 13:32 Consult Gastroenterology Routine 05/11/23 14:04 Consult Anesthesiology Routine Procedures Performed Operation Date: 05/12/23 14:05 Actual Procedures p Lumbar laminectomy L5-S1 on the left with excision of herniated free fragment - Emir Soares DO Diagnostic Imagining Performed 04/30/23 11:34 MR lumbar spine wo/w con Urgent 05/09/23 08:42 FL fluoro for pain procedure Routine 05/12/23 FL spine 1V any level Routine 05/12/23 00:57 CT head/brain wo con Urgent Pending Results Patient Have Any Pending Studies at Discharge: No Discharge Instructions Given to Patient (Per Discharging Provider) ACTIVITY RECOMMENDATIONS: SELF CARE INSTRUCTIONS AFTER A LAMINECTOMY 1. No prolonged sitting (less than 30 minutes for the first 3 weeks after surgery). 2. No bending, lifting more than 5 pounds, or twisting (roll like a log when turning in bed). 3. You may shower 3 days after surgery if no drainage from wound. Thoroughly dry wound. Do not soak in the tub. 4. Please walk as much as you can for exercise. Gradually increase the distance that you walk as your endurance increases. 5. You may drive in 7-10 days if you are comfortable and no longer requiring pain medications. SPECIAL CARE INSTRUCTIONS: VERY IMPORTANT TO READ AND REVIEW A. Your surgical incision has been closed with a cosmetic suture under the skin that will dissolve in about 6 weeks. In 14 days, you can use a pair of clean scissors and cut the suture that is left outside of the skin at the ends of your incision. B. Complications are uncommon, but please contact us if you have any signs or symptoms of: 1. wound infection (fever higher than 102.5 degrees F, redness, separation of wound, drainage, or increasing pain from the incision) 2. blood clots in legs (pain, swelling, redness and warmth in legs) 3. urinary tract infection (fever higher than 102.5 degrees, burning upon urination or increased frequency of urination) 4. nerve problems (inability to walk on your toes or heels, numbness, loss of bowel or bladder control) 5. any other symptoms that concern you. C. Please call the office at if you have any concerns or questions about your operation or recovery. MANAGING PAIN AFTER SPINAL SURGERY 1. Narcotic medication is intended for short-term use and will be provided for surgical pain. Surgical pain usually lasts for a period of 4-6 weeks. Narcotic medication includes Percocet, Vicodin, Darvocet, Tylenol #3 or Lortab. 2. Longer-term pain is more appropriately treated with non-narcotic medication such as Tylenol ES. 3. Muscle spasm is not appropriately treated with narcotics. Muscle relaxers such as Soma, Flexeril or Skelaxin can be used along with Tylenol ES. 4. Remember that we all live with some "aches and pains". This is not unusual or uncommon after an injury or as we get older. 5. We will provide appropriate medication within the normal guidelines of their prescribed use. We will also be very cautious and aware of potential abuse and extended duration of patients' medication needs. 6. Please allow 2-3 days to process refills. Prescriptions will not be mailed but must be picked up at the office. FOLLOW UP VISIT: Keep your scheduled follow-up appointment. Any questions, please call the office at . ACTIVITY RECOMMENDATIONS: SELF CARE INSTRUCTIONS AFTER A LAMINECTOMY 1. No prolonged sitting (less than 30 minutes for the first 3 weeks after surgery). 2. No bending, lifting more than 5 pounds, or twisting (roll like a log when turning in bed). 3. You may shower 3 days after surgery if no drainage from wound. Thoroughly dry wound. Do not soak in the tub. 4. Please walk as much as you can for exercise. Gradually increase the distance that you walk as your endurance increases. 5. You may drive in 7-10 days if you are comfortable and no longer requiring pain medications. SPECIAL CARE INSTRUCTIONS: VERY IMPORTANT TO READ AND REVIEW A. Your surgical incision has been closed with a cosmetic suture under the skin that will dissolve in about 6 weeks. In 14 days, you can use a pair of clean scissors and cut the suture that is left outside of the skin at the ends of your incision. B. Complications are uncommon, but please contact us if you have any signs or symptoms of: 1. wound infection (fever higher than 102.5 degrees F, redness, separation of wound, drainage, or increasing pain from the incision) 2. blood clots in legs (pain, swelling, redness and warmth in legs) 3. urinary tract infection (fever higher than 102.5 degrees, burning upon urination or increased frequency of urination) 4. nerve problems (inability to walk on your toes or heels, numbness, loss of bowel or bladder control) 5. any other symptoms that concern you. C. Please call the office at if you have any concerns or questions about your operation or recovery. MANAGING PAIN AFTER SPINAL SURGERY 1. Narcotic medication is intended for short-term use and will be provided for surgical pain. Surgical pain usually lasts for a period of 4-6 weeks. Narcotic medication includes Percocet, Vicodin, Darvocet, Tylenol #3 or Lortab. 2. Longer-term pain is more appropriately treated with non-narcotic medication such as Tylenol ES. 3. Muscle spasm is not appropriately treated with narcotics. Muscle relaxers such as Soma, Flexeril or Skelaxin can be used along with Tylenol ES. 4. Remember that we all live with some "aches and pains". This is not unusual or uncommon after an injury or as we get older. 5. We will provide appropriate medication within the normal guidelines of their prescribed use. We will also be very cautious and aware of potential abuse and extended duration of patients' medication needs. 6. Please allow 2-3 days to process refills. Prescriptions will not be mailed but must be picked up at the office. FOLLOW UP VISIT: Keep your scheduled follow-up appointment. Any questions, please call the office at . Total Time Total Time Spent Total Time Spent (In Minutes): 45
== END 2023-05-15 15:24 | DRG 516 ==
LOC: ED 09:48 → EDINP 11:38 → SUATTDRO 11:38 → EDINP 12:18 → 3W 13:58